=== PATIENT | female | born 1965 | race Caucasian/White ===

== ENCOUNTER 2018-08-28 10:30 | Observation (INO) | payer BC, SELFPAY ==
--- OUTSIDE RECORDS SUMMARY | 2018-08-28 10:32 | XMS REPORT | Clinical Summary ---
:1965 Author Organization [facility] Address [address] [place] [id number] Care Team Providers Name Role Phone Daniel Marion MD Primary Care Provider Allergies Active Allergy Reactions Severity Noted Date Comments Meperidine Swelling High 05/18/2016 Penicillins Swelling High 05/18/2016 Current Medications Prescription Sig. Disp. Refills Start Date End Date Status warfarin (COUMADIN) 7.5 Take 1 tablet 30 tablet 0 05/19/2016 Active MG tablet (7.5 mg total) by mouth daily. Active Problems Problem Noted Date Chest pain 05/19/2016 PAF (paroxysmal atrial fibrillation) (HCC) 05/19/2016 HTN (hypertension) 05/19/2016 GERD (gastroesophageal reflux disease) 05/19/2016 Social History Tobacco Use Types Packs/Day Years Used Date Never Assessed Sex Assigned at Date Recorded Not on file Last Filed Vital Signs Not on file Plan of Treatment Health Maintenance Due Date Last Done Comments CERVICAL CANCER SCREENING 1987 BREAST CANCER SCREENING 02/19/2016 COLON CANCER SCREENING 02/19/2016 SHINGRIX VACCINE (#1) 02/19/2016 INFLUENZA VACCINE 06/05/2018 Results Not on fileafter 08/27/2017 Insurance Payer Benefit Plan / Group Subscriber ID Type Phone Address CIGNA CIGNA INDEMNITY xxxxxxxxxxx Indemnity C[employer] C[employer]NA CONNECT xxxxxxxxxxx HMO Home: Jennifer KALLIE TONG [phone] [place], [place] [id number]
[2018-08-28 11:09] LABS: Absolute Lymphocytes (CBC) 1.1 K/uL (0.7-4.9); Absolute Monocytes 0.5 K/uL (0.1-1.3); Absolute Neutrophil 5.7 K/uL (1.8-8.0); Basophils % 0.6 % (0-1.3); Eosinophils % 1.4 % (0-4.4); Hematocrit 44.5 % (36.0-45.0); Lymphocytes % 14.8 % (15.3-44.8); MCH 31.9 pg (27.0-35.0); MCV 91.5 fL (80-100); MPV 9.5 fL (7.6-11.3); Monocytes % 7.2 % (3.3-12.3); Protime INR 2.83; RBC Red Blood Cell Count 4.87 M/uL (3.86-4.86)
[2018-08-28 11:22] LABS: ALT/SGPT 31 U/L (12-78); AST/SGOT 26 U/L (15-37); Albumin 4.4 g/dL (3.4-5.0); Alkaline Phosphatase 81 U/L (45-117); BUN Blood Urea Nitrogen 17 mg/dL (7-18); Bicarbonate 29 mmol/L (21-32); Bilirubin Direct 0.1 mg/dL (0-0.2); Bilirubin Total 0.6 mg/dL (0.2-1.0); Glucose Level 87 mg/dL (74-106); Magnesium 2.2 mg/dL (1.8-2.4); NT PRO-BNP 47 pg/mL (<125); Potassium 3.7 mmol/L (3.5-5.1); Sodium Level 142 mmol/L (136-145); Troponin (Emerg Dept Use Only) < 0.02 ng/mL (0.0-0.045)
--- NOTE | 2018-08-28 11:39 | RAD REPORT ---
EXAM DESCRIPTION: RAD - Chest Single View - 08/28/2018 11:18 am CLINICAL HISTORY: CHEST PAIN Chest pain. COMPARISON: Chest Single View dated 09/25/2017; Chest Pa And Lat (2 Views) dated 03/22/2016; CHEST SI NGLE VIEW dated 12/24/2014; CHEST SINGLE VIEW dated 12/24/2014; Chest For Pe Angio dated 09/25/2017 FINDINGS: Portable technique limits examination quality. Chronically elevated right hemidiaphragm is noted. The lungs are grossly clear. The heart is normal i n size. No displaced fractures.Sternotomy wires present. IMPRESSION: No acute intrathoracic process suspected.
[2018-08-28] MEDS ORDERED: CIPROFLOXACIN HCL 500 MG TAB ONE (12:17)
[2018-08-28] MEDS ORDERED: metroNIDAZOLE 500 MG TABLET ONE (12:17)
[2018-08-28] MEDS ORDERED: ASPIRIN 81 MG CHEWABLE TABLET ONE (12:17)
--- NOTE | 2018-08-28 12:17 | EDPHYS ---
Physician Documentation [facility] Name: Yen Jackson Age: 53 yrs Sex: Female : 1965 Arrival Date: 08/28/2018 Time: 10:31 Bed 2 Private MD: Srikanth Madison ED Physician Kenneth Solorzano HPI: 08/28 12:13 This 53 yrs old Female presents to ER via Ambulatory with complaints of Chest jr8 Pain, Nausea and diarrhea. 12:13 Patient stated that she was in [place] last week. Started to have n/v/d. Diarrhea has jr8 been persistent since then. Now having chest pain and tightness radiating to left neck. History of mechanical heart valve and thoracic aortic aneurysm repair. Severity of symptoms: At their worst the symptoms were moderate in the emergency department the symptoms are unchanged. The patient has not experienced similar symptoms in the past. The patient has not recently seen a physician. Historical: - Allergies: 10:36 Demerol; aj1 10:36 PENICILLINS; aj1 - Home Meds: 10:54 Protonix 40 mg Oral TbEC 1 tab once daily [Active]; sotalol 80 mg Oral tab 1 tab 2 sv times per day [Active]; bupropion HCl 150 mg Oral TbER 1 tab once daily [Active]; warfarin 8-9 mg daily Oral tab [Active]; - PMHx: 10:36 Atrial Fib; Hypertension; mechanical heart valve; aj1 - PSHx: 10:36 AAA repair; aj1 - Immunization history:: Adult Immunizations up to date. - Social history:: Smoking status: Patient/guardian denies using tobacco. - Ebola Screening: : No symptoms or risks identified at this time. ROS: 12:13 Eyes: Negative for injury, pain, redness, and discharge, ENT: Negative for injury, jr8 pain, and discharge, Neck: Negative for injury, pain, and swelling, Respiratory: Negative for shortness of breath, cough, wheezing, and pleuritic chest pain, Back: Negative for injury and pain, MS/Extremity: Negative for injury and deformity, Skin: Negative for injury, rash, and discoloration, Neuro: Negative for headache, weakness, numbness, tingling, and seizure. 12:13 Cardiovascular: Positive for chest pain, Negative for edema, orthopnea, palpitations, paroxysmal nocturnal dyspnea. 12:13 Abdomen/GI: Positive for nausea, vomiting, and diarrhea, abdominal cramps, Negative for abdominal pain, abdominal distension, anorexia, dysphagia, hematemesis, black/tarry stool, rectal pain, rectal bleeding, bowel incontinence, flatulence. Exam: 12:13 Eyes: Pupils equal round and reactive to light, extra-ocular motions intact. Lids and jr8 lashes normal. Conjunctiva and sclera are non-icteric and not injected. Cornea within normal limits. Periorbital areas with no swelling, redness, or edema. ENT: Nares patent. No nasal discharge, no septal abnormalities noted. Tympanic membranes are normal and external auditory canals are clear. Oropharynx with no redness, swelling, or masses, exudates, or evidence of obstruction, uvula midline. Mucous membranes moist. Neck: Trachea midline, no thyromegaly or masses palpated, and no cervical lymphadenopathy. Supple, full range of motion without nuchal rigidity, or vertebral point tenderness. No Meningismus. Cardiovascular: Regular rate and rhythm with a normal S1 and S2. No gallops, murmurs, or rubs. Normal PMI, no JVD. No pulse deficits. Mechanical valve auscultated Respiratory: Lungs have equal breath sounds bilaterally, clear to auscultation and percussion. No rales, rhonchi or wheezes noted. No increased work of breathing, no retractions or nasal flaring. Abdomen/GI: Soft, non-tender, with normal bowel sounds. No distension or tympany. No guarding or rebound. No evidence of tenderness throughout. Back: No spinal tenderness. No costovertebral tenderness. Full range of motion. Skin: Warm, dry with normal turgor. Normal color with no rashes, no lesions, and no evidence of cellulitis. MS/ Extremity: Pulses equal, no cyanosis. Neurovascular intact. Full, normal range of motion. Neuro: Awake and alert, GCS 15, oriented to person, place, time, and situation. Cranial nerves II-XII grossly intact. Motor strength 5/5 in all extremities. Sensory grossly intact. Cerebellar exam normal. Normal gait. Vital Signs: 10:36 BP 153 / 102; Pulse 77; Resp 20; Temp 97.0; Pulse Ox 98% on R/A; Weight 83.91 kg (R); aj1 Height 5 ft. 7 in. (170.18 cm); Pain 6/10; 10:40 BP 161 / 91; Pulse 76 MON; Resp 20; Pulse Ox 97% on R/A; sv 11:30 BP 143 / 78; Pulse 69; Resp 18; Pulse Ox 96% ; sv 12:52 BP 159 / 90; Pulse 63; Resp 21; Pulse Ox 100% on R/A; sv 12:59 Pain 2/10; sv 13:27 BP 132 / 81; Pulse 65; Resp 24; Pulse Ox 98% on R/A; sv 10:36 Body Mass Index 28.97 (83.91 kg, 170.18 cm) aj1 10:40 Sinus Rhythm sv MDM: 10:43 Patient medically screened. jr8 12:13 Data reviewed: vital signs, nurses notes, lab test result(s), EKG, radiologic studies, jr8 plain films. Data interpreted: Pulse oximetry: on room air is 97 %. Interpretation: normal. Counseling: I had a detailed discussion with the patient and/or guardian regarding: the historical points, exam findings, and any diagnostic results supporting the discharge/admit diagnosis, lab results, radiology results, the need for further work-up and treatment in the hospital. Physician consultation: Marsha Vega MD was called at 12:16, was contacted at 12:16, regarding admission, to the telemetry unit. consult, patient's condition, and will see patient. 08/28 10:39 Order name: Basic Metabolic Panel; Complete Time: 11:34 sv 08/28 10:39 Order name: CBC with Diff; Complete Time: 11:17 08/28 10:39 Order name: LFT's; Complete Time: 11:34 sv 08/28 10:39 Order name: Magnesium; Complete Time: 11:34 sv 08/28 10:39 Order name: NT PRO-BNP; Complete Time: 11:34 sv 08/28 10:39 Order name: PT-INR; Complete Time: 11:17 08/28 10:39 Order name: Troponin (emerg Dept Use Only); Complete Time: 11:34 sv 08/28 10:39 Order name: XRAY Chest (1 view); Complete Time: 11:41 sv 08/28 10:39 Order name: EKG; Complete Time: 10:40 sv 08/28 10:39 Order name: Cardiac monitoring; Complete Time: 10:59 sv 08/28 10:39 Order name: EKG - Nurse/Tech; Complete Time: 10:59 sv 08/28 10:39 Order name: IV Saline Lock; Complete Time: 10:59 sv 08/28 10:39 Order name: Labs collected and sent; Complete Time: 10:59 sv 08/28 10:39 Order name: O2 Per Protocol; Complete Time: 10:59 sv 08/28 10:39 Order name: O2 Sat Monitoring; Complete Time: 10:59 sv Administered Medications: 12:18 Drug: Zofran 4 mg Route: IVP; Site: right antecubital; sv 12:59 Follow up: Response: No adverse reaction sv 12:20 Drug: fentaNYL (PF) 25 mcg Route: IVP; Site: right antecubital; sv 12:59 Follow up: Pain /10 Adult; Response: No adverse reaction; Pain is decreased sv 12:24 Drug: Aspirin Chewable Tablet 324 mg Route: PO; sv 12:59 Follow up: Response: No adverse reaction sv 12:24 Drug: Cipro 500 mg Route: PO; sv 12:59 Follow up: Response: No adverse reaction sv 12:24 Drug: Flagyl 500 mg Route: PO; sv 12:58 Follow up: Response: No adverse reaction sv Disposition: 08/28/18 12:17 Hospitalization ordered by Marsha Vega for Observation. Preliminary diagnosis are Chest pain, unspecified, Diarrhea, unspecified. - Bed requested for Telemetry/MedSurg (observation). - Status is Observation. sg - Condition is Stable. - Problem is new. - Symptoms have improved. UTI on Admission? No Signatures: Dispatcher [employer] EDRI Antoinette Mansfield RN RN aj1 Mera Barone RN RN sv Tate Connolly RN RN sg Vasu Henriquez PA PA jr8 Radha Mitchell RN RN df Corrections: (The following items were deleted from the chart) 13:22 12:17 Hospitalization Ordered by Marsha Vega MD for Observation. Preliminary df diagnosis is Chest pain, unspecified; Diarrhea, unspecified. Bed requested for Telemetry/MedSurg (observation). Status is Observation. Condition is Stable. Problem is new. Symptoms have improved. UTI on Admission? No. jr8 14:31 13:22 08/28/2018 12:17 Hospitalization Ordered by Marsha Vega MD for Observation. sg Preliminary diagnosis is Chest pain, unspecified; Diarrhea, unspecified. Bed requested for Telemetry/MedSurg (observation). Status is Observation. Condition is Stable. Problem is new. Symptoms have improved. UTI on Admission? No. df
--- NOTE | 2018-08-28 12:17 | ER ---
Nurse's Notes [facility] Name: Yen Jackson Age: 53 yrs Sex: Female : 1965 Arrival Date: 08/28/2018 Time: 10:31 Bed 2 Private MD: Srikanth Madison Diagnosis: Chest pain, unspecified;Diarrhea, unspecified Presentation: 08/28 10:33 Presenting complaint: Patient states: "I have a mechanical heart valve, I'm having aj1 chest pain that goes up into my neck. I've had diarrhea for 4 days." Reports N/V/D. Reports SOB. States "I have an aortic aneurysm repaired, but this feels like the chest pain I had with that". Transition of care: patient was not received from another setting of care. Onset of symptoms was August 28, 2018 at 05:30. Risk Assessment: Do you want to hurt yourself or someone else? Patient reports no desire to harm self or others. 10:33 Method Of Arrival: Ambulatory aj1 10:33 Acuity: MONA 2 aj1 10:40 Initial Sepsis Screen: Does the patient meet any 2 criteria? No. Patient's initial sv sepsis screen is negative. Does the patient have a suspected source of infection? No. Patient's initial sepsis screen is negative. Care prior to arrival: None. Triage Assessment: 10:36 General: Appears uncomfortable, Behavior is calm, cooperative, appropriate for age. aj1 Pain: Complains of pain in mid-sternal area Pain radiates to neck Pain currently is 7 out of 10 on a pain scale. Cardiovascular: Patient's skin is warm and dry. Respiratory: Airway is patent Respiratory effort is even, unlabored, Respiratory pattern is regular, symmetrical. Historical: - Allergies: 10:36 Demerol; aj1 10:36 PENICILLINS; aj1 - Home Meds: 10:54 Protonix 40 mg Oral TbEC 1 tab once daily [Active]; sotalol 80 mg Oral tab 1 tab 2 sv times per day [Active]; bupropion HCl 150 mg Oral TbER 1 tab once daily [Active]; warfarin 8-9 mg daily Oral tab [Active]; - PMHx: 10:36 Atrial Fib; Hypertension; mechanical heart valve; aj1 - PSHx: 10:36 AAA repair; aj1 - Immunization history:: Adult Immunizations up to date. - Social history:: Smoking status: Patient/guardian denies using tobacco. - Ebola Screening: : No symptoms or risks identified at this time. Screenin:55 Abuse screen: Denies threats or abuse. Denies injuries from another. Nutritional sv screening: No deficits noted. Tuberculosis screening: No symptoms or risk factors identified. Fall Risk None identified. Assessment: 10:40 Also complains of nausea, shortness of breath. General: Appears in no apparent sv distress. well developed, Behavior is calm, cooperative, appropriate for age. Pain: Complains of pain in left breast Pain radiates to left clavicle, anterior aspect of left shoulder and left lateral aspect of neck Pain currently is 6 out of 10 on a pain scale. Pain began this morning Is intermittent, Aggravated by deep breathing. Neuro: Level of Consciousness is awake, alert, obeys commands, Oriented to person, place, time, situation, Moves all extremities. Full function Gait is steady, Speech is normal. Cardiovascular: Heart tones S1 S2 present Patient's skin is warm and dry. Rhythm is sinus rhythm. Respiratory: Airway is patent Respiratory effort is even, unlabored, Respiratory pattern is regular, symmetrical, Breath sounds are clear bilaterally. GI: Reports diarrhea, nausea, tolerance of fluids. Derm: Skin is pink, warm \\T\\ dry. 12:40 Reassessment: Patient appears in no apparent distress at this time. Patient and/or sv family updated on plan of care and expected duration. Pain level reassessed. Patient is alert, oriented x 3, equal unlabored respirations, skin warm/dry/pink. Patient states feeling better. Patient states symptoms have improved. 12:57 Reassessment: Ok by Vasu YEBOAH for pt to take her own home medications which include sv Wellbutrin, Protonix, Sotalol, and Warfarin. 13:57 Reassessment: Patient appears in no apparent distress at this time. Patient and/or sv family updated on plan of care and expected duration. Pain level reassessed. Patient is alert, oriented x 3, equal unlabored respirations, skin warm/dry/pink. Patient states feeling better. Patient states symptoms have improved. Vital Signs: 10:36 BP 153 / 102; Pulse 77; Resp 20; Temp 97.0; Pulse Ox 98% on R/A; Weight 83.91 kg (R); aj1 Height 5 ft. 7 in. (170.18 cm); Pain 6/10; 10:40 BP 161 / 91; Pulse 76 MON; Resp 20; Pulse Ox 97% on R/A; sv 11:30 BP 143 / 78; Pulse 69; Resp 18; Pulse Ox 96% ; sv 12:52 BP 159 / 90; Pulse 63; Resp 21; Pulse Ox 100% on R/A; sv 12:59 Pain 2/10; sv 13:27 BP 132 / 81; Pulse 65; Resp 24; Pulse Ox 98% on R/A; sv 10:36 Body Mass Index 28.97 (83.91 kg, 170.18 cm) aj1 10:40 Sinus Rhythm sv ED Course: 10:31 Patient arrived in ED. as 10:31 Srikanth Madison MD is Private Physician. as 10:35 Triage completed. aj1 10:36 Arm band placed on Patient placed in an exam room. aj1 10:39 Mera Barone, YVES is Primary Nurse. sv 10:40 Patient has correct armband on for positive identification. Placed in gown. Bed in low sv position. manager monitoring on. Pulse ox on. NIBP on. Door closed. Warm blanket given. Head of bed elevated. 10:40 Initial lab(s) drawn, by me, sent to lab. Inserted saline lock: 20 gauge in right sv antecubital area, using aseptic technique. Blood collected. Flushed right antecubital with 5 ml normal saline. 10:40 Patient maintains SpO2 saturation greater than 95% on room air. sv 10:43 Vasu Henriquez PA is PHCP. jr8 10:43 Kenneth Solorzano MD is Attending Physician. jr8 10:55 Nurse Practitioner and/or Physician Steam Meter Reader to see patient. sv 11:02 EKG done, by radiologic technician. reviewed by Vasu YEBOAH. at1 11:18 X-ray completed. Portable x-ray completed in exam room. Patient tolerated procedure mh1 well. 11:19 XRAY Chest (1 view) In Process Unspecified. EDMS 12:17 Marsha Vega MD is Hospitalizing Provider. jr8 13:56 No provider procedures requiring assistance completed. sv 13:57 Patient admitted, IV remains in place. intact. sv Administered Medications: 12:18 Drug: Zofran 4 mg Route: IVP; Site: right antecubital; sv 12:59 Follow up: Response: No adverse reaction sv 12:20 Drug: fentaNYL (PF) 25 mcg Route: IVP; Site: right antecubital; sv 12:59 Follow up: Pain 2/10 Adult; Response: No adverse reaction; Pain is decreased sv 12:24 Drug: Aspirin Chewable Tablet 324 mg Route: PO; sv 12:59 Follow up: Response: No adverse reaction sv 12:24 Drug: Cipro 500 mg Route: PO; sv 12:59 Follow up: Response: No adverse reaction sv 12:24 Drug: Flagyl 500 mg Route: PO; sv 12:58 Follow up: Response: No adverse reaction sv Outcome: 12:17 Decision to Hospitalize by Provider. yunior 13:57 Admitted to Tele accompanied by tech, via wheelchair, room 410, with chart, Report sv called to Yadira MARINELLI 13:57 Condition: stable 13:57 Instructed on the need for admit. 14:31 Patient left the ED. sg Signatures: Dispatcher [employer] EDAntoinette Carballo RN RN aj1 Mera Barone RN RN sv Gay, Steven, RN RN sg Pamella Fiore1 Juana Schultz Josh, PA PA jr8 Sherrell Ferrara, heavy forging machine operator EKG Tat1 Corrections: (The following items were deleted from the chart) 10:41 10:33 Presenting complaint: Patient states: "I have a mechanical heart valve, I'm aj1 having chest pain that goes up into my neck. I've had diarrhea for 4 days." Reports N/V/D. Reports SOB. aj1
[2018-08-28] MEDS ORDERED: FENTANYL CITR 100 MCG/2 ML ONE (12:18)
[2018-08-28] MEDS ORDERED: ONDANSETRON 4 MG/2 ML VIAL ONE (12:18)
--- NOTE | 2018-08-28 13:29 | EKG ---
Test Date: 2018-08-28 Test Time: 11:01:20 Foundation Assistant: SUKHI MEASUREMENT RESULTS: Intervals: Rate: 70 WI: 142 QRSD: 84 QT: 410 QTc: 442 Steedman: P: 50 WI: 142 QRS: 30 T: 81 INTERPRETIVE STATEMENTS: Normal sinus rhythm Normal ECG Compared to ECG 09/26/2017 07:59:48 Sinus bradycardia no longer present Electronically Signed On 08-28-18 13:28:43 CDT by Theodore Scott
[2018-08-28 14:33] VITALS: BMI 28.5
[2018-08-28] MEDS ORDERED: ONDANSETRON 4 MG/2 ML VIAL IV PRN (14:36)
[2018-08-28] MEDS ORDERED: ACETAMINOPHEN 500 MG TAB PO PRN (14:36)
[2018-08-28] MEDS: NA CHLORIDE 0.9% 1,000 ML IV SCH (15:49)
[2018-08-28 15:50] LABS: Thyroid Stimulating Hormone 0.627 uIU/mL (0.360-3.740); Troponin I < 0.02 ng/mL (0.0-0.045)
--- NOTE | 2018-08-28 16:12 | P.HP ---
Certification for Inpatient Patient admitted to: Observation With expected LOS: <2 Midnights Patient will require the following post-hospital care: None Practitioner: I am a practitioner with admitting privileges, knowledge of patient current condition, hospital course, and medical plan of care. Services: Services provided to patient in accordance with Admission requirements found in Title 42 Section 412.3 of the Code of Federal Regulations Patient History Date of Service: 08/28/18 Primary Care Provider: Dr Alfredo - cardiology Reason for admission: Chest pain History of Present Illness: This is a 53 y/o female with history of his atrial fibrillation, hypertension, mitral valve replacement who presented to the ED complaining of having some chest pain. Patient stated that about a week ago she came back from [place] where she started having some nausea vomiting and diarrhea along with that and this morning around 530 started noticing that she was having some left-sided pain that was radiating to her neck. Pain was dull and sharp in nature. Patient stated that she had similar pain in the past when she had her aortic aneurysm repaired as well. Patient denied having any shortness of breath is abdominal pain or any other associated symptoms at this time. Aside from having chest pain or other complaints were offered. Diarrhea has been watery in nature. Did stop Couple a days ago however resumed this morning again. Allergies meperidine HCl [From Demerol] Allergy (Intermediate, Verified 12/23/14 04:36) UNKNOWN Penicillins Allergy (Intermediate, Verified 12/23/14 04:36) UNKNOWN Home Medications: Pantoprazole [Protonix Tab*] 40 mg PO BID #60 tab 12/24/14 Bupropion *Xl* [Wellbutrin XL] 150 mg PO DAILY 08/28/18 Sotalol HCl [Betapace] 40 mg PO DAILY 08/28/18 Warfarin Sodium [Coumadin] 8 mg PO DAILY 08/28/18 - Past Medical/Surgical History Diabetic: No -: CERVICAL CA -: AFIB -: HIGH CHOLESTEROL -: TIA x2 -: TRIPLE AAA -: FORMER SMOKER -: EARLY ONSET DEMENTIA (FAMILY QUESTIONS DIAGNOSIS) -: HYSTERECTOMY WITH REMOVAL OF APPENDIX -: Mitral valve repair -: Ascending aortic aneurysm repair - Family History Father -: Heart disease Mother -: Heart disease, Diabetes Sister -: Heart disease Brother -: Heart disease - Social History Smoking Status: Heavy Tobacco smoker (>10 cigarettes/day) Alcohol use: Yes CD- Drugs: No Caffeine use: Yes Place of Residence: Home Review of Systems 10-point ROS is otherwise unremarkable Physical Examination - Vital Signs Temperature: 97.5 F Blood Pressure: 130/71 Pulse: 63 Respirations: 16 Pulse Ox (%): 97 - Physical Exam General: Alert, In no apparent distress HEENT: Atraumatic, PERRLA, Mucous membr. moist/pink, EOMI, Sclerae nonicteric Neck: Supple, 2+ carotid pulse no bruit, No LAD, Without JVD or thyroid abnormality Respiratory: Clear to auscultation bilaterally, Normal air movement Cardiovascular: Regular rate/rhythm, Normal S1 S2 Gastrointestinal: Normal bowel sounds, No tenderness Musculoskeletal: No tenderness Integumentary: No rashes Neurological: Normal gait, Normal speech, Normal strength at 5/5 x4 extr, Normal tone, Normal affect Lymphatics: No axilla or inguinal lymphadenopathy - Studies Laboratory Data (last 24 hrs) 08/28/18 08:40: PT 33.8 H, INR 2.83 08/28/18 08:40: WBC 7.5, Hgb 15.5 H, Hct 44.5, Plt Count 248 08/28/18 08:40: Sodium 142, Potassium 3.7, BUN 17, Creatinine 1.00, Glucose 87, Magnesium 2.2, Total Bilirubin 0.6, AST 26, ALT 31, Alkaline Phosphatase 81 Assessment and Plan - Problems (Diagnosis) (1) Chest pain, rule out acute myocardial infarction Onset Date: 09/26/17 Current Visit: No Status: Acute Plan: Atypical chest pain most likely 2.2 to reflux vs N/V -cardiology consulted. 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
[2018-08-28] MEDS: PANTOPRAZOLE 40MG TABLET PO SCH (17:00)
[2018-08-28 17:27] LABS: Urine Appearance CLOUDY; Urine Bilirubin NEGATIVE (NEG); Urine Blood 2+ (NEG); Urine Color DK YELLOW; Urine Glucose NEGATIVE (NEG); Urine Protein NEGATIVE (NEG); Urine Specific Gravity 1.025 (1.005-1.030); Urine Urobilinogen 0.2 mg/dL (0.2-1.0); Urine pH 5.5 (5.0-7.0)
[2018-08-28 17:43] LABS: Urine Bacteria 20-50 /HPF (<20); Urine Culture Reflex Order REFLEXED; Urine Mucus MOD /HPF (NONE SEEN); Urine RBC 20-50 /HPF (NONE SEEN)
[2018-08-28] MEDS: TRAMADOL HCL 50 MG TAB PO PRN (20:42)
[2018-08-29] MEDS: NA CHLORIDE 0.9% 1,000 ML IV SCH ×2 (00:47→12:04)
[2018-08-29 01:58] VITALS: O2SAT 96
[2018-08-29 06:46] LABS: Absolute Lymphocytes (CBC) 1.2 K/uL (0.7-4.9); Absolute Monocytes 0.5 K/uL (0.1-1.3); Eosinophils % 2.2 % (0-4.4); Hematocrit 38.6 % (36.0-45.0); Lymphocytes % 24.4 % (15.3-44.8); MCH 30.9 pg (27.0-35.0); MCV 92.8 fL (80-100); MPV 9.8 fL (7.6-11.3); Monocytes % 10.4 % (3.3-12.3); RBC Red Blood Cell Count 4.16 M/uL (3.86-4.86)
[2018-08-29 06:58] LABS: Albumin 3.2 g/dL (3.4-5.0); Bilirubin Total 0.4 mg/dL (0.2-1.0)
[2018-08-29] MEDS: PANTOPRAZOLE 40MG TABLET PO SCH (08:18)
[2018-08-29] MEDS: TRAMADOL HCL 50 MG TAB PO PRN (08:19)
[2018-08-29] MEDS ORDERED: SOTALOL HCL 80 MG TAB PO SCH (09:00)
[2018-08-29] MEDS ORDERED: BUPROPION HCL XL 150 MG TAB PO SCH (09:00)
[2018-08-29] MEDS ORDERED: WARFARIN SODIUM 4 MG TAB PO SCH (09:00)
[2018-08-29 12:17] VITALS: BP 134/79; TEMP 98.4
--- NOTE | 2018-08-29 16:00 | P.SSS ---
Patient History Date of Service: 08/29/18 Primary Care Provider: Dr Alfredo - cardiology Reason for admission: Chest pain History of Present Illness: This is a 53 y/o female with history of his atrial fibrillation, hypertension, mitral valve replacement who presented to the ED complaining of having some chest pain. Patient stated that about a week ago she came back from [employer] where she started having some nausea vomiting and diarrhea along with that and this morning around 530 started noticing that she was having some left-sided pain that was radiating to her neck. Pain was dull and sharp in nature. Patient stated that she had similar pain in the past when she had her aortic aneurysm repaired as well. Patient denied having any shortness of breath is abdominal pain or any other associated symptoms at this time. Aside from having chest pain or other complaints were offered. Diarrhea has been watery in nature. Did stop Couple a days ago however resumed this morning again. Allergies meperidine HCl [From Demerol] Allergy (Intermediate, Verified 12/23/14 04:36) UNKNOWN Penicillins Allergy (Intermediate, Verified 12/23/14 04:36) UNKNOWN Home Medications: Pantoprazole [Protonix Tab*] 40 mg PO BID #60 tab 12/24/14 Bupropion *Xl* [Wellbutrin XL*] 150 mg PO DAILY 08/28/18 Sotalol HCl [Betapace*] 40 mg PO DAILY 08/28/18 Warfarin Sodium [Coumadin*] 8 mg PO DAILY 08/28/18 - Past Medical/Surgical History Diabetic: No -: CERVICAL CA -: AFIB -: HIGH CHOLESTEROL -: TIA x2 -: TRIPLE AAA -: FORMER SMOKER -: EARLY ONSET DEMENTIA (FAMILY QUESTIONS DIAGNOSIS) -: HYSTERECTOMY WITH REMOVAL OF APPENDIX -: Mitral valve repair -: Ascending aortic aneurysm repair - Family History Father -: Heart disease Mother -: Heart disease, Diabetes Sister -: Heart disease Brother -: Heart disease - Social History Smoking Status: Heavy Tobacco smoker (>10 cigarettes/day) Alcohol use: Yes CD- Drugs: No Caffeine use: Yes Place of Residence: Home Review of Systems 10-point ROS is otherwise unremarkable Physical Examination - Vital Signs Temperature: 98.4 F Blood Pressure: 134/79 Pulse: 58 Respirations: 20 Pulse Ox (%): 95 - Physical Exam General: Alert, In no apparent distress HEENT: Atraumatic, PERRLA, Mucous membr. moist/pink, EOMI, Sclerae nonicteric Neck: Supple, 2+ carotid pulse no bruit, No LAD, Without JVD or thyroid abnormality Respiratory: Clear to auscultation bilaterally, Normal air movement Cardiovascular: Regular rate/rhythm, Normal S1 S2 Gastrointestinal: Normal bowel sounds, No tenderness Musculoskeletal: No tenderness Integumentary: No rashes Neurological: Normal gait, Normal speech, Normal strength at 5/5 x4 extr, Normal tone, Normal affect Lymphatics: No axilla or inguinal lymphadenopathy - Diagnosis (Problem(s)) (1) Chest pain, rule out acute myocardial infarction Onset Date: 09/26/17 Status: Acute (2) Viral gastroenteritis Onset Date: 08/29/18 Status: Resolved (3) Atrial fibrillation Onset Date: 08/29/18 Status: Chronic Qualifiers: Atrial fibrillation type: chronic Qualified Code(s): I48.2 - Chronic atrial fibrillation (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 Patient was seen by cardiology who recommended the patient be discharged home as patient's chest pain was most likely secondary to viral illness. Patient had recent echocardiogram done here in the hospital which was within normal limits. Patient also had her cardiac catheterization done last year after she was found to have aortic aneurysm. Cardiac catheterization was completely negative and patient had no complications after the aortic aneurysm repair. Chest pain did resolve while here in the hospital. Patient then was discharged home under stable condition was asked to follow up with her primary care provider. Patient also was complaining of having some diarrhea and nausea and vomiting on admission which have all resolved by the time of discharge. - Disposition Disposition: ROUTINE DISCHARGE Condition: GOOD Diet: Regular Activity: Ad david
--- NOTE | 2018-08-30 08:00 | ECHO ---
HEIGHT: 5 ft 7 in WEIGHT: 182 lb 0 oz DATE OF STUDY: 08/29/[address]: Marsha Vega MD 2-DIMENSIONAL: YES M.MODE: YES DOPPLER: YES COLOR FLOW: YES TDS: NO PORTABLE: NO DEFINITY: NO BUBBLE STUDY: NO DIAGNOSIS: CHEST PAIN CARDIAC HISTORY: CATHERIZATION: YES SURGERY: YES PROSTHETIC VALVE: YES PACEMAKER: NO MEASUREMENTS (cm) DIASTOLIC (NORMALS) SYSTOLIC (NORMALS) IVSd 1.3 (0.6-1.2) LA Diam 5.3 (1.9-4.0) LVEF 64% LVIDd 3.6 (3.5-5.7) LVIDs 2.4 (2.0-3.5) %FS 34% LVPWd 1.3 (0.6-1.2) Ao Diam 3.1 (2.0-3.7) 2 DIMENSIONAL ASSESSMENT: RIGHT ATRIUM: NORMAL LEFT ATRIUM: DILATED RIGHT VENTRICLE: NORMAL LEFT VENTRICLE: NORMAL TRICUSPID VALVE: NORMAL MITRAL VALVE: NORMAL PULMONIC VALVE: NORMAL AORTIC VALVE: STATUS POST AORTIC VALVE REPLACEMENT PERICARDIAL EFFUSION: NONE AORTIC ROOT: NORMAL LEFT VENTRICULAR WALL MOTION: NORMAL DOPPLER/COLOR FLOW: TRACE AORTIC REGURGITATION. COMMENTS: TRACE AORTIC REGURGITATION. NORMAL BIOPROSTHETIC AORTIC VALVE FUNCTION. NORMAL LEFT VENTRICULAR SIZE AND FUNCTION. NO VEGETATION. NO THROMBUS. LEFT ATRIAL ENLARGEMENT. TECHNOLOGIST: Luca LOPEZ
== END 2018-08-29 14:47 | disposition home or self-care (01) ==
LOC: ER 10:30 → ERHOLD 12:36 → 4TH 13:58
PROVIDERS: ADMIT Family Medicine; ATTEND Family Medicine
DX: R07.9 Chest pain, unspecified (principal); A08.4 Viral intestinal infection, unspecified; I48.91 Unspecified atrial fibrillation; I10 Essential (primary) hypertension; Z88.0 Allergy status to penicillin; Z86.73 Personal history of transient ischemic attack (TIA), and cerebral infarction without residual deficits; Z95.2 Presence of prosthetic heart valve; Z79.01 Long term (current) use of anticoagulants
CPT/HCPCS: 36415; 71045; 80048; 80053; 80061; 80076; 81001; 83735; 83880; 84443; 84484; 85025; 85610; 87086; 87088; 93005; 93306; 96374; 96375; 99285; G0378; J2405; J3010; J7030

== ENCOUNTER 2018-10-25 18:27 | Emergency (ER) | payer BC ==
--- OUTSIDE RECORDS SUMMARY | 2018-10-25 19:07 | XMS REPORT | Clinical Summary ---
:1965 Author Organization [facility] Address [address] [place] [id number] Care Team Providers Name Role Phone Daniel Marion MD Primary Care Provider Allergies Active Allergy Reactions Severity Noted Date Comments Meperidine Swelling High 05/18/2016 Penicillins Swelling High 05/18/2016 Medications Medication Sig Dispensed Refills Start Date End Date Status warfarin (COUMADIN) Take 1 tablet (7.5 30 tablet 0 05/19/2016 Active 7.5 MG tablet mg total) by mouth daily. Active Problems Problem Noted Date Chest pain 05/19/2016 PAF (paroxysmal atrial fibrillation) 05/19/2016 HTN (hypertension) 05/19/2016 GERD (gastroesophageal reflux disease) 05/19/2016 Social History Tobacco Use Types Packs/Day Years Used Date Never Assessed Sex Assigned at Date Recorded Not on file Job Start Date Occupation Industry Not on file Not on file Not on file Travel History Travel Start Travel End No recent travel history available. Last Filed Vital Signs Not on file Plan of Treatment Health Maintenance Due Date Last Done Comments CERVICAL CANCER SCREENING 1987 BREAST CANCER SCREENING 02/19/2016 COLON CANCER SCREENING 02/19/2016 SHINGLES VACCINES (1 of 2) 02/19/2016 INFLUENZA VACCINE 06/05/2018 Results Not on fileafter 10/24/2017 Insurance Payer Benefit Plan / Group Subscriber ID Type Phone Address CIGNA CIGNA INDEMNITY xxxxxxxxxxx Indemnity CIG[employer] C[employer]NA CONNECT xxxxxxxxxxx HMO Advance Directives Patient has advance care planning documents, and code status on file. For more information, please contact:[place] [address] Code Status Date Activated Date Inactivated Comments Full Code 05/19/2016 12:26 AM 05/19/2016 11:05 PM Code Status decision reached by: Patient
[2018-10-25] MEDS ORDERED: ONDANSETRON 4 MG/2 ML VIAL ONE (20:12)
[2018-10-25] MEDS ORDERED: NA CHLORIDE 0.9% 1,000 ML ONE (20:12)
[2018-10-25] MEDS ORDERED: MORPHINE 4 MG/ML SYR ONE ×2 (20:12→22:17)
[2018-10-25 20:25] LABS: Absolute Lymphocytes (CBC) 1.1 K/uL (0.7-4.9); Absolute Monocytes 0.6 K/uL (0.1-1.3); Absolute Neutrophil 6.9 K/uL (1.8-8.0); Basophils % 0.4 % (0-1.3); Eosinophils % 0.5 % (0-4.4); Hematocrit 39.6 % (36.0-45.0); Lymphocytes % 12.6 % (15.3-44.8); MCH 31.8 pg (27.0-35.0); MCV 91.6 fL (80-100); MPV 9.2 fL (7.6-11.3); Monocytes % 7.1 % (3.3-12.3); RBC Red Blood Cell Count 4.32 M/uL (3.86-4.86)
[2018-10-25 20:26] LABS: Urine Blood 2+ (NEG); Urine Glucose NEGATIVE (NEG); Urine Protein NEGATIVE (NEG); Urine Specific Gravity 1.025 (1.005-1.030); Urine pH 5.5 (5.0-7.0)
[2018-10-25 20:39] LABS: Albumin 4.1 g/dL (3.4-5.0); Bilirubin Direct 0.3 mg/dL (0-0.2); Bilirubin Total 1.2 mg/dL (0.2-1.0); Potassium 3.8 mmol/L (3.5-5.1); Protein, Total 7.3 g/dL (6.4-8.2)
--- NOTE | 2018-10-25 20:52 | RAD REPORT ---
EXAM DESCRIPTION: CT - Stone Protocol - 10/25/2018 8:41 pm CLINICAL HISTORY: Flank pain. FLANK PAIN COMPARISON: CT ABD PELVIS W CONTRAST dated 06/03/2013; Chest For Pe Angio dated 09/25/2017 TECHNIQUE: Axial images were obtained without oral or IV contrast. Lack of contrast limits solid org an and vascular assessment. The [id number] spans the entirety of the system partially obscuring uppermost abdomen and lung bases. Coronal reformatted images were obtained and reviewed. All CT scans are performed using dose optimization technique as appropriate and may include automated exposure control or mA/KV adjustment according to patient size. FINDINGS: The right hemidiaphragm appears elevated with atelectasis in both lung bases. Imaged portions of the liver and spleen show no suspicious findings on non-contrast imaging. The panc reas and adrenal glands are normal. No pathologic lymphadenopathy in the abdomen or pelvis. 5 mm stone is present in the superior left kidney. No hydronephrosis. No bowel obstruction, free air, free fluid or abscess. The appendix is not identified as a discrete s tructure, however, no secondary findings of appendicitis are identified. Scattered colonic diverticul osis without diverticulitis. No significant bony abnormality. IMPRESSION: 5 mm nonobstructing superior left renal calculus. Diverticulosis coli without diverticulitis. Chronically elevated right hemidiaphragm.
--- NOTE | 2018-10-25 23:00 | EDPHYS ---
Physician Documentation [facility] Name: Yen Jackson Age: 53 yrs Sex: Female : 1965 Arrival Date: 10/25/2018 Time: 18:30 Bed 17 Private MD: ED Physician Johnny Santiago HPI: 10/25 22:25 This 53 yrs old Female presents to ER via Ambulatory with complaints of Back pm1 Pain, Vomiting, Headache. 22:25 The patient presents with pain that is acute, with no known mechanism of injury. The pm1 symptoms are located in the right low back, frontal headache. Onset: The symptoms/episode began/occurred last night. The pain does not radiate. Associated signs and symptoms: Pertinent positives: headache, vomiting, Chills, Pertinent negatives: abdominal pain, chest pain, dysuria, fever, numbness, tingling, weakness. The problem was sustained from unknown cause. Modifying factors: The patient symptoms are alleviated by nothing, the patient symptoms are aggravated by nothing. Severity of symptoms: in the emergency department the symptoms are unchanged. The patient has not recently seen a physician. Patient with complaints of frontal headache onset last night. Right flank pain this AM. No radiation in pain. No urinary symptoms. No fever. Reports sensation of hot flashes, uncertain if it was chills. Historical: - Allergies: 18:34 Demerol; la1 18:34 PENICILLINS; la1 - PMHx: 18:34 Atrial Fib; Hypertension; mechanical heart valve; la1 - Immunization history:: Adult Immunizations up to date. - Social history:: Smoking status: unknown. - Ebola Screening: : No symptoms or risks identified at this time. ROS: 22:25 Eyes: Negative for injury, pain, redness, and discharge. pm1 22:25 ENT: Negative for injury, pain, and discharge, Neck: Negative for injury, pain, and swelling, Cardiovascular: Negative for chest pain, palpitations, and edema, Respiratory: Negative for shortness of breath, cough, wheezing, and pleuritic chest pain. 22:25 : Negative for injury, bleeding, discharge, and swelling, MS/Extremity: Negative for injury and deformity, Skin: Negative for injury, rash, and discoloration. 22:25 Constitutional: Positive for body aches, chills, Negative for fever, poor PO intake. 22:25 Abdomen/GI: Positive for nausea and vomiting, Negative for abdominal pain, diarrhea. 22:25 Back: Positive for flank pain, on the right, Negative for decreased range of motion. 22:25 Neuro: Positive for headache, Negative for altered mental status, dizziness, numbness, tingling, weakness. Exam: 22:25 Constitutional: This is a well developed, well nourished patient who is awake, alert, pm1 and in no acute distress. Head/Face: Normocephalic, atraumatic. Eyes: Pupils equal round and reactive to light, extra-ocular motions intact. Lids and lashes normal. Conjunctiva and sclera are non-icteric and not injected. Cornea within normal limits. Periorbital areas with no swelling, redness, or edema. ENT: Nares patent. No nasal discharge, no septal abnormalities noted. Tympanic membranes are normal and external auditory canals are clear. Oropharynx with no redness, swelling, or masses, exudates, or evidence of obstruction, uvula midline. Mucous membranes moist. Neck: Trachea midline, no thyromegaly or masses palpated, and no cervical lymphadenopathy. Supple, full range of motion without nuchal rigidity, or vertebral point tenderness. No Meningismus. Chest/axilla: Normal chest wall appearance and motion. Nontender with no deformity. No lesions are appreciated. Cardiovascular: Regular rate and rhythm with a normal S1 and S2. No gallops, murmurs, or rubs. Normal PMI, no JVD. No pulse deficits. Respiratory: Lungs have equal breath sounds bilaterally, clear to auscultation and percussion. No rales, rhonchi or wheezes noted. No increased work of breathing, no retractions or nasal flaring. Abdomen/GI: Soft, non-tender, with normal bowel sounds. No distension or tympany. No guarding or rebound. No evidence of tenderness throughout. 22:25 Skin: Warm, dry with normal turgor. Normal color with no rashes, no lesions, and no evidence of cellulitis. MS/ Extremity: Pulses equal, no cyanosis. Neurovascular intact. Full, normal range of motion. 22:25 Back: pain, that is mild, of the right low back, ROM is normal, normal spinal alignment noted, vertebral tenderness, is not appreciated. 22:25 Neuro: Orientation: is normal, Cranial nerves: CN II- XII are normal as tested, Motor: moves all fours, strength is normal, strength is 5/5 in all extremities, Sensation: is normal, no obvious gross deficits. Vital Signs: 18:36 BP 144 / 77; Pulse 66; Resp 18; Temp 97.7; Pulse Ox 98% on R/A; Weight 83.91 kg; Height la1 5 ft. 7 in. (170.18 cm); 19:50 BP 142 / 50; Pulse 60; Resp 18; Pulse Ox 99% ; ea 20:15 BP 150 / 60; Pulse 62; Resp 18; Pulse Ox 99% ; ea 21:15 BP 147 / 65; Pulse 70; Resp 18; Pulse Ox 99% ; ea 23:41 BP 128 / 80; Pulse 73; Resp 18; Pulse Ox 97% on R/A; ea 10/26 00:55 BP 123 / 72; Pulse 67; Resp 18; Temp 97.8; Pulse Ox 97% on R/A; ea 01:15 BP 118 / 75; Pulse 69; Resp 18; Pulse Ox 97% on R/A; ea 02:10 BP 109 / 67; Pulse 65; Resp 18; Temp 98.7; Pulse Ox 97% on R/A; ea 10/25 18:36 Body Mass Index 28.97 (83.91 kg, 170.18 cm) la1 MDM: 10/25 19:23 Patient medically screened. сергей 20:00 Differential diagnosis: Influenza, Mellette, Gastroenteritis, Kidney stone, UTI. pm1 22:25 Data reviewed: vital signs. Data interpreted: Pulse oximetry: on room air is 99 %. pm1 Interpretation: normal. 22:30 ED course: Patient takes Coumadin for mechanical valve. checks at home. Reports 3.8 INR pm1 today. Will order CT head scan for headache. 22:50 Counseling: I had a detailed discussion with the patient and/or guardian regarding: the pm1 historical points, exam findings, and any diagnostic results supporting the discharge/admit diagnosis, lab results, radiology results, the need to transfer to another facility, for higher level of care, [facility] does not immediately have the required specialist. 23:15 Physician consultation: Neurologist [facility] regarding regarding transfer, pm1 consult, patient's condition, and will see patient Would like Cardene drip to maintain less than 160 systolic, transfuse 2 units FFP. Cancel Keppra if not given. Agrees with Vitamin K administration. 10/25 19:57 Order name: Basic Metabolic Panel; Complete Time: 21:01 pm1 10/25 19:57 Order name: CBC with Diff; Complete Time: 21:01 pm1 10/25 19:57 Order name: Creatinine for Radiology; Complete Time: 21:01 pm1 10/25 19:57 Order name: Hepatic Function; Complete Time: 21:01 pm1 10/25 19:57 Order name: Lipase; Complete Time: 21:01 pm1 10/25 19:57 Order name: Urine Microscopic Only; Complete Time: 23:08 pm1 10/25 19:58 Order name: Flu; Complete Time: 21:01 pm1 10/25 19:58 Order name: Mellette Screen Profile; Complete Time: 21:01 pm1 10/25 20:04 Order name: CT Stone Protocol; Complete Time: 21:01 pm1 10/25 20:06 Order name: Urine Dipstick--Ancillary (enter results); Complete Time: 21:01 gm 10/25 22:33 Order name: CT Head Brain wo Cont pm1 10/25 22:50 Order name: PT-INR; Complete Time: 23:36 pm1 10/25 23:15 Order name: Fresh Frozen Plasma pm1 10/25 23:16 Order name: ABO/RH typing [facility] 10/25 19:57 Order name: IV Saline Lock; Complete Time: 20:21 pm1 10/25 19:57 Order name: Labs collected and sent; Complete Time: 20:21 pm1 10/25 19:57 Order name: Urine Dipstick-Ancillary (obtain specimen); Complete Time: 20:27 pm1 10/25 23:15 Order name: Transfuse; Complete Time: 02:37 pm1 Administered Medications: Discontinued: niCARdipine (25mg/250ml) 5 mg/hr IV at calculated rate continuous; Adjust 2.5 mg/hr every 10 minutes to keep SBP between 140 mmHg and 120 mmHg. Range 0 to 15 mg/hr. Wean to minimum required dose. 20:20 Drug: NS 0.9% 1000 ml Route: IV; Rate: 1000 ml; Site: left antecubital; ea 23:37 Follow up: Response: No adverse reaction; IV Status: Completed infusion; IV Intake: ea 1000ml 20:20 Drug: morphine 4 mg Route: IVP; Site: left antecubital; ea 21:00 Follow up: Response: No adverse reaction; Pain is decreased ea 20:20 Drug: Zofran 4 mg Route: IVP; Site: left antecubital; ea 21:00 Follow up: Response: No adverse reaction; Pain is decreased ea 22:11 Drug: morphine 4 mg Route: IVP; Site: left antecubital; ea 22:40 Follow up: Response: No adverse reaction; Pain is decreased ea 23:05 Drug: Keppra 1000 mg Route: IV; Rate: calculated rate; Site: right antecubital; ea 23:25 Follow up: Response: No adverse reaction; IV Status: Completed infusion ea 23:20 Drug: Vitamin K1 10 mg Route: Sub-Q; Site: right lower abdomen; ea 10/26 00:00 Follow up: Response: No adverse reaction ea 10/25 23:26 Drug: niCARdipine (25mg/250ml) 5 mg/hr Route: IV; Rate: calculated rate; Site: right ea antecubital; 23:44 Follow up: Response: No adverse reaction; Blood pressure is lowered; verbal order to ea decrease cardene to 2.5 mg/hour 10/26 00:53 Drug: fentaNYL (PF) 25 mcg Route: IVP; Site: left antecubital; ea 01:30 Follow up: Response: No adverse reaction; Pain is decreased ea 02:35 Drug: fentaNYL (PF) 25 mcg Route: IVP; Site: right antecubital; ea 02:39 Follow up: Response: medication adminsitered upon transfer ea Disposition: 10/25/18 22:59 Transfer ordered to [facility]. Diagnosis is right intraventricular hemorrhage. - Reason for transfer: Higher level of care. - Accepting physician is [facility] Neuro ICU. - Condition is Stable. - Problem is new. - Symptoms have improved. Signatures: Dispatcher [employer] EDJohnny Zhu MD MD cha Attema, Lee, RN RN la1 Sam Hood, [employer] pm1 Missy Castro RN RN ea Corrections: (The following items were deleted from the chart) 02:44 10/25 22:59 10/25/2018 22:59 Transfer ordered to [facility]. ea Diagnosis is right intraventricular hemorrhage. Reason for transfer: Higher level of care. Accepting physician is [facility] Neuro ICU. Condition is Stable. Problem is new. Symptoms have improved. pm1
--- NOTE | 2018-10-25 23:00 | ER ---
Nurse's Notes [facility] Name: Yen Jackson Age: 53 yrs Sex: Female : 1965 Arrival Date: 10/25/2018 Time: 18:30 Bed 17 Private MD: Diagnosis: right intraventricular hemorrhage Presentation: 10/25 18:34 Presenting complaint: Patient states: I have had a really bad headache since yesterday la1 and today I have been feeling real fatigued as well as having hot flashes and now I have been having lower back pain. Transition of care: patient was not received from another setting of care. Onset of symptoms was October 25, 2018. Risk Assessment: Do you want to hurt yourself or someone else? Patient reports no desire to harm self or others. Initial Sepsis Screen: Does the patient meet any 2 criteria? No. Patient's initial sepsis screen is negative. Does the patient have a suspected source of infection? No. Patient's initial sepsis screen is negative. Care prior to arrival: None. 18:34 Method Of Arrival: Ambulatory la1 18:34 Acuity: MONA 3 la1 Triage Assessment: 18:38 Neuro: Level of Consciousness is awake, alert, obeys commands, Oriented to person, la1 place, time, situation, [employer] are equal bilaterally Moves all extremities. Full function Gait is steady, Speech is normal, Facial symmetry appears normal, Pupils are PERRLA. Historical: - Allergies: 18:34 Demerol; la1 18:34 PENICILLINS; la1 - PMHx: 18:34 Atrial Fib; Hypertension; mechanical heart valve; la1 - Immunization history:: Adult Immunizations up to date. - Social history:: Smoking status: unknown. - Ebola Screening: : No symptoms or risks identified at this time. Screenin:50 Abuse screen: Denies threats or abuse. Nutritional screening: No deficits noted. ea Tuberculosis screening: No symptoms or risk factors identified. 19:50 Fall Risk None identified. ea Assessment: 19:40 General: Appears uncomfortable, Behavior is calm, cooperative, appropriate for age. ea Pain: Complains of pain in back. Neuro: Level of Consciousness is awake, alert, obeys commands, Oriented to person, place, time, situation. Cardiovascular: Heart tones S1 S2 present Patient's skin is warm and dry. Respiratory: Airway is patent Respiratory effort is even, unlabored, Respiratory pattern is regular, symmetrical, Breath sounds are clear bilaterally. GI: Bowel sounds present X 4 quads. Abd is soft and non tender X 4 quads. Reports lower abdominal pain, upper abdominal pain. Derm: Skin is pink, warm \T\ dry. 20:15 Reassessment: Patient and/or family updated on plan of care and expected duration. Pain ea level reassessed. Patient is alert, oriented x 3, equal unlabored respirations, skin warm/dry/pink. 20:24 Reassessment: Patient and/or family updated on plan of care and expected duration. Pain ea level reassessed. Patient is alert, oriented x 3, equal unlabored respirations, skin warm/dry/pink. Pt moved to CT. 21:38 Reassessment: Patient and/or family updated on plan of care and expected duration. Pain ea level reassessed. Patient is alert, oriented x 3, equal unlabored respirations, skin warm/dry/pink. Patient states symptoms have improved. 22:12 Reassessment: Patient and/or family updated on plan of care and expected duration. Pain ea level reassessed. Patient is alert, oriented x 3, equal unlabored respirations, skin warm/dry/pink. 22:36 Reassessment: Patient and/or family updated on plan of care and expected duration. Pain ea level reassessed. Patient is alert, oriented x 3, equal unlabored respirations, skin warm/dry/pink. Pt moved to CT. 22:44 Reassessment: Patient and/or family updated on plan of care and expected duration. Pain ea level reassessed. Patient is alert, oriented x 3, equal unlabored respirations, skin warm/dry/pink. Returned from CT. 23:15 Reassessment: Patient and/or family updated on plan of care and expected duration. Pain ea level reassessed. Patient is alert, oriented x 3, equal unlabored respirations, skin warm/dry/pink. Family at bedside. 10/26 00:55 Reassessment: Patient and/or family updated on plan of care and expected duration. Pain ea level reassessed. Patient is alert, oriented x 3, equal unlabored respirations, skin warm/dry/pink. FFP's initiated, pt tolerating well. 01:50 Reassessment: Patient and/or family updated on plan of care and expected duration. Pain ea level reassessed. Patient is alert, oriented x 3, equal unlabored respirations, skin warm/dry/pink. 02:09 Reassessment: Patient and/or family updated on plan of care and expected duration. Pain ea level reassessed. Patient is alert, oriented x 3, equal unlabored respirations, skin warm/dry/pink. Second unit of FFP initiated, pt tolerating well. 02:35 Reassessment: Patient and/or family updated on plan of care and expected duration. Pain ea level reassessed. Patient is alert, oriented x 3, equal unlabored respirations, skin warm/dry/pink. [facility] at facility for transfer, FFP infusion completed, pt tolerated well. 02:44 Reassessment: Patient and/or family updated on plan of care and expected duration. Pain ea level reassessed. Patient is alert, oriented x 3, equal unlabored respirations, skin warm/dry/pink. Pt left with EMS via stretcher, accompanied by family. Pt tolerating well. Vital Signs: 10/25 18:36 BP 144 / 77; Pulse 66; Resp 18; Temp 97.7; Pulse Ox 98% on R/A; Weight 83.91 kg; Height la1 5 ft. 7 in. (170.18 cm); 19:50 BP 142 / 50; Pulse 60; Resp 18; Pulse Ox 99% ; ea 20:15 BP 150 / 60; Pulse 62; Resp 18; Pulse Ox 99% ; ea 21:15 BP 147 / 65; Pulse 70; Resp 18; Pulse Ox 99% ; ea 23:41 BP 128 / 80; Pulse 73; Resp 18; Pulse Ox 97% on R/A; ea 10/26 00:55 BP 123 / 72; Pulse 67; Resp 18; Temp 97.8; Pulse Ox 97% on R/A; ea 01:15 BP 118 / 75; Pulse 69; Resp 18; Pulse Ox 97% on R/A; ea 02:10 BP 109 / 67; Pulse 65; Resp 18; Temp 98.7; Pulse Ox 97% on R/A; ea 10/25 18:36 Body Mass Index 28.97 (83.91 kg, 170.18 cm) la1 ED Course: 10/25 18:30 Patient arrived in ED. mr 18:35 Triage completed. la1 18:35 Arm band placed on right wrist. la1 19:13 Linda Guthrie, TECHNICAL DELIVERY MANAGER is PHCP. pm1 19:24 Johnny Santiago MD is Attending Physician. pm1 19:39 Missy Castro, YVES is Primary Nurse. ea 19:40 Patient has correct armband on for positive identification. Placed in gown. Bed in low ea position. Call light in reach. Side rails up X 1. 20:10 Inserted saline lock: 22 gauge in left antecubital area, using aseptic technique. Blood ar5 collected. 20:[address] vm2 20:40 CT completed. Patient tolerated procedure well. Patient moved back from CT. vm2 20:41 CT Stone Protocol In Process Unspecified. EDMS 22:[address] vm2 22:46 CT completed. Patient tolerated procedure well. Patient moved back from CT. vm2 22:47 CT Head Brain wo Cont In Process Unspecified. EDMS 22:55 called [facility] and initiated transfer . spoke with andrea feng RN. 23:14 dr Chand and linda guthrie did doc to doc. 23:18 administrative approval was given by andrea feng RN at [id number]. 10/26 00:07 patient is going to [facility] 7 south 4 bed 6. gm 02:42 No provider procedures requiring assistance completed. Patient transferred, IV remains ea in place. Administered Medications: Discontinued: niCARdipine (25mg/250ml) 5 mg/hr IV at calculated rate continuous; Adjust 2.5 mg/hr every 10 minutes to keep SBP between 140 mmHg and 120 mmHg. Range 0 to 15 mg/hr. Wean to minimum required dose. 10/25 20:20 Drug: NS 0.9% 1000 ml Route: IV; Rate: 1000 ml; Site: left antecubital; ea 23:37 Follow up: Response: No adverse reaction; IV Status: Completed infusion; IV Intake: ea 1000ml 20:20 Drug: morphine 4 mg Route: IVP; Site: left antecubital; ea 21:00 Follow up: Response: No adverse reaction; Pain is decreased ea 20:20 Drug: Zofran 4 mg Route: IVP; Site: left antecubital; ea 21:00 Follow up: Response: No adverse reaction; Pain is decreased ea 22:11 Drug: morphine 4 mg Route: IVP; Site: left antecubital; ea 22:40 Follow up: Response: No adverse reaction; Pain is decreased ea 23:05 Drug: Keppra 1000 mg Route: IV; Rate: calculated rate; Site: right antecubital; ea 23:25 Follow up: Response: No adverse reaction; IV Status: Completed infusion ea 23:20 Drug: Vitamin K1 10 mg Route: Sub-Q; Site: right lower abdomen; ea 10/26 00:00 Follow up: Response: No adverse reaction ea 10/25 23:26 Drug: niCARdipine (25mg/250ml) 5 mg/hr Route: IV; Rate: calculated rate; Site: right ea antecubital; 23:44 Follow up: Response: No adverse reaction; Blood pressure is lowered; verbal order to ea decrease cardene to 2.5 mg/hour 10/26 00:53 Drug: fentaNYL (PF) 25 mcg Route: IVP; Site: left antecubital; ea 01:30 Follow up: Response: No adverse reaction; Pain is decreased ea 02:35 Drug: fentaNYL (PF) 25 mcg Route: IVP; Site: right antecubital; ea 02:39 Follow up: Response: medication adminsitered upon transfer ea Intake: 10/25 23:37 IV: 1000ml; Total: 1000ml. ea Outcome: 22:59 ER care complete, transfer ordered by . pm1 23:30 Transferred by ground EMS to [facility], Transfer form completed. ea 23:30 Condition: stable 23:30 Instructed on the need for transfer. 10/26 02:44 Patient left the ED. ea Signatures: Dispatcher [employer] ARMAAN Florentino Jennifer mr NealralphRoss, RN RN la1 Linda Guthrie, ABEL TECHNICAL DELIVERY MANAGER pm1 Jossy Roberts 2 Missy Castro RN RN Angelica Schwarz gm, Autumn ar5 Corrections: (The following items were deleted from the chart) 06:16 12 22:43 Reassessment: Patient and/or family updated on plan of care and expected ea duration. Pain level reassessed. Patient is alert, oriented x 3, equal unlabored respirations, skin warm/dry/pink. Patient taken to CT ea
[2018-10-25 23:03] LABS: Urine Bacteria <20 /HPF (<20); Urine Culture Reflex Order NOT NEEDED; Urine Mucus HEAVY /HPF (NONE SEEN); Urine RBC NONE SEEN /HPF (NONE SEEN)
[2018-10-25] MEDS ORDERED: NA CHLORIDE 0.9% 100 ML IV ONE (23:04)
[2018-10-25] MEDS ORDERED: VITAMIN K (ADULT) 10 MG/ML ONE (23:04)
[2018-10-25] MEDS ORDERED: LEVETIRACETAM 500 MG/5 ML VIAL IV ONE (23:04)
[2018-10-25] MEDS ORDERED: Nicardipine/NS 25 MG/250 ML KIT IV ONE (23:23)
[2018-10-25 23:30] LABS: Protime INR 3.46
[2018-10-26] MEDS ORDERED: NA CHLORIDE 0.9% 500 ML ONE (00:03)
[2018-10-26] MEDS ORDERED: ONDANSETRON 4 MG/2 ML VIAL ONE (00:51)
[2018-10-26] MEDS ORDERED: FENTANYL CITR 100 MCG/2 ML ONE (00:51)
[2018-10-26 03:25] VITALS: TEMP 97.7
[2018-10-26 03:30] VITALS: BP 128/80; O2SAT 97
--- NOTE | 2018-10-26 08:45 | RAD REPORT ---
EXAM DESCRIPTION: CT - Head Brain Wo Cont - 10/26/2018 6:53 am CLINICAL HISTORY: Headache COMPARISON: 2017 TECHNIQUE: Computed axial tomography of the head was obtained. IV contrast was not requested. A preliminary area report generated by [employer] and reviewed prior to dictation All CT scan s are performed using dose optimization technique as appropriate and may include automated exposure c ontrol or mA/KV adjustment according to patient size. FINDINGS: A large bleed is present within the right lateral ventricle involving temporal, frontal an d occipital horns. Portions of the right lateral ventricle are dilated. Trace amount of blood is seen within the third ventricle. Shift of midline structures is not noted. No extra-axial fluid collection is noted. Fluid within the sinuses/ mastoids is not seen. IMPRESSION: Large bleed within predominantly the right lateral ventricle may be secondary to a ruptu red aneurysm or coagulopathy
== END 2018-10-26 02:44 | disposition short-term general hospital (02) ==
LOC: ER 18:27
DX: I61.5 Nontraumatic intracerebral hemorrhage, intraventricular (principal); I10 Essential (primary) hypertension; Z79.01 Long term (current) use of anticoagulants; Z88.0 Allergy status to penicillin; Z88.5 Allergy status to narcotic agent; Z95.4 Presence of other heart-valve replacement
CPT/HCPCS: 36415; 70450; 74176; 76377; 80048; 80076; 81003; 81015; 83690; 85025; 85610; 86308; 86900; 86901; 87804; 96361; 96365; 96372; 96375; 99285; J1953; J2405; J3010; J3430; J7030; P9059

== ENCOUNTER 2018-11-08 08:30 | Emergency (ER) | payer BC, SELFPAY ==
--- OUTSIDE RECORDS SUMMARY | 2018-11-08 08:33 | XMS REPORT | Clinical Summary ---
:1965 Author Organization [facility] Address [address] [place] [address] Care Team Providers Name Role Phone Unavailable Primary Care Provider Unavailable Allergies Active Allergy Reactions Severity Noted Date Comments Meperidine Anxiety Low 10/26/2018 Penicillins Swelling High 10/26/2018 Medications Medication Sig Dispensed Refills Start Date End Date Status warfarin (COUMADIN) 5 Take 5 mg by 0 Active MG tabletIndications: mouth daily. 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 tablet buPROPion (WELLBUTRIN Take 150 mg by 0 Active XL) 150 MG 24 hr mouth daily. tablet sotalol 40 MG halftab Take 80 mg by 0 Active half tablet mouth daily. baclofen (LIORESAL) Take 1 tablet 30 tablet 0 11/07/2018 Active 10 MG tablet (10 mg total) 9 by mouth 3 (three) times daily as needed for up to 30 days. lidocaine (LIDODERM) Place 1 patch 30 patch 0 11/07/2018 Active 5 % patch onto the skin 9 daily for 30 days Remove & Discard patch within 12 hours or as directed by MD. warfarin (COUMADIN) 2 Take 2 mg by 0 Discontinued MG tabletIndications: mouth daily. 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 IVH (intraventricular hemorrhage) 10/26/2018 Nontraumatic subcortical hemorrhage of right cerebral hemisphere 10/26/2018 Coagulopathy 10/26/2018 Essential hypertension 10/26/2018 Acute encephalopathy 10/26/2018 H/O mechanical aortic valve replacement 10/26/2018 Encounters Date Type Specialty Care Team Description 10/28/2018 Anesthesia Event Melisa Munguia, FAWAD 10/28/2018 Surgery Virtual, Surgeon PROCEDURE DONE OUTSIDE OR 10/27/2018 Travel 10/26/2018 [facility] Chand, Nontraumatic subcortical hemorrhage of right cerebral hemisphere (HCC); - [facility] (intra[facility]ricular hemorrhage) (HCC); 11/07/2018 MD Chad H/O mechanical aortic valve replacement; Hina Ponce MD Essential hypertension; Jarrod Buchanan Coagulopathy (HCC); MD Markus Acute encephalopathy; S/P MVR (mitral valve replacement); Chronic anticoagulation; S/P AVR; Acute nonintractable headache, unspecified headache type; Subtherapeutic international normalized ratio (INR); Atrial fibrillation, unspecified type (HCC); Supratherapeutic INR; Sciatica of left side 10/26/2018 Travel after 11/07/2017 Social History Tobacco Use Types Packs/Day Years Used Date Former Smoker 1 10 Quit: 10/22/2018 Smokeless Tobacco: Never Used Alcohol Use Drinks/Week oz/Week Comments Yes Social use Sex Assigned at Date Recorded Not on file Job Start Date Occupation Industry Not on file Not on file Not on file Travel History Travel Start Travel End No recent travel history available. Last Filed Vital Signs Vital Sign Reading Time Taken Blood Pressure 135/79 11/07/2018 11:18 AM [facility] Pulse 64 11/07/2018 11:18 AM [employer] [employer] Temperature 36.7 C (98 F) 11/07/2018 11:18 AM [employer]URE TE[employer] Respiratory Rate 18 11/07/2018 11:18 AM [employer]URE TESTER Oxygen Saturation 96% 11/07/2018 11:18 AM [employer]URE TESTER Inhaled Oxygen Concentration 21% 11/04/2018 1:00 AM [employer]URE TESTER Weight 96.1 kg (211 lb 13.8 oz) 10/26/2018 6:00 AM [employer]URE TE[employer] Height 180.3 cm (5' 11") 10/26/2018 6:00 AM [employer]URE TESTER Body Mass Index 29.55 10/26/2018 6:00 AM [facility]URE TESTER Plan of Treatment Not on file Procedures Procedure Name Priority Date/Time Associated Comments Diagnosis CT BRAIN WITHOUT IV STAT 11/07/2018 10:24 Results for this CONTRAST AM [employer] TE[employer] procedure are in the results section. CBC (HEMOGRAM ONLY) Routine 11/07/2018 4:39 Results for this AM [facility] [employer] procedure are in the results section. BASIC METABOLIC PANEL Routine 11/07/2018 4:29 Results for this (7) AM [facility] [employer] procedure are in the results section. APTT Routine 11/07/2018 4:29 Results for this AM [employer] TE[employer] procedure are in the results section. PROTHROMBIN TIME/INR Routine 11/07/2018 4:29 Results for this AM [employer] TE[employer] procedure are in the results section. APTT Routine 11/06/2018 10:27 Results for this PM [employer] [employer] procedure are in the results section. MR SPINE LUMBAR WITHOUT Routine 11/06/2018 9:48 Results for this IV CONTRAST PM [employer] TE[employer] procedure are in the results section. APTT Routine 11/06/2018 1:33 Results for this PM [employer] [employer] procedure are in the results section. BASIC METABOLIC PANEL Routine 11/06/2018 4:21 Results for this (7) AM [employer] [employer] procedure are in the results section. CBC (HEMOGRAM ONLY) Routine 11/06/2018 4:21 Results for this AM [employer] [employer] procedure are in the results section. APTT Routine 11/06/2018 4:21 Results for this AM [employer] [employer] procedure are in the results section. PROTHROMBIN TIME/INR Routine 11/06/2018 4:21 Results for this AM [employer] procedure are in the results section. APTT Routine 11/05/2018 7:57 Results for this PM [employer] [employer] procedure are in the results section. APTT Routine 11/05/2018 2:49 Results for this PM [employer] [employer] procedure are in the results section. BASIC METABOLIC PANEL Routine 11/05/2018 3:52 Results for this (7) AM [facility] [employer] procedure are in the results section. CBC (HEMOGRAM ONLY) Routine 11/05/2018 3:52 Results for this AM [employer] TE[employer] procedure are in the results section. APTT Routine 11/05/2018 3:52 Results for this AM [employer] procedure are in the results section. PROTHROMBIN TIME/INR Routine 11/05/2018 3:52 Results for this AM [employer] procedure are in the results section. PT/APTT Routine 11/04/2018 5:20 Results for this PM [employer] procedure are in the results section. PT/APTT Routine 11/04/2018 11:31 Results for this AM [employer] TE[employer] procedure are in the results section. CBC (HEMOGRAM ONLY) Routine 11/04/2018 4:50 Results for this AM [employer] TE[employer] procedure are in the results section. APTT Routine 11/04/2018 4:50 Results for this AM [employer] TE[employer] procedure are in the results section. PROTHROMBIN TIME/INR Routine 11/04/2018 4:50 Results for this AM [employer] [employer] procedure are in the results section. XR LUMBAR SPINE COMP Routine 11/03/2018 3:14 Results for this WITH FLEX&EXT PM [employer] TE[employer] procedure are in the results section. CBC (HEMOGRAM ONLY) Routine 11/03/2018 3:34 Results for this AM [employer] TE[employer] procedure are in the results section. APTT Routine 11/03/2018 3:34 Results for this AM [employer] TE[employer] procedure are in the results section. PROTHROMBIN TIME/INR Routine 11/03/2018 3:34 Results for this AM [employer] [employer] procedure are in the results section. ECG 12-LEAD Routine 11/02/2018 8:38 Results for this AM [employer] procedure are in the results section. APTT Routine 11/02/2018 3:36 Results for this AM [employer] [employer] procedure are in the results section. CBC (HEMOGRAM ONLY) Routine 11/02/2018 3:36 Results for this AM [employer] [employer] procedure are in the results section. PROTHROMBIN TIME/INR Routine 11/02/2018 3:36 Results for this AM [employer] [employer] procedure are in the results section. APTT Routine 11/01/2018 9:06 Results for this PM [employer] procedure are in the results section. MAGNESIUM Routine 11/01/2018 2:18 Results for this PM [employer] [employer] procedure are in the results section. POTASSIUM Routine 11/01/2018 2:18 Results for this PM [employer] procedure are in the results section. PROTHROMBIN TIME/INR Routine 11/01/2018 2:18 Results for this PM [employer] procedure are in the results section. APTT Routine 11/01/2018 2:18 Results for this PM [employer] procedure are in the results section. APTT Routine 11/01/2018 6:08 Results for this AM [employer] TE[employer] procedure are in the results section. CBC (HEMOGRAM ONLY) Routine 11/01/2018 6:05 Results for this AM [employer] procedure are in the results section. POCT-GLUCOSE METER Routine 11/01/2018 5:41 Results for this AM [employer] procedure are in the results section. POCT-GLUCOSE METER Routine 10/31/2018 11:56 Results for this PM [employer] procedure are in the results section. APTT Routine 10/31/2018 11:01 Results for this PM [employer] procedure are in the results section. APTT Routine 10/31/2018 3:34 Results for this PM [employer] [employer] procedure are in the results section. CT BRAIN WITHOUT IV STAT 10/31/2018 1:28 Results for this CONTRAST PM [employer] procedure are in the results section. ECG 12-LEAD Routine 10/31/2018 11:03 Results for this AM [employer] procedure are in the results section. APTT Routine 10/31/2018 4:16 Results for this AM [employer] procedure are in the results section. CBC (HEMOGRAM ONLY) Routine 10/31/2018 4:16 Results for this AM [employer] procedure are in the results section. PROTHROMBIN TIME/INR Routine 10/31/2018 4:16 Results for this AM [employer] procedure are in the results section. POCT-GLUCOSE METER Routine 10/31/2018 12:14 Results for this AM [employer] procedure are in the results section. PHOSPHORUS Routine 10/30/2018 4:33 Results for this AM [employer] procedure are in the results section. MAGNESIUM Routine 10/30/2018 4:33 Results for this AM [employer] procedure are in the results section. BASIC METABOLIC PANEL Routine 10/30/2018 4:33 Results for this (7) AM [employer] [employer] procedure are in the results section. CBC (HEMOGRAM ONLY) Routine 10/30/2018 4:33 Results for this AM [employer] procedure are in the results section. PT/APTT Routine 10/30/2018 12:38 Results for this AM [employer] procedure are in the results section. PROTHROMBIN TIME/INR Routine 10/30/2018 12:38 Results for this AM [employer] procedure are in the results section. POCT-GLUCOSE METER Routine 10/29/2018 11:59 Results for this PM [employer] [employer] procedure are in the results section. CT BRAIN WITHOUT IV STAT 10/29/2018 8:07 Results for this CONTRAST PM [employer] procedure are in the results section. MAGNESIUM Routine 10/29/2018 6:28 Results for this PM [employer] procedure are in the results section. POTASSIUM Routine 10/29/2018 6:28 Results for this PM [employer] procedure are in the results section. PT/APTT Routine 10/29/2018 6:28 Results for this PM [employer] procedure are in the results section. POCT-GLUCOSE METER Routine 10/29/2018 6:09 Results for this PM [employer] procedure are in the results section. POCT-GLUCOSE METER Routine 10/29/2018 12:41 Results for this PM [employer] procedure are in the results section. PT/APTT STAT 10/29/2018 12:20 Results for this PM [employer] procedure are in the results section. CBC W/PLT COUNT & AUTO Routine 10/29/2018 6:15 Results for this DIFFERENTIAL AM [employer] procedure are in the results section. APTT Routine 10/29/2018 6:15 Results for this AM [employer] procedure are in the results section. CBC W/PLT COUNT & AUTO Routine 10/29/2018 6:15 Results for this DIFFERENTIAL AM [employer] procedure are in the results section. PHOSPHORUS Routine 10/29/2018 6:15 Results for this AM [employer] TE[employer] procedure are in the results section. MAGNESIUM Routine 10/29/2018 6:15 Results for this AM [employer] procedure are in the results section. BASIC METABOLIC PANEL Routine 10/29/2018 6:15 Results for this (7) AM [employer] procedure are in the results section. APTT Routine 10/28/2018 11:47 Results for this PM [employer] procedure are in the results section. PLATELET COUNT Routine 10/28/2018 11:47 Results for this PM [employer] procedure are in the results section. POCT-GLUCOSE METER Routine 10/28/2018 6:56 Results for this PM [employer] procedure are in the results section. TRANSFUSION SERVICE 10/28/2018 6:00 REPORT - SCAN PM AR[employer]URE TESTER NV CEREBRAL 4 VESSEL Routine 10/28/2018 6:00 Results for this ANGIOGRAM PM [employer]URE TE[employer] procedure are in the results section. ECHOCARDIOGRAM REPORT - 10/28/2018 3:20 SCAN PM [employer] TE[employer] PROCEDURE DONE OUTSIDE 10/28/2018 2:00 IVH OR PM [employer]URE TESTER (intraventricular hemorrhage) (HCC) POCT-GLUCOSE METER Routine 10/28/2018 12:27 Results for this PM [employer] TE[employer] procedure are in the results section. LIMITED 2D NICKI 10/28/2018 11:48 Results for this ECHOCARDIOGRAM AM [employer]URE TESTER procedure are in the results section. CT BRAIN WITHOUT IV STAT 10/28/2018 11:08 Results for this CONTRAST PORTABLE AM [employer] procedure are in the results section. ECG 12-LEAD Routine 10/28/2018 8:46 Results for this AM [employer] TE[employer] procedure are in the results section. CBC W/PLT COUNT & AUTO Routine 10/28/2018 5:35 Results for this DIFFERENTIAL AM [employer] procedure are in the results section. CBC W/PLT COUNT & AUTO Routine 10/28/2018 5:35 Results for this DIFFERENTIAL AM [employer] procedure are in the results section. PHOSPHORUS Routine 10/28/2018 5:35 Results for this AM [employer] TE[employer] procedure are in the results section. MAGNESIUM Routine 10/28/2018 5:35 Results for this AM [employer] TE[employer] procedure are in the results section. BASIC METABOLIC PANEL Routine 10/28/2018 5:35 Results for this (7) AM [employer] [employer] procedure are in the results section. POCT-GLUCOSE METER Routine 10/28/2018 12:33 Results for this AM [employer] TE[employer] procedure are in the results section. PREPARE PLASMA STAT 10/27/2018 11:54 Results for this PM [employer] procedure are in the results section. PREPARE PLASMA Routine 10/27/2018 11:54 Results for this PM [employer] procedure are in the results section. CT BRAIN WITHOUT IV STAT 10/27/2018 6:25 Results for this CONTRAST PM [employer] TE[employer] procedure are in the results section. TRANSFUSION SERVICE 10/27/2018 6:01 REPORT - SCAN PM [employer] POCT-GLUCOSE METER Routine 10/27/2018 6:00 Results for this PM [employer] procedure are in the results section. XR CHEST 1 VIEW Routine 10/27/2018 3:16 Results for this PORTABLE/BEDSIDE PM [employer] procedure are in the results section. POCT-GLUCOSE METER Routine 10/27/2018 12:27 Results for this PM [employer] procedure are in the results section. PROTHROMBIN TIME/INR Routine 10/27/2018 8:33 Results for this AM [employer] TE[employer] procedure are in the results section. POCT-GLUCOSE METER Routine 10/27/2018 6:24 Results for this AM [employer] TE[employer] procedure are in the results section. CBC W/PLT COUNT & AUTO Routine 10/27/2018 3:54 Results for this DIFFERENTIAL AM [employer] TE[employer] procedure are in the results section. PROTHROMBIN TIME/INR Routine 10/27/2018 3:54 Results for this AM [employer] procedure are in the results section. PT/APTT Routine 10/27/2018 3:54 Results for this AM [employer] procedure are in the results section. CBC W/PLT COUNT & AUTO Routine 10/27/2018 3:54 Results for this DIFFERENTIAL AM [employer] TE[employer] procedure are in the results section. PHOSPHORUS Routine 10/27/2018 3:54 Results for this AM [employer] TE[employer] procedure are in the results section. MAGNESIUM Routine 10/27/2018 3:54 Results for this AM [employer] TE[employer] procedure are in the results section. BASIC METABOLIC PANEL Routine 10/27/2018 3:54 Results for this (7) AM [employer] TE[employer] procedure are in the results section. POCT-GLUCOSE METER Routine 10/27/2018 12:06 Results for this AM [employer] TE[employer] procedure are in the results section. TRANSFUSE PLASMA Routine 10/27/2018 12:03 AM AR[employer]URE TESTER PROTHROMBIN TIME/INR Routine 10/26/2018 7:09 Results for this PM [employer] TE[employer] procedure are in the results section. POCT-GLUCOSE METER Routine 10/26/2018 6:52 Results for this PM [employer] [employer] procedure are in the results section. TRANSFUSE PLASMA Routine 10/26/2018 4:28 PM ARMATURE TESTER MR BRAIN WITHOUT & WITH NICKI 10/26/2018 4:14 Results for this IV CONTRAST PM [employer] TE[employer] procedure are in the results section. POCT-GLUCOSE METER Routine 10/26/2018 12:03 Results for this PM [employer] [employer] procedure are in the results section. TYPE AND SCREEN, Routine 10/26/2018 11:00 Results for this AUTOMATED AM [employer] TE[employer] procedure are in the results section. ECG 12-LEAD Routine 10/26/2018 8:15 Results for this AM [employer] TE[employer] procedure are in the results section. POCT-GLUCOSE METER Routine 10/26/2018 7:14 Results for this AM [employer] TE[employer] procedure are in the results section. CT/CTA CAROTID Routine 10/26/2018 6:22 Results for this AM [employer] TE[employer] procedure are in the results section. CT/CTA BRAIN STAT 10/26/2018 6:22 Results for this AM [employer] procedure are in the results section. LIPID PANEL Routine 10/26/2018 4:39 Results for this AM [employer] procedure are in the results section. HEMOGLOBIN A1C Routine 10/26/2018 4:39 Results for this AM [employer] procedure are in the results section. COMPREHENSIVE METABOLIC Routine 10/26/2018 4:39 Results for this PANEL AM [employer] TE[employer] procedure are in the results section. APTT Routine 10/26/2018 4:39 Results for this AM [employer] procedure are in the results section. PROTHROMBIN TIME/INR Routine 10/26/2018 4:39 Results for this AM [employer] procedure are in the results section. HEPATIC FUNCTION PANEL Routine 10/26/2018 4:39 Results for this AM [employer] TE[employer] procedure are in the results section. PHOSPHORUS Routine 10/26/2018 4:39 Results for this AM [employer] TE[employer] procedure are in the results section. MAGNESIUM Routine 10/26/2018 4:39 Results for this AM [employer] TE[employer] procedure are in the results section. after 11/07/[address] brain without IV contrast (11/07/2018 10:24 AM ARMATURE TESTER)Only the most recent of4 resultswithin the time period is included. Narrative Performed At FINAL REPORT [facility] CT Head without contrast CLINICAL HISTORY: Cerebral hemorrhage, anticoagulated TECHNIQUE: Contiguous axial images through the head without contrast. This exam was performed according to the departmental dose optimization program which includes automated exposure control, adjustment of the mA and/or kV according to the patient size, and/or use of an iterative reconstruction technique. COMPARISON: 10/31/2018 FINDINGS: The deep right posterior cerebral hemorrhage has decreased in size measuring up to 1.9 cm, previously 3.3 cm. There is no CT evidence for acute infarct or additional acute hemorrhage. Generalized sulcal prominence is again seen without hydrocephalus or midline shift. Low lying cerebellar tonsils are unchanged. The skull remains intact. IMPRESSION: Since 10/31/2018, the right-sided cerebral hemorrhage has decreased in size. Signed: Nadeem Linda MD Report Verified Date/Time:11/07/2018 10:28:21 Reading Location: [address] Neuro Reading Room Procedure Note Interface, External Ris In - 11/07/2018 10:30 AM AR[facility]URE TESTER FINAL REPORT CT Head without contrast CLINICAL HISTORY: Cerebral hemorrhage, anticoagulated TECHNIQUE: Contiguous axial images through the head without contrast. This exam was performed according to the departmental dose optimization program which includes automated exposure control, adjustment of the mA and/or kV according to the patient size, and/or use of an iterative reconstruction technique. COMPARISON: 10/31/2018 FINDINGS: The deep right posterior cerebral hemorrhage has decreased in size measuring up to 1.9 cm, previously 3.3 cm. There is no CT evidence for acute infarct or additional acute hemorrhage. Generalized sulcal prominence is again seen without hydrocephalus or midline shift. Low lying cerebellar tonsils are unchanged. The skull remains intact. IMPRESSION: Since 10/31/2018, the right-sided cerebral hemorrhage has decreased in size. Signed: Nadeem Linda MD Report Verified Date/Time: 11/07/2018 10:28:21 Reading Location: [address] Neuro Reading Room Performing Organization Address City/[facility] Phone Number GE RIS CBC (hemogram only) (11/07/2018 4:39 AM ARMATURE TESTER)Only the most recent of9 resultswithin the time period is included. WBC 5.9 3.5 - 10.5 K/L [facility] RBC 4.26 3.93 - 5.22 M/L [facility] Hemoglobin 13.2 11.2 - 15.7 GM/DL [facility] Hematocrit 40.1 34.1 - 44.9 % [facility] MCV 94.1 79.4 - 94.8 fL [facility] MCH 31.0 25.6 - 32.2 pg [facility] MCHC 32.9 32.2 - 35.5 GM/DL [facility] RDW 13.2 11.7 - 14.4 % [facility] Platelets 277 150 - 450 K/CU MM [facility] MPV 11.2 9.4 - 12.3 fL [facility] nRBC 0 0 - 0 /100 WBC [facility] Specimen Blood Performing Organization Address [facility] Hospitalcome Phone Number [address] [address] [phone] CENTER aPTT (11/07/2018 4:29 AM ARMATURE TESTER)Only the most recent of19 resultswithin the time period is included. PTT 79.7 (H) 22.5 - 36.0 seconds [facility] Specimen Blood Narrative Performed At While on warfarin. [facility] Performing Organization Address City/[facility] Hospitalcode Phone Number [address] [address] [place] Daily Prothrombin time/INR while on warfarin (11/07/2018 4:29 AM AR[facility]URE TESTER)Only the most recent of13 resultswithin the time period is included. Protime 22.5 (H) 11.7 - 14.7 seconds [facility] INR 2.0 <=5.9 [facility] Specimen Blood Narrative Performed At RECOMMENDED COUMADIN/WARFARIN INR THERAPY [facility] RANGES STANDARD DOSE: 2.0 - 3.0 Includes: PROPHYLAXIS for venous thrombosis, systemic embolization; TREATMENT for venous thrombosis and/or pulmonary embolus. HIGH RISK: Target INR is 2.5-3.5 for patients with mechanical heart valves. While on warfarin. Performing Organization Address City/[facility]code Phone Number [address] [address] [place] Basic Metabolic Panel (11/07/2018 4:29 AM AR[employer]URE TESTER)Only the most recent of7 resultswithin the time period is included. Sodium 141 136 - 145 meq/L [facility] Potassium 4.3 3.5 - 5.1 meq/L [facility] Chloride 108 (H) 98 - 107 meq/L [facility] CO2 25 22 - 29 meq/L [facility] BUN 25 (H) 7 - 21 mg/dL [facility] Creatinine 0.81 0.57 - 1.25 mg/dL [facility] Glucose 96 70 - 105 mg/dL [facility] Calcium 10.2 8.4 - 10.2 mg/dL [facility] EGFR 74Comment: ESTIMATED GFR IS mL/min/1.73 sq m [facility] NOT ACCURATE CREATININE [facility] CLEARANCE IN PREDICTING GLOMERULAR FILTRATION RATE. ESTIMATED GFR IS NOT APPLICABLE FOR DIALYSIS PATIENTS. Specimen Blood Performing Organization Address [facility]/Zipcode Phone Number [address] [address] [phone] [place] MR spine lumbar without IV contrast (11/06/2018 9:48 PM ARMATURE TESTER) Narrative Performed At FINAL REPORT [facility] MR Lumbar spine without contrast CLINICAL HISTORY: Lumbar radiculopathy, <6wks, no red flags, no prior management TECHNIQUE: MRI of the lumbar spine utilizing sagittal T1, T2, STIR, axial T1 and T2-weighted sequences. COMPARISON: None FINDINGS: Last well-formed disc is desiccated is L5-S1 for the purposes of this report. There is maintenance of the lumbar curvature and alignment. The vertebral body heights are maintained. The lumbar marrow signal is preserved. The conus medullaris terminates at L2 without abnormal signal. Multilevel degenerative changes with facet hypertrophy particularly in the lower lumbar spine. Disc desiccation at L5-S1 annular fissure posteriorly. Cystic structure in the bilateral L2-3 neural foramen, right greater than left measuring up to 4 mm on the right and 1 mm on the left likely represents a synovial cyst. No significant spinal canal or neural foraminal stenosis. The visualized paraspinal and retroperitoneal soft tissues are grossly unremarkable. Cholelithiasis. IMPRESSION: Mild multilevel degenerative changes as described above with no significant spinal canal or neural foraminal stenosis. Annular fissure at L5-S1. Signed: Mary Noel MD Report Verified Date/Time:11/07/2018 03:52:32 Reading Location: [address] Transitional Reading Room Procedure Note Interface, External Ris In - 11/07/2018 3:54 AM ARMATURE TESTER FINAL REPORT MR Lumbar spine without contrast CLINICAL HISTORY: Lumbar radiculopathy, <6wks, no red flags, no prior management TECHNIQUE: MRI of the lumbar spine utilizing sagittal T1, T2, STIR, axial T1 and T2-weighted sequences. COMPARISON: None FINDINGS: Last well-formed disc is desiccated is L5-S1 for the purposes of this report. There is maintenance of the lumbar curvature and alignment. The vertebral body heights are maintained. The lumbar marrow signal is preserved. The conus medullaris terminates at L2 without abnormal signal. Multilevel degenerative changes with facet hypertrophy particularly in the lower lumbar spine. Disc desiccation at L5-S1 annular fissure posteriorly. Cystic structure in the bilateral L2-3 neural foramen, right greater than left measuring up to 4 mm on the right and 1 mm on the left likely represents a synovial cyst. No significant spinal canal or neural foraminal stenosis. The visualized paraspinal and retroperitoneal soft tissues are grossly unremarkable. Cholelithiasis. IMPRESSION: Mild multilevel degenerative changes as described above with no significant spinal canal or neural foraminal stenosis. Annular fissure at L5-S1. Signed: Mary Noel MD Report Verified Date/Time: 11/07/2018 03:52:32 Reading Location: [facility] C013T Transitional Reading Room Performing Organization Address City/[facility] Phone Number RIS PT/aPTT (11/04/2018 5:20 PM ARMATURE TESTER)Only the most recent of6 resultswithin the time period is included. Protime 16.9 (H) 11.7 - 14.7 seconds [facility] INR 1.3 <=5.9 [facility] PTT 66.7 (H) 22.5 - 36.0 seconds [facility] Specimen Blood Narrative Performed At RECOMMENDED COUMADIN/WARFARIN INR THERAPY [facility] RANGES STANDARD DOSE: 2.0 - 3.0 Includes: PROPHYLAXIS for venous thrombosis, systemic embolization; TREATMENT for venous thrombosis and/or pulmonary embolus. HIGH RISK: Target INR is 2.5-3.5 for patients with mechanical heart valves. Performing Organization Address City/[facility] [place] [address] CENTER XR lumbar spine comp with flex & ext (11/03/2018 3:14 PM ARMATURE TESTER) Narrative Performed At FINAL REPORT GE RIS Lumbar spine, seven images HISTORY: Radiculopathy COMPARISON: None IMPRESSION: Five lumbar type vertebral bodies. No fracture. No subluxation. No change in alignment on flexion or extension. Soft tissues unremarkable. Minimal degenerative facet changes. Signed: Kenny Centeno MD Report Verified Date/Time:11/03/2018 15:41:39 Reading Location: [facility] C013T Transitional Reading Room Procedure Note Interface, External Ris In - 11/03/2018 3:43 PM ARMATURE TESTER FINAL REPORT Lumbar spine, seven images HISTORY: Radiculopathy COMPARISON: None IMPRESSION: Five lumbar type vertebral bodies. No fracture. No subluxation. No change in alignment on flexion or extension. Soft tissues unremarkable. Minimal degenerative facet changes. Signed: Kenny Centeno MD Report Verified Date/Time: 11/03/2018 15:41:39 Reading Location: [facility] C013 Transitional Reading Room Performing Organization Address [employer] Phone Number GE RIS ECG 12 lead (11/02/2018 8:38 AM ARMATURE TESTER)Only the most recent of4 resultswithin the time period is included. Narrative Performed At Ventricular Rate 80 BPM GE MUSE Atrial Rate 80 BPM P-R Interval 164 ms QRS Duration 92 ms Q-T Interval 398 ms QTC Calculation(Bazett) 459 ms P [place] 59 degrees R [place] 29 degrees T [place] 104 degrees Normal sinus rhythm T wave abnormality, consider lateral ischemia Abnormal ECG When compared with ECG of 31-OCT-2018 11:03, No significant change was found Confirmed by MD SHARMA JOSEPH P ([id number]) on 11/03/2018 7:59:06 AM Procedure Note Interface, External Ris In - 11/03/2018 7:59 AM ARMATURE TESTER Ventricular Rate 80 BPM Atrial Rate 80 BPM P-R Interval 164 ms QRS Duration 92 ms Q-T Interval 398 ms QTC Calculation(Bazett) 459 ms P [place] 59 degrees R [place] 29 degrees T [place] 104 degrees Normal sinus rhythm T wave abnormality, consider lateral ischemia Abnormal ECG When compared with ECG of 31-OCT-2018 11:03, No significant change was found Confirmed by MD SHARMA JOSEPH P ([id number]) on 11/03/2018 7:59:06 AM Performing Organization Address [employer] Phone Number GE MUSE Potassium (11/01/2018 2:18 PM ARMATURE TESTER)Only the most recent of2 resultswithin the time period is included. Potassium 4.2 3.5 - 5.1 meq/L [facility] Specimen Blood Performing Organization Address City/[facility] Phone Number [address] [address] [place] Magnesium (11/01/2018 2:18 PM ARMATURE TESTER)Only the most recent of7 resultswithin the time period is included. Magnesium 2.3 1.6 - 2.6 mg/dL [facility] Specimen Blood Performing Organization Address City/[facility] Phone Number [address] [address] [phone] [facility] POC-Glucose meter (11/01/2018 5:41 AM ARMATURE TESTER)Only the most recent of16 resultswithin the time period is included. POC-Glucose Meter 119 (H)Comment: TESTED AT 70 - 110 mg/dL [place] [id number] Specimen Blood Performing Organization Address [facility] Phone Number [address] [address] [place] Phosphorus (10/30/2018 4:33 AM ARMATURE TESTER)Only the most recent of5 resultswithin the time period is included. Phosphorus 3.6Comment: Specimen slightly 2.3 - 4.7 mg/dL [facility] hemolyzed [facility] Specimen Blood Performing Organization Address [facility] Phone Number [address] [address] [phone] [facility] CBC with platelet count + automated diff (10/29/2018 6:15 AM ARMATURE TESTER)Only the most recent of3 resultswithin the time period is included. WBC 8.0 3.5 - 10.5 K/L [facility] RBC 3.64 (L) 3.93 - 5.22 M/L [facility] Hemoglobin 11.3 11.2 - 15.7 GM/DL [facility] Hematocrit 33.9 (L) 34.1 - 44.9 % [facility] MCV 93.1 79.4 - 94.8 fL [facility] MCH 31.0 25.6 - 32.2 pg [facility] MCHC 33.3 32.2 - 35.5 GM/DL [facility] RDW 12.6 11.7 - 14.4 % [facility] Platelets 192 150 - 450 K/CU MM [facility] MPV 11.2 9.4 - 12.3 fL [facility] nRBC 0 0 - 0 /100 WBC [facility] % Neutros 76 % [facility] % Lymphs 12 % [facility] % Monos 9 % [facility] % Eos 1 % [facility] % Baso 0 % [facility] # Neutros 6.13 1.56 - 6.13 K/L [facility] # Lymphs 1.00 (L) 1.18 - 3.74 K/L [facility] # Monos 0.74 (H) 0.24 - 0.36 K/L [facility] # Eos 0.10 0.04 - 0.36 K/L [facility] # Baso 0.03 0.01 - 0.08 K/L [facility] Immature Granulocytes-Relative 1 0 - 1 % [facility] Specimen Blood Performing Organization Address City/State/Zipcode Phone Number [facility] [address] [place] [address] CENTER Platelet count (10/28/2018 11:47 PM ARMATURE TESTER) Platelets 200 150 - 450 K/CU MM [facility] Specimen Blood Performing Organization Address City/State/Zipcode Phone Number [facility] [address] [place] [address] CENTER TRANSFUSION SERVICE REPORT - SCAN (10/28/2018 6:00 PM ARMATURE TESTER)Only the most recent of2 resultswithin the time period is included. Narrative Performed At [place] cerebral 4 vessel angiogram (10/28/2018 6:00 PM ARMATURE TESTER) Narrative Performed At FINAL REPORT [employer] DATE: 10/28/2018 NAME: Ruiz Yen ATTENDING: Juanpablo Mansfield MD SURVEILLANCE INVESTIGATOR: Beth Hawkins PREOPERATIVE DIAGNOSIS: Intracerebral Hemorrhage and Intraventricular Hemorrhage POSTOPERATIVE DIAGNOSIS: Intracerebral Hemorrhage and Intraventricular Hemorrhage PROCEDURE PERFORMED: Diagnostic Cerebral and Cervical Angiogram ANESTHESIOLOGIST: Guillermina Gomez ANESTHESIA: MAC COMPLICATIONS: None ESTIMATED BLOOD LOSS: Less than 15ml ARTERIAL VESSELS STUDIED: *Right common carotid artery x 1 *Right internal carotid artery x 3 *Left vertebral artery x 2 *Right external carotid artery x 1 *Right common femoral artery x1 MATERIALS EMPLOYED: 1. 5 Samoan short sheath 2. 4 Samoan Berenstein catheter 3. Bentson guidewire 4. Terumo 0.035 LT glidewire 5. 5 Samoan Mynx device INDICATIONS: The patient is a 53 year old female with mechanical heart valve on Coumadin who began having headaches that were progressive over the course of the day on 10/25/2018. The patient was evaluated and found to have a right 3 cm rynyzc-faivxly-ahgfcprkb ICH near the atrium lateral ventricle with extension into the ventricle with intraventricular hemorrhage. There was concern for underlying vascular malformation; therefore, neuro endovascular was consultation for a cerebral angiogram to rule out vascular malformation prior to restarting anticoagulation for her mechanical valve as recommended by cardiology. The indications for the procedure as well as the risks, benefits and alternatives to the procedure were discussed with the patient and the family. The risks discussed included but were not limited to stroke, intracranial hemorrhage, injury to the cervical femoral or aortic vessels, contrast reaction, kidney to toxicity, groin hematoma, weakness paralysis and even . They demonstrated understanding of the risk benefit profile and agreed to proceed. PROCEDURE: After appropriate consent was obtained, the patient was brought to the angiographic suite and cardiopulmonary monitoring was placed. The anesthesia team performed light sedation. A timeout was performed. Both groins were prepped and draped in the usual sterile fashion. After administration of 10 mL of 2% lidocaine, a micropuncture needle was used to perform a single wall puncture of the right common femoral artery, a micropuncture sheath was inserted, and an angled DSA angiogram was performed through the sheath. Once good location of the puncture site was confirmed, a 5 Samoan short sheath was inserted over a Bentson wire and was maintained on heparinized saline flush throughout the remainder of the procedure. Using coaxial technique, a preflushed 5 Samoan Terumo glide catheter on constant heparinized saline flush was advanced over the Glidewire into the descending aorta, the Glidewire was removed, the catheter back bled, flushed in usual fashion and the catheter was maintained on heparinized flushed throughout duration of the case. Using coaxial technique, the catheter was advanced into the aortic arch and with the aid of roadmapping, digital fluoroscopy, and careful guidewire manipulation, the right common carotid, right internal carotid, right external carotid, left subclavian, left vertebral arteries were selectively catheterized. Upon each successive catheterization, digital subtraction angiography using the appropriate rate and volume of contrast in multiple projections was performed. The origin of the left CCA was bovine and not easily accessed. Given the right sided bleed, we did not change to a Malin shape catheter to access the left CCA. The catheter was retracted into the aorta and the images reviewed at the outside workstation for quality and content. The femoral sheath was removed and hemostasis achieved with a 5 Samoan Mynx device and manual compression. The patient tolerated the procedure well and was present transported from the images read in unchanged neurological status without groin hematoma and with good distal lower extremity pulses. The patient was transferred to the recovery area (neurological intensive care unit) to be monitored as per protocol. FINDINGS: RIGHT COMMON FEMORAL ARTERY (DSA, PA, X 1) Normal location of the puncture site above the bifurcation and below markers of the inguinal ligament. RIGHT COMMON CAROTID ARTERY (DSA, PA, LATERAL, CERVICAL) The distal cervical common carotid as well as the origins of the right internal and external carotid arteries are widely patent without evidence of ulceration or stenosis. RIGHT INTERNAL CAROTID ARTERY (DSA, PA, LATERAL, MAGNIFIED OBLIQUE x2) Normal distal cervical, petrous, cavernous and supraclinoid internal carotid artery with physiological filling of the MCA and JOVANA branches. Capillary phase and venous phase are unremarkable. No evidence of AVM, aneurysms or other vascular lesions are seen. -like right P-comm. There is no significant atherosclerosis or stenosis. The venous phase demonstrates patent transverse and sigmoid sinuses. RIGHT EXTERNAL CAROTID ARTERY (DSA, PA, LATERAL CRANIAL X1) There is a normal course and caliber of the external carotid artery and its branches. There is a well visualized superficial temporal artery, middle meningeal artery, internal maxillary artery, occipital artery and their branches. There is no evidence of AV fistula, aneurysm or vascular malformations. LEFT VERTEBRAL ARTERY (DSA, PA, LATERAL, MAGNIFIED OBLIQUE X 1) Unremarkable distal cervical and intracranial vertebral artery with physiological filling of the basilar artery and its distal branches. There is normal filling of the ipsilateral PICA, AICAs, SACs and left lineworker. No significant right NAPPER GRINDER is seen indicating right Pcom. No aneurysms or other vascular lesions are seen. The capillary phase and venous phase are unremarkable. IMPRESSION 1. Normal visualized cerebral and cervical vasculature. FACULTY ATTESTATION: I, Juanpablo Mansfield M.D., was present for the entirety of the procedure. I performed or directly supervised all aspects of the procedure. I performed all critical aspects of the case. I interpreted the images and reported the results. Signed: Juanpablo Mansfield MD Report Verified Date/Time:10/30/2018 14:52:59 Reading Location: [facility] Procedure Note Interface, External Ris In - 10/30/2018 2:55 PM ARMATURE TESTER FINAL REPORT DATE: 10/28/2018 NAME: Yen Ruiz ATTENDING: Juanpablo Mansfield MD SURVEILLANCE INVESTIGATOR: Beth Hawkins PREOPERATIVE DIAGNOSIS: Intracerebral Hemorrhage and Intraventricular Hemorrhage POSTOPERATIVE DIAGNOSIS: Intracerebral Hemorrhage and Intraventricular Hemorrhage PROCEDURE PERFORMED: Diagnostic Cerebral and Cervical Angiogram ANESTHESIOLOGIST: Guillermina Gomez ANESTHESIA: MAC COMPLICATIONS: None ESTIMATED BLOOD LOSS: Less than 15ml ARTERIAL VESSELS STUDIED: *Right common carotid artery x 1 *Right internal carotid artery x 3 *Left vertebral artery x 2 *Right external carotid artery x 1 *Right common femoral artery x1 MATERIALS EMPLOYED: 1. 5 Samoan short sheath 2. 4 Samoan Berenstein catheter 3. Bentson guidewire 4. Terumo 0.035 LT glidewire 5. 5 Samoan Mynx device INDICATIONS: The patient is a 53 year old female with mechanical heart valve on Coumadin who began having headaches that were progressive over the course of the day on 10/25/2018. The patient was evaluated and found to have a right 3 cm fckujo-wdnqfgj-luwrtlqyt ICH near the atrium lateral ventricle with extension into the ventricle with intraventricular hemorrhage. There was concern for underlying vascular malformation; therefore, neuro endovascular was consultation for a cerebral angiogram to rule out vascular malformation prior to restarting anticoagulation for her mechanical valve as recommended by cardiology. The indications for the procedure as well as the risks, benefits and alternatives to the procedure were discussed with the patient and the family. The risks discussed included but were not limited to stroke, intracranial hemorrhage, injury to the cervical femoral or aortic vessels, contrast reaction, kidney to toxicity, groin hematoma, weakness paralysis and even . They demonstrated understanding of the risk benefit profile and agreed to proceed. PROCEDURE: After appropriate consent was obtained, the patient was brought to the angiographic suite and cardiopulmonary monitoring was placed. The anesthesia team performed light sedation. A timeout was performed. Both groins were prepped and draped in the usual sterile fashion. After administration of 10 mL of 2% lidocaine, a micropuncture needle was used to perform a single wall puncture of the right common femoral artery, a micropuncture sheath was inserted, and an angled DSA angiogram was performed through the sheath. Once good location of the puncture site was confirmed, a 5 Samoan short sheath was inserted over a Bentson wire and was maintained on heparinized saline flush throughout the remainder of the procedure. Using coaxial technique, a preflushed 5 Samoan Terumo glide catheter on constant heparinized saline flush was advanced over the Glidewire into the descending aorta, the Glidewire was removed, the catheter back bled, flushed in usual fashion and the catheter was maintained on heparinized flushed throughout duration of the case. Using coaxial technique, the catheter was advanced into the aortic arch and with the aid of roadmapping, digital fluoroscopy, and careful guidewire manipulation, the right common carotid, right internal carotid, right external carotid, left subclavian, left vertebral arteries were selectively catheterized. Upon each successive catheterization, digital subtraction angiography using the appropriate rate and volume of contrast in multiple projections was performed. The origin of the left CCA was bovine and not easily accessed. Given the right sided bleed, we did not change to a Malin shape catheter to access the left CCA. The catheter was retracted into the aorta and the images reviewed at the outside workstation for quality and content. The femoral sheath was removed and hemostasis achieved with a 5 Samoan Mynx device and manual compression. The patient tolerated the procedure well and was present transported from the images read in unchanged neurological status without groin hematoma and with good distal lower extremity pulses. The patient was transferred to the recovery area (neurological intensive care unit) to be monitored as per protocol. FINDINGS: RIGHT COMMON FEMORAL ARTERY (DSA, PA, X 1) Normal location of the puncture site above the bifurcation and below markers of the inguinal ligament. RIGHT COMMON CAROTID ARTERY (DSA, PA, LATERAL, CERVICAL) The distal cervical common carotid as well as the origins of the right internal and external carotid arteries are widely patent without evidence of ulceration or stenosis. RIGHT INTERNAL CAROTID ARTERY (DSA, PA, LATERAL, MAGNIFIED OBLIQUE x2) Normal distal cervical, petrous, cavernous and supraclinoid internal carotid artery with physiological filling of the MCA and JOVANA branches. Capillary phase and venous phase are unremarkable. No evidence of AVM, aneurysms or other vascular lesions are seen. -like right P-comm. There is no significant atherosclerosis or stenosis. The venous phase demonstrates patent transverse and sigmoid sinuses. RIGHT EXTERNAL CAROTID ARTERY (DSA, PA, LATERAL CRANIAL X1) There is a normal course and caliber of the external carotid artery and its branches. There is a well visualized superficial temporal artery, middle meningeal artery, internal maxillary artery, occipital artery and their branches. There is no evidence of AV fistula, aneurysm or vascular malformations. LEFT VERTEBRAL ARTERY (DSA, PA, LATERAL, MAGNIFIED OBLIQUE X 1) Unremarkable distal cervical and intracranial vertebral artery with physiological filling of the basilar artery and its distal branches. There is normal filling of the ipsilateral PICA, AICAs, SACs and left lineworker. No significant right NAPPER GRINDER is seen indicating right Pcom. No aneurysms or other vascular lesions are seen. The capillary phase and venous phase are unremarkable. IMPRESSION 1. Normal visualized cerebral and cervical vasculature. FACULTY ATTESTATION: I, Juanpablo Mansfield M.D., was present for the entirety of the procedure. I performed or directly supervised all aspects of the procedure. I performed all critical aspects of the case. I interpreted the images and reported the results. Signed: Juanpablo Mansfield MD Report Verified Date/Time: 10/30/2018 14:52:59 Reading Location: [facility] Y018 Neuro Angio Reading Room Performing Organization Address City/State/Zipcode Phone Number [employer] RIS ECHOCARDIOGRAM REPORT - SCAN (10/28/2018 3:20 PM ARMATURE TESTER) Narrative Performed At Limited 2D Echocardiogram (10/28/2018 11:48 AM ARMATURE TESTER) Ejection Fraction [facility] MKCKESSON CPA Narrative Performed At Transthoracic Echocardiography Report (TTE) [facility]ON [facility] Demographics Patient Name YEN RUIZ Date of Study10/28/2018 ASHLEY [id number] Gender Female Visit Number [id number] Unknown [id number] Room [id number] Number Date of Birth1965Referring Claudy Loco Physician Age53 year(s)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 Clinical History Anticoagulated on Coumadin Arrhythmias/Palpitations Hypertension S/P AVR + AATA Repair HGB 12.2 HCT 37.3 % Contrast Medium: Definity. Amount - 2 ml Height: 71 inches Weight: 95.71 kg (211 lbs) BSA: 2.16 m^2 BMI: 29.43 kg/m^2 HR: 73 bpm BP: 124/81 mmHg Summary The left ventricle is chamber size (by PSLAX dimension) is normal (female - LVIDd 3.8-5.2cm) . All of the LV segments contract normally . LVEF by Rivera's method of disk assessment is normal (55-60%) . Degree of diastolic dysfunction (LAP assessment) is indeterminate . The prosthetic AoV appears well-seated with normal function by Doppler. AoV dimensionless obstructive index (DOI)) is 0.75 . Prosthetic AoV systolic gradients are normal . Prosthetic AoV regurgitaton is not demonstrated . Unable to estimate peak systolic PA pressure; inadequate TR velocity signal. The estimated RA pressure by IVC dynamics 11-15mmHg . No significant pericardial effusion is visualized. Previous Study No prior studies available for comparison. Signature Findings Left Ventricle Limited 2D exam and Doppler exam to address study in dication. Th e left ventricle is chamber size (by PSLAX di mension) is normal (female - LVIDd 3.8-5.2cm) . LV septal thickness is borderline increased. LV po sterior wall thickness is normal (0.6-1.1cm) . Al l of the LV segments contract normally . LV EF by Rivera's method of disk assessment is no rmal (55-60%) . De gree of diastolic dysfunction (LAP assessment) is in determinate . Left AtriumLA size is normal (16-34 ml/m2) . Right VentricleThe right ventricular chamber size and systolic fu nction are within normal limits. Right Atrium RA size is probably normal based on available vi ews. Aortic Valve A mechanical AoV prosthesis is visualized . Th e prosthetic AoV appears well-seated with normal fu nction by Doppler. Ao V dimensionless obstructive index (DOI)) is 0.75 . Pr osthetic AoV systolic gradients are normal . Pr osthetic AoV regurgitaton is not demonstrated . Mitral Valve Mild MV leaflet thickening. Mi ld mitral regurgitation. Mi ld mitral regurgitation. Tricuspid ValveTV is partially visualized. Un able to estimate peak systolic PA pressure; in adequate TR velocity signal. Pulmonic Valve PV is not visualized. AortaAortic root size (SInus of Valsalva diameter) is no rmal . PericardiumNo significant pericardial effusion is visualized. IVC/SVC/PA/PV/PleuralThe estimated RA pressure by IVC dynamics 11-15mmHg . Chambers/Structures Left Atrium LA Volume: 52.76 ml LA Area: 19.67 cm^2 LA Vol. Index: 24 ml/m^2 Left Ventricle LVIDd: 4.65 cm LV Septum Diastolic: 1.1 cm LV PW Diastolic: 0.99 cm LVEDV Rivera's:108.36 ml LVESV Rivera's:49.87 ml LVEF Rivera's: 54 % LVEDVI: 50 ml/m^2 LVESVI: 23 ml/m^2 Doppler/Quantitative Measurements Aortic Valve Peak Velocity: 2.82 m/s Mean Velocity: 1.76 m/s Peak Gradient: 31.8 mmHgMean Gradient: 15.05 mmHg AV VTI: 51.04 cm AV DVI: 0.75 LVOT Peak Velocity: 1.76 m/sPeak Gradient: 12.42 mmHg Mean Velocity: 1.19 m/sMean Gradient: 6.54 mmHg LVOT VTI: 38.29 cm Procedure Note Interface, External Ris In - 10/28/2018 2:59 PM ARMATURE TESTER Transthoracic Echocardiography Report (TTE) Demographics Patient Name YEN RUIZ Date of Study 10/28/2018 ASHLEY Gender Female Visit Number [id number] Race Unknown Room Number 7406 Number Date of 1965 Referring Claudy Loco Physician Age 53 year(s) 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 Clinical History Anticoagulated on Coumadin Arrhythmias/Palpitations Hypertension S/P AVR + AATA Repair HGB 12.2 HCT 37.3 % Contrast Medium: Definity. Amount - 2 ml Height: 71 inches Weight: 95.71 kg (211 lbs) BSA: 2.16 m^2 BMI: 29.43 kg/m^2 HR: 73 bpm BP: 124/81 mmHg Summary The left ventricle is chamber size (by PSLAX dimension) is normal (female - LVIDd 3.8-5.2cm) . All of the LV segments contract normally . LVEF by Rivera's method of disk assessment is normal (55-60%) . Degree of diastolic dysfunction (LAP assessment) is indeterminate . The prosthetic AoV appears well-seated with normal function by Doppler. AoV dimensionless obstructive index (DOI)) is 0.75 . Prosthetic AoV systolic gradients are normal . Prosthetic AoV regurgitaton is not demonstrated . Unable to estimate peak systolic PA pressure; inadequate TR velocity signal. The estimated RA pressure by IVC dynamics 11-15mmHg . No significant pericardial effusion is visualized. Previous Study No prior studies available for comparison. Signature Findings Left Ventricle Limited 2D exam and Doppler exam to address study indication. The left ventricle is chamber size (by PSLAX dimension) is normal (female - LVIDd 3.8-5.2cm) . LV septal thickness is borderline increased. LV posterior wall thickness is normal (0.6-1.1cm) . All of the LV segments contract normally . LVEF by Rivera's method of disk assessment is normal (55-60%) . Degree of diastolic dysfunction (LAP assessment) is indeterminate . Left Atrium LA size is normal (16-34 ml/m2) . Right Ventricle The right ventricular chamber size and systolic function are within normal limits. Right Atrium RA size is probably normal based on available views. Aortic Valve A mechanical AoV prosthesis is visualized . The prosthetic AoV appears well-seated with normal function by Doppler. AoV dimensionless obstructive index (DOI)) is 0.75 . Prosthetic AoV systolic gradients are normal . Prosthetic AoV regurgitaton is not demonstrated . Mitral Valve Mild MV leaflet thickening. Mild mitral regurgitation. Mild mitral regurgitation. Tricuspid Valve TV is partially visualized. Unable to estimate peak systolic PA pressure; inadequate TR velocity signal. Pulmonic Valve PV is not visualized. Aorta Aortic root size (SInus of Valsalva diameter) is normal . Pericardium No significant pericardial effusion is visualized. IVC/SVC/PA/PV/Pleural The estimated RA pressure by IVC dynamics 11-15mmHg . Chambers/Structures Left Atrium LA Volume: 52.76 ml LA Area: 19.67 cm^2 LA Vol. Index: 24 ml/m^2 Left Ventricle LVIDd: 4.65 cm LV Septum Diastolic: 1.1 cm LV PW Diastolic: 0.99 cm LVEDV Rivera's:108.36 ml LVESV Rivera's:49.87 ml LVEF Rivera's: 54 % LVEDVI: 50 ml/m^2 LVESVI: 23 ml/m^2 Doppler/Quantitative Measurements Aortic Valve Peak Velocity: 2.82 m/s Mean Velocity: 1.76 m/s Peak Gradient: 31.8 mmHg Mean Gradient: 15.05 mmHg AV VTI: 51.04 cm AV DVI: 0.75 LVOT Peak Velocity: 1.76 m/s Peak Gradient: 12.42 mmHg Mean Velocity: 1.19 m/s Mean Gradient: 6.54 mmHg LVOT VTI: 38.29 cm Performing Organization Address City/State/[facility] Hospital[facility] Phone Number [facility] without IV contrast portable (10/28/2018 11:08 AM ARMATURE TESTER) Narrative Performed At FINAL REPORT [employer] CT BRAIN WITHOUT IV CONTRAST - PORTABLE CLINICAL INDICATION:nausea intracranial bleed and left s-ded weakness new COMPARISON: October 27, 2018 TECHNIQUE:Noncontrast axial CT imaging of the brain and skull. DOSE REDUCTION: Dose modulation, iterative reconstruction, and/or weight-based adjustment of the mA/kV was utilized to reduce the radiation dose to as low as reasonably achievable. FINDINGS: The prior examination, there is been no significant interval change in the size or mass effect. Previously noted temporal and occipital hemorrhage with intraventricular extension. No new ischemic injury is identified. The degree of midline shift at the level of the foramen of Monro is stable. Osseous structures are unchanged. IMPRESSION: Stable intracranial appearance when compared to approximately 16 hours prior. Signed: JR Jonn, Whitney DAVIS Report Verified Date/Time:10/28/2018 11:11:15 Reading Location: [facility] Radiology Reading Room Procedure Note Interface, External Ris In - 10/28/2018 11:13 AM ARMATURE TESTER FINAL REPORT CT BRAIN WITHOUT IV CONTRAST - PORTABLE CLINICAL INDICATION: nausea intracranial bleed and left s-ded weakness new COMPARISON: October 27, 2018 TECHNIQUE: Noncontrast axial CT imaging of the brain and skull. DOSE REDUCTION: Dose modulation, iterative reconstruction, and/or weight-based adjustment of the mA/kV was utilized to reduce the radiation dose to as low as reasonably achievable. FINDINGS: The prior examination, there is been no significant interval change in the size or mass effect. Previously noted temporal and occipital hemorrhage with intraventricular extension. No new ischemic injury is identified. The degree of midline shift at the level of the foramen of Monro is stable. Osseous structures are unchanged. IMPRESSION: Stable intracranial appearance when compared to approximately 16 hours prior. Signed: JR Lunsford Robert MD Report Verified Date/Time: 10/28/2018 11:11:15 Reading Location: [facility] Radiology Reading Room Performing Organization Address City/[facility] Hospitalcode Phone Number [employer] Prepare plasma (10/27/2018 11:54 PM ARMATURE TESTER)Only the most recent of2 resultswithin the time period is included. Unit ABO AB Pos SAFETRACE TX UNIT NUMBER [id number] SAFETRACE TX Status TRANSFUSED SAFETRACE TX Blood Bank Product FFP SAFETRACE TX PRODUCT CODE [id number] SAFETRACE TX Specimen Blood Performing Organization Address [facility] Phone Number SAFETRACE TX XR chest 1 view portable / bedside (10/27/2018 3:16 PM ARMATURE TESTER) Narrative Performed At FINAL REPORT [employer] HISTORY : ok. Comparison: None Comment: Single portable view of the chest was obtained. The cardiac silhouette size is enlarged. There are findings of pulmonary venous congestion. Interstitial prominence may represent interstitial edema. No pneumothorax or pleural effusion is seen. There is elevation of the right hemidiaphragm. There is a nonspecific right peritracheal density identified measuring up to 4.9 x 2.4 cm. The findings should be further assessed with a chest CT. There is some nonspecific right basilar airspace disease/consolidation. Signed: Abdulaziz Mccauley MD Report Verified Date/Time:10/27/2018 15:28:09 Reading Location: [facility] [id number] Transitional Reading Room Procedure Note Interface, External Ris In - 10/27/2018 3:30 PM ARMATURE TESTER FINAL REPORT HISTORY : ok. Comparison: None Comment: Single portable view of the chest was obtained. The cardiac silhouette size is enlarged. There are findings of pulmonary venous congestion. Interstitial prominence may represent interstitial edema. No pneumothorax or pleural effusion is seen. There is elevation of the right hemidiaphragm. There is a nonspecific right peritracheal density identified measuring up to 4.9 x 2.4 cm. The findings should be further assessed with a chest CT. There is some nonspecific right basilar airspace disease/consolidation. Signed: Abdulaziz Mccauley MD Report Verified Date/Time: 10/27/2018 15:28:09 Reading Location: [address] Transitional Reading Room Performing Organization Address City/State/Zipcode Phone Number [employer] Transfuse plasma (10/27/2018 12:03 AM ARMATURE TESTER)Only the most recent of4 resultswithin the time period is included.MR brain without & with IV contrast (10/26/2018 4:14 PM ARMATURE TESTER) Narrative Performed At FINAL REPORT [employer] MRI Brain with and without contrast 10/26/2018 4:07 PM CLINICAL HISTORY: ICH TECHNIQUE: Multiplanar, multisequence MR imaging of the brain was performed, utilizing the following imaging sequences: Axial T1, T2, FLAIR, GRE, DWI/ADC; sagittal T1; postcontrast axial, sagittal, and coronal T1. COMPARISON: CT brain 10/26/2018. FINDINGS: Patient motion limits this examination. Pathology may be obscured. With this limitation in mind, there is no intraparenchymal hematoma adjacent posteromesial right temporal and anteroinferior occipital lobes measuring 3.1 cm AP by 3.3 cm transverse by 3.5 cm craniocaudal there is associated small volume intraventricular hemorrhage and trace subarachnoid hemorrhage, with asymmetric mild dilation of the right lateral ventricle. Midline shift measures 4 mm at the septum pellucidum. There is a stellate focus of pathologic enhancement within the hematoma or, the appearance of which suggests an underlying vascular malformation. Tumoral enhancement is an alternative consideration. There is mild chronic microvascular ischemia in the supratentorial white matter. 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 There is generalized parenchymal volume loss. Normal appearing flow-voids are present in the major intracranial vascular structures. The sellar and pineal regions are unremarkable. Craniocervical alignment is normal. The cerebellar tonsils lie at or just below the level of the foramen magnum but maintain a rounded appearance. The orbits, face, and skull base are without worrisome finding. IMPRESSION: 1. Moderate volume right temporooccipital intraparenchymal hematoma with associated small volume intraventricular and trace subarachnoid hemorrhage. 2. Resultant mild dilation of the right lateral ventricle. 3. Pathologic enhancement within the hematoma core suggesting underlying vascular malformation versus tumor. Advise further evaluation with catheter directed angiography. Signed: Noe Marin MD Report Verified Date/Time:10/26/2018 16:15:27 Reading Location: [facility] [id number] Neuro Reading Room Procedure Note Interface, External Ris In - 10/26/2018 4:17 PM ARMATURE TESTER FINAL REPORT MRI Brain with and without contrast 10/26/2018 4:07 PM CLINICAL HISTORY: ICH TECHNIQUE: Multiplanar, multisequence MR imaging of the brain was performed, utilizing the following imaging sequences: Axial T1, T2, FLAIR, GRE, DWI/ADC; sagittal T1; postcontrast axial, sagittal, and coronal T1. COMPARISON: CT brain 10/26/2018. FINDINGS: Patient motion limits this examination. Pathology may be obscured. With this limitation in mind, there is no intraparenchymal hematoma adjacent posteromesial right temporal and anteroinferior occipital lobes measuring 3.1 cm AP by 3.3 cm transverse by 3.5 cm craniocaudal there is associated small volume intraventricular hemorrhage and trace subarachnoid hemorrhage, with asymmetric mild dilation of the right lateral ventricle. Midline shift measures 4 mm at the septum pellucidum. There is a stellate focus of pathologic enhancement within the hematoma or, the appearance of which suggests an underlying vascular malformation. Tumoral enhancement is an alternative consideration. There is mild chronic microvascular ischemia in the supratentorial white matter. 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 There is generalized parenchymal volume loss. Normal appearing flow-voids are present in the major intracranial vascular structures. The sellar and pineal regions are unremarkable. Craniocervical alignment is normal. The cerebellar tonsils lie at or just below the level of the foramen magnum but maintain a rounded appearance. The orbits, face, and skull base are without worrisome finding. IMPRESSION: 1. Moderate volume right temporooccipital intraparenchymal hematoma with associated small volume intraventricular and trace subarachnoid hemorrhage. 2. Resultant mild dilation of the right lateral ventricle. 3. Pathologic enhancement within the hematoma core suggesting underlying vascular malformation versus tumor. Advise further evaluation with catheter directed angiography. Signed: Noe Marin MD Report Verified Date/Time: 10/26/2018 16:15:27 Reading Location: [address] Neuro Reading Room Performing Organization Address City/[facility]/[employer] Phone Number [employer] RIS Type and screen, automated (10/26/2018 11:00 AM ARMATURE TESTER) ABO/RH AUTOMATED (BEAKER) O POSITIVE [facility] Ab Scrn NEGATIVE [facility] Specimen Blood Performing Organization Address [facility] Hospitalcode Phone Number [facility] [address] [place] [phone] CTA carotid (10/26/2018 6:22 AM ARMATURE TESTER) Narrative Performed At FINAL REPORT [employer] CTA carotids and brain 10/26/2018 8:23 AM CLINICAL INDICATION: Interventricular hemorrhage COMPARISON: None available TECHNIQUE: Noncontrast axial CT images of the head were obtained. Subsequently, axial CT angiographic images of the upper chest, neck, and head were obtained, from which three-dimensional reconstructed images were created. Additional imaging series were created on an independent workstation using maximum intensity projection and volume rendered technique. This examination was performed according to our departmental dose optimization program, which includes automated exposure control, adjustment of the mA and/or kV according to patient size, and/or use of iterated reconstruction technique. FINDINGS: There is no intraparenchymal hemorrhage in the adjacent posterior mesial right temporal and anteroinferior right occipital lobes, which measures 3.2 cm AP by 3.2 cm transverse by 3.5 cm craniocaudal. There is associated small volume intraventricular hemorrhage in the right lateral ventricle. There is mild entrapment of the right temporal horn. There is no parenchymal herniation. There is no vessel occlusion in the intracranial or extracranial arterial vasculature. There is no NASCET quantifiable cervical internal carotid artery stenosis. There is no remarkable stenosis elsewhere in the intracranial or extracranial arterial vasculature. No intracranial aneurysm or arteriovenous malformation is evident. The dural venous sinuses, major cortical draining veins, and deep venous drainage pathways are patent. There is mild thyromegaly, without dominant mass. The visualized skeleton is without worrisome finding. IMPRESSION: 1. Moderate volume right temporal occipital intraparenchymal hematoma with associated small volume intraventricular hemorrhage. 2. Resultant mild entrapment of the temporal horn of the right lateral ventricle. 3. Unremarkable intracranial and extracranial CTAs. 4. Advise further evaluation with pre and postcontrast MRI following hematoma resorption to evaluate for potentially obscured underlying tumor and/or arteriovenous malformation. Signed: Noe Marin MD Report Verified Date/Time:10/26/2018 08:29:52 Reading Location: [address] Neuro Reading Room Procedure Note Interface, External Ris In - 10/26/2018 8:32 AM ARMATURE TESTER FINAL REPORT CTA carotids and brain 10/26/2018 8:23 AM CLINICAL INDICATION: Interventricular hemorrhage COMPARISON: None available TECHNIQUE: Noncontrast axial CT images of the head were obtained. Subsequently, axial CT angiographic images of the upper chest, neck, and head were obtained, from which three-dimensional reconstructed images were created. Additional imaging series were created on an independent workstation using maximum intensity projection and volume rendered technique. This examination was performed according to our departmental dose optimization program, which includes automated exposure control, adjustment of the mA and/or kV according to patient size, and/or use of iterated reconstruction technique. FINDINGS: There is no intraparenchymal hemorrhage in the adjacent posterior mesial right temporal and anteroinferior right occipital lobes, which measures 3.2 cm AP by 3.2 cm transverse by 3.5 cm craniocaudal. There is associated small volume intraventricular hemorrhage in the right lateral ventricle. There is mild entrapment of the right temporal horn. There is no parenchymal herniation. There is no vessel occlusion in the intracranial or extracranial arterial vasculature. There is no NASCET quantifiable cervical internal carotid artery stenosis. There is no remarkable stenosis elsewhere in the intracranial or extracranial arterial vasculature. No intracranial aneurysm or arteriovenous malformation is evident. The dural venous sinuses, major cortical draining veins, and deep venous drainage pathways are patent. There is mild thyromegaly, without dominant mass. The visualized skeleton is without worrisome finding. IMPRESSION: 1. Moderate volume right temporal occipital intraparenchymal hematoma with associated small volume intraventricular hemorrhage. 2. Resultant mild entrapment of the temporal horn of the right lateral ventricle. 3. Unremarkable intracranial and extracranial CTAs. 4. Advise further evaluation with pre and postcontrast MRI following hematoma resorption to evaluate for potentially obscured underlying tumor and/or arteriovenous malformation. Signed: Noe Marin MD Report Verified Date/Time: 10/26/2018 08:29:52 Reading Location: [address] Neuro Reading Room Performing Organization Address City/State/Zipcode Phone Number [employer] CTA brain (10/26/2018 6:22 AM ARMATURE TESTER) Narrative Performed At FINAL REPORT [employer] CTA carotids and brain 10/26/2018 8:23 AM CLINICAL INDICATION: Interventricular hemorrhage COMPARISON: None available TECHNIQUE: Noncontrast axial CT images of the head were obtained. Subsequently, axial CT angiographic images of the upper chest, neck, and head were obtained, from which three-dimensional reconstructed images were created. Additional imaging series were created on an independent workstation using maximum intensity projection and volume rendered technique. This examination was performed according to our departmental dose optimization program, which includes automated exposure control, adjustment of the mA and/or kV according to patient size, and/or use of iterated reconstruction technique. FINDINGS: There is no intraparenchymal hemorrhage in the adjacent posterior mesial right temporal and anteroinferior right occipital lobes, which measures 3.2 cm AP by 3.2 cm transverse by 3.5 cm craniocaudal. There is associated small volume intraventricular hemorrhage in the right lateral ventricle. There is mild entrapment of the right temporal horn. There is no parenchymal herniation. There is no vessel occlusion in the intracranial or extracranial arterial vasculature. There is no NASCET quantifiable cervical internal carotid artery stenosis. There is no remarkable stenosis elsewhere in the intracranial or extracranial arterial vasculature. No intracranial aneurysm or arteriovenous malformation is evident. The dural venous sinuses, major cortical draining veins, and deep venous drainage pathways are patent. There is mild thyromegaly, without dominant mass. The visualized skeleton is without worrisome finding. IMPRESSION: 1. Moderate volume right temporal occipital intraparenchymal hematoma with associated small volume intraventricular hemorrhage. 2. Resultant mild entrapment of the temporal horn of the right lateral ventricle. 3. Unremarkable intracranial and extracranial CTAs. 4. Advise further evaluation with pre and postcontrast MRI following hematoma resorption to evaluate for potentially obscured underlying tumor and/or arteriovenous malformation. Signed: Noe Marin MD Report Verified Date/Time:10/26/2018 08:29:52 Reading Location: [address] Neuro Reading Room Procedure Note Interface, External Ris In - 10/26/2018 8:32 AM ARMATURE TESTER FINAL REPORT CTA carotids and brain 10/26/2018 8:23 AM CLINICAL INDICATION: Interventricular hemorrhage COMPARISON: None available TECHNIQUE: Noncontrast axial CT images of the head were obtained. Subsequently, axial CT angiographic images of the upper chest, neck, and head were obtained, from which three-dimensional reconstructed images were created. Additional imaging series were created on an independent workstation using maximum intensity projection and volume rendered technique. This examination was performed according to our departmental dose optimization program, which includes automated exposure control, adjustment of the mA and/or kV according to patient size, and/or use of iterated reconstruction technique. FINDINGS: There is no intraparenchymal hemorrhage in the adjacent posterior mesial right temporal and anteroinferior right occipital lobes, which measures 3.2 cm AP by 3.2 cm transverse by 3.5 cm craniocaudal. There is associated small volume intraventricular hemorrhage in the right lateral ventricle. There is mild entrapment of the right temporal horn. There is no parenchymal herniation. There is no vessel occlusion in the intracranial or extracranial arterial vasculature. There is no NASCET quantifiable cervical internal carotid artery stenosis. There is no remarkable stenosis elsewhere in the intracranial or extracranial arterial vasculature. No intracranial aneurysm or arteriovenous malformation is evident. The dural venous sinuses, major cortical draining veins, and deep venous drainage pathways are patent. There is mild thyromegaly, without dominant mass. The visualized skeleton is without worrisome finding. IMPRESSION: 1. Moderate volume right temporal occipital intraparenchymal hematoma with associated small volume intraventricular hemorrhage. 2. Resultant mild entrapment of the temporal horn of the right lateral ventricle. 3. Unremarkable intracranial and extracranial CTAs. 4. Advise further evaluation with pre and postcontrast MRI following hematoma resorption to evaluate for potentially obscured underlying tumor and/or arteriovenous malformation. Signed: Noe Marin MD Report Verified Date/Time: 10/26/2018 08:29:52 Reading Location: [address] Neuro Reading Room Performing Organization Address City/State/Zipcode Phone Number [facility] Hemoglobin A1c (10/26/2018 4:39 AM ARMATURE TESTER) Hemoglobin A1C 5.2 4.3 - 6.1 % [facility] Specimen Blood Performing Organization Address City/State/Zipcode Phone Number [address] [address] CENTER Hepatic function panel (10/26/2018 4:39 AM ARMATURE TESTER) Protein, Total 6.8 6.0 - 8.3 gm/dL [facility] Albumin 4.2 3.5 - 5.0 g/dL [facility] Total Bilirubin 1.3 (H) 0.2 - 1.2 mg/dL [facility] Bilirubin, Direct 0.4 0.1 - 0.5 mg/dL [facility] Alkaline Phosphatase 57 40 - 150 U/L [facility] AST 16 5 - 34 U/L [facility] ALT 17 6 - 55 U/L [facility] Specimen Blood Narrative Performed At Once on admission and Daily AM afterwards [facility] Once on admission and Daily AM afterwards Performing Organization Address City/State/Zipcode Phone Number [facility] [address] [place] [address] [place] Lipid panel (10/26/2018 4:39 AM ARMATURE TESTER) Triglycerides 210 mg/dL [facility] Cholesterol 191 mg/dL [facility] HDL 38 mg/dL [facility] LDL Calculated 111 mg/dL [facility] Specimen Blood Narrative Performed At Triglyceride Reference Range: [facility] Low Risk <150 [id number] High Risk 200-499 Very High Risk>=500 Cholesterol Reference Range: Low Risk <200 [id number] High Risk>240 HDL Cholesterol Reference Range: Low Risk >=60 High Risk <40 LDL Cholesterol Reference Range: Optimal<100 Near [id number] Very High >=190 Once on admission and Daily AM afterwards Once on admission and Daily AM afterwards Once on admission and Daily AM afterwards Once on admission and Daily AM afterwards Performing Organization Address City/State/Zipcode Phone Number [facility] [address] [place] [phone] [place] Comprehensive metabolic panel (10/26/2018 4:39 AM ARMATURE TESTER) Protein, Total 6.8 6.0 - 8.3 gm/dL [facility] Albumin 4.2 3.5 - 5.0 g/dL [facility] Alkaline Phosphatase 57 40 - 150 U/L [facility] Total Bilirubin 1.3 (H) 0.2 - 1.2 mg/dL [facility] Sodium 139 136 - 145 meq/L [facility] Potassium 3.5 3.5 - 5.1 meq/L [facility] Chloride 105 98 - 107 meq/L [facility] CO2 27 22 - 29 meq/L [facility] BUN 16 7 - 21 mg/dL [facility] Creatinine 0.80 0.57 - 1.25 mg/dL [facility] Glucose 93 70 - 105 mg/dL [facility] Calcium 9.5 8.4 - 10.2 mg/dL [facility] AST 16 5 - 34 U/L [facility] ALT 17 6 - 55 U/L [facility] EGFR 75Comment: ESTIMATED GFR mL/min/1.73 sq m [facility] IS NOT ACCURATE [facility] CREATININE CLEARANCE IN PREDICTING GLOMERULAR FILTRATION RATE. ESTIMATED GFR IS NOT APPLICABLE FOR DIALYSIS PATIENTS. Specimen Blood Narrative Performed At Once on admission and Daily AM afterwards [facility] Once on admission and Daily AM afterwards Performing Organization Address City/State/Zipcode Phone Number [facility] [address] [place] [id number] [facility] after 11/07/2017 Insurance Payer Benefit Plan / Subscriber ID Type Phone Address Group BLUE CROSS/BLUE [employer]BS PPO POS EPO xxxxxxxxxxxx PPO [phone] [address] [place] [address] Advance Directives For more information, please contact:[address] [phone] Code Status Date Activated Date Inactivated Comments Full Code 10/28/2018 4:02 PM This code status was determined by: Patient
--- OUTSIDE RECORDS SUMMARY | 2018-11-08 08:33 | XMS REPORT | Clinical Summary ---
:1965 Author Organization [facility] Address [address] [place] [id number] Care Team Providers Name Role Phone Daniel [...] INFLUENZA VACCINE 06/05/2018 Results Not on fileafter 11/07/2017 Insurance Payer Benefit Plan / Group Subscriber ID Type Phone Address [employer] C[employer] INDEMNITY xxxxxxxxxxx Indemnity [employer] CONNECT xxxxxxxxxxx HMO Advance Directives Patient has advance care planning documents, and code status on file. For more information, please contact:[place] [address] Code Status Date Activated Date Inactivated Comments Full Code 05/19/2016 12:26 AM 05/19/2016 11:05 PM Code Status decision reached by: Patient
--- OUTSIDE RECORDS SUMMARY | 2018-11-08 08:34 | XMS REPORT ---
:1965 Author Organization [facility] Address [address] [place] [address] [address] [place] [address] Care Team Providers Name Role Phone SALUDGABRIELALAMAR AYONILANAISABELL DYER Unavailable Unavailable Problems This patient has no known problems. Allergies, Adverse Reactions, Alerts This patient has no known allergies or adverse reactions. Medications This patient has no known medications. Results Test Description Test Time Test Comments Text Results Atomic Results Result Comments CT, BRAIN, 2018-11-07 10:28:00 Reason for exam:->IVH now FINAL REPORT PATIENT WITHOUT CONTRAST therapeutic INR, needs ID: [id number] CT Head repeatWhat is the without contrast patient's sedation CLINICAL HISTORY: requirement?->No Cerebral hemorrhage, SedationIs the patient anticoagulated ?->No TECHNIQUE: Contiguous axial images through the head [...] has decreased in size. Signed: Nadeem Linda MDReport Verified Date/Time: 11/07/2018 10:28:21 Reading Location: [facility] C013V Neuro Reading Room C METABOLIC PANEL 2018-11-07 06:29:00 Test Item Value Reference Range Comments SODIUM (BEAKER) (test 141 meq/L 136-145 tnfm=303) POTASSIUM (BEAKER) (test 4.3 meq/L 3.5-5.1 uivk=334) CHLORIDE (BEAKER) (test 108 meq/L 98-107 ukwk=299) CO2 (BEAKER) (test luuu=951) 25 meq/L 22-29 BLOOD UREA NITROGEN (BEAKER) 25 mg/dL 7-21 (test cowc=242) CREATININE (BEAKER) (test 0.81 mg/dL 0.57-1.25 qmab=630) GLUCOSE RANDOM (BEAKER) 96 mg/dL 70-105 (test jfgj=567) CALCIUM (BEAKER) (test 10.2 mg/dL 8.4-10.2 dztc=102) EGFR (BEAKER) (test 74 mL/min/1.73 sq m ESTIMATED GFR IS NOT cgdk=2441) ACCURATE CREATININE CLEARANCE IN PREDICTING GLOMERULAR FILTRATION RATE. ESTIMATED GFR IS NOT APPLICABLE FOR DIALYSIS PATIENTS. [id number] 06:17:00 Test Item Value Reference Range Comments PARTIAL THROMBOPLASTIN TIME (BEAKER) (test 79.7 seconds 22.5-36.0 qcey=485) While on warfarin.PROTHROMBIN [id number] 06:15:00 Test Item Value Reference Range Comments PROTIME (BEAKER) (test heti=073) 22.5 seconds 11.7-14.7 INR (BEAKER) (test zsir=150) 2.0 <=5.9 RECOMMENDED COUMADIN/WARFARIN INR THERAPY RANGESSTANDARD DOSE: 2.0 - 3.0 Includes: PROPHYLAXIS forvenous thrombosis, systemic embolization; TREATMENT for venous thrombosis and/or pulmonary embolus.HIGH RISK: Target INR is 2.5-3.5 for patients with mechanical heart valves.While on warfarin.CBC (HEMOGRAM ONLY) 2018-11-07 05:53:00 Test Item Value Reference Range Comments WHITE BLOOD CELL COUNT (BEAKER) (test lkkn=677) 5.9 K/ L 3.5-10.5 RED BLOOD CELL COUNT (BEAKER) (test zndh=697) 4.26 M/ L 3.93-5.22 HEMOGLOBIN (BEAKER) (test kzkw=777) 13.2 GM/DL 11.2-15.7 HEMATOCRIT (BEAKER) (test sdtf=927) 40.1 % 34.1-44.9 MEAN CORPUSCULAR VOLUME (BEAKER) (test enca=309) 94.1 fL 79.4-94.8 MEAN CORPUSCULAR HEMOGLOBIN (BEAKER) (test 31.0 pg 25.6-32.2 wgns=588) MEAN CORPUSCULAR HEMOGLOBIN CONC (BEAKER) (test 32.9 GM/DL 32.2-35.5 fxhw=009) RED CELL DISTRIBUTION WIDTH (BEAKER) (test 13.2 % 11.7-14.4 xcsc=018) PLATELET COUNT (BEAKER) (test ldvj=480) 277 K/CU MM 150-450 MEAN PLATELET VOLUME (BEAKER) (test gpct=103) 11.2 fL 9.4-12.3 NUCLEATED RED BLOOD CELLS (BEAKER) (test 0 /100 WBC 0-0 wjab=493) MR, SPINE, LUMBAR, WITHOUT [id number] 03:52:00FINAL REPORT MR Lumbar spine without contrast CLINICAL HISTORY: Lumbar radiculopathy, <6wks, no red flags, no prior management TECHNIQUE: MRI of the lumbar spine utilizing sagittal T1, T2, STIR, axial T1 and T2-weighted sequences. COMPARISON: None FINDINGS:Last well-formed disc is desiccated is L5- S1 for the purposes of this report.There is maintenance of the lumbar curvature and [...] retroperitoneal soft tissues are grossly unremarkable. Cholelithiasis. IMPRESSION:Mild multilevel degenerative changes as described abovewith no significant spinal canal or neural foraminal stenosis. Annular fissure at L5-S1. Signed: Mary Noelort Verified Date/Time: 11/07/2018 03:52:32 Reading Location: [address] Reading Room [id number] 23:05:00 Test Item Value Reference Range Comments PARTIAL THROMBOPLASTIN TIME (BEAKER) (test 61.1 seconds 22.5-36.0 aiqw=642) [id number] 14:01:00 Test Item Value Reference Range Comments PARTIAL THROMBOPLASTIN TIME (BEAKER) (test 65.3 seconds 22.5-36.0 whur=385) BASIC METABOLIC [id number] 05:40:00 Test Item Value Reference Range Comments SODIUM (BEAKER) (test 138 meq/L 136-145 hsab=006) POTASSIUM (BEAKER) (test 4.2 meq/L 3.5-5.1 rrxr=599) CHLORIDE (BEAKER) (test 106 meq/L 98-107 wyec=789) CO2 (BEAKER) (test 23 meq/L 22-29 iwqj=220) BLOOD UREA NITROGEN 26 mg/dL 7-21 (BEAKER) (test toej=611) CREATININE (BEAKER) (test 0.83 mg/dL 0.57-1.25 csfm=099) GLUCOSE RANDOM (BEAKER) 94 mg/dL 70-105 (test fnri=662) CALCIUM (BEAKER) (test 10.0 mg/dL 8.4-10.2 rtpu=211) EGFR (BEAKER) (test 72 mL/min/1.73 sq m ESTIMATED GFR IS NOT gsrq=4165) ACCURATE CREATININE CLEARANCE IN PREDICTING GLOMERULAR FILTRATION RATE. ESTIMATED GFR IS NOT APPLICABLE FOR DIALYSIS PATIENTS. [id number] 05:20:00 Test Item Value Reference Range Comments PARTIAL THROMBOPLASTIN TIME (BEAKER) (test 71.9 seconds 22.5-36.0 ylcb=716) While on warfarin.PROTHROMBIN TIME/[id number] 05:18:00 Test Item Value Reference Range Comments PROTIME (BEAKER) (test rcra=868) 19.4 seconds 11.7-14.7 INR (BEAKER) (test qqhz=902) 1.6 <=5.9 RECOMMENDED COUMADIN/WARFARIN INR THERAPY RANGESSTANDARD DOSE: 2.0 - 3.0 Includes: PROPHYLAXIS forvenous thrombosis, systemic embolization; TREATMENT for venous thrombosis and/or pulmonary embolus.HIGH RISK: Target INR is 2.5-3.5 for patients with mechanical heart valves.While on warfarin.CBC (HEMOGRAM ONLY) 2018-11-06 05:11:00 Test Item Value Reference Range Comments WHITE BLOOD CELL COUNT (BEAKER) (test flto=805) 6.0 K/ L 3.5-10.5 RED BLOOD CELL COUNT (BEAKER) (test ionl=413) 4.22 M/ L 3.93-5.22 HEMOGLOBIN (BEAKER) (test xacf=724) 12.9 GM/DL 11.2-15.7 HEMATOCRIT (BEAKER) (test xhuv=283) 39.6 % 34.1-44.9 MEAN CORPUSCULAR VOLUME (BEAKER) (test pqnm=243) 93.8 fL 79.4-94.8 MEAN CORPUSCULAR HEMOGLOBIN (BEAKER) (test 30.6 pg 25.6-32.2 rkye=082) MEAN CORPUSCULAR HEMOGLOBIN CONC (BEAKER) (test 32.6 GM/DL 32.2-35.5 drnp=886) RED CELL DISTRIBUTION WIDTH (BEAKER) (test 13.0 % 11.7-14.4 udxk=746) PLATELET COUNT (BEAKER) (test xrlx=133) 280 K/CU MM 150-450 MEAN PLATELET VOLUME (BEAKER) (test thap=600) 10.9 fL 9.4-12.3 NUCLEATED RED BLOOD CELLS (BEAKER) (test 0 /100 WBC 0-0 rhmv=190) [id number] 21:15:00 Test Item Value Reference Range Comments PARTIAL THROMBOPLASTIN TIME (BEAKER) (test 64.4 seconds 22.5-36.0 oczk=108) [id number] 15:09:00 Test Item Value Reference Range Comments PARTIAL THROMBOPLASTIN TIME (BEAKER) (test 70.8 seconds 22.5-36.0 zemc=311) BASIC METABOLIC [id number] 04:25:00 Test Item Value Reference Range Comments SODIUM (BEAKER) (test 139 meq/L 136-145 cfcf=440) POTASSIUM (BEAKER) (test 4.4 meq/L 3.5-5.1 bicc=716) CHLORIDE (BEAKER) (test 107 meq/L 98-107 attg=623) CO2 (BEAKER) (test 22 meq/L 22-29 eviz=745) BLOOD UREA NITROGEN 25 mg/dL 7-21 (BEAKER) (test itmm=530) CREATININE (BEAKER) (test 0.82 mg/dL 0.57-1.25 dddc=596) GLUCOSE RANDOM (BEAKER) 102 mg/dL 70-105 (test exkb=276) CALCIUM (BEAKER) (test 10.1 mg/dL 8.4-10.2 sbzt=458) EGFR (BEAKER) (test 73 mL/min/1.73 sq m ESTIMATED GFR IS NOT ibwa=3569) ACCURATE CREATININE CLEARANCE IN PREDICTING GLOMERULAR FILTRATION RATE. ESTIMATED GFR IS NOT APPLICABLE FOR DIALYSIS PATIENTS. [id number] 04:15:00 Test Item Value Reference Range Comments PARTIAL THROMBOPLASTIN TIME (BEAKER) (test 82.7 seconds 22.5-36.0 mfwj=597) While on warfarin.PROTHROMBIN TIME/[id number] 04:14:00 Test Item Value Reference Range Comments PROTIME (BEAKER) (test rtkm=340) 17.3 seconds 11.7-14.7 INR (BEAKER) (test qjem=928) 1.4 <=5.9 RECOMMENDED COUMADIN/WARFARIN INR THERAPY RANGESSTANDARD DOSE: 2.0 - 3.0 Includes: PROPHYLAXIS forvenous thrombosis, systemic embolization; TREATMENT for venous thrombosis and/or pulmonary embolus.HIGH RISK: Target INR is 2.5-3.5 for patients with mechanical heart valves.While on warfarin.CBC (HEMOGRAM ONLY) 2018-11-05 04:04:00 Test Item Value Reference Range Comments WHITE BLOOD CELL COUNT (BEAKER) (test otvh=323) 7.9 K/ L 3.5-10.5 RED BLOOD CELL COUNT (BEAKER) (test xktr=549) 4.38 M/ L 3.93-5.22 HEMOGLOBIN (BEAKER) (test kwbp=151) 13.5 GM/DL 11.2-15.7 HEMATOCRIT (BEAKER) (test aqcy=672) 41.4 % 34.1-44.9 MEAN CORPUSCULAR VOLUME (BEAKER) (test yryu=416) 94.5 fL 79.4-94.8 MEAN CORPUSCULAR HEMOGLOBIN (BEAKER) (test 30.8 pg 25.6-32.2 gygq=163) MEAN CORPUSCULAR HEMOGLOBIN CONC (BEAKER) (test 32.6 GM/DL 32.2-35.5 khxf=397) RED CELL DISTRIBUTION WIDTH (BEAKER) (test 13.0 % 11.7-14.4 xujl=665) PLATELET COUNT (BEAKER) (test qxzk=632) 292 K/CU MM 150-450 MEAN PLATELET VOLUME (BEAKER) (test wtxf=175) 10.5 fL 9.4-12.3 NUCLEATED RED BLOOD CELLS (BEAKER) (test 0 /100 WBC 0-0 ttni=249) PT/[id number] 17:42:00 Test Item Value Reference Range Comments PROTIME (BEAKER) (test jtpr=184) 16.9 seconds 11.7-14.7 INR (BEAKER) (test uhtw=000) 1.3 <=5.9 PARTIAL THROMBOPLASTIN TIME (BEAKER) (test 66.7 seconds 22.5-36.0 hdol=617) RECOMMENDED COUMADIN/WARFARIN INR THERAPY RANGESSTANDARD DOSE: 2.0 - 3.0 Includes: PROPHYLAXIS forvenous thrombosis, systemic embolization; TREATMENT for venous thrombosis and/or pulmonary embolus.HIGH RISK: Target INR is 2.5-3.5 for patients with mechanical heart valves.PT/[id number] 11:53:00 Test Item Value Reference Range Comments PROTIME (BEAKER) (test ajhk=048) 15.7 seconds 11.7-14.7 INR (BEAKER) (test pzir=572) 1.2 <=5.9 PARTIAL THROMBOPLASTIN TIME (BEAKER) (test 68.0 seconds 22.5-36.0 vyul=572) RECOMMENDED COUMADIN/WARFARIN INR THERAPY RANGESSTANDARD DOSE: 2.0 - 3.0 Includes: PROPHYLAXIS forvenous thrombosis, systemic embolization; TREATMENT for venous thrombosis and/or pulmonary embolus.HIGH RISK: Target INR is 2.5-3.5 for patients with mechanical heart valves.CBC (HEMOGRAM ONLY)2018-11-04 06:30:00 Test Item Value Reference Range Comments WHITE BLOOD CELL COUNT (BEAKER) (test ihhw=598) 6.9 K/ L 3.5-10.5 RED BLOOD CELL COUNT (BEAKER) (test gqsk=522) 4.23 M/ L 3.93-5.22 HEMOGLOBIN (BEAKER) (test vzuo=108) 12.9 GM/DL 11.2-15.7 HEMATOCRIT (BEAKER) (test cqmn=674) 40.0 % 34.1-44.9 MEAN CORPUSCULAR VOLUME (BEAKER) (test vpcm=779) 94.6 fL 79.4-94.8 MEAN CORPUSCULAR HEMOGLOBIN (BEAKER) (test 30.5 pg 25.6-32.2 gkbv=712) MEAN CORPUSCULAR HEMOGLOBIN CONC (BEAKER) (test 32.3 GM/DL 32.2-35.5 vdqy=962) RED CELL DISTRIBUTION WIDTH (BEAKER) (test 13.2 % 11.7-14.4 zxnk=208) PLATELET COUNT (BEAKER) (test sjvn=680) 281 K/CU MM 150-450 MEAN PLATELET VOLUME (BEAKER) (test syla=287) 11.1 fL 9.4-12.3 NUCLEATED RED BLOOD CELLS (BEAKER) (test 0 /100 WBC 0-0 tsdk=731) [id number] 06:20:00 Test Item Value Reference Range Comments PARTIAL THROMBOPLASTIN TIME (BEAKER) (test 67.1 seconds 22.5-36.0 btoo=363) While on warfarin.PROTHROMBIN TIME/[id number] 06:18:00 Test Item Value Reference Range Comments PROTIME (BEAKER) (test bwrs=490) 15.7 seconds 11.7-14.7 INR (BEAKER) (test evgt=734) 1.2 <=5.9 RECOMMENDED COUMADIN/WARFARIN INR THERAPY RANGESSTANDARD DOSE: 2.0 - 3.0 Includes: PROPHYLAXIS forvenous thrombosis, systemic embolization; TREATMENT for venous thrombosis and/or pulmonary embolus.HIGH RISK: Target INR is 2.5-3.5 for patients with mechanical heart valves.While on warfarin.RAD, SPINE, LUMBAR, COMPLETE, W/ [id number] 15:41:00Reason for exam:->radiculopathyFINAL REPORT Lumbar spine, seven images HISTORY: Radiculopathy COMPARISON: None IMPRESSION:Five lumbar type vertebral bodies. No fracture. No subluxation. No change in alignment on flexion or extension. Soft tissues unremarkable. Minimal degenerative facet changes. Signed: Kenny Centeno MDReport Verified Date/Time: 11/03/2018 15:41:39 Reading Location: [address] Transitional Reading Room [id number] 06:09:00 Test Item Value Reference Range Comments PARTIAL THROMBOPLASTIN TIME (BEAKER) (test 52.4 seconds 22.5-36.0 crzj=250) While on warfarin.PROTHROMBIN TIME/[id number] 06:08:00 Test Item Value Reference Range Comments PROTIME (BEAKER) (test fyav=489) 15.3 seconds 11.7-14.7 INR (BEAKER) (test tzdu=123) 1.2 <=5.9 RECOMMENDED COUMADIN/WARFARIN INR THERAPY RANGESSTANDARD DOSE: 2.0 - 3.0 Includes: PROPHYLAXIS forvenous thrombosis, systemic embolization; TREATMENT for venous thrombosis and/or pulmonary embolus.HIGH RISK: Target INR is 2.5-3.5 for patients with mechanical heart valves.While on warfarin.CBC (HEMOGRAM ONLY) 2018-11-03 06:04:00 Test Item Value Reference Range Comments WHITE BLOOD CELL COUNT (BEAKER) (test xczm=210) 6.9 K/ L 3.5-10.5 RED BLOOD CELL COUNT (BEAKER) (test ucof=991) 4.02 M/ L 3.93-5.22 HEMOGLOBIN (BEAKER) (test gvdv=903) 12.4 GM/DL 11.2-15.7 HEMATOCRIT (BEAKER) (test pqol=456) 38.4 % 34.1-44.9 MEAN CORPUSCULAR VOLUME (BEAKER) (test jeph=506) 95.5 fL 79.4-94.8 MEAN CORPUSCULAR HEMOGLOBIN (BEAKER) (test 30.8 pg 25.6-32.2 fpmt=440) MEAN CORPUSCULAR HEMOGLOBIN CONC (BEAKER) (test 32.3 GM/DL 32.2-35.5 uzqi=504) RED CELL DISTRIBUTION WIDTH (BEAKER) (test 13.2 % 11.7-14.4 ldyt=243) PLATELET COUNT (BEAKER) (test btef=215) 262 K/CU MM 150-450 MEAN PLATELET VOLUME (BEAKER) (test hwzz=688) 11.4 fL 9.4-12.3 NUCLEATED RED BLOOD CELLS (BEAKER) (test 0 /100 WBC 0-0 ujcc=560) [id number] 07:45:00 Test Item Value Reference Range Comments PARTIAL THROMBOPLASTIN TIME (BEAKER) (test 59.0 seconds 22.5-36.0 huxp=168) PROTHROMBIN TIME/[id number] 05:05:00 Test Item Value Reference Range Comments PROTIME (BEAKER) (test ancr=666) 14.1 seconds 11.7-14.7 INR (BEAKER) (test cmht=183) 1.1 <=5.9 RECOMMENDED COUMADIN/WARFARIN INR THERAPY RANGESSTANDARD DOSE: 2.0 - 3.0 Includes: PROPHYLAXIS forvenous thrombosis, systemic embolization; TREATMENT for venous thrombosis and/or pulmonary embolus.HIGH RISK: Target INR is 2.5-3.5 for patients with mechanical heart valves.While on warfarin.CBC (HEMOGRAM ONLY) 2018-11-02 04:57:00 Test Item Value Reference Range Comments WHITE BLOOD CELL COUNT (BEAKER) (test kjeq=468) 7.5 K/ L 3.5-10.5 RED BLOOD CELL COUNT (BEAKER) (test tdol=232) 4.10 M/ L 3.93-5.22 HEMOGLOBIN (BEAKER) (test ngbi=053) 12.7 GM/DL 11.2-15.7 HEMATOCRIT (BEAKER) (test oohr=612) 38.3 % 34.1-44.9 MEAN CORPUSCULAR VOLUME (BEAKER) (test mpyr=100) 93.4 fL 79.4-94.8 MEAN CORPUSCULAR HEMOGLOBIN (BEAKER) (test 31.0 pg 25.6-32.2 ipme=104) MEAN CORPUSCULAR HEMOGLOBIN CONC (BEAKER) (test 33.2 GM/DL 32.2-35.5 tywv=553) RED CELL DISTRIBUTION WIDTH (BEAKER) (test 13.0 % 11.7-14.4 tuiw=584) PLATELET COUNT (BEAKER) (test uhds=198) 236 K/CU MM 150-450 MEAN PLATELET VOLUME (BEAKER) (test sumd=922) 11.3 fL 9.4-12.3 NUCLEATED RED BLOOD CELLS (BEAKER) (test 0 /100 WBC 0-0 nhkm=886) [id number] 21:44:00 Test Item Value Reference Range Comments PARTIAL THROMBOPLASTIN TIME (BEAKER) (test 64.3 seconds 22.5-36.0 wqan=218) [id number] 14:47:00 Test Item Value Reference Range Comments POTASSIUM (BEAKER) (test bzhg=334) 4.2 meq/L 3.5-5.1 [id number] 14:47:00 Test Item Value Reference Range Comments MAGNESIUM (BEAKER) (test mhje=545) 2.3 mg/dL 1.6-2.6 [id number] 14:38:00 Test Item Value Reference Range Comments PARTIAL THROMBOPLASTIN TIME (BEAKER) (test 60.7 seconds 22.5-36.0 lqwj=704) PROTHROMBIN [id number] 14:37:00 Test Item Value Reference Range Comments PROTIME (BEAKER) (test hrnn=860) 14.2 seconds 11.7-14.7 INR (BEAKER) (test mvfc=186) 1.1 <=5.9 RECOMMENDED COUMADIN/WARFARIN INR THERAPY RANGESSTANDARD DOSE: 2.0 - 3.0 Includes: PROPHYLAXIS forvenous thrombosis, systemic embolization; TREATMENT for venous thrombosis and/or pulmonary embolus.HIGH RISK: Target INR is 2.5-3.5 for patients with mechanical heart valves.[id number] 06:33:00 Test Item Value Reference Range Comments PARTIAL THROMBOPLASTIN TIME (BEAKER) (test 76.5 seconds 22.5-36.0 acme=701) CBC (HEMOGRAM ONLY)2018-11-01 06:28:00 Test Item Value Reference Range Comments WHITE BLOOD CELL COUNT (BEAKER) (test zrqt=482) 6.9 K/ L 3.5-10.5 RED BLOOD CELL COUNT (BEAKER) (test ddtv=524) 4.01 M/ L 3.93-5.22 HEMOGLOBIN (BEAKER) (test jeqj=890) 12.4 GM/DL 11.2-15.7 HEMATOCRIT (BEAKER) (test ljdz=874) 37.7 % 34.1-44.9 MEAN CORPUSCULAR VOLUME (BEAKER) (test rppr=383) 94.0 fL 79.4-94.8 MEAN CORPUSCULAR HEMOGLOBIN (BEAKER) (test 30.9 pg 25.6-32.2 wbzj=609) MEAN CORPUSCULAR HEMOGLOBIN CONC (BEAKER) (test 32.9 GM/DL 32.2-35.5 mdof=491) RED CELL DISTRIBUTION WIDTH (BEAKER) (test 12.7 % 11.7-14.4 fgkq=822) PLATELET COUNT (BEAKER) (test myne=633) 220 K/CU MM 150-450 MEAN PLATELET VOLUME (BEAKER) (test pzyb=209) 10.9 fL 9.4-12.3 NUCLEATED RED BLOOD CELLS (BEAKER) (test 0 /100 WBC 0-0 dkfg=159) POCT-GLUCOSE [id number] 05:45:00 Test Item Value Reference Range Comments POC-GLUCOSE METER (BEAKER) 119 mg/dL 70-110 TESTED AT [address] (test xsyn=7284) [place] [id number] POCT-GLUCOSE [id number] 23:59:00 Test Item Value Reference Range Comments POC-GLUCOSE METER (BEAKER) 119 mg/dL 70-110 TESTED AT [address] (test monv=2912) [facility] [address] [id number] 23:27:00 Test Item Value Reference Range Comments PARTIAL THROMBOPLASTIN TIME (BEAKER) (test 70.3 seconds 22.5-36.0 fzmn=118) [id number] 15:59:00 Test Item Value Reference Range Comments PARTIAL THROMBOPLASTIN TIME (BEAKER) (test 43.5 seconds 22.5-36.0 rqay=782) CT, BRAIN, WITHOUT [id number] 13:33:00FINAL REPORT CT head without contrast 10/31/2018 1:31 PM CLINICAL HISTORY: Cerebral hemorrhage suspected TECHNIQUE: Axial noncontrast CT images through the head were obtained. This examination was performed according to our departmental dose optimization program, which includes automated exposure control, adjustment of the mA and/or kV according to patient size, and/or use of iterated reconstruction technique. COMPARISON: 10/29/2018 FINDINGS: There is stable intraparenchymal hemorrhage in the adjacent posterior mesial right temporal and anteroinferior right occipital lobes, which measures approximately 3.2 cm AP by 3.2 cm transverse by 3.5 cm craniocaudal. There is associated small volume intraventricular hemorrhage in the right lateral ventricle. There is mild entrapment of the right temporal horn. The cerebellar tonsils remain at or just below the level of the foramen magnum but maintain a rounded appearance. No new intracranial abnormality is evident. Mild microvascular ischemia and generalized parenchymal volume loss remain evident. The visualized paranasal sinuses and tympanomastoid cavities are well-aerated, save for a retention cyst in the right maxillary sinus. The skull is intact. IMPRESSION: Stable intracranial appearance. Signed: Noe Marin MDReport Verified Date/ Time: 10/31/2018 13:33:29 Reading Location: [facility] Radiology Reading Room [id number] 04:47:00 Test Item Value Reference Range Comments PARTIAL THROMBOPLASTIN TIME (BEAKER) (test 60.3 seconds 22.5-36.0 kvxt=827) PROTHROMBIN [id number] 04:45:00 Test Item Value Reference Range Comments PROTIME (BEAKER) (test cnee=239) 14.5 seconds 11.7-14.7 INR (BEAKER) (test wcau=595) 1.1 <=5.9 RECOMMENDED COUMADIN/WARFARIN INR THERAPY RANGESSTANDARD DOSE: 2.0 - 3.0 Includes: PROPHYLAXIS forvenous thrombosis, systemic embolization; TREATMENT for venous thrombosis and/or pulmonary embolus.HIGH RISK: Target INR is 2.5-3.5 for patients with mechanical heart valves.CBC (HEMOGRAM ONLY)2018-10-31 04:30:00 Test Item Value Reference Range Comments WHITE BLOOD CELL COUNT (BEAKER) (test cexj=354) 6.7 K/ L 3.5-10.5 RED BLOOD CELL COUNT (BEAKER) (test ytki=355) 3.74 M/ L 3.93-5.22 HEMOGLOBIN (BEAKER) (test ducb=918) 11.7 GM/DL 11.2-15.7 HEMATOCRIT (BEAKER) (test vxyf=570) 35.0 % 34.1-44.9 MEAN CORPUSCULAR VOLUME (BEAKER) (test tpwl=118) 93.6 fL 79.4-94.8 MEAN CORPUSCULAR HEMOGLOBIN (BEAKER) (test 31.3 pg 25.6-32.2 iiqh=878) MEAN CORPUSCULAR HEMOGLOBIN CONC (BEAKER) (test 33.4 GM/DL 32.2-35.5 jpzn=450) RED CELL DISTRIBUTION WIDTH (BEAKER) (test 12.9 % 11.7-14.4 kpda=119) PLATELET COUNT (BEAKER) (test aqkn=537) 214 K/CU MM 150-450 MEAN PLATELET VOLUME (BEAKER) (test rkyr=337) 11.3 fL 9.4-12.3 NUCLEATED RED BLOOD CELLS (BEAKER) (test 0 /100 WBC 0-0 fdei=380) POCT-GLUCOSE [id number] 00:15:00 Test Item Value Reference Range Comments POC-GLUCOSE METER (BEAKER) 125 mg/dL 70-110 TESTED AT [facility] [address] [place] [address] (test sutv=5430) [facility] [address] [place], ANGIOGRAM, [id number] 14:52:00Reason for exam:->IVH, evaluation for cavernomaFINAL REPORT DATE: 10/28/2018 NAME: Yen Ruiz ATTENDING: [facility] ADMISSIONS OFFICER: Beth Hawkins PREOPERATIVE DIAGNOSIS: Intracerebral Hemorrhage andIntraventricular Hemorrhage POSTOPERATIVE DIAGNOSIS: Intracerebral Hemorrhage and Intraventricular Hemorrhage PROCEDURE PERFORMED: Diagnostic Cerebral and Cervical Angiogram ANESTHESIOLOGIST: Guillermina Gomez ANESTHESIA: MAC COMPLICATIONS: None ESTIMATED BLOOD LOSS: Less than 15ml ARTERIAL VESSELS STUDIED:*Right common carotid artery x 1*Right internal carotid artery x 3*Left vertebral artery x 2*Right external carotid artery x 1*Right common femoral artery x1 MATERIALS EMPLOYED:1. 5 Turkish shortsheath 2. 4 Turkish Berenstein catheter3. Bentson guidewire4. Terumo 0.035 LT glidewire5. 5 Turkish Mynx device INDICATIONS:The patient is a 53 year old female with mechanical heart valve on Coumadin whobegan having headaches that were progressive over the course of the day on 10/25/2018. The patient was evaluated and found to have a right 3 cm rifvxi-[id number]-owtalcttt ICH near the atrium lateral ventricle with [...] risk benefit profile and agreed to proceed. PROCEDURE:After appropriate consent was obtained, the patient was brought to the angiographic suite and cardiopulmonary monitoring was placed. The anesthesia team performed light sedation. A timeout was performed. Both groins were prepped and draped in the usual sterile fashion. After administration of 10 mL of 2% lidocaine, a micropuncture needle was used to perform a single wall puncture of the right common femoral artery,a micropuncture sheath was inserted, and an angled DSA angiogram was performed through the sheath. Once good location of the puncture site was confirmed, a 5 Turkish short sheath was inserted over a Bentson wire and was maintained on heparinized saline flush throughout the remainder of the procedure. Using coaxial technique, a preflushed 5 Turkish Terumo glide catheter on constant heparinized saline [...] manipulation, the right common carotid, right internal carotid , right external carotid, left subclavian, left vertebral arteries were selectively catheterized. Upon each successive catheterization, digital subtraction angiography using the appropriate rate and volume of contrast in multiple projections was performed. The origin ofthe left CCA was bovine and not easily accessed. Given the right sided bleed, we did not change to aSimmons shape catheter to access the left CCA. The catheter was retracted into the aorta and the images reviewed at the outside workstation for quality and content. The femoral sheath was removed and hemostasis achieved with a 5 Turkish Mynx device and manual compression. The patient tolerated the procedure well and was present transported from the images read in unchanged neurological status without groin hematoma and with good distal lower extremity pulses. The patient was transferred to the recovery area (neurological intensive care unit) to be monitored as per protocol. FINDINGS:RIGHT COMMON FEMORAL ARTERY (DSA, PA, X 1)Normal location of the puncture site above the bifurcation and below markers of the inguinal ligament. RIGHT COMMON CAROTID ARTERY (DSA, PA, LATERAL , CERVICAL)The distal cervical common carotid as well as the origins of the right internal and external carotid arteries are widely patent without evidence of ulceration or stenosis. RIGHT INTERNAL CAROTID ARTERY (DSA, PA, LATERAL, MAGNIFIED OBLIQUE x2)Normal distal cervical, petrous, cavernous and supraclinoid internal carotid artery with physiological filling of the MCA and JOVANA branches. Capillary phase and venous phase are unremarkable. No evidence of AVM, aneurysms or other vascular lesions are seen. -like right P-comm. There is no significant atherosclerosis or stenosis. The venous phase demonstrates patent transverse and sigmoid sinuses. RIGHT EXTERNAL CAROTID ARTERY (DSA, PA, LATERAL CRANIAL X1)There is a normal course and caliber of the external carotid artery and its branches. There is a well visualized superficial temporal artery, middle meningeal artery, internal maxillary artery , occipital artery and their branches. There is no evidence of AV fistula, aneurysm or vascular malformations. LEFT VERTEBRAL ARTERY (DSA, PA, LATERAL, MAGNIFIED OBLIQUE X 1)Unremarkable distal cervical and intracranial vertebral artery with physiological filling of the basilar artery and its distal branches. There is normal filling of the ipsilateral PICA, AICAs, SACs and left primary care nurse. No significant right SMALL [employer]ATE [employer]ER is seen indicating right Pcom. No aneurysms or other vascular lesions are seen. The capillary phase and venous phaseare unremarkable. IMPRESSION1. Normal visualized cerebral and cervical vasculature. FACULTY ATTESTATION: I, Juanpablo Mansfield M.D., was present for the entirety of the procedure. I performed or directly supervised all aspects of the procedure. I performed all critical aspects of the case. I interpreted the images and reported the results. Signed: Juanpablo Mansfield MDReport Verified Date/Time: 10/30/2018 14:52:59 Reading Location: [facility] Y018 Neuro Angio Reading Room Electronically signed by: JUANPABLO MANSFIELD on 02:52 [id number] 05:08:00 Test Item Value Reference Range Comments MAGNESIUM (BEAKER) (test 2.4 mg/dL 1.6-2.6 Specimen slightly hemolyzed dyyt=966) [id number] 05:08:00 Test Item Value Reference Range Comments PHOSPHORUS (BEAKER) (test 3.6 mg/dL 2.3-4.7 Specimen slightly hemolyzed mjpk=176) BASIC METABOLIC [id number] 05:08:00 Test Item Value Reference Range Comments SODIUM (BEAKER) (test 140 meq/L 136-145 kbms=810) POTASSIUM (BEAKER) (test 4.2 meq/L 3.5-5.1 Specimen slightly pwcu=155) hemolyzed CHLORIDE (BEAKER) (test 106 meq/L 98-107 mbqq=468) CO2 (BEAKER) (test 26 meq/L 22-29 qrql=303) BLOOD UREA NITROGEN 14 mg/dL 7-21 (BEAKER) (test impt=755) CREATININE (BEAKER) (test 0.81 mg/dL 0.57-1.25 Specimen slightly mttm=290) hemolyzed GLUCOSE RANDOM (BEAKER) 157 mg/dL 70-105 (test ahii=574) CALCIUM (BEAKER) (test 9.2 mg/dL 8.4-10.2 bzgb=980) EGFR (BEAKER) (test 74 mL/min/1.73 sq m ESTIMATED GFR IS NOT zhyv=3665) ACCURATE CREATININE CLEARANCE IN PREDICTING GLOMERULAR FILTRATION RATE. ESTIMATED GFR IS NOT APPLICABLE FOR DIALYSIS PATIENTS. CBC (HEMOGRAM ONLY)2018-10-30 04:59:00 Test Item Value Reference Range Comments WHITE BLOOD CELL COUNT (BEAKER) (test poyb=102) 7.3 K/ L 3.5-10.5 RED BLOOD CELL COUNT (BEAKER) (test ufqk=200) 3.69 M/ L 3.93-5.22 HEMOGLOBIN (BEAKER) (test pbft=529) 11.6 GM/DL 11.2-15.7 HEMATOCRIT (BEAKER) (test azzu=832) 34.8 % 34.1-44.9 MEAN CORPUSCULAR VOLUME (BEAKER) (test eilv=465) 94.3 fL 79.4-94.8 MEAN CORPUSCULAR HEMOGLOBIN (BEAKER) (test 31.4 pg 25.6-32.2 uxxr=934) MEAN CORPUSCULAR HEMOGLOBIN CONC (BEAKER) (test 33.3 GM/DL 32.2-35.5 izbp=689) RED CELL DISTRIBUTION WIDTH (BEAKER) (test 12.8 % 11.7-14.4 glmf=470) PLATELET COUNT (BEAKER) (test yagm=645) 188 K/CU MM 150-450 MEAN PLATELET VOLUME (BEAKER) (test jegt=315) 11.3 fL 9.4-12.3 NUCLEATED RED BLOOD CELLS (BEAKER) (test 0 /100 WBC 0-0 tbzj=798) [id number] 00:59:00 Test Item Value Reference Range Comments PROTIME (BEAKER) (test tctn=158) 15.0 seconds 11.7-14.7 INR (BEAKER) (test xjvk=775) 1.2 <=5.9 PARTIAL THROMBOPLASTIN TIME (BEAKER) (test 58.3 seconds 22.5-36.0 xuly=397) RECOMMENDED COUMADIN/WARFARIN INR THERAPY RANGESSTANDARD DOSE: 2.0 - 3.0 Includes: PROPHYLAXIS forvenous thrombosis, systemic embolization; TREATMENT for venous thrombosis and/or pulmonary embolus.HIGH RISK: Target INR is 2.5-3.5 for patients with mechanical heart valves.PROTHROMBIN [id number] 00:57: 00 Test Item Value Reference Range Comments PROTIME (BEAKER) (test btyp=186) 15.0 seconds 11.7-14.7 INR (BEAKER) (test wvme=982) 1.2 <=5.9 RECOMMENDED COUMADIN/WARFARIN INR THERAPY RANGESSTANDARD DOSE: 2.0 - 3.0 Includes: PROPHYLAXIS forvenous thrombosis, systemic embolization; TREATMENT for venous thrombosis and/or pulmonary embolus.HIGH RISK: Target INR is 2.5-3.5 for patients with mechanical heart valves.POCT-GLUCOSE [id number] 00:08:00 Test Item Value Reference Range Comments POC-GLUCOSE METER (BEAKER) 110 mg/dL 70-110 TESTED AT [facility] [address] [place] [address] (test khlv=7169) [facility] [address] CT, BRAIN, WITHOUT [id number] 20:14:00FINAL REPORT CT, BRAIN, WITHOUT CONTRAST CLINICAL INDICATION: Cerebral hemorrhage suspected COMPARISON: One day prior TECHNIQUE: Noncontrast axial CT imaging of the brain and skull. DOSE REDUCTION: Dose modulation, iterative reconstruction , and/or weight-based adjustment of the mA/kV was utilized to reduce the radiation dose to as low as reasonably achievable. FINDINGS:Expected interval evolution of intraparenchymal hematoma within the mesial right temporal lobe and anterior inferior right occipital lobe with intraventricular extent. No new intracranial hemorrhage. Ventricles system remains mildly prominent with persistent mild entrapment of the right temporal horn, however, is not enlarged in the interim compared to prior exam October 28, 2018. Remainder the brain is normal in morphology. Unchanged background of mild chronic microvascular ischemic changes within the periventricular and subcortical white matter.Mild chronic microvascular ischemic changes of the periventricular and subcortical white matter present. Orbits are within normal limits. No obstructive paranasal sinus disease. Persistent mucosal thickening of the right maxillary sinus. IMPRESSION: 1. Expected interval occlusion of right temporal and occipital) coronal hematoma with intraventricular extent.2. No new intracranial hemorrhage3. No significant interval change in size of the ventricular system Signed: Ayden Johnson MDReport Verified Date/Time: 10/29/2018 20:14:11 Reading Location: [address] Neuro Reading Room [id number] 18:47:00 Test Item Value Reference Range Comments POTASSIUM (BEAKER) (test qmdw=875) 4.2 meq/L 3.5-5.1 [id number] 18:47:00 Test Item Value Reference Range Comments MAGNESIUM (BEAKER) (test lbfj=956) 2.5 mg/dL 1.6-2.6 [id number] 18:46:00 Test Item Value Reference Range Comments PROTIME (BEAKER) (test jfuv=643) 14.7 seconds 11.7-14.7 INR (BEAKER) (test gmla=873) 1.2 <=5.9 PARTIAL THROMBOPLASTIN TIME (BEAKER) (test 51.7 seconds 22.5-36.0 asdl=435) RECOMMENDED COUMADIN/WARFARIN INR THERAPY RANGESSTANDARD DOSE: 2.0 - 3.0 Includes: PROPHYLAXIS forvenous thrombosis, systemic embolization; TREATMENT for venous thrombosis and/or pulmonary embolus.HIGH RISK: Target INR is 2.5-3.5 for patients with mechanical heart valves.POCT-GLUCOSE [id number] 18:27:00 Test Item Value Reference Range Comments POC-GLUCOSE METER (BEAKER) 96 mg/dL 70-110 TESTED AT [address] (test qggm=9274) [facility] [address] PT/[id number] 13:05:00 Test Item Value Reference Range Comments PROTIME (BEAKER) (test zwbh=990) 14.6 seconds 11.7-14.7 INR (BEAKER) (test hbkl=637) 1.1 <=5.9 PARTIAL THROMBOPLASTIN TIME (BEAKER) (test 37.4 seconds 22.5-36.0 ojlh=238) RECOMMENDED COUMADIN/WARFARIN INR THERAPY RANGESSTANDARD DOSE: 2.0 - 3.0 Includes: PROPHYLAXIS forvenous thrombosis, systemic embolization; TREATMENT for venous thrombosis and/or pulmonary embolus.HIGH RISK: Target INR is 2.5-3.5 for patients with mechanical heart valves.POCT-GLUCOSE [id number] 13:02:00 Test Item Value Reference Range Comments POC-GLUCOSE METER (BEAKER) 113 mg/dL 70-110 TESTED AT [address] (test jcvl=0493) [place] [address] [id number] 07:05:00 Test Item Value Reference Range Comments PHOSPHORUS (BEAKER) (test ibpr=583) 3.0 mg/dL 2.3-4.7 [id number] 07:05:00 Test Item Value Reference Range Comments MAGNESIUM (BEAKER) (test xejl=471) 1.9 mg/dL 1.6-2.6 BASIC METABOLIC [id number] 07:05:00 Test Item Value Reference Range Comments SODIUM (BEAKER) (test 139 meq/L 136-145 flvh=772) POTASSIUM (BEAKER) (test 3.7 meq/L 3.5-5.1 tukj=870) CHLORIDE (BEAKER) (test 107 meq/L 98-107 bicw=059) CO2 (BEAKER) (test 24 meq/L 22-29 fxuu=195) BLOOD UREA NITROGEN 15 mg/dL 7-21 (BEAKER) (test trsd=739) CREATININE (BEAKER) (test 0.77 mg/dL 0.57-1.25 khbq=506) GLUCOSE RANDOM (BEAKER) 93 mg/dL 70-105 (test huto=773) CALCIUM (BEAKER) (test 8.8 mg/dL 8.4-10.2 dqll=026) EGFR (BEAKER) (test 79 mL/min/1.73 sq m ESTIMATED GFR IS NOT oyts=2376) ACCURATE CREATININE CLEARANCE IN PREDICTING GLOMERULAR FILTRATION RATE. ESTIMATED GFR IS NOT APPLICABLE FOR DIALYSIS PATIENTS. [id number] 06:57:00 Test Item Value Reference Range Comments PARTIAL THROMBOPLASTIN TIME (BEAKER) (test 41.4 seconds 22.5-36.0 wjao=223) CBC W/PLT COUNT & AUTO [id number] 06:37:00 Test Item Value Reference Range Comments WHITE BLOOD CELL COUNT (BEAKER) (test zjkl=268) 8.0 K/ L 3.5-10.5 RED BLOOD CELL COUNT (BEAKER) (test tkud=918) 3.64 M/ L 3.93-5.22 HEMOGLOBIN (BEAKER) (test bieh=468) 11.3 GM/DL 11.2-15.7 HEMATOCRIT (BEAKER) (test uhgw=756) 33.9 % 34.1-44.9 MEAN CORPUSCULAR VOLUME (BEAKER) (test ssrg=025) 93.1 fL 79.4-94.8 MEAN CORPUSCULAR HEMOGLOBIN (BEAKER) (test 31.0 pg 25.6-32.2 jtpt=726) MEAN CORPUSCULAR HEMOGLOBIN CONC (BEAKER) (test 33.3 GM/DL 32.2-35.5 tdcf=412) RED CELL DISTRIBUTION WIDTH (BEAKER) (test 12.6 % 11.7-14.4 ltrn=768) PLATELET COUNT (BEAKER) (test tvlv=128) 192 K/CU MM 150-450 MEAN PLATELET VOLUME (BEAKER) (test qdfs=068) 11.2 fL 9.4-12.3 NUCLEATED RED BLOOD CELLS (BEAKER) (test 0 /100 WBC 0-0 xucw=960) NEUTROPHILS RELATIVE PERCENT (BEAKER) (test 76 % rwll=171) LYMPHOCYTES RELATIVE PERCENT (BEAKER) (test 12 % fsdq=900) MONOCYTES RELATIVE PERCENT (BEAKER) (test 9 % thch=730) EOSINOPHILS RELATIVE PERCENT (BEAKER) (test 1 % ddiu=618) BASOPHILS RELATIVE PERCENT (BEAKER) (test 0 % jbxm=473) NEUTROPHILS ABSOLUTE COUNT (BEAKER) (test 6.13 K/ L 1.56-6.13 cmfc=875) LYMPHOCYTES ABSOLUTE COUNT (BEAKER) (test 1.00 K/ L 1.18-3.74 bkvm=702) MONOCYTES ABSOLUTE COUNT (BEAKER) (test 0.74 K/ L 0.24-0.36 rkvu=564) EOSINOPHILS ABSOLUTE COUNT (BEAKER) (test 0.10 K/ L 0.04-0.36 jsfb=471) BASOPHILS ABSOLUTE COUNT (BEAKER) (test 0.03 K/ L 0.01-0.08 qxlt=418) IMMATURE GRANULOCYTES-RELATIVE PERCENT (BEAKER) 1 % 0-1 (test wrhy=7430) [id number] 00:10:00 Test Item Value Reference Range Comments PARTIAL THROMBOPLASTIN TIME (BEAKER) (test 26.9 seconds 22.5-36.0 azaq=576) Prior to initiating heparinPLATELET [id number] 23:58:00 Test Item Value Reference Range Comments PLATELET COUNT (BEAKER) (test ocjv=420) 200 K/CU MM 150-450 POCT-GLUCOSE [id number] 18:57:00 Test Item Value Reference Range Comments POC-GLUCOSE METER (BEAKER) 109 mg/dL 70-110 TESTED AT [address] (test jydq=5386) [place] [address] POCT-GLUCOSE [id number] 12:37:00 Test Item Value Reference Range Comments POC-GLUCOSE METER (BEAKER) 104 mg/dL 70-110 TESTED AT [address] (test larq=6196) [place] [address] CT BRAIN WITHOUT IV CONTRAST - [id number] 11:11:00Reason for exam:-> nausea intracranial bleed and left s-ded weakness newFINAL REPORT CT BRAIN WITHOUT IV CONTRAST - PORTABLE CLINICAL INDICATION: nausea intracranial bleed and left s-ded weakness new COMPARISON: October 27, 2018 TECHNIQUE: Noncontrast axial CT imaging of the brain and skull. DOSE REDUCTION : Dose modulation, iterative reconstruction, and/or weight-based adjustment of the mA/kV was utilized to reduce the radiation dose to as low as reasonably achievable. FINDINGS:The prior examination, there is been no significant [...] 16 hours prior. Signed: JR Lunsford Robert MDReport Verified Date/Time: 10/28/2018 11:11:15 Reading Location: [facility] Radiology Reading Room [id number] 06:37:00 Test Item Value Reference Range Comments PHOSPHORUS (BEAKER) (test jxlg=190) 3.6 mg/dL 2.3-4.7 [id number] 06:37:00 Test Item Value Reference Range Comments MAGNESIUM (BEAKER) (test gixh=781) 2.2 mg/dL 1.6-2.6 BASIC METABOLIC [id number] 06:37:00 Test Item Value Reference Range Comments SODIUM (BEAKER) (test 141 meq/L 136-145 jawk=044) POTASSIUM (BEAKER) (test 4.3 meq/L 3.5-5.1 zyri=118) CHLORIDE (BEAKER) (test 106 meq/L 98-107 hbko=555) CO2 (BEAKER) (test 29 meq/L 22-29 cqdk=185) BLOOD UREA NITROGEN 17 mg/dL 7-21 (BEAKER) (test tspk=073) CREATININE (BEAKER) (test 0.76 mg/dL 0.57-1.25 bztn=530) GLUCOSE RANDOM (BEAKER) 105 mg/dL 70-105 (test dahk=647) CALCIUM (BEAKER) (test 9.6 mg/dL 8.4-10.2 ylqb=698) EGFR (BEAKER) (test 80 mL/min/1.73 sq m ESTIMATED GFR IS NOT voem=1870) ACCURATE CREATININE CLEARANCE IN PREDICTING GLOMERULAR FILTRATION RATE. ESTIMATED GFR IS NOT APPLICABLE FOR DIALYSIS PATIENTS. CBC W/PLT COUNT & AUTO [id number] 05:56:00 Test Item Value Reference Range Comments WHITE BLOOD CELL COUNT (BEAKER) (test pgow=058) 6.2 K/ L 3.5-10.5 RED BLOOD CELL COUNT (BEAKER) (test wpmt=459) 3.98 M/ L 3.93-5.22 HEMOGLOBIN (BEAKER) (test nvrq=945) 12.2 GM/DL 11.2-15.7 HEMATOCRIT (BEAKER) (test yiue=599) 37.3 % 34.1-44.9 MEAN CORPUSCULAR VOLUME (BEAKER) (test xnit=296) 93.7 fL 79.4-94.8 MEAN CORPUSCULAR HEMOGLOBIN (BEAKER) (test 30.7 pg 25.6-32.2 gtrx=011) MEAN CORPUSCULAR HEMOGLOBIN CONC (BEAKER) (test 32.7 GM/DL 32.2-35.5 wocu=563) RED CELL DISTRIBUTION WIDTH (BEAKER) (test 12.6 % 11.7-14.4 hcdc=882) PLATELET COUNT (BEAKER) (test iksu=110) 212 K/CU MM 150-450 MEAN PLATELET VOLUME (BEAKER) (test dfxh=872) 10.9 fL 9.4-12.3 NUCLEATED RED BLOOD CELLS (BEAKER) (test 0 /100 WBC 0-0 ivpp=118) NEUTROPHILS RELATIVE PERCENT (BEAKER) (test 75 % fyuw=101) LYMPHOCYTES RELATIVE PERCENT (BEAKER) (test 14 % caeu=985) MONOCYTES RELATIVE PERCENT (BEAKER) (test 10 % xtgt=003) EOSINOPHILS RELATIVE PERCENT (BEAKER) (test 1 % ftdl=640) BASOPHILS RELATIVE PERCENT (BEAKER) (test 1 % oiwy=265) NEUTROPHILS ABSOLUTE COUNT (BEAKER) (test 4.66 K/ L 1.56-6.13 lwtu=932) LYMPHOCYTES ABSOLUTE COUNT (BEAKER) (test 0.84 K/ L 1.18-3.74 etfy=738) MONOCYTES ABSOLUTE COUNT (BEAKER) (test 0.63 K/ L 0.24-0.36 zbfc=597) EOSINOPHILS ABSOLUTE COUNT (BEAKER) (test 0.04 K/ L 0.04-0.36 zebx=364) BASOPHILS ABSOLUTE COUNT (BEAKER) (test 0.04 K/ L 0.01-0.08 dfkz=860) IMMATURE GRANULOCYTES-RELATIVE PERCENT (BEAKER) 0 % 0-1 (test cnxz=0095) POCT-GLUCOSE [id number] 00:42:00 Test Item Value Reference Range Comments POC-GLUCOSE METER (BEAKER) 112 mg/dL 70-110 TESTED AT [address] (test yhvu=5928) [place] [id number] CT, BRAIN, WITHOUT [id number] 00:31:00FINAL REPORT CT, BRAIN, WITHOUT CONTRAST CLINICAL INDICATION: Cerebral hemorrhage suspected COMPARISON: October 26, 2018 TECHNIQUE: Noncontrast axial CT imaging of the brain and skull. DOSE REDUCTION: Dose modulation, iterative reconstruction, and/or weight-based adjustment of the mA/kV was utilized to reduce the radiation dose to as low as reasonably achievable. FINDINGS:No significant interval change in intraparenchymal hematoma within the mesial right temporal lobe and anterior inferior right occipital lobe with intraventricular extent. No new intracranial hemorrhage. Ventricles system remains prominent with persistent mild entrapment of the right temporal horn. Ventricular size is incrementally increased compared to prior exam October 26, 2018. No significant midline shift or herniation. Remainder the brain is normal in morphology. Unchanged background of mild chronic microvascular ischemic changes within the periventricular and subcortical white matter. Orbits are within normal limits. No obstructive paranasal sinus disease. Persistent mucosal thickening of theright maxillary sinus IMPRESSION: 1. Slight incremental increased size of the ventricular system without romulo hydrocephalus. Persistent entrapment of the right temporal horn2. No new intracranial hemorrhage.3. Unchanged appearance of right mesial temporal and occipital intraparenchymal hematoma with intraventricular extent Signed: Ayden Johnson Verified Date/Time: 10/28/2018 00:31:49 Reading Location: [address] Neuro Reading Room POCT-GLUCOSE [id number] 18:01: 00 Test Item Value Reference Range Comments POC-GLUCOSE METER (BEAKER) 104 mg/dL 70-110 TESTED AT [address] (test hnik=9579) [place] [id number] RAD, CHEST, 1 VIEW, NON [id number] 15:28:00Reason for exam:->okShould this be performed at the bedside?->YesFINAL REPORT HISTORY : ok. Comparison: None Comment: [...] The findings should be further assessed with achest CT. There is some nonspecific right basilar airspace disease/consolidation. Signed: Abdulaziz Mccauley Verified Date/Time: 2017 15:28:09 Reading Location: [facility] C013T Transitional Reading Room POCT-GLUCOSE [id number] 12:39:00 Test Item Value Reference Range Comments POC-GLUCOSE METER (BEAKER) 172 mg/dL 70-110 TESTED AT [facility] [address] [facility] (test hueo=4835) [facility] [address] PROTHROMBIN [id number] 09:03:00 Test Item Value Reference Range Comments PROTIME (BEAKER) (test tnht=602) 16.7 seconds 11.7-14.7 INR (BEAKER) (test rrol=480) 1.4 <=5.9 RECOMMENDED COUMADIN/WARFARIN INR THERAPY RANGESSTANDARD DOSE: 2.0 - 3.0 Includes: PROPHYLAXIS forvenous thrombosis, systemic embolization; TREATMENT for venous thrombosis and/or pulmonary embolus.HIGH RISK: Target INR is 2.5-3.5 for patients with mechanical heart valves.CBC W/PLT COUNT & AUTO [id number] 07:28:00 Test Item Value Reference Range Comments WHITE BLOOD CELL COUNT (BEAKER) (test ivuu=854) 4.6 K/ L 3.5-10.5 RED BLOOD CELL COUNT (BEAKER) (test nopw=035) 3.53 M/ L 3.93-5.22 HEMOGLOBIN (BEAKER) (test nhwi=091) 11.1 GM/DL 11.2-15.7 HEMATOCRIT (BEAKER) (test jcfm=612) 33.2 % 34.1-44.9 MEAN CORPUSCULAR VOLUME (BEAKER) (test ntdf=579) 94.1 fL 79.4-94.8 MEAN CORPUSCULAR HEMOGLOBIN (BEAKER) (test 31.4 pg 25.6-32.2 vfeu=587) MEAN CORPUSCULAR HEMOGLOBIN CONC (BEAKER) (test 33.4 GM/DL 32.2-35.5 vmej=922) RED CELL DISTRIBUTION WIDTH (BEAKER) (test 12.9 % 11.7-14.4 fvtn=026) PLATELET COUNT (BEAKER) (test rrjc=520) 168 K/CU MM 150-450 MEAN PLATELET VOLUME (BEAKER) (test lwpy=772) 11.7 fL 9.4-12.3 NUCLEATED RED BLOOD CELLS (BEAKER) (test 0 /100 WBC 0-0 bqjh=617) NEUTROPHILS RELATIVE PERCENT (BEAKER) (test 72 % daes=230) LYMPHOCYTES RELATIVE PERCENT (BEAKER) (test 17 % awfe=192) MONOCYTES RELATIVE PERCENT (BEAKER) (test 8 % anoe=828) EOSINOPHILS RELATIVE PERCENT (BEAKER) (test 2 % yqva=374) BASOPHILS RELATIVE PERCENT (BEAKER) (test 0 % jnue=549) NEUTROPHILS ABSOLUTE COUNT (BEAKER) (test 3.32 K/ L 1.56-6.13 lugv=709) LYMPHOCYTES ABSOLUTE COUNT (BEAKER) (test 0.80 K/ L 1.18-3.74 trmf=840) MONOCYTES ABSOLUTE COUNT (BEAKER) (test 0.37 K/ L 0.24-0.36 glwu=647) EOSINOPHILS ABSOLUTE COUNT (BEAKER) (test 0.10 K/ L 0.04-0.36 hmin=241) BASOPHILS ABSOLUTE COUNT (BEAKER) (test 0.02 K/ L 0.01-0.08 nhtz=196) IMMATURE GRANULOCYTES-RELATIVE PERCENT (BEAKER) 1 % 0-1 (test ubix=1337) POCT-GLUCOSE [id number] 07:13:00 Test Item Value Reference Range Comments POC-GLUCOSE METER (BEAKER) 111 mg/dL 70-110 TESTED AT [facility] [address] [facility] (test oret=4896) [facility] [address] [id number] 04:33:00 Test Item Value Reference Range Comments MAGNESIUM (BEAKER) (test 2.0 mg/dL 1.6-2.6 Specimen slightly hemolyzed mqyn=175) [id number] 04:33:00 Test Item Value Reference Range Comments PHOSPHORUS (BEAKER) (test 3.7 mg/dL 2.3-4.7 Specimen slightly hemolyzed wdml=025) BASIC METABOLIC [id number] 04:33:00 Test Item Value Reference Range Comments SODIUM (BEAKER) (test 140 meq/L 136-145 dhpe=591) POTASSIUM (BEAKER) (test 4.1 meq/L 3.5-5.1 Specimen slightly qizo=981) hemolyzed CHLORIDE (BEAKER) (test 106 meq/L 98-107 xgys=057) CO2 (BEAKER) (test 27 meq/L 22-29 ayzl=435) BLOOD UREA NITROGEN 20 mg/dL 7-21 (BEAKER) (test vhps=314) CREATININE (BEAKER) (test 0.86 mg/dL 0.57-1.25 Specimen slightly lmhs=270) hemolyzed GLUCOSE RANDOM (BEAKER) 95 mg/dL 70-105 (test iqec=437) CALCIUM (BEAKER) (test 9.1 mg/dL 8.4-10.2 nmna=009) EGFR (BEAKER) (test 69 mL/min/1.73 sq m ESTIMATED GFR IS NOT xphr=6494) ACCURATE CREATININE CLEARANCE IN PREDICTING GLOMERULAR FILTRATION RATE. ESTIMATED GFR IS NOT APPLICABLE FOR DIALYSIS PATIENTS. [id number] 04:14:00 Test Item Value Reference Range Comments PROTIME (BEAKER) (test cpjv=738) 18.2 seconds 11.7-14.7 INR (BEAKER) (test zssd=569) 1.5 <=5.9 PARTIAL THROMBOPLASTIN TIME (BEAKER) (test 32.9 seconds 22.5-36.0 wmkv=333) RECOMMENDED COUMADIN/WARFARIN INR THERAPY RANGESSTANDARD DOSE: 2.0 - 3.0 Includes: PROPHYLAXIS forvenous thrombosis, systemic embolization; TREATMENT for venous thrombosis and/or pulmonary embolus.HIGH RISK: Target INR is 2.5-3.5 for patients with mechanical heart valves.PROTHROMBIN [id number] 04:13: 00 Test Item Value Reference Range Comments PROTIME (BEAKER) (test utni=448) 18.2 seconds 11.7-14.7 INR (BEAKER) (test otsw=944) 1.5 <=5.9 RECOMMENDED COUMADIN/WARFARIN INR THERAPY RANGESSTANDARD DOSE: 2.0 - 3.0 Includes: PROPHYLAXIS forvenous thrombosis, systemic embolization; TREATMENT for venous thrombosis and/or pulmonary embolus.HIGH RISK: Target INR is 2.5-3.5 for patients with mechanical heart valves.POCT-GLUCOSE [id number] 00:17:00 Test Item Value Reference Range Comments POC-GLUCOSE METER (BEAKER) 126 mg/dL 70-110 TESTED AT [facility] [address] [facility] (test whrk=3202) [facility] [id number] PROTHROMBIN [id number] 19:44:00 Test Item Value Reference Range Comments PROTIME (BEAKER) (test fitg=913) 19.9 seconds 11.7-14.7 INR (BEAKER) (test docn=508) 1.7 <=5.9 RECOMMENDED COUMADIN/WARFARIN INR THERAPY RANGESSTANDARD DOSE: 2.0 - 3.0 Includes: PROPHYLAXIS forvenous thrombosis, systemic embolization; TREATMENT for venous thrombosis and/or pulmonary embolus.HIGH RISK: Target INR is 2.5-3.5 for patients with mechanical heart valves.POCT-GLUCOSE [id number] 18:58:00 Test Item Value Reference Range Comments POC-GLUCOSE METER (BEAKER) 123 mg/dL 70-110 TESTED AT [place] [id number] [facility] (test cgsr=3563) [place] [id number] MR, BRAIN, [id number] 16:15:00FINAL REPORT MRI Brain with and without contrast [...] limitation in mind, there is no intraparenchymal hematomaadjacent posteromesial right temporal and anteroinferior occipital lobes measuring 3.1 cm AP by 3.3 cm transverse by 3.5 cm craniocaudal there is associated small volume intraventricular hemorrhage andtrace subarachnoid hemorrhage, with asymmetric mild dilation of the right lateral ventricle. Midlineshift measures 4 mm at the septum pellucidum. There is a stellate focus of pathologic enhancement within the hematoma or, the appearance of which suggests an underlying vascular malformation. Tumoral enhancement is an alternative consideration. There is mild chronic microvascular ischemia in the supratentorial white matter. 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 There is generalized parenchymal volume loss. Normal appearing flow- voids are present in the major intracranial vascular structures. The sellar and pineal regions are unremarkable. Craniocervical alignment is normal. The cerebellar tonsils lie at or just below the level of the foramen magnum but maintain a rounded appearance. The orbits, face, and skull base are without worrisome finding. IMPRESSION: 1. Moderate volume right temporooccipital intraparenchymal hematoma with associated small volume intraventricular and tracesubarachnoid hemorrhage. 2. Resultant mild dilation of the right lateral ventricle. 3. Pathologic enhancement within the hematoma core suggesting underlying vascular malformation versus tumor. Advise further evaluation with catheter directed angiography. Signed: Noe Marin Verified Date/ Time: 10/26/2018 16:15:27 Reading Location: [address] Neuro Reading Room POCT- GLUCOSE [id number] 12:05:00 Test Item Value Reference Range Comments POC-GLUCOSE METER ([facility]) 118 mg/dL 70-110 TESTED AT [address] (test ihau=6504) [facility] [address] HEMOGLOBIN [id number] 10:34:00 Test Item Value Reference Range Comments HEMOGLOBIN A1C (BEAKER) (test hjvg=059) 5.2 % 4.3-6.1 CT, CTANGIO [id number] 08:29:00FINAL REPORT CTA carotids and brain 10/26/2018 8:23 AM CLINICAL INDICATION: Interventricular hemorrhage COMPARISON: None available TECHNIQUE: Noncontrast axial CT images of the head were obtained. Subsequently, axial CT angiographic images of the upper chest, neck, and head wereobtained, from which three-dimensional reconstructed images were created. Additional imaging series were created on an independent workstation using maximum intensity projection and volume rendered technique. This examination was performed according to our departmental dose optimization program, whichincludes automated exposure control, adjustment of the mA and/or kV according to patient size, and/or use of iterated reconstruction technique. FINDINGS: There is no intraparenchymal hemorrhage in the adjacent posterior mesial right temporal and anteroinferior right occipital lobes, which measures 3.2cm AP by 3.2 cm transverse by 3.5 cm craniocaudal. There is associated small volume intraventricularhemorrhage in the right lateral ventricle. There is mild entrapment of the right temporal horn. There is no parenchymal herniation. There is no vessel occlusion in the intracranial or extracranial arterial vasculature. There is no NASCET quantifiable cervical internal carotid artery stenosis. There isno remarkable stenosis elsewhere in the intracranial or extracranial arterial vasculature. No intracranial aneurysm or arteriovenous malformation is evident. The dural venous sinuses, major cortical draining veins , and deep venous drainage pathways are patent. [...] potentially obscured underlying tumor and/or arteriovenous malformation. Signed : Noe Marin Verified Date/Time: 10/26/2018 08:29:52 Reading Location: [address] Neuro Reading Room 08:29 [facility], CAROTID, [id number] 08:29:00FINAL REPORT CTA carotids and brain 10/26/2018 8:23 AM CLINICAL INDICATION: Interventricular hemorrhage COMPARISON: None available TECHNIQUE: Noncontrast axial CT images of the head were obtained. Subsequently, axial CT angiographic images of the upper chest, neck, and head wereobtained, from which three-dimensional reconstructed images were created. Additional imaging series were created on an independent workstation using maximum intensity projection and volume rendered technique. This examination was performed according to our departmental dose optimization program, whichincludes automated exposure control, adjustment of the mA and/or kV according to patient size, and/or use of iterated reconstruction technique. FINDINGS: There is no intraparenchymal hemorrhage in the adjacent posterior mesial right temporal and anteroinferior right occipital lobes, which measures 3.2cm AP by 3.2 cm transverse by 3.5 cm craniocaudal. There is associated small volume intraventricularhemorrhage in the right lateral ventricle. There is mild entrapment of the right temporal horn. There is no parenchymal herniation. There is no vessel occlusion in the intracranial or extracranial arterial vasculature. There is no NASCET quantifiable cervical internal carotid artery stenosis. There isno remarkable stenosis elsewhere in the intracranial or extracranial arterial vasculature. No intracranial aneurysm or arteriovenous malformation is evident. The dural venous sinuses, major cortical draining veins , and deep venous drainage pathways are patent. [...] potentially obscured underlying tumor and/or arteriovenous malformation. Signed : Noe Marinort Verified Date/Time: 10/26/2018 08:29:52 Reading Location: [address] Neuro Reading Room 08:29 AMPOCT-GLUCOSE [id number] 07:22:00 Test Item Value Reference Range Comments POC-GLUCOSE METER ([facility]) 114 mg/dL 70-110 TESTED AT [facility] [address] [place] [address] (test jzxt=9070) [facility] [address] LIPID [id number] 06:10:00 Test Item Value Reference Range Comments TRIGLYCERIDES (BEAKER) (test diqs=433) 210 mg/dL CHOLESTEROL (BEAKER) (test rqxt=844) 191 mg/dL HDL CHOLESTEROL (BEAKER) (test bzyc=108) 38 mg/dL LDL CHOLESTEROL CALCULATED (BEAKER) (test 111 mg/dL rjse=488) Triglyceride Reference Range: Low Risk <150 Borderline 150- 199 High Risk 200-499 Very High Risk >=500Cholesterol Reference Range: Low Risk <200 Borderline 200-239 High Risk > 240HDL Cholesterol Reference Range: Low Risk >=60 High Risk <40LDL Cholesterol Reference Range: Optimal <100 Near Optimal 100-129 Borderline 130-159 High 160-189 Very High >=190 Once on admission and Daily AM afterwardsOnce on admission and Daily AM afterwardsOnce on admission and Daily AM afterwardsOnce on admission and Daily AM afterwardsHEPATIC FUNCTION [id number] 06:10:00 Test Item Value Reference Range Comments TOTAL PROTEIN (BEAKER) (test epfy=662) 6.8 gm/dL 6.0-8.3 ALBUMIN (BEAKER) (test dbqm=8814) 4.2 g/dL 3.5-5.0 BILIRUBIN TOTAL (BEAKER) (test dide=735) 1.3 mg/dL 0.2-1.2 BILIRUBIN DIRECT (BEAKER) (test fpcj=768) 0.4 mg/dL 0.1-0.5 ALKALINE PHOSPHATASE (BEAKER) (test fjvv=655) 57 U/L 40-150 AST (SGOT) (BEAKER) (test uhnl=717) 16 U/L 5-34 ALT (SGPT) (BEAKER) (test ayct=210) 17 U/L 6-55 Once on admission and Daily AM afterwardsOnce on admission and Daily AM afterwardsCOMPREHENSIVE METABOLIC [id number] 06:10:00 Test Item Value Reference Range Comments TOTAL PROTEIN (BEAKER) 6.8 gm/dL 6.0-8.3 (test blxh=148) ALBUMIN (BEAKER) (test 4.2 g/dL 3.5-5.0 rykt=4798) ALKALINE PHOSPHATASE 57 U/L 40-150 (BEAKER) (test xhnl=968) BILIRUBIN TOTAL (BEAKER) 1.3 mg/dL 0.2-1.2 (test uqob=123) SODIUM (BEAKER) (test 139 meq/L 136-145 tmga=821) POTASSIUM (BEAKER) (test 3.5 meq/L 3.5-5.1 zscj=339) CHLORIDE (BEAKER) (test 105 meq/L 98-107 fkrz=334) CO2 (BEAKER) (test 27 meq/L 22-29 iptj=942) BLOOD UREA NITROGEN 16 mg/dL 7-21 (BEAKER) (test bjfe=392) CREATININE (BEAKER) (test 0.80 mg/dL 0.57-1.25 pdfo=334) GLUCOSE RANDOM (BEAKER) 93 mg/dL 70-105 (test ugcb=569) CALCIUM (BEAKER) (test 9.5 mg/dL 8.4-10.2 mlwb=832) AST (SGOT) (BEAKER) (test 16 U/L 5-34 tega=391) ALT (SGPT) (BEAKER) (test 17 U/L 6-55 aktk=971) EGFR (BEAKER) (test 75 mL/min/1.73 sq m ESTIMATED GFR IS NOT vebe=0456) ACCURATE CREATININE CLEARANCE IN PREDICTING GLOMERULAR FILTRATION RATE. ESTIMATED GFR IS NOT APPLICABLE FOR DIALYSIS PATIENTS. Once on admission and Daily AM afterwardsOnce on admission and Daily AM [id number] 05:35:00 Test Item Value Reference Range Comments PHOSPHORUS (BEAKER) (test mpof=398) 3.0 mg/dL 2.3-4.7 Once on admission and Daily AM afterwardsOnce on admission and Daily AM [id number] 05:35:00 Test Item Value Reference Range Comments MAGNESIUM (BEAKER) (test ebhd=098) 2.1 mg/dL 1.6-2.6 Once on admission and Daily AM afterwardsOnce on admission and Daily AM [id number] 05:14:00 Test Item Value Reference Range Comments PARTIAL THROMBOPLASTIN TIME (BEAKER) (test 33.6 seconds 22.5-36.0 hcvs=774) PROTHROMBIN TIME/[id number] 05:13:00 Test Item Value Reference Range Comments PROTIME (BEAKER) (test nbrf=914) 21.7 seconds 11.7-14.7 INR (BEAKER) (test dzru=759) 1.9 <=5.9 RECOMMENDED COUMADIN/WARFARIN INR THERAPY RANGESSTANDARD DOSE: 2.0 - 3.0 Includes: PROPHYLAXIS forvenous thrombosis, systemic embolization; TREATMENT for venous thrombosis and/or pulmonary embolus.HIGH RISK: Target INR is 2.5-3.5 for patients with mechanical heart valves.
[2018-11-08 08:54] LABS: Absolute Lymphocytes (CBC) 1.2 K/uL (0.7-4.9); Absolute Monocytes 0.5 K/uL (0.1-1.3); Absolute Neutrophil 3.9 K/uL (1.8-8.0); Basophils % 1.1 % (0-1.3); Eosinophils % 1.4 % (0-4.4); Hematocrit 42.4 % (36.0-45.0); Lymphocytes % 21.5 % (15.3-44.8); MPV 9.3 fL (7.6-11.3); Monocytes % 8.5 % (3.3-12.3); RBC Red Blood Cell Count 4.61 M/uL (3.86-4.86)
--- NOTE | 2018-11-08 08:57 | RAD REPORT ---
EXAM DESCRIPTION: CT - Head Brain Wo Cont - 11/08/2018 8:44 am CLINICAL HISTORY: Headache COMPARISON: October 25, 2018 TECHNIQUE: Computed axial tomography of the head was obtained. IV contrast was not requested. All CT scans are performed using dose optimization technique as appropriate and may include automated exposure control or mA/KV adjustment according to patient size. FINDINGS: The right temporal/ right lateral ventricle bleed has decreased in size currently measuri ng 19 millimeters Hydrocephalus has not developed. Shift of midline structures is not noted. No extra-axial fluid collection is noted. Fluid within the sinuses/ mastoids is not seen. IMPRESSION: Decrease in the right cerebral bleed since prior exam.
[2018-11-08 08:58] LABS: Protime INR 2.44
[2018-11-08] MEDS ORDERED: ONDANSETRON 4 MG/2 ML VIAL ONE (08:59)
[2018-11-08 09:07] LABS: Potassium 3.9 mmol/L (3.5-5.1)
[2018-11-08] MEDS ORDERED: DIPHENHYDRAMINE 50 MG/ML VIAL ONE (10:14)
[2018-11-08] MEDS ORDERED: NA CHLORIDE 0.9% 100 ML IV ONE (10:14)
[2018-11-08] MEDS ORDERED: METOCLOPRAMIDE 10 MG/2mL INJ ONE (10:14)
[2018-11-08] MEDS ORDERED: DEXAMETHASONE 10 MG/ML VIAL ONE (10:14)
[2018-11-08] MEDS ORDERED: GABAPENTIN 300 MG CAP ONE (10:40)
--- NOTE | 2018-11-08 11:05 | EDPHYS ---
Physician Documentation [facility] Name: Yen Jackson Age: 53 yrs Sex: Female : 1965 Arrival Date: 11/08/2018 Time: 08:34 Bed 2 Private MD: ED Physician Kenneth Solorzano HPI: 11/08 10:03 This 53 yrs old Female presents to ER via EMS with complaints of Headache. jr8 10:03 The patient complains of pain to the forehead. The patient describes the headache as jr8 constant, throbbing. Onset: The symptoms/episode began/occurred acutely, today. Associated signs and symptoms: Pertinent positives: nausea, vomiting. Severity of symptoms: At its worst the pain was moderate. Headache History: Denies prior headaches. The symptoms are alleviated by nothing. the symptoms are aggravated by nothing. The patient has experienced a previous episode. The patient has been recently seen by a physician:. Patient had ICH on the 25 of October. Was sent to [facility] and was discharged yesterday. Started to have headache and n/v which were the symptoms she had when it originally started. Came to ED at that time via EMS . 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 - Hysterectomy ch Historical: - Allergies: 08:38 PENICILLINS; iw 08:47 Demerol; - Home Meds: 08:38 pantoprazole 40 mg oral TbEC 1 tab once daily [Active]; baclofen 10 mg Oral tab 3 times iw per day [Active]; buspirone 10 mg Oral tab 1 tab 2 times per day [Active]; cyclobenzaprine 10 mg Oral tab 1 tab 3 times per day [Active]; clonazepam 0.25 mg Oral TbDL daily [Active]; fluoxetine 10 mg Oral cap nightly [Active]; bupropion HCl 150 mg Oral TbER 1 tab once daily [Active]; warfarin 8-9 mg daily Oral tab [Active]; - PMHx: 08:38 Atrial Fib; Hypertension; mechanical heart valve; iw 08:47 TIA; hemmoragic stroke; 10/25/2018; hemangioma; cervial cancer; Back pain; ch - PSHx: 08:47 Hysterectomy; mechanical heart valve replacement; aortic anurism repair; - Immunization history:: Adult Immunizations up to date. - Social history:: Smoking status: Patient/guardian denies using tobacco. - Ebola Screening: : Patient negative for fever greater than or equal to 101.5 degrees Fahrenheit, and additional compatible Ebola Virus Disease symptoms Patient denies exposure to infectious person Patient denies travel to an Ebola-affected area in the 21 days before illness onset No symptoms or risks identified at this time. ROS: 10:13 Eyes: Negative for injury, pain, redness, and discharge, ENT: Negative for injury, jr8 pain, and discharge, Neck: Negative for injury, pain, and swelling, Cardiovascular: Negative for chest pain, palpitations, and edema, Respiratory: Negative for shortness of breath, cough, wheezing, and pleuritic chest pain, Back: Negative for injury and pain, MS/Extremity: Negative for injury and deformity, Skin: Negative for injury, rash, and discoloration. 10:13 Abdomen/GI: Positive for nausea and vomiting, Negative for abdominal pain, diarrhea, abdominal distension, hematemesis, black/tarry stool, rectal bleeding, bowel incontinence, flatulence. 10:13 Neuro: Positive for headache, Negative for altered mental status, dizziness, gait disturbance, hearing loss, loss of consciousness, numbness, seizure activity, speech changes, syncope, near syncope, tingling, tinnitus, tremor, visual changes, weakness. Exam: 10:13 Eyes: Pupils equal round and reactive to light, extra-ocular motions intact. Lids and jr8 lashes normal. Conjunctiva and sclera are non-icteric and not injected. Cornea within normal limits. Periorbital areas with no swelling, redness, or edema. ENT: Nares patent. No nasal discharge, no septal abnormalities noted. Tympanic membranes are normal and external auditory canals are clear. Oropharynx with no redness, swelling, or masses, exudates, or evidence of obstruction, uvula midline. Mucous membranes moist. Neck: Trachea midline, no thyromegaly or masses palpated, and no cervical lymphadenopathy. Supple, full range of motion without nuchal rigidity, or vertebral point tenderness. No Meningismus. Cardiovascular: Regular rate and rhythm with a normal S1 and S2. No gallops, murmurs, or rubs. Normal PMI, no JVD. No pulse deficits. Respiratory: Lungs have equal breath sounds bilaterally, clear to auscultation and percussion. No rales, rhonchi or wheezes noted. No increased work of breathing, no retractions or nasal flaring. Abdomen/GI: Soft, non-tender, with normal bowel sounds. No distension or tympany. No guarding or rebound. No evidence of tenderness throughout. Back: No spinal tenderness. No costovertebral tenderness. Full range of motion. Skin: Warm, dry with normal turgor. Normal color with no rashes, no lesions, and no evidence of cellulitis. MS/ Extremity: Pulses equal, no cyanosis. Neurovascular intact. Full, normal range of motion. Neuro: Awake and alert, GCS 15, oriented to person, place, time, and situation. Cranial nerves II-XII grossly intact. Motor strength 5/5 in all extremities. Sensory grossly intact. Cerebellar exam normal. Normal gait. Vital Signs: 08:35 BP 137 / 95; Pulse 77; Resp 15; Temp 98.5; Pulse Ox 99% on R/A; Weight 81.65 kg; Height ch 5 ft. 7 in. (170.18 cm); Pain 5/10; 08:59 BP 119 / 84; Pulse 77; Resp 16; Pulse Ox 97% on R/A; Pain 5/10; ch 10:00 BP 122 / 82; Pulse 77; Resp 14; Temp 98.5; Pulse Ox 99% on R/A; Pain 5/10; ch 08:35 Body Mass Index 28.19 (81.65 kg, 170.18 cm) ch MDM: 08:34 Patient medically screened. jr8 10:13 Data reviewed: vital signs, nurses notes, lab test result(s), radiologic studies, CT jr8 scan. Data interpreted: Pulse oximetry: on room air is 97 %. Interpretation: normal. Counseling: I had a detailed discussion with the patient and/or guardian regarding: the historical points, exam findings, and any diagnostic results supporting the discharge/admit diagnosis, lab results, radiology results, the need for outpatient follow up, a neurologist, to return to the emergency department if symptoms worsen or persist or if there are any questions or concerns that arise at home. Response to treatment: the patient's symptoms have markedly improved after treatment. ED course: Discussed case with Dr. Gamez at [facility] as she originally was seen there and discharged for ICH. No difference in CT scans from yesterday to today. Nothing emergent needs to be done at this point other then pain and nausea control. I agree with this decision as well. This was relayed to patient who is good with this plan . 11/08 08:35 Order name: CBC with Diff; Complete Time: 11/08 08:35 Order name: Basic Metabolic Panel; Complete Time: :11/08 08:35 Order name: CT Head Brain wo Cont; Complete Time: 11/08 08:35 Order name: Protime (+inr); Complete Time: 11/08 08:35 Order name: Ptt, Activated; Complete Time: 11/08 08:35 Order name: IV; Complete Time: Administered Medications: 08:55 Drug: Zofran 4 mg Route: IVP; Site: left hand; ch 10:12 Follow up: Response: No adverse reaction; Marked relief of symptoms ch 10:11 Drug: Reglan 10 mg Route: IVP; Infused Over: 5 mins; Site: left hand; ch 10:38 Follow up: Response: No adverse reaction; Marked relief of symptoms ch 10:11 Drug: Benadryl 12.5 mg Route: IVP; Infused Over: 5 mins; Site: left hand; ch 10:38 Follow up: Response: No adverse reaction; Marked relief of symptoms ch 10:11 Drug: Decadron - Dexamethasone 10 mg Route: IVP; Site: left hand; ch 10:37 Follow up: Response: No adverse reaction ch 10:37 Drug: Gabapentin 300 mg Route: PO; Disposition: 11/08/18 11:04 Discharged to Home. Impression: Headache. - Condition is Stable. - Discharge Instructions: Intracerebral Hemorrhage. - Prescriptions for Zofran 4 mg Oral Tablet - take 1 tablet by ORAL route every 12 hours As needed; 20 tablet. - SBAR form, Medication Reconciliation Form, Thank You Letter, Antibiotic Education, Prescription Opioid Use form. - Follow up: Private Physician; When: 5 - 6 days; Reason: Recheck today's complaints, Continuance of care, Re-evaluation by your physician. - Problem is new. - Symptoms have improved. Addendum: 11/21/2018 07:26 Co-signature as Attending Physician, Kenneth Solorzano MD I agree with the assessment and k dr plan of care. Signatures: Dispatcher [employer] Beronica Martinez, RN RN Kenneth Solorzano MD MD [facility] Radha Lozada RN RN Vasu Henriquez PA PA jr8 Corrections: (The following items were deleted from the chart) 11/08 08:47 08:38 Allergies: Demerol; [facility] 11:30 11:04 11/08/2018 11:04 Discharged to Home. Impression: Headache. Condition is Stable. Forms are SBAR form, Medication Reconciliation Form, Thank You Letter, Antibiotic Education, Prescription Opioid Use. Follow up: Private Physician; When: 5 - 6 days; Reason: Recheck today's complaints, Continuance of care, Re-evaluation by your physician. Problem is new. Symptoms have improved. jr8
--- NOTE | 2018-11-08 11:05 | ER ---
Nurse's Notes [facility] Name: Yen Jackson Age: 53 yrs Sex: Female : 1965 Arrival Date: 11/08/2018 Time: 08:34 Bed 2 Private MD: Diagnosis: Headache Presentation: 11/08 08:41 Presenting complaint: Patient states: Last seen normal at 2100 last night, woke up at midnight and had a headache, then this morning woke up with a headache 9 out of 10, and multiple rounds of vomiting. was discharged from [facility] with a brain bleed yesterday. Transition of care: patient was not received from another setting of care. Onset of symptoms was November 07, 2018 at 21:00. Risk Assessment: Do you want to hurt yourself or someone else? Patient reports no desire to harm self or others. Initial Sepsis Screen: Does the patient meet any 2 criteria? No. Patient's initial sepsis screen is negative. Does the patient have a suspected source of infection? No. Patient's initial sepsis screen is negative. Care prior to arrival: None. 08:41 Method Of Arrival: EMS: [facility] 08:41 Acuity: MONA 2 ch Triage Assessment: 08:47 General: Appears in no apparent distress. comfortable, Behavior is calm, cooperative, ch appropriate for age. Pain: Complains of pain in forehead Pain currently is 5 out of 10 on a pain scale. 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 N/A - Hysterectomy Historical: - Allergies: 08:38 PENICILLINS; iw 08:47 Demerol; - Home Meds: 08:38 pantoprazole 40 mg oral TbEC 1 tab once daily [Active]; baclofen 10 mg Oral tab 3 times iw per day [Active]; buspirone 10 mg Oral tab 1 tab 2 times per day [Active]; cyclobenzaprine 10 mg Oral tab 1 tab 3 times per day [Active]; clonazepam 0.25 mg Oral TbDL daily [Active]; fluoxetine 10 mg Oral cap nightly [Active]; bupropion HCl 150 mg Oral TbER 1 tab once daily [Active]; warfarin 8-9 mg daily Oral tab [Active]; - PMHx: 08:38 Atrial Fib; Hypertension; mechanical heart valve; iw 08:47 TIA; hemmoragic stroke; 10/25/2018; hemangioma; cervial cancer; Back pain; ch - PSHx: 08:47 Hysterectomy; mechanical heart valve replacement; aortic anurism repair; - Immunization history:: Adult Immunizations up to date. - Social history:: Smoking status: Patient/guardian denies using tobacco. - Ebola Screening: : Patient negative for fever greater than or equal to 101.5 degrees Fahrenheit, and additional compatible Ebola Virus Disease symptoms Patient denies exposure to infectious person Patient denies travel to an Ebola-affected area in the 21 days before illness onset No symptoms or risks identified at this time. Screenin:59 Abuse screen: Denies threats or abuse. Denies injuries from another. Nutritional ch screening: No deficits noted. Tuberculosis screening: No symptoms or risk factors identified. Fall Risk None identified. Assessment: 08:59 General: Appears in no apparent distress. uncomfortable, Behavior is calm, cooperative, ch appropriate for age. Pain: Denies pain. 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 Full function Speech is normal, Facial symmetry appears normal, Facial symmetry: tongue is midline, Pupils are PERRLA, Reports dizziness, headache. Cardiovascular: Heart tones S1 S2 pt has mechanical heart valve. Respiratory: Airway is patent Respiratory effort is even, unlabored, Breath sounds are clear bilaterally. GI: No signs and/or symptoms were reported involving the gastrointestinal system. Abdomen is round non-distended, Bowel sounds present X 4 quads. Reports nausea, vomiting, states all the symptoms are better now. : No signs and/or symptoms were reported regarding the genitourinary system. Derm: Skin is pink, warm \T\ dry. 09:08 Reassessment: Patient appears in no apparent distress at this time. Patient and/or family updated on plan of care and expected duration. Pain level reassessed. Patient is alert, oriented x 3, equal unlabored respirations, skin warm/dry/pink. pt states her pain is a 3 and her nausea is gone. Patient states feeling better. Patient states symptoms have improved. 10:00 Reassessment: Patient appears in no apparent distress at this time. No changes from previously documented assessment. Patient and/or family updated on plan of care and expected duration. Pain level reassessed. Patient is alert, oriented x 3, equal unlabored respirations, skin warm/dry/pink. Patient states feeling better. Patient states symptoms have improved. 10:38 Reassessment: Patient appears in no apparent distress at this time. Patient and/or family updated on plan of care and expected duration. Pain level reassessed. Patient is alert, oriented x 3, equal unlabored respirations, skin warm/dry/pink. Vital Signs: 08:35 BP 137 / 95; Pulse 77; Resp 15; Temp 98.5; Pulse Ox 99% on R/A; Weight 81.65 kg; Height ch 5 ft. 7 in. (170.18 cm); Pain 5/10; 08:59 BP 119 / 84; Pulse 77; Resp 16; Pulse Ox 97% on R/A; Pain 5/10; ch 10:00 BP 122 / 82; Pulse 77; Resp 14; Temp 98.5; Pulse Ox 99% on R/A; Pain 5/10; ch 08:35 Body Mass Index 28.19 (81.65 kg, 170.18 cm) ED Course: 08:34 Patient arrived in ED. iw 08:34 Vasu Henriquez PA is PHCP. jr8 08:34 Kenneth Solorzano MD is Attending Physician. jr8 08:35 Arm band placed on left wrist. 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 08:40 Beronica Quiles, YVES is Primary Nurse. ch 08:40 No provider procedures requiring assistance completed. Inserted saline lock: 22 gauge in left hand, using aseptic technique. Blood collected. 08:41 CT completed. Patient tolerated procedure well. Patient moved to CT via stretcher. sj Patient moved back from CT. 08:43 Triage completed. ch 08:45 CT Head Brain wo Cont In Process Unspecified. EDMS 08:50 IV discontinued, intact, bleeding controlled, No redness/swelling at site. Pressure dressing applied. 08:59 Patient has correct armband on for positive identification. Placed in gown. Bed in low ch position. Call light in reach. Side rails up X 1. Adult w/ patient. bike technician on. Pulse ox on. NIBP on. Warm blanket given. Administered Medications: 08:55 Drug: Zofran 4 mg Route: IVP; Site: left hand; ch 10:12 Follow up: Response: No adverse reaction; Marked relief of symptoms ch 10:11 Drug: Reglan 10 mg Route: IVP; Infused Over: 5 mins; Site: left hand; ch 10:38 Follow up: Response: No adverse reaction; Marked relief of symptoms ch 10:11 Drug: Benadryl 12.5 mg Route: IVP; Infused Over: 5 mins; Site: left hand; ch 10:38 Follow up: Response: No adverse reaction; Marked relief of symptoms ch 10:11 Drug: Decadron - Dexamethasone 10 mg Route: IVP; Site: left hand; ch 10:37 Follow up: Response: No adverse reaction ch 10:37 Drug: Gabapentin 300 mg Route: PO; Outcome: 11:04 Discharge ordered by MD. mojica 11:25 Discharged to home via wheelchair, with family. ch 11:25 Condition: stable 11:25 Discharge instructions given to patient, family, Instructed on discharge instructions, follow up and referral plans. medication usage, Demonstrated understanding of instructions, follow-up care, medications, Prescriptions given X 1. 11:30 Patient left the ED. ch Signatures: Dispatcher [employer] EDBeronica Winston RN RN ch Jones, Susan sj Williams, Irene, RN RN iw Roszak, Josh, PA PA jr8 Corrections: (The following items were deleted from the chart) 08:47 08:38 Allergies: Demerol; [facility]
[2018-11-08 11:49] VITALS: TEMP 98.5
[2018-11-08 11:52] VITALS: BP 122/82; O2SAT 99
== END 2018-11-08 11:30 | disposition home or self-care (01) ==
LOC: ER 08:30
DX: R51 Headache (principal); I10 Essential (primary) hypertension; I48.91 Unspecified atrial fibrillation; Z79.01 Long term (current) use of anticoagulants; Z88.0 Allergy status to penicillin; Z88.5 Allergy status to narcotic agent; Z86.73 Personal history of transient ischemic attack (TIA), and cerebral infarction without residual deficits; Z95.2 Presence of prosthetic heart valve
CPT/HCPCS: 36415; 70450; 80048; 85025; 85610; 85730; 96374; 96375; 99285; J1100; J2405; J2765

== ENCOUNTER 2019-04-28 08:57 | Emergency (ER) | payer BC ==
--- OUTSIDE RECORDS SUMMARY | 2019-04-28 09:00 | XMS REPORT | Clinical Summary ---
:1965 Author Organization [facility] Address [address] [place] [address] Care Team Providers Name Role Phone Daniel Marion MD Primary Care Provider Allergies Active Allergy Reactions Severity Noted Date Comments Meperidine Swelling High 05/18/2016 Penicillins Swelling High 05/18/2016 Medications Medication Sig Dispensed Refills Start Date End Date Status warfarin (COUMADIN) Take 1 tablet 30 tablet 0 05/19/2016 Active 7.5 MG tablet (7.5 mg total) by mouth daily. pantoprazole TK 1 T PO QD. 0 09/30/2018 Active (PROTONIX) 40 MG EC tablet sotalol (BETAPACE) Take 80 mg by 0 Active 80 MG tablet mouth daily. escitalopram TAKE 1 30 tablet 0 01/28/2019 Active (LEXAPRO) 20 MG TABLET(20 MG) tablet BY MOUTH DAILY buPROPion XL Take 150 mg by 0 Discontinued (WELLBUTRIN XL) 150 mouth daily. 9 MG 24 hr tablet clonAZEPAM DISSOLVE 1 T 0 10/31/2018 Discontinued (KlonoPIN) 0.25 MG PO QD PRN. 9 disintegrating tablet escitalopram Take 1 tablet 30 tablet 2 12/04/2018 Discontinued (LEXAPRO) 20 MG (20 mg total) 9 tablet by mouth daily for 90 days. clonAZEPAM Take 1 tablet 90 tablet 0 12/04/2018 (KlonoPIN) 0.25 MG (0.25 mg 9 disintegrating total) by tablet mouth nightly as needed for seizures for up to 90 days. Active Problems Problem Noted Date Cerebral hemorrhage(nontraumatic) 12/04/2018 Chest pain 05/19/2016 PAF (paroxysmal atrial fibrillation) 05/19/2016 GERD (gastroesophageal reflux disease) 05/19/2016 Resolved Problems Problem Noted Date Resolved Date HTN (hypertension) 05/19/2016 11/21/2018 Encounters Date Type Specialty Care Team Description 01/28/2019 Refill Neurology Baudilio Sánchez MD 01/13/2019 Office Visit Neurosurgery [facility] Right-sided nontraumahilary Nolen MD intraventricular intracerebral hemorrhage (HCC) (Primary Dx) 01/13/2019 Hospital Encounter Radiology [facility] Intraventricular MD Callum hemorrhage (HCC) 01/13/2019 Hospital Encounter Radiology [facility] MD hemorrhage (HCC) 12/16/2018 Office Visit Neurosurgery [facility] MD hemorrhage (HCC) (Primary Dx) 12/11/2018 Hospital Encounter Baudilio Mcbride PAF (paroxysmal atrial fibrillation) (HCC); MD Saulo Cerebral hemorrhage(nontraumatic) (HCC) 12/04/2018 Office Visit Baudilio Mcbride PAF (paroxysmal atrial fibrillation) (HCC) (Primary Dx); MD Saulo Cerebral hemorrhage(nontraumatic) (HCC) 11/29/2018 Hospital Encounter Radiology Baudilio Sánchez Cerebral MD Saulo hemorrhage(nontraumatic) (HCC) 11/21/2018 Office Visit Neurology Baudilio Sánchez MD hemorrhage(nontraumatic) (HCC) (Primary Dx) 11/18/2018 Office Visit Cardiovascular Brice Bruno MD intracerebral hemorrhage, unspecified cerebral location, unspecified laterality (HCC) (Primary Dx) after 04/27/2018 Family History Medical History Relation Name Comments No Known Problems Father No Known Problems Mother Relation Name Status Comments Father Mother Social History Tobacco Use Types Packs/Day Years Used Date Former Smoker Smokeless Tobacco: Never Used Alcohol Use Drinks/Week oz/Week Comments Yes Sex Assigned at Date Recorded Not on file Job Start Date Occupation Industry Not on file Not on file Not on file Travel History Travel Start Travel End No recent travel history available. Last Filed Vital Signs Vital Sign Reading Time Taken Blood Pressure 133/89 12/04/2018 2:16 PM BASIC ACOUSTIC ANALYST Pulse 68 12/04/2018 2:16 PM BASIC ACOUSTIC ANALYST Temperature - - Respiratory Rate - - Oxygen Saturation 97% 11/18/2018 4:37 PM BASIC ACOUSTIC ANALYST Inhaled Oxygen Concentration - - Weight 81.6 kg (180 lb) 12/04/2018 2:16 PM BASIC ACOUSTIC ANALYST Height 170.2 cm (5' 7") 12/04/2018 2:16 PM BASIC ACOUSTIC ANALYST Body Mass Index 28.19 12/04/2018 2:16 PM BASIC ACOUSTIC ANALYST Plan of Treatment Health Maintenance Due Date Last Done Comments BREAST CANCER SCREENING 02/19/2016 COLONOSCOPY SCREENING 02/19/2016 SHINGLES VACCINES (#1) 02/19/2016 INFLUENZA VACCINE 06/05/2019 Procedures Procedure Name Priority Date/Time Associated Diagnosis Comments CT HEAD WO Routine 01/13/2019 11:12 Intraventricular Results for this CONTRAST AM CDT hemorrhage (HCC) procedure are in the results section. MRI BRAIN W WO Routine 01/13/2019 10:29 Intraventricular Results for this CONTRAST AM CDT hemorrhage (HCC) procedure are in the results section. EEG AWAKE/ASLEEP Routine 12/11/2018 1:42 PAF (paroxysmal atrial Results for this LESS THAN 41 MIN PM BASIC ACOUSTIC ANALYST fibrillation) (HCC) procedure are in Cerebral the results hemorrhage(nontraumatic) section. (HCC) MRI BRAIN W WO Routine 11/29/2018 10:07 Cerebral Results for this CONTRAST AM BASIC ACOUSTIC ANALYST hemorrhage(nontraumatic) procedure are in (HCC) the results section. after 04/27/[address] Head Wo Contrast (01/13/2019 11:12 AM CDT) Specimen Narrative Performed At EXAMINATION: CT HEAD WO CONTRAST HM [facility] CLINICAL HISTORY: I61.5 Nontraumatic intracerebral hemorrhageintraventricular, Intraventricular hemorrhage COMPARISON:MRI brain from earlier today. TECHNIQUE: Noncontrast enhanced images of the brain were obtained from the skull base to the vertex. Both soft tissue and bone reconstruction algorithms were performed.CT scans are performed using radiation dose reduction techniques. Technical factors are evaluated and adjusted to ensure appropriate moderation of exposure. Automated dose management technology is applied to adjust radiation exposure while achieving a diagnostic quality image. FINDINGS: Artifacts obscure details. There is no evidence of acute intracranial hemorrhage or mass, hydrocephalus or midline shift, stroke or thrombus in the vessels. There is nonspecific enlargement of the ventricles and extra axial space greater in the anterior region. There are mild white matter changes seen better on the MRI exam. Seen better on the MRI exam is old hemorrhagic products in the right temporal region. The sella is partially empty. There is minimal calcification of salcdio of some of the arteries. There is a polyp or retention cyst in the right maxillary sinus. There is nonspecific increased bone density with skull thickening. IMPRESSION: No acute intracranial abnormality identified. [facility]-[id number] Procedure Note Interface, Radiology Results Incoming - 01/13/2019 11:18 AM CDT EXAMINATION: CT HEAD WO CONTRAST CLINICAL HISTORY: I61.5 Nontraumatic intracerebral hemorrhage intraventricular , Intraventricular hemorrhage COMPARISON: MRI brain from earlier today. TECHNIQUE: Noncontrast enhanced images of the brain were obtained from the skull base to the vertex. Both soft tissue and bone reconstruction algorithms were performed. CT scans are performed using radiation dose reduction techniques. Technical factors are evaluated and adjusted to ensure appropriate moderation of exposure. Automated dose management technology is applied to adjust radiation exposure while achieving a diagnostic quality image. FINDINGS: Artifacts obscure details. There is no evidence of acute intracranial hemorrhage or mass, hydrocephalus or midline shift, stroke or thrombus in the vessels. There is nonspecific enlargement of the ventricles and extra axial space greater in the anterior region. There are mild white matter changes seen better on the MRI exam. Seen better on the MRI exam is old hemorrhagic products in the right temporal region. The sella is partially empty. There is minimal calcification of salcido of some of the arteries. There is a polyp or retention cyst in the right maxillary sinus. There is nonspecific increased bone density with skull thickening. IMPRESSION: No acute intracranial abnormality identified. [facility]-[id number] Performing Organization Address City/State/Zipcode Phone Number [facility] [address] [place] [address] MRI Brain W Wo Contrast (01/13/2019 10:29 AM CDT)Only the most recent of2 resultswithin the time period is included. Specimen Narrative Performed At EXAMINATION: MRI BRAIN W WO CONTRAST [facility] CLINICAL HISTORY: I61.5 Nontraumatic intracerebral hemorrhage intraventricular, Choroid plexus lesion COMPARISON:MRI brain 11/29/2018 TECHNIQUE: Multiplanar and multisequence MRI imaging of the brain was obtained with and without contrast. FINDINGS: Interval resolution of the T1 and T2 hyperintense rounded hemorrhage noted within the atrium of the right lateral ventricle compared with 11/29/2018 with residual hemosiderin deposition extending to invo lve the adjacent posterior medial right temporal lobe. No abnormal enhancement or mass. No evidence restricted diffusion to suggest recent ischemia. Scattered subcortical and periventricular white matter T2 FLAIR hyperintensities likely reflecting mild chronic microvascular ischemic change s. Major intracranial vascular flow-voids appear grossly preserved. Orbits are normal in appearance. Prominent mucous retention cyst in the right maxillary sinus. Mastoid air cells are clear. IMPRESSION: Interval resolution of the rounded late subacute hemorrhage within the atrium of the right lateral ventricle noted on 11/29/2018 with residual hemosiderin deposition extending to involve the adjacent temporal lobe. [id number] Procedure Note Hm Interface, Radiology Results Incoming - 01/13/2019 10:54 AM CDT EXAMINATION: MRI BRAIN W WO CONTRAST CLINICAL HISTORY: I61.5 Nontraumatic intracerebral hemorrhage intraventricular , Choroid plexus lesion COMPARISON: MRI brain 11/29/2018 TECHNIQUE: Multiplanar and multisequence MRI imaging of the brain was obtained with and without contrast. FINDINGS: Interval resolution of the T1 and T2 hyperintense rounded hemorrhage noted within the atrium of the right lateral ventricle compared with 11/29/2018 with residual hemosiderin deposition extending to involve the adjacent posterior medial right temporal lobe. No abnormal enhancement or mass. No evidence restricted diffusion to suggest recent ischemia. Scattered subcortical and periventricular white matter T2 FLAIR hyperintensities likely reflecting mild chronic microvascular ischemic changes. Major intracranial vascular flow-voids appear grossly preserved. Orbits are normal in appearance. Prominent mucous retention cyst in the right maxillary sinus. Mastoid air cells are clear. IMPRESSION: Interval resolution of the rounded late subacute hemorrhage within the atrium of the right lateral ventricle noted on 11/29/2018 with residual hemosiderin deposition extending to involve the adjacent temporal lobe. [id number] Performing Organization Address City/State/Zipcode Phone Number [facility] [address] [place] [address] Outpatient EEG (12/11/2018 1:42 PM BASIC ACOUSTIC ANALYST) Narrative Performed At EEG AWAKE AND ASLEEP Date of Service: 12/11/18 Awake Recording: The occipital dominant rhythm is 11 Hz. 18-22 Hz activity is present in all regions. Sleep Recording:No epileptiform activity was recorded. Hyperventilation: Not performed. Photic Stimulation: No abnormality elicited. Impression The background activity is within the range of normal variation. No lateralized or epileptiform activity was recorded. ICD-10 Code: R569 after 04/27/2018 Advance Directives Patient has advance care planning documents, and code status on file. For more information, please contact:Олег Lucas[address] [place] [id number] Code Status Date Activated Date Inactivated Comments Full Code 05/19/2016 12:26 AM 05/19/2016 11:05 PM Code Status decision reached by: Patient
--- OUTSIDE RECORDS SUMMARY | 2019-04-28 09:02 | XMS REPORT | Clinical Summary ---
:1965 Author Organization [facility] Address [address] [place] [address] Care Team Providers Name Role Phone Unavailable [...] by 0 Active half tablet mouth daily. warfarin (COUMADIN) 2 Take 2 mg by 0 Discontinued MG tabletIndications: mouth daily. 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 8 baclofen (LIORESAL) Take 1 tablet 30 tablet 0 11/07/2018 10 MG tablet (10 mg total) 9 by mouth 3 (three) times daily as needed for up to 30 days. lidocaine (LIDODERM) Place 1 patch 30 patch 0 11/07/2018 5 % patch onto the skin 9 daily for 30 days Remove & Discard patch within 12 hours or as directed by MD. 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); - Encounter Medicine Darryl IVH (intraventricular hemorrhage) (HCC); 11/07/2018 MD Chad H/O mechanical aortic valve replacement; Hina Ponce MD Essential hypertension; Jarrod Buchanan Coagulopathy (HCC); Markus ZEPEDA MD Acute encephalopathy; S/P MVR (mitral valve replacement); Chronic anticoagulation; S/P AVR; Acute nonintractable headache, unspecified headache type; Subtherapeutic international normalized ratio (INR); Atrial fibrillation, unspecified type (HCC); Supratherapeutic INR; Sciatica of left side 10/26/2018 Travel after 04/27/2018 Social History Tobacco Use Types Packs/Day Years [...] Taken Blood Pressure 135/79 11/07/2018 11:18 AM ADDICTION SPECIALIST Pulse 64 11/07/2018 11:18 AM ADDICTION SPECIALIST Temperature 36.7 C (98 F) 11/07/2018 11:18 AM ADDICTION SPECIALIST Respiratory Rate 18 11/07/2018 11:18 AM ADDICTION SPECIALIST Oxygen Saturation 96% 11/07/2018 11:18 AM ADDICTION SPECIALIST Inhaled Oxygen Concentration 21% 11/04/2018 1:00 AM ADDICTION SPECIALIST Weight 96.1 kg (211 lb 13.8 oz) 10/26/2018 6:00 AM ADDICTION SPECIALIST Height 180.3 cm (5' 11") 10/26/2018 6:00 AM ADDICTION SPECIALIST Body Mass Index 29.55 10/26/2018 6:00 AM ADDICTION SPECIALIST Plan of Treatment Not on file Procedures Procedure Name Priority Date/Time Associated Comments Diagnosis RHYTHM STRIP - SCAN 11/27/2018 11:[address] BRAIN WITHOUT IV STAT 11/07/2018 10:24 Results for this CONTRAST AM ADDICTION SPECIALIST procedure are in the results section. CBC (HEMOGRAM ONLY) Routine 11/07/2018 4:39 Results for this AM ADDICTION SPECIALIST procedure are in the results section. BASIC METABOLIC PANEL Routine 11/07/2018 4:29 Results for this (7) AM ADDICTION SPECIALIST procedure are in the results section. APTT Routine 11/07/2018 4:29 Results for this AM ADDICTION SPECIALIST procedure are in the results section. PROTHROMBIN TIME/INR Routine 11/07/2018 4:29 Results for this AM ADDICTION SPECIALIST procedure are in the results section. APTT Routine 11/06/2018 10:27 Results for this PM ADDICTION SPECIALIST procedure are in the results section. MR SPINE LUMBAR WITHOUT Routine 11/06/2018 9:48 Results for this IV CONTRAST PM ADDICTION SPECIALIST procedure are in the results section. APTT Routine 11/06/2018 1:33 Results for this PM ADDICTION SPECIALIST procedure are in the results section. BASIC METABOLIC PANEL Routine 11/06/2018 4:21 Results for this (7) AM ADDICTION SPECIALIST procedure are in the results section. CBC (HEMOGRAM ONLY) Routine 11/06/2018 4:21 Results for this AM ADDICTION SPECIALIST procedure are in the results section. APTT Routine 11/06/2018 4:21 Results for this AM ADDICTION SPECIALIST procedure are in the results section. PROTHROMBIN TIME/INR Routine 11/06/2018 4:21 Results for this AM ADDICTION SPECIALIST procedure are in the results section. APTT Routine 11/05/2018 7:57 Results for this PM ADDICTION SPECIALIST procedure are in the results section. APTT Routine 11/05/2018 2:49 Results for this PM ADDICTION SPECIALIST procedure are in the results section. BASIC METABOLIC PANEL Routine 11/05/2018 3:52 Results for this (7) AM ADDICTION SPECIALIST procedure are in the results section. CBC (HEMOGRAM ONLY) Routine 11/05/2018 3:52 Results for this AM ADDICTION SPECIALIST procedure are in the results section. APTT Routine 11/05/2018 3:52 Results for this AM ADDICTION SPECIALIST procedure are in the results section. PROTHROMBIN TIME/INR Routine 11/05/2018 3:52 Results for this AM ADDICTION SPECIALIST procedure are in the results section. PT/APTT Routine 11/04/2018 5:20 Results for this PM ADDICTION SPECIALIST procedure are in the results section. PT/APTT Routine 11/04/2018 11:31 Results for this AM ADDICTION SPECIALIST procedure are in the results section. CBC (HEMOGRAM ONLY) Routine 11/04/2018 4:50 Results for this AM ADDICTION SPECIALIST procedure are in the results section. APTT Routine 11/04/2018 4:50 Results for this AM ADDICTION SPECIALIST procedure are in the results section. PROTHROMBIN TIME/INR Routine 11/04/2018 4:50 Results for this AM ADDICTION SPECIALIST procedure are in the results section. XR LUMBAR SPINE COMP Routine 11/03/2018 3:14 Results for this WITH FLEX&EXT PM ADDICTION SPECIALIST procedure are in the results section. CBC (HEMOGRAM ONLY) Routine 11/03/2018 3:34 Results for this AM ADDICTION SPECIALIST procedure are in the results section. APTT Routine 11/03/2018 3:34 Results for this AM ADDICTION SPECIALIST procedure are in the results section. PROTHROMBIN TIME/INR Routine 11/03/2018 3:34 Results for this AM ADDICTION SPECIALIST procedure are in the results section. ECG 12-LEAD Routine 11/02/2018 8:38 Results for this AM ADDICTION SPECIALIST procedure are in the results section. APTT Routine 11/02/2018 3:36 Results for this AM ADDICTION SPECIALIST procedure are in the results section. CBC (HEMOGRAM ONLY) Routine 11/02/2018 3:36 Results for this AM ADDICTION SPECIALIST procedure are in the results section. PROTHROMBIN TIME/INR Routine 11/02/2018 3:36 Results for this AM ADDICTION SPECIALIST procedure are in the results section. APTT Routine 11/01/2018 9:06 Results for this PM ADDICTION SPECIALIST procedure are in the results section. MAGNESIUM Routine 11/01/2018 2:18 Results for this PM ADDICTION SPECIALIST procedure are in the results section. POTASSIUM Routine 11/01/2018 2:18 Results for this PM ADDICTION SPECIALIST procedure are in the results section. PROTHROMBIN TIME/INR Routine 11/01/2018 2:18 Results for this PM ADDICTION SPECIALIST procedure are in the results section. APTT Routine 11/01/2018 2:18 Results for this PM ADDICTION SPECIALIST procedure are in the results section. APTT Routine 11/01/2018 6:08 Results for this AM ADDICTION SPECIALIST procedure are in the results section. CBC (HEMOGRAM ONLY) Routine 11/01/2018 6:05 Results for this AM ADDICTION SPECIALIST procedure are in the results section. POCT-GLUCOSE METER Routine 11/01/2018 5:41 Results for this AM ADDICTION SPECIALIST procedure are in the results section. POCT-GLUCOSE METER Routine 10/31/2018 11:56 Results for this PM ADDICTION SPECIALIST procedure are in the results section. APTT Routine 10/31/2018 11:01 Results for this PM ADDICTION SPECIALIST procedure are in the results section. APTT Routine 10/31/2018 3:34 Results for this PM ADDICTION SPECIALIST procedure are in the results section. CT BRAIN WITHOUT IV STAT 10/31/2018 1:28 Results for this CONTRAST PM ADDICTION SPECIALIST procedure are in the results section. ECG 12-LEAD Routine 10/31/2018 11:03 Results for this AM ADDICTION SPECIALIST procedure are in the results section. APTT Routine 10/31/2018 4:16 Results for this AM ADDICTION SPECIALIST procedure are in the results section. CBC (HEMOGRAM ONLY) Routine 10/31/2018 4:16 Results for this AM ADDICTION SPECIALIST procedure are in the results section. PROTHROMBIN TIME/INR Routine 10/31/2018 4:16 Results for this AM ADDICTION SPECIALIST procedure are in the results section. POCT-GLUCOSE METER Routine 10/31/2018 12:14 Results for this AM ADDICTION SPECIALIST procedure are in the results section. PHOSPHORUS Routine 10/30/2018 4:33 Results for this AM ADDICTION SPECIALIST procedure are in the results section. MAGNESIUM Routine 10/30/2018 4:33 Results for this AM ADDICTION SPECIALIST procedure are in the results section. BASIC METABOLIC PANEL Routine 10/30/2018 4:33 Results for this (7) AM ADDICTION SPECIALIST procedure are in the results section. CBC (HEMOGRAM ONLY) Routine 10/30/2018 4:33 Results for this AM ADDICTION SPECIALIST procedure are in the results section. PT/APTT Routine 10/30/2018 12:38 Results for this AM ADDICTION SPECIALIST procedure are in the results section. PROTHROMBIN TIME/INR Routine 10/30/2018 12:38 Results for this AM ADDICTION SPECIALIST procedure are in the results section. POCT-GLUCOSE METER Routine 10/29/2018 11:59 Results for this PM ADDICTION SPECIALIST procedure are in the results section. CT BRAIN WITHOUT IV STAT 10/29/2018 8:07 Results for this CONTRAST PM ADDICTION SPECIALIST procedure are in the results section. MAGNESIUM Routine 10/29/2018 6:28 Results for this PM ADDICTION SPECIALIST procedure are in the results section. POTASSIUM Routine 10/29/2018 6:28 Results for this PM ADDICTION SPECIALIST procedure are in the results section. PT/APTT Routine 10/29/2018 6:28 Results for this PM ADDICTION SPECIALIST procedure are in the results section. POCT-GLUCOSE METER Routine 10/29/2018 6:09 Results for this PM ADDICTION SPECIALIST procedure are in the results section. POCT-GLUCOSE METER Routine 10/29/2018 12:41 Results for this PM ADDICTION SPECIALIST procedure are in the results section. PT/APTT STAT 10/29/2018 12:20 Results for this PM ADDICTION SPECIALIST procedure are in the results section. CBC W/PLT COUNT & AUTO Routine 10/29/2018 6:15 Results for this DIFFERENTIAL AM ADDICTION SPECIALIST procedure are in the results section. APTT Routine 10/29/2018 6:15 Results for this AM ADDICTION SPECIALIST procedure are in the results section. CBC W/PLT COUNT & AUTO Routine 10/29/2018 6:15 Results for this DIFFERENTIAL AM ADDICTION SPECIALIST procedure are in the results section. PHOSPHORUS Routine 10/29/2018 6:15 Results for this AM ADDICTION SPECIALIST procedure are in the results section. MAGNESIUM Routine 10/29/2018 6:15 Results for this AM ADDICTION SPECIALIST procedure are in the results section. BASIC METABOLIC PANEL Routine 10/29/2018 6:15 Results for this (7) AM ADDICTION SPECIALIST procedure are in the results section. APTT Routine 10/28/2018 11:47 Results for this PM ADDICTION SPECIALIST procedure are in the results section. PLATELET COUNT Routine 10/28/2018 11:47 Results for this PM ADDICTION SPECIALIST procedure are in the results section. POCT-GLUCOSE METER Routine 10/28/2018 6:56 Results for this PM ADDICTION SPECIALIST procedure are in the results section. TRANSFUSION SERVICE 10/28/2018 6:00 REPORT - SCAN PM ADDICTION SPECIALIST NV CEREBRAL 4 VESSEL Routine 10/28/2018 6:00 Results for this ANGIOGRAM PM ADDICTION SPECIALIST procedure are in the results section. ECHOCARDIOGRAM REPORT - 10/28/2018 3:20 SCAN PM ADDICTION SPECIALIST PROCEDURE DONE OUTSIDE 10/28/2018 2:00 IVH OR PM ADDICTION SPECIALIST (intraventricular hemorrhage) (HCC) POCT-GLUCOSE METER Routine 10/28/2018 12:27 Results for this PM ADDICTION SPECIALIST procedure are in the results section. LIMITED 2D NICKI 10/28/2018 11:48 Results for this ECHOCARDIOGRAM AM ADDICTION SPECIALIST procedure are in the results section. CT BRAIN WITHOUT IV STAT 10/28/2018 11:08 Results for this CONTRAST PORTABLE AM ADDICTION SPECIALIST procedure are in the results section. ECG 12-LEAD Routine 10/28/2018 8:46 Results for this AM ADDICTION SPECIALIST procedure are in the results section. CBC W/PLT COUNT & AUTO Routine 10/28/2018 5:35 Results for this DIFFERENTIAL AM ADDICTION SPECIALIST procedure are in the results section. CBC W/PLT COUNT & AUTO Routine 10/28/2018 5:35 Results for this DIFFERENTIAL AM ADDICTION SPECIALIST procedure are in the results section. PHOSPHORUS Routine 10/28/2018 5:35 Results for this AM ADDICTION SPECIALIST procedure are in the results section. MAGNESIUM Routine 10/28/2018 5:35 Results for this AM ADDICTION SPECIALIST procedure are in the results section. BASIC METABOLIC PANEL Routine 10/28/2018 5:35 Results for this (7) AM ADDICTION SPECIALIST procedure are in the results section. POCT-GLUCOSE METER Routine 10/28/2018 12:33 Results for this AM ADDICTION SPECIALIST procedure are in the results section. PREPARE PLASMA STAT 10/27/2018 11:54 Results for this PM ADDICTION SPECIALIST procedure are in the results section. PREPARE PLASMA Routine 10/27/2018 11:54 Results for this PM ADDICTION SPECIALIST procedure are in the results section. CT BRAIN WITHOUT IV STAT 10/27/2018 6:25 Results for this CONTRAST PM ADDICTION SPECIALIST procedure are in the results section. TRANSFUSION SERVICE 10/27/2018 6:01 REPORT - SCAN PM ADDICTION SPECIALIST POCT-GLUCOSE METER Routine 10/27/2018 6:00 Results for this PM ADDICTION SPECIALIST procedure are in the results section. XR CHEST 1 VIEW Routine 10/27/2018 3:16 Results for this PORTABLE/BEDSIDE PM ADDICTION SPECIALIST procedure are in the results section. POCT-GLUCOSE METER Routine 10/27/2018 12:27 Results for this PM ADDICTION SPECIALIST procedure are in the results section. PROTHROMBIN TIME/INR Routine 10/27/2018 8:33 Results for this AM ADDICTION SPECIALIST procedure are in the results section. POCT-GLUCOSE METER Routine 10/27/2018 6:24 Results for this AM ADDICTION SPECIALIST procedure are in the results section. CBC W/PLT COUNT & AUTO Routine 10/27/2018 3:54 Results for this DIFFERENTIAL AM ADDICTION SPECIALIST procedure are in the results section. PROTHROMBIN TIME/INR Routine 10/27/2018 3:54 Results for this AM ADDICTION SPECIALIST procedure are in the results section. PT/APTT Routine 10/27/2018 3:54 Results for this AM ADDICTION SPECIALIST procedure are in the results section. CBC W/PLT COUNT & AUTO Routine 10/27/2018 3:54 Results for this DIFFERENTIAL AM ADDICTION SPECIALIST procedure are in the results section. PHOSPHORUS Routine 10/27/2018 3:54 Results for this AM ADDICTION SPECIALIST procedure are in the results section. MAGNESIUM Routine 10/27/2018 3:54 Results for this AM ADDICTION SPECIALIST procedure are in the results section. BASIC METABOLIC PANEL Routine 10/27/2018 3:54 Results for this (7) AM ADDICTION SPECIALIST procedure are in the results section. POCT-GLUCOSE METER Routine 10/27/2018 12:06 Results for this AM ADDICTION SPECIALIST procedure are in the results section. TRANSFUSE PLASMA Routine 10/27/2018 12:03 AM ADDICTION SPECIALIST PROTHROMBIN TIME/INR Routine 10/26/2018 7:09 Results for this PM ADDICTION SPECIALIST procedure are in the results section. POCT-GLUCOSE METER Routine 10/26/2018 6:52 Results for this PM ADDICTION SPECIALIST procedure are in the results section. TRANSFUSE PLASMA Routine 10/26/2018 4:28 PM ADDICTION SPECIALIST MR BRAIN WITHOUT & WITH NICKI 10/26/2018 4:14 Results for this IV CONTRAST PM ADDICTION SPECIALIST procedure are in the results section. POCT-GLUCOSE METER Routine 10/26/2018 12:03 Results for this PM ADDICTION SPECIALIST procedure are in the results section. TYPE AND SCREEN, Routine 10/26/2018 11:00 Results for this AUTOMATED AM ADDICTION SPECIALIST procedure are in the results section. ECG 12-LEAD Routine 10/26/2018 8:15 Results for this AM ADDICTION SPECIALIST procedure are in the results section. POCT-GLUCOSE METER Routine 10/26/2018 7:14 Results for this AM ADDICTION SPECIALIST procedure are in the results section. CT/CTA CAROTID Routine 10/26/2018 6:22 Results for this AM ADDICTION SPECIALIST procedure are in the results section. CT/CTA BRAIN STAT 10/26/2018 6:22 Results for this AM ADDICTION SPECIALIST procedure are in the results section. LIPID PANEL Routine 10/26/2018 4:39 Results for this AM ADDICTION SPECIALIST procedure are in the results section. HEMOGLOBIN A1C Routine 10/26/2018 4:39 Results for this AM ADDICTION SPECIALIST procedure are in the results section. COMPREHENSIVE METABOLIC Routine 10/26/2018 4:39 Results for this PANEL AM ADDICTION SPECIALIST procedure are in the results section. APTT Routine 10/26/2018 4:39 Results for this AM ADDICTION SPECIALIST procedure are in the results section. PROTHROMBIN TIME/INR Routine 10/26/2018 4:39 Results for this AM ADDICTION SPECIALIST procedure are in the results section. HEPATIC FUNCTION PANEL Routine 10/26/2018 4:39 Results for this AM ADDICTION SPECIALIST procedure are in the results section. PHOSPHORUS Routine 10/26/2018 4:39 Results for this AM ADDICTION SPECIALIST procedure are in the results section. MAGNESIUM Routine 10/26/2018 4:39 Results for this AM ADDICTION SPECIALIST procedure are in the results section. after 04/27/2018 Results RHYTHM STRIP - SCAN (11/27/2018 11:21 AM ADDICTION SPECIALIST) Narrative Performed At CT brain without IV contrast (11/07/2018 10:24 AM ADDICTION SPECIALIST)Only the most recent of4 resultswithin the time period is included. Specimen Narrative Performed At FINAL REPORT [facility] CT Head without contrast CLINICAL HISTORY: Cerebral [...] MD Report Verified Date/Time:11/07/2018 10:28:21 Reading Location: [address] Neuro Reading Room Procedure Note Interface, External Ris In - 11/07/2018 10:30 AM ADDICTION SPECIALIST FINAL REPORT CT Head without contrast CLINICAL [...] Report Verified Date/Time: 11/07/2018 10:28:21 Reading Location: [facility] [id number] Neuro Reading Room Performing Organization Address City/[facility]/Zipcode Phone Number GE RIS CBC (hemogram only) (11/07/2018 4:39 AM ADDICTION SPECIALIST)Only the most recent of9 resultswithin the time period is included. WBC 5.9 3.5 - 10.5 K/L [facility] RBC 4.26 3.93 - 5.22 M/L [facility] Hemoglobin 13.2 11.2 - 15.7 GM/DL [facility] Hematocrit 40.1 34.1 - 44.9 % [facility] MCV 94.1 79.4 - 94.8 fL [facility] MCH 31.0 25.6 - 32.2 pg [facility] MCHC 32.9 32.2 - 35.5 GM/DL [facility] RDW 13.2 11.7 - 14.4 % [facility] Platelets 277 150 - 450 K/CU MM [facility] MPV 11.2 9.4 - 12.3 fL [facility] nRBC 0 0 - 0 /100 WBC [facility] Specimen Blood Performing Organization Address City/[facility]/Zipcode Phone Number [facility] [address] [place] [address] [phone] CENTER aPTT (11/07/2018 4:29 AM ADDICTION SPECIALIST)Only the most recent of19 resultswithin the time period is included. PTT 79.7 (H) 22.5 - 36.0 seconds [facility] Specimen Blood Narrative Performed At While on warfarin. [facility] Performing Organization Address City/[facility] [place] Phone Number [facility] [address], [place] [phone] [place] Daily Prothrombin time/INR while on warfarin (11/07/2018 4:29 AM ADDICTION SPECIALIST)Only the most recent of13 resultswithin the time period is included. Protime 22.5 (H) 11.7 - 14.7 seconds [facility] INR 2.0 <=5.9 [facility] Specimen Blood Narrative Performed At RECOMMENDED COUMADIN/WARFARIN INR THERAPY [facility] RANGES STANDARD DOSE: 2.0 - 3.0 Includes: PROPHYLAXIS for venous thrombosis, systemic embolization; TREATMENT for venous thrombosis and/or pulmonary embolus. HIGH RISK: Target INR is 2.5-3.5 for patients with mechanical heart valves. While on warfarin. Performing Organization Address [facility] Phone Number [facility] [address] [place] [address] [place] Basic Metabolic Panel (11/07/2018 4:29 AM ADDICTION SPECIALIST)Only the most recent of7 resultswithin the time period is included. Sodium 141 136 - 145 meq/L [facility] Potassium 4.3 3.5 - 5.1 meq/L [facility] Chloride 108 (H) 98 - 107 meq/L [facility] CO2 25 22 - 29 meq/L [facility] BUN 25 (H) 7 - 21 mg/dL [facility] Creatinine 0.81 0.57 - 1.25 mg/dL [facility] Glucose 96 70 - 105 mg/dL [facility] Calcium 10.2 8.4 - 10.2 mg/dL [facility] EGFR 74Comment: ESTIMATED GFR IS mL/min/1.[address] [facility] NOT ACCURATE [facility] CLEARANCE IN PREDICTING GLOMERULAR FILTRATION RATE. ESTIMATED GFR IS NOT APPLICABLE FOR DIALYSIS PATIENTS. Specimen Blood Performing Organization Address City/State/Zipcode Phone Number [facility] [address] [place] [address] CENTER MR spine lumbar without IV contrast (11/06/2018 9:48 PM ADDICTION SPECIALIST) Specimen Narrative Performed At FINAL REPORT [facility] MR Lumbar spine without contrast CLINICAL HISTORY: [...] foraminal stenosis. Annular fissure at L5-S1. Signed: Mayr Noel MD Report Verified Date/Time:11/07/2018 03:52:32 Reading Location: [address] Transitional Reading Room Procedure Note Interface, External Ris In - 11/07/2018 3:54 AM ADDICTION SPECIALIST FINAL REPORT MR Lumbar spine without contrast [...] Report Verified Date/Time: 11/07/2018 03:52:32 Reading Location: [facility] [id number] Transitional Reading Room Performing Organization Address City/State/Zipcode Phone Number [employer] PT/aPTT (11/04/2018 5:20 PM ADDICTION SPECIALIST)Only the most recent of6 resultswithin the time period is included. Protime 16.9 (H) 11.7 - 14.7 seconds [facility] INR 1.3 <=5.9 [facility] PTT 66.7 (H) 22.5 - 36.0 seconds [facility] Specimen Blood Narrative Performed At RECOMMENDED COUMADIN/WARFARIN INR THERAPY [facility] RANGES STANDARD DOSE: 2.0 - 3.0 Includes: PROPHYLAXIS for venous thrombosis, systemic embolization; TREATMENT for venous thrombosis and/or pulmonary embolus. HIGH RISK: Target INR is 2.5-3.5 for patients with mechanical heart valves. Performing Organization Address City/State/Zipcode Phone Number [facility] [address] [place] [address] [phone] CENTER XR lumbar spine comp with flex & ext (11/03/2018 3:14 PM ADDICTION SPECIALIST) Specimen Narrative Performed At FINAL REPORT GE [employer] Lumbar spine, seven images HISTORY: Radiculopathy COMPARISON: None IMPRESSION: Five lumbar type vertebral bodies. No fracture. No subluxation. No change in alignment on flexion or extension. Soft tissues unremarkable. Minimal degenerative facet changes. Signed: Kenny Centeno MD Report Verified Date/Time:11/03/2018 15:41:39 Reading Location: [address] Transitional Reading Room Procedure Note Interface, External Ris In - 11/03/2018 3:43 PM ADDICTION SPECIALIST FINAL REPORT Lumbar spine, seven images HISTORY: Radiculopathy COMPARISON: None IMPRESSION: Five lumbar type vertebral bodies. No fracture. No subluxation. No change in alignment on flexion or extension. Soft tissues unremarkable. Minimal degenerative facet changes. Signed: Kenny Centeno MD Report Verified Date/Time: 11/03/2018 15:41:39 Reading Location: [address] Transitional Reading Room Performing Organization Address City/[facility] Phone Number GE RIS ECG 12 lead (11/02/2018 8:38 AM ADDICTION SPECIALIST)Only the most recent of4 resultswithin the time period is included. Specimen Narrative Performed At Ventricular Rate 80 BPM GE MUSE Atrial Rate 80 BPM P-R Interval 164 ms QRS Duration 92 ms Q-T Interval 398 ms QTC Calculation(Bazett) 459 ms P [place] 59 degrees R [place] 29 degrees T [place] 104 degrees Normal sinus rhythm T wave abnormality, consider lateral ischemia Abnormal ECG When compared with ECG of 31-OCT-2018 11:03, No significant change was found Confirmed by MD SHARMA JOSEPH P ([id number]) on 11/03/2018 7:59:06 AM Procedure Note Interface, External Ris In - 11/03/2018 7:59 AM ADDICTION SPECIALIST Ventricular Rate 80 BPM Atrial Rate 80 BPM P-R Interval 164 ms QRS Duration 92 ms Q-T Interval 398 ms QTC Calculation(Bazett) 459 ms P [place] 59 degrees R [place] 29 degrees T [place] 104 degrees Normal sinus rhythm T wave abnormality, consider lateral ischemia Abnormal ECG When compared with ECG of 31-OCT-2018 11:03, No significant change was found Confirmed by MD SHARMA JOSEPH P ([id number]) on 11/03/2018 7:59:06 AM Performing Organization Address City/[facility]/Zipcode Phone Number MUSE Potassium (11/01/2018 2:18 PM ADDICTION SPECIALIST)Only the most recent of2 resultswithin the time period is included. Potassium 4.2 3.5 - 5.1 meq/L [facility] Specimen Blood Performing Organization Address [facility] [place] [address] CENTER Magnesium (11/01/2018 2:18 PM ADDICTION SPECIALIST)Only the most recent of7 resultswithin the time period is included. Magnesium 2.3 1.6 - 2.6 mg/dL [facility] Specimen Blood Performing Organization Address [facility] Phone Number [address] [address] [place] POC-Glucose meter (11/01/2018 5:41 AM ADDICTION SPECIALIST)Only the most recent of16 resultswithin the time period is included. POC-Glucose Meter 119 (H)Comment: TESTED AT 70 - 110 mg/dL [place] [id number] Specimen Blood Performing Organization Address [facility] Phone Number [address] [address] [phone] CENTER Phosphorus (10/30/2018 4:33 AM ADDICTION SPECIALIST)Only the most recent of5 resultswithin the time period is included. Phosphorus 3.6Comment: Specimen slightly 2.3 - 4.7 mg/dL [facility] hemolyzed [facility] Specimen Blood Performing Organization Address [facility] [place] [address] [place] CBC with platelet count + automated diff (10/29/2018 6:15 AM ADDICTION SPECIALIST)Only the most recent of3 resultswithin the time period is included. WBC 8.0 3.5 - 10.5 K/L [facility] RBC 3.64 (L) 3.93 - 5.22 M/L [facility] Hemoglobin 11.3 11.2 - 15.7 GM/DL [facility] Hematocrit 33.9 (L) 34.1 - 44.9 % [facility] MCV 93.1 79.4 - 94.8 fL [facility] MCH 31.0 25.6 - 32.2 pg [facility] MCHC 33.3 32.2 - 35.5 GM/DL [facility] RDW 12.6 11.7 - 14.4 % [facility] Platelets 192 150 - 450 K/CU MM [facility] MPV 11.2 9.4 - 12.3 fL [facility] nRBC 0 0 - 0 /100 WBC [facility] % Neutros 76 % [facility] % Lymphs 12 % [facility] % Monos 9 % [facility] % Eos 1 % [facility] % Baso 0 % [facility] # Neutros 6.13 1.56 - 6.13 K/L [facility] # Lymphs 1.00 (L) 1.18 - 3.74 K/L [facility] # Monos 0.74 (H) 0.24 - 0.36 K/L [facility] # Eos 0.10 0.04 - 0.36 K/L [facility] # Baso 0.03 0.01 - 0.08 K/L [facility] Immature Granulocytes-Relative 1 0 - 1 % [facility] Specimen Blood Performing Organization Address City/State/Zipcode Phone Number [facility] [phone] [place] [address] CENTER Platelet count (10/28/2018 11:47 PM ADDICTION SPECIALIST) Platelets 200 150 - 450 K/CU MM [facility] Specimen Blood Performing Organization Address City/State/Zipcode Phone Number [place] [phone] [place] [address] [phone] CENTER TRANSFUSION SERVICE REPORT - SCAN (10/28/2018 6:00 PM ADDICTION SPECIALIST)Only the most recent of2 resultswithin the time period is included. Narrative Performed At [place] cerebral 4 vessel angiogram (10/28/2018 6:00 PM ADDICTION SPECIALIST) Specimen Narrative Performed At FINAL REPORT [facility] DATE: 10/28/2018 NAME: Yen Ruiz ATTENDING: Juanpablo Mansfield MD LIME SLUDGE MIXER: Beth Hawkins PREOPERATIVE DIAGNOSIS: Intracerebral Hemorrhage and [...] femoral artery x1 MATERIALS EMPLOYED: 1. 5 Angolan short sheath 2. 4 Angolan Berenstein catheter 3. Bentson guidewire 4. Terumo 0.035 LT glidewire 5. 5 Angolan Mynx device INDICATIONS: The patient is a 53 year old female with mechanical heart valve on Coumadin who began having headaches that were progressive over the course of the day on 10/25/2018. The patient was evaluated and found to have a right 3 cm jadsgq-gmzkjgx-khbncpjfu ICH near the atrium lateral ventricle with [...] the puncture site was confirmed, a 5 Angolan short sheath was inserted over a [employer]son wire and was maintained on heparinized saline flush throughout the remainder of the procedure. Using coaxial technique, a preflushed 5 Angolan Terumo glide catheter on constant heparinized saline [...] removed and hemostasis achieved with a 5 Angolan Mynx device and manual compression. The patient [...] the ipsilateral PICA, AICAs, SACs and left tier and detonator. No significant right TRUCK BENCH MECHANIC is seen indicating right Pcom. No aneurysms [...] MD Report Verified Date/Time:10/30/2018 14:52:59 Reading Location: [facility] Y018 Neuro Angio Reading Room Procedure Note Interface, External Ris In - 10/30/2018 2:55 PM ADDICTION SPECIALIST FINAL REPORT DATE: 10/28/2018 NAME: Yen Ruiz ATTENDING: Juanpablo Mansfield MD LIME SLUDGE MIXER: Beth Hawkins PREOPERATIVE DIAGNOSIS: Intracerebral Hemorrhage and [...] femoral artery x1 MATERIALS EMPLOYED: 1. 5 Angolan short sheath 2. 4 Angolan Berenstein catheter 3. Bentson guidewire 4. Terumo 0.035 LT glidewire 5. 5 Angolan Mynx device INDICATIONS: The patient is a 53 year old female with mechanical heart valve on Coumadin who began having headaches that were progressive over the course of the day on 10/25/2018. The patient was evaluated and found to have a right 3 cm qdpike-qasgkno-axjjrblcy ICH near the atrium lateral ventricle with [...] the puncture site was confirmed, a 5 Angolan short sheath was inserted over a Bentson wire and was maintained on heparinized saline flush throughout the remainder of the procedure. Using coaxial technique, a preflushed 5 Angolan Terumo glide catheter on constant heparinized saline [...] removed and hemostasis achieved with a 5 Angolan Mynx device and manual compression. The patient [...] the ipsilateral PICA, AICAs, SACs and left tier and detonator. No significant right TRUCK BENCH MECHANIC is seen indicating right Pcom. No aneurysms [...] Report Verified Date/Time: 10/30/2018 14:52:59 Reading Location: [facility] Y8 Neuro Angio Reading Room Performing Organization Address City/State/Zipcode Phone Number [facility] ECHOCARDIOGRAM REPORT - SCAN (10/28/2018 3:20 PM ADDICTION SPECIALIST) Narrative Performed At Limited 2D Echocardiogram (10/28/2018 11:48 AM ADDICTION SPECIALIST) Ejection Fraction [facility] Specimen Narrative Performed At Transthoracic Echocardiography Report (TTE) [facility] Demographics Patient Name YEN RUIZ Date of Study10/28/2018 ASHLEY [id number] Gender Female Visit Number [id number] Unknown [id number] Room [id number] Number Date of Birth1965Referring Claudy Loco Physician 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 Young [facility] AnalystMailallison Ascencio Interpreting Physician SUSAN Urbano Procedure [...] External Ris In - 10/28/2018 2:59 PM ADDICTION SPECIALIST Transthoracic Echocardiography Report (TTE) Demographics Patient Name YEN RUIZ Date of Study 10/28/2018 ASHLEY Gender Female Visit Number [id number] Race Unknown Room Number 7406 Number Date of 1965 Referring Claudy Loco Physician 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 Stephanie Ascencio Interpreting Markus Sharma Physician Procedure [...] LVOT VTI: 38.29 cm Performing Organization Address City/State/Zipcode Phone Number [facility] CT brain without IV contrast portable (10/28/2018 11:08 AM ADDICTION SPECIALIST) Specimen Narrative Performed At FINAL REPORT [place] [facility] CT BRAIN WITHOUT IV CONTRAST - PORTABLE [...] Signed: JR Lunsford Robert MD Report Verified Date/Time:10/28/2018 11:11:15 Reading Location: [facility] Radiology Reading Room Procedure Note Interface, External Ris In - 10/28/2018 11:13 AM ADDICTION SPECIALIST FINAL REPORT CT BRAIN WITHOUT IV CONTRAST [...] Report Verified Date/Time: 10/28/2018 11:11:15 Reading Location: [facility] Radiology Reading Room Performing Organization Address [facility] Phone Number [employer] Prepare plasma (10/27/2018 11:54 PM ADDICTION SPECIALIST)Only the most recent of2 resultswithin the time period is included. Unit ABO AB Pos SAFETRACE TX UNIT NUMBER [id number] SAFETRACE TX Status TRANSFUSED SAFETRACE TX Blood Bank Product FFP SAFETRACE TX PRODUCT CODE [id number] SAFETRACE TX Specimen Blood Performing Organization Address [facility] Phone Number SAFETRACE TX XR chest 1 view portable / bedside (10/27/2018 3:16 PM ADDICTION SPECIALIST) Specimen Narrative Performed At FINAL REPORT [employer] HISTORY : ok. Comparison: None Comment: Single [...] MD Report Verified Date/Time:10/27/2018 15:28:09 Reading Location: [address] Transitional Reading Room Procedure Note Interface, External Ris In - 10/27/2018 3:30 PM ADDICTION SPECIALIST FINAL REPORT HISTORY : ok. Comparison: None [...] Report Verified Date/Time: 10/27/2018 15:28:09 Reading Location: [address] Transitional Reading Room Performing Organization Address City/State/Zipcode Phone Number [employer] Transfuse plasma (10/27/2018 12:03 AM ADDICTION SPECIALIST)Only the most recent of4 resultswithin the time period is included.MR brain without & with IV contrast (10/26/2018 4:14 PM ADDICTION SPECIALIST) Specimen Narrative Performed At FINAL REPORT [facility] MRI Brain with and without contrast 10/26/2018 [...] MD Report Verified Date/Time:10/26/2018 16:15:27 Reading Location: [address] Neuro Reading Room Procedure Note Interface, External Ris In - 10/26/2018 4:17 PM ADDICTION SPECIALIST FINAL REPORT MRI Brain with and without [...] Report Verified Date/Time: 10/26/2018 16:15:27 Reading Location: [address] Neuro Reading Room Performing Organization Address City/[facility] Phone Number [facility] Type and screen, automated (10/26/2018 11:00 AM ADDICTION SPECIALIST) ABO/RH AUTOMATED (BEAKER) O POSITIVE [facility] Ab Scrn NEGATIVE [facility] Specimen Blood Performing Organization Address City/[facility]/Zipcode Phone Number [facility] [address] [place] [address] [phone] CTA carotid (10/26/2018 6:22 AM ADDICTION SPECIALIST) Specimen Narrative Performed At FINAL REPORT [facility] CTA carotids and brain 10/26/2018 8:23 AM [...] MD Report Verified Date/Time:10/26/2018 08:29:52 Reading Location: [address] Neuro Reading Room Procedure Note Interface, External Ris In - 10/26/2018 8:32 AM ADDICTION SPECIALIST FINAL REPORT CTA carotids and brain 10/26/2018 [...] Report Verified Date/Time: 10/26/2018 08:29:52 Reading Location: [address] Neuro Reading Room Performing Organization Address City/State/Zipcode Phone Number [employer] CTA brain (10/26/2018 6:22 AM ADDICTION SPECIALIST) Specimen Narrative Performed At FINAL REPORT [facility] CTA carotids and brain 10/26/2018 8:23 AM [...] MD Report Verified Date/Time:10/26/2018 08:29:52 Reading Location: [address] Neuro Reading Room Procedure Note Interface, External Ris In - 10/26/2018 8:32 AM ADDICTION SPECIALIST FINAL REPORT CTA carotids and brain 10/26/2018 [...] Report Verified Date/Time: 10/26/2018 08:29:52 Reading Location: [address] Neuro Reading Room Performing Organization Address City/State/Zipcode Phone Number GE RIS Hemoglobin A1c (10/26/2018 4:39 AM ADDICTION SPECIALIST) Hemoglobin A1C 5.2 4.3 - 6.1 % [facility] Specimen Blood Performing Organization Address City/State/Zipcode Phone Number [address] [address] [phone] CENTER Hepatic function panel (10/26/2018 4:39 AM ADDICTION SPECIALIST) Protein, Total 6.8 6.0 - 8.3 gm/dL [facility] Albumin 4.2 3.5 - 5.0 g/dL [facility] Total Bilirubin 1.3 (H) 0.2 - 1.2 mg/dL [facility] Bilirubin, Direct 0.4 0.1 - 0.5 mg/dL [facility] Alkaline Phosphatase 57 40 - 150 U/L [facility] AST 16 5 - 34 U/L [facility] ALT 17 6 - 55 U/L [facility] Specimen Blood Narrative Performed At Once on admission and Daily AM afterwards [facility] Once on admission and Daily AM afterwards Performing Organization Address City/[facility]/Zipcode Phone Number [facility] [address] [place] [address] [phone] [place] Lipid panel (10/26/2018 4:39 AM ADDICTION SPECIALIST) Triglycerides 210 mg/dL [facility] Cholesterol 191 mg/dL [facility] HDL 38 mg/dL [facility] LDL Calculated 111 mg/dL [facility] Specimen Blood Narrative Performed At Triglyceride Reference Range: [facility] Low Risk <150 [id number] High Risk 200-499 Very High Risk>=500 Cholesterol Reference Range: Low Risk <200 [id number] High Risk>240 HDL Cholesterol Reference Range: Low Risk >=60 High Risk <40 LDL Cholesterol Reference Range: Optimal<100 Near [id number] [id number] [id number] Very High >=190 Once on admission and Daily AM afterwards Once on admission and Daily AM afterwards Once on admission and Daily AM afterwards Once on admission and Daily AM afterwards Performing Organization Address City/State/Zipcode Phone Number [facility] [address] [place] [address] [place] Comprehensive metabolic panel (10/26/2018 4:39 AM ADDICTION SPECIALIST) Protein, Total 6.8 6.0 - 8.3 gm/dL [facility] Albumin 4.2 3.5 - 5.0 g/dL [facility] Alkaline Phosphatase 57 40 - 150 U/L [facility] Total Bilirubin 1.3 (H) 0.2 - 1.2 mg/dL [facility] Sodium 139 136 - 145 meq/L [facility] Potassium 3.5 3.5 - 5.1 meq/L [facility] Chloride 105 98 - 107 meq/L [facility] CO2 27 22 - 29 meq/L [facility] BUN 16 7 - 21 mg/dL [facility] Creatinine 0.80 0.57 - 1.25 mg/dL [facility] Glucose 93 70 - 105 mg/dL [facility] Calcium 9.5 8.4 - 10.2 mg/dL [facility] AST 16 5 - 34 U/L [facility] ALT 17 6 - 55 U/L [facility] EGFR 75Comment: ESTIMATED GFR mL/min/1.73 sq m [facility] IS NOT ACCURATE THE [facility] CREATININE CLEARANCE IN PREDICTING GLOMERULAR FILTRATION RATE. ESTIMATED GFR IS NOT APPLICABLE FOR DIALYSIS PATIENTS. Specimen Blood Narrative Performed At Once on admission and Daily AM afterwards [facility] Once on admission and Daily AM afterwards Performing Organization Address City/State/Zipcode Phone Number [facility] [address] [place] [phone] CENTER after 04/27/2018 Insurance Payer Benefit Plan / Subscriber ID Type Phone Address Group BLUE CROSS/BLUE BCBS PPO POS EPO xxxxxxxxxxxx PPO [phone] [address] [place] [address] Advance Directives For more information, please contact:[address] [phone] Code Status Date Activated Date Inactivated Comments Full Code 10/28/2018 4:02 PM This code status was determined by: Patient
--- OUTSIDE RECORDS SUMMARY | 2019-04-28 09:04 | XMS REPORT ---
:1965 [facility] Address [address] [place] [address] [address] [place] [address] Care Team Providers Name Role Phone SALUDGABRIELALAMAR [...] PATIENT WITHOUT CONTRAST therapeutic INR, needs ID: [id number] CT Head repeatWhat is the without contrast [...] MDReport Verified Date/Time: 11/07/2018 10:28:21 Reading Location: [facility] C013V Neuro Reading Room C METABOLIC PANEL 2018-11-07 06:29:00 Test Item Value Reference Range Comments SODIUM (BEAKER) (test 141 meq/L 136-145 sreg=708) POTASSIUM (BEAKER) (test 4.3 meq/L 3.5-5.1 emid=790) CHLORIDE (BEAKER) (test 108 meq/L 98-107 oxnk=932) CO2 (BEAKER) (test yofl=312) 25 meq/L 22-29 BLOOD UREA NITROGEN (BEAKER) 25 mg/dL 7-21 (test bniu=241) CREATININE (BEAKER) (test 0.81 mg/dL 0.57-1.25 hnaa=626) GLUCOSE RANDOM (BEAKER) 96 mg/dL 70-105 (test usvc=106) CALCIUM (BEAKER) (test 10.2 mg/dL 8.4-10.2 vfju=725) EGFR (BEAKER) (test 74 mL/min/1.73 sq m ESTIMATED GFR IS NOT viar=7832) ACCURATE CREATININE CLEARANCE IN PREDICTING GLOMERULAR FILTRATION RATE. ESTIMATED GFR IS NOT APPLICABLE FOR DIALYSIS PATIENTS. [id number] 06:17:00 Test Item Value Reference Range Comments PARTIAL THROMBOPLASTIN TIME (BEAKER) (test 79.7 seconds 22.5-36.0 pxpz=293) While on warfarin.PROTHROMBIN TIME/[id number] 06:15:00 Test Item Value Reference Range Comments PROTIME (BEAKER) (test qupz=574) 22.5 seconds 11.7-14.7 INR (BEAKER) (test ldpn=951) 2.0 <=5.9 RECOMMENDED COUMADIN/WARFARIN INR THERAPY RANGESSTANDARD DOSE: 2.0 - 3.0 Includes: PROPHYLAXIS forvenous thrombosis, systemic embolization; TREATMENT for venous thrombosis and/or pulmonary embolus.HIGH RISK: Target INR is 2.5-3.5 for patients with mechanical heart valves.While on warfarin.CBC (HEMOGRAM ONLY) 2018-11-07 05:53:00 Test Item Value Reference Range Comments WHITE BLOOD CELL COUNT (BEAKER) (test zcut=979) 5.9 K/ L 3.5-10.5 RED BLOOD CELL COUNT (BEAKER) (test qcoa=036) 4.26 M/ L 3.93-5.22 HEMOGLOBIN (BEAKER) (test qbdt=145) 13.2 GM/DL 11.2-15.7 HEMATOCRIT (BEAKER) (test tygg=369) 40.1 % 34.1-44.9 MEAN CORPUSCULAR VOLUME (BEAKER) (test yqnj=974) 94.1 fL 79.4-94.8 MEAN CORPUSCULAR HEMOGLOBIN (BEAKER) (test 31.0 pg 25.6-32.2 qaco=052) MEAN CORPUSCULAR HEMOGLOBIN CONC (BEAKER) (test 32.9 GM/DL 32.2-35.5 txbe=661) RED CELL DISTRIBUTION WIDTH (BEAKER) (test 13.2 % 11.7-14.4 wiks=410) PLATELET COUNT (BEAKER) (test lsjy=586) 277 K/CU MM 150-450 MEAN PLATELET VOLUME (BEAKER) (test xrmz=190) 11.2 fL 9.4-12.3 NUCLEATED RED BLOOD CELLS (BEAKER) (test 0 /100 WBC 0-0 yyoh=926) MR, SPINE, LUMBAR, WITHOUT [id number] 03:52:00FINAL REPORT MR Lumbar spine without contrast [...] Noelort Verified Date/Time: 11/07/2018 03:52:32 Reading Location: [address] Reading Room [id number] 23:05:00 Test Item Value Reference Range Comments PARTIAL THROMBOPLASTIN TIME (BEAKER) (test 61.1 seconds 22.5-36.0 wyjy=007) [id number] 14:01:00 Test Item Value Reference Range Comments PARTIAL THROMBOPLASTIN TIME (BEAKER) (test 65.3 seconds 22.5-36.0 xoqt=703) BASIC METABOLIC [id number] 05:40:00 Test Item Value Reference Range Comments SODIUM (BEAKER) (test 138 meq/L 136-145 kryd=989) POTASSIUM (BEAKER) (test 4.2 meq/L 3.5-5.1 kypc=943) CHLORIDE (BEAKER) (test 106 meq/L 98-107 ivxv=827) CO2 (BEAKER) (test 23 meq/L 22-29 zisn=748) BLOOD UREA NITROGEN 26 mg/dL 7-21 (BEAKER) (test vppe=468) CREATININE (BEAKER) (test 0.83 mg/dL 0.57-1.25 jtke=346) GLUCOSE RANDOM (BEAKER) 94 mg/dL 70-105 (test qsva=755) CALCIUM (BEAKER) (test 10.0 mg/dL 8.4-10.2 gjtb=590) EGFR (BEAKER) (test 72 mL/min/1.73 sq m ESTIMATED GFR IS NOT smbc=1145) ACCURATE CREATININE CLEARANCE IN PREDICTING GLOMERULAR FILTRATION RATE. ESTIMATED GFR IS NOT APPLICABLE FOR DIALYSIS PATIENTS. [id number] 05:20:00 Test Item Value Reference Range Comments PARTIAL THROMBOPLASTIN TIME (BEAKER) (test 71.9 seconds 22.5-36.0 dgzg=268) While on warfarin.PROTHROMBIN TIME/[id number] 05:18:00 Test Item Value Reference Range Comments PROTIME (BEAKER) (test cwag=848) 19.4 seconds 11.7-14.7 INR (BEAKER) (test yroa=243) 1.6 <=5.9 RECOMMENDED COUMADIN/WARFARIN INR THERAPY RANGESSTANDARD DOSE: 2.0 - 3.0 Includes: PROPHYLAXIS forvenous thrombosis, systemic embolization; TREATMENT for venous thrombosis and/or pulmonary embolus.HIGH RISK: Target INR is 2.5-3.5 for patients with mechanical heart valves.While on warfarin.CBC (HEMOGRAM ONLY) 2018-11-06 05:11:00 Test Item Value Reference Range Comments WHITE BLOOD CELL COUNT (BEAKER) (test beea=953) 6.0 K/ L 3.5-10.5 RED BLOOD CELL COUNT (BEAKER) (test igyc=592) 4.22 M/ L 3.93-5.22 HEMOGLOBIN (BEAKER) (test buyu=452) 12.9 GM/DL 11.2-15.7 HEMATOCRIT (BEAKER) (test eifs=392) 39.6 % 34.1-44.9 MEAN CORPUSCULAR VOLUME (BEAKER) (test sehc=007) 93.8 fL 79.4-94.8 MEAN CORPUSCULAR HEMOGLOBIN (BEAKER) (test 30.6 pg 25.6-32.2 oylo=522) MEAN CORPUSCULAR HEMOGLOBIN CONC (BEAKER) (test 32.6 GM/DL 32.2-35.5 rngs=561) RED CELL DISTRIBUTION WIDTH (BEAKER) (test 13.0 % 11.7-14.4 udjw=458) PLATELET COUNT (BEAKER) (test mthp=472) 280 K/CU MM 150-450 MEAN PLATELET VOLUME (BEAKER) (test aqbj=721) 10.9 fL 9.4-12.3 NUCLEATED RED BLOOD CELLS (BEAKER) (test 0 /100 WBC 0-0 cwgv=194) [id number] 21:15:00 Test Item Value Reference Range Comments PARTIAL THROMBOPLASTIN TIME (BEAKER) (test 64.4 seconds 22.5-36.0 vtyl=027) [id number] 15:09:00 Test Item Value Reference Range Comments PARTIAL THROMBOPLASTIN TIME (BEAKER) (test 70.8 seconds 22.5-36.0 ufjm=303) BASIC METABOLIC [id number] 04:25:00 Test Item Value Reference Range Comments SODIUM (BEAKER) (test 139 meq/L 136-145 olrx=099) POTASSIUM (BEAKER) (test 4.4 meq/L 3.5-5.1 bnet=191) CHLORIDE (BEAKER) (test 107 meq/L 98-107 rpjh=646) CO2 (BEAKER) (test 22 meq/L 22-29 nhsf=640) BLOOD UREA NITROGEN 25 mg/dL 7-21 (BEAKER) (test uscy=953) CREATININE (BEAKER) (test 0.82 mg/dL 0.57-1.25 klxr=237) GLUCOSE RANDOM (BEAKER) 102 mg/dL 70-105 (test vpif=683) CALCIUM (BEAKER) (test 10.1 mg/dL 8.4-10.2 ogau=818) EGFR (BEAKER) (test 73 mL/min/1.73 sq m ESTIMATED GFR IS NOT ylpj=5930) ACCURATE CREATININE CLEARANCE IN PREDICTING GLOMERULAR FILTRATION RATE. ESTIMATED GFR IS NOT APPLICABLE FOR DIALYSIS PATIENTS. [id number] 04:15:00 Test Item Value Reference Range Comments PARTIAL THROMBOPLASTIN TIME (BEAKER) (test 82.7 seconds 22.5-36.0 oybw=541) While on warfarin.PROTHROMBIN TIME/[id number] 04:14:00 Test Item Value Reference Range Comments PROTIME (BEAKER) (test volk=687) 17.3 seconds 11.7-14.7 INR (BEAKER) (test pdaq=908) 1.4 <=5.9 RECOMMENDED COUMADIN/WARFARIN INR THERAPY RANGESSTANDARD DOSE: 2.0 - 3.0 Includes: PROPHYLAXIS forvenous thrombosis, systemic embolization; TREATMENT for venous thrombosis and/or pulmonary embolus.HIGH RISK: Target INR is 2.5-3.5 for patients with mechanical heart valves.While on warfarin.CBC (HEMOGRAM ONLY) 2018-11-05 04:04:00 Test Item Value Reference Range Comments WHITE BLOOD CELL COUNT (BEAKER) (test ywzv=748) 7.9 K/ L 3.5-10.5 RED BLOOD CELL COUNT (BEAKER) (test grse=317) 4.38 M/ L 3.93-5.22 HEMOGLOBIN (BEAKER) (test dshf=588) 13.5 GM/DL 11.2-15.7 HEMATOCRIT (BEAKER) (test zsji=787) 41.4 % 34.1-44.9 MEAN CORPUSCULAR VOLUME (BEAKER) (test vvir=821) 94.5 fL 79.4-94.8 MEAN CORPUSCULAR HEMOGLOBIN (BEAKER) (test 30.8 pg 25.6-32.2 ccbw=593) MEAN CORPUSCULAR HEMOGLOBIN CONC (BEAKER) (test 32.6 GM/DL 32.2-35.5 jukh=741) RED CELL DISTRIBUTION WIDTH (BEAKER) (test 13.0 % 11.7-14.4 cdtx=367) PLATELET COUNT (BEAKER) (test lnir=462) 292 K/CU MM 150-450 MEAN PLATELET VOLUME (BEAKER) (test zcwq=833) 10.5 fL 9.4-12.3 NUCLEATED RED BLOOD CELLS (BEAKER) (test 0 /100 WBC 0-0 ggzu=984) [id number] 17:42:00 Test Item Value Reference Range Comments PROTIME (BEAKER) (test pmdv=388) 16.9 seconds 11.7-14.7 INR (BEAKER) (test pjgr=677) 1.3 <=5.9 PARTIAL THROMBOPLASTIN TIME (BEAKER) (test 66.7 seconds 22.5-36.0 hdpe=543) RECOMMENDED COUMADIN/WARFARIN INR THERAPY RANGESSTANDARD DOSE: 2.0 - 3.0 Includes: PROPHYLAXIS forvenous thrombosis, systemic embolization; TREATMENT for venous thrombosis and/or pulmonary embolus.HIGH RISK: Target INR is 2.5-3.5 for patients with mechanical heart valves.PT/[id number] 11:53:00 Test Item Value Reference Range Comments PROTIME (BEAKER) (test snwc=941) 15.7 seconds 11.7-14.7 INR (BEAKER) (test yfjn=705) 1.2 <=5.9 PARTIAL THROMBOPLASTIN TIME (BEAKER) (test 68.0 seconds 22.5-36.0 uivo=792) RECOMMENDED COUMADIN/WARFARIN INR THERAPY RANGESSTANDARD DOSE: 2.0 - 3.0 Includes: PROPHYLAXIS forvenous thrombosis, systemic embolization; TREATMENT for venous thrombosis and/or pulmonary embolus.HIGH RISK: Target INR is 2.5-3.5 for patients with mechanical heart valves.CBC (HEMOGRAM ONLY)2018-11-04 06:30:00 Test Item Value Reference Range Comments WHITE BLOOD CELL COUNT (BEAKER) (test mjun=007) 6.9 K/ L 3.5-10.5 RED BLOOD CELL COUNT (BEAKER) (test ltil=923) 4.23 M/ L 3.93-5.22 HEMOGLOBIN (BEAKER) (test vwbo=150) 12.9 GM/DL 11.2-15.7 HEMATOCRIT (BEAKER) (test upjk=272) 40.0 % 34.1-44.9 MEAN CORPUSCULAR VOLUME (BEAKER) (test quui=950) 94.6 fL 79.4-94.8 MEAN CORPUSCULAR HEMOGLOBIN (BEAKER) (test 30.5 pg 25.6-32.2 kapk=223) MEAN CORPUSCULAR HEMOGLOBIN CONC (BEAKER) (test 32.3 GM/DL 32.2-35.5 cfvd=157) RED CELL DISTRIBUTION WIDTH (BEAKER) (test 13.2 % 11.7-14.4 mzdt=111) PLATELET COUNT (BEAKER) (test lzms=774) 281 K/CU MM 150-450 MEAN PLATELET VOLUME (BEAKER) (test jfcd=946) 11.1 fL 9.4-12.3 NUCLEATED RED BLOOD CELLS (BEAKER) (test 0 /100 WBC 0-0 byti=865) [id number] 06:20:00 Test Item Value Reference Range Comments PARTIAL THROMBOPLASTIN TIME (BEAKER) (test 67.1 seconds 22.5-36.0 wyom=464) While on warfarin.PROTHROMBIN TIME/[id number] 06:18:00 Test Item Value Reference Range Comments PROTIME (BEAKER) (test sufy=568) 15.7 seconds 11.7-14.7 INR (BEAKER) (test bayo=495) 1.2 <=5.9 RECOMMENDED COUMADIN/WARFARIN INR THERAPY RANGESSTANDARD DOSE: 2.0 - 3.0 Includes: PROPHYLAXIS forvenous thrombosis, systemic embolization; TREATMENT for venous thrombosis and/or pulmonary embolus.HIGH RISK: Target INR is 2.5-3.5 for patients with mechanical heart valves.While on warfarin.RAD, SPINE, LUMBAR, COMPLETE, W/ [id number] 15:41:00Reason for exam:->radiculopathyFINAL REPORT Lumbar spine, seven images HISTORY: Radiculopathy COMPARISON: None IMPRESSION:Five lumbar type vertebral bodies. No fracture. No subluxation. No change in alignment on flexion or extension. Soft tissues unremarkable. Minimal degenerative facet changes. Signed: Kenny Centeno MDReport Verified Date/Time: 11/03/2018 15:41:39 Reading Location: [address] Transitional Reading Room [id number] 06:09:00 Test Item Value Reference Range Comments PARTIAL THROMBOPLASTIN TIME (BEAKER) (test 52.4 seconds 22.5-36.0 wlzf=495) While on warfarin.PROTHROMBIN TIME/[id number] 06:08:00 Test Item Value Reference Range Comments PROTIME (BEAKER) (test rdld=656) 15.3 seconds 11.7-14.7 INR (BEAKER) (test aqej=897) 1.2 <=5.9 RECOMMENDED COUMADIN/WARFARIN INR THERAPY RANGESSTANDARD DOSE: 2.0 - 3.0 Includes: PROPHYLAXIS forvenous thrombosis, systemic embolization; TREATMENT for venous thrombosis and/or pulmonary embolus.HIGH RISK: Target INR is 2.5-3.5 for patients with mechanical heart valves.While on warfarin.CBC (HEMOGRAM ONLY) 2018-11-03 06:04:00 Test Item Value Reference Range Comments WHITE BLOOD CELL COUNT (BEAKER) (test wlqu=915) 6.9 K/ L 3.5-10.5 RED BLOOD CELL COUNT (BEAKER) (test qlfd=675) 4.02 M/ L 3.93-5.22 HEMOGLOBIN (BEAKER) (test wlxt=288) 12.4 GM/DL 11.2-15.7 HEMATOCRIT (BEAKER) (test fqoc=007) 38.4 % 34.1-44.9 MEAN CORPUSCULAR VOLUME (BEAKER) (test obkc=475) 95.5 fL 79.4-94.8 MEAN CORPUSCULAR HEMOGLOBIN (BEAKER) (test 30.8 pg 25.6-32.2 ucze=047) MEAN CORPUSCULAR HEMOGLOBIN CONC (BEAKER) (test 32.3 GM/DL 32.2-35.5 msks=284) RED CELL DISTRIBUTION WIDTH (BEAKER) (test 13.2 % 11.7-14.4 ldef=974) PLATELET COUNT (BEAKER) (test mvit=834) 262 K/CU MM 150-450 MEAN PLATELET VOLUME (BEAKER) (test dbjx=934) 11.4 fL 9.4-12.3 NUCLEATED RED BLOOD CELLS (BEAKER) (test 0 /100 WBC 0-0 ftlp=331) [id number] 07:45:00 Test Item Value Reference Range Comments PARTIAL THROMBOPLASTIN TIME (BEAKER) (test 59.0 seconds 22.5-36.0 bfwl=344) PROTHROMBIN TIME/[id number] 05:05:00 Test Item Value Reference Range Comments PROTIME (BEAKER) (test dhki=573) 14.1 seconds 11.7-14.7 INR (BEAKER) (test pbjl=215) 1.1 <=5.9 RECOMMENDED COUMADIN/WARFARIN INR THERAPY RANGESSTANDARD DOSE: 2.0 - 3.0 Includes: PROPHYLAXIS forvenous thrombosis, systemic embolization; TREATMENT for venous thrombosis and/or pulmonary embolus.HIGH RISK: Target INR is 2.5-3.5 for patients with mechanical heart valves.While on warfarin.CBC (HEMOGRAM ONLY) 2018-11-02 04:57:00 Test Item Value Reference Range Comments WHITE BLOOD CELL COUNT (BEAKER) (test ubld=678) 7.5 K/ L 3.5-10.5 RED BLOOD CELL COUNT (BEAKER) (test mofl=813) 4.10 M/ L 3.93-5.22 HEMOGLOBIN (BEAKER) (test euks=578) 12.7 GM/DL 11.2-15.7 HEMATOCRIT (BEAKER) (test ahwv=092) 38.3 % 34.1-44.9 MEAN CORPUSCULAR VOLUME (BEAKER) (test dpbt=614) 93.4 fL 79.4-94.8 MEAN CORPUSCULAR HEMOGLOBIN (BEAKER) (test 31.0 pg 25.6-32.2 gpwk=901) MEAN CORPUSCULAR HEMOGLOBIN CONC (BEAKER) (test 33.2 GM/DL 32.2-35.5 pnoa=804) RED CELL DISTRIBUTION WIDTH (BEAKER) (test 13.0 % 11.7-14.4 hytt=326) PLATELET COUNT (BEAKER) (test uaay=511) 236 K/CU MM 150-450 MEAN PLATELET VOLUME (BEAKER) (test wvgr=424) 11.3 fL 9.4-12.3 NUCLEATED RED BLOOD CELLS (BEAKER) (test 0 /100 WBC 0-0 ljld=344) [id number] 21:44:00 Test Item Value Reference Range Comments PARTIAL THROMBOPLASTIN TIME (BEAKER) (test 64.3 seconds 22.5-36.0 udhk=915) [id number] 14:47:00 Test Item Value Reference Range Comments POTASSIUM (BEAKER) (test kwup=337) 4.2 meq/L 3.5-5.1 [id number] 14:47:00 Test Item Value Reference Range Comments MAGNESIUM (BEAKER) (test jhpa=281) 2.3 mg/dL 1.6-2.6 [id number] 14:38:00 Test Item Value Reference Range Comments PARTIAL THROMBOPLASTIN TIME (BEAKER) (test 60.7 seconds 22.5-36.0 ichd=003) PROTHROMBIN [id number] 14:37:00 Test Item Value Reference Range Comments PROTIME (BEAKER) (test iteb=783) 14.2 seconds 11.7-14.7 INR (BEAKER) (test rqca=419) 1.1 <=5.9 RECOMMENDED COUMADIN/WARFARIN INR THERAPY RANGESSTANDARD DOSE: 2.0 - 3.0 Includes: PROPHYLAXIS forvenous thrombosis, systemic embolization; TREATMENT for venous thrombosis and/or pulmonary embolus.HIGH RISK: Target INR is 2.5-3.5 for patients with mechanical heart valves.[id number] 06:33:00 Test Item Value Reference Range Comments PARTIAL THROMBOPLASTIN TIME (BEAKER) (test 76.5 seconds 22.5-36.0 tzvr=987) CBC (HEMOGRAM ONLY)2018-11-01 06:28:00 Test Item Value Reference Range Comments WHITE BLOOD CELL COUNT (BEAKER) (test qart=914) 6.9 K/ L 3.5-10.5 RED BLOOD CELL COUNT (BEAKER) (test yzbq=393) 4.01 M/ L 3.93-5.22 HEMOGLOBIN (BEAKER) (test jzut=752) 12.4 GM/DL 11.2-15.7 HEMATOCRIT (BEAKER) (test ntru=447) 37.7 % 34.1-44.9 MEAN CORPUSCULAR VOLUME (BEAKER) (test rxpk=291) 94.0 fL 79.4-94.8 MEAN CORPUSCULAR HEMOGLOBIN (BEAKER) (test 30.9 pg 25.6-32.2 rwju=526) MEAN CORPUSCULAR HEMOGLOBIN CONC (BEAKER) (test 32.9 GM/DL 32.2-35.5 zxzy=660) RED CELL DISTRIBUTION WIDTH (BEAKER) (test 12.7 % 11.7-14.4 mchf=046) PLATELET COUNT (BEAKER) (test mdgk=656) 220 K/CU MM 150-450 MEAN PLATELET VOLUME (BEAKER) (test wkdo=265) 10.9 fL 9.4-12.3 NUCLEATED RED BLOOD CELLS (BEAKER) (test 0 /100 WBC 0-0 ulwk=350) POCT-GLUCOSE [id number] 05:45:00 Test Item Value Reference Range Comments POC-GLUCOSE METER (BEAKER) 119 mg/dL 70-110 TESTED AT [address] (test cidi=4840) [place] [id number] POCT-GLUCOSE [id number] 23:59:00 Test Item Value Reference Range Comments POC-GLUCOSE METER (BEAKER) 119 mg/dL 70-110 TESTED AT [address] (test eaae=6355) [facility] [address] [id number] 23:27:00 Test Item Value Reference Range Comments PARTIAL THROMBOPLASTIN TIME (BEAKER) (test 70.3 seconds 22.5-36.0 psnp=019) [id number] 15:59:00 Test Item Value Reference Range Comments PARTIAL THROMBOPLASTIN TIME (BEAKER) (test 43.5 seconds 22.5-36.0 vxpo=865) CT, BRAIN, WITHOUT [id number] 13:33:00FINAL REPORT CT head without contrast 10/31/2018 [...] Verified Date/ Time: 10/31/2018 13:33:29 Reading Location: [facility] Radiology Reading Room [id number] 04:47:00 Test Item Value Reference Range Comments PARTIAL THROMBOPLASTIN TIME (BEAKER) (test 60.3 seconds 22.5-36.0 hdtb=358) PROTHROMBIN [id number] 04:45:00 Test Item Value Reference Range Comments PROTIME (BEAKER) (test kdfz=261) 14.5 seconds 11.7-14.7 INR (BEAKER) (test wpsz=881) 1.1 <=5.9 RECOMMENDED COUMADIN/WARFARIN INR THERAPY RANGESSTANDARD DOSE: 2.0 - 3.0 Includes: PROPHYLAXIS forvenous thrombosis, systemic embolization; TREATMENT for venous thrombosis and/or pulmonary embolus.HIGH RISK: Target INR is 2.5-3.5 for patients with mechanical heart valves.CBC (HEMOGRAM ONLY)2018-10-31 04:30:00 Test Item Value Reference Range Comments WHITE BLOOD CELL COUNT (BEAKER) (test fdce=633) 6.7 K/ L 3.5-10.5 RED BLOOD CELL COUNT (BEAKER) (test tdic=294) 3.74 M/ L 3.93-5.22 HEMOGLOBIN (BEAKER) (test gdig=999) 11.7 GM/DL 11.2-15.7 HEMATOCRIT (BEAKER) (test aath=165) 35.0 % 34.1-44.9 MEAN CORPUSCULAR VOLUME (BEAKER) (test eyuv=020) 93.6 fL 79.4-94.8 MEAN CORPUSCULAR HEMOGLOBIN (BEAKER) (test 31.3 pg 25.6-32.2 pmiv=368) MEAN CORPUSCULAR HEMOGLOBIN CONC (BEAKER) (test 33.4 GM/DL 32.2-35.5 ymox=821) RED CELL DISTRIBUTION WIDTH (BEAKER) (test 12.9 % 11.7-14.4 zqac=073) PLATELET COUNT (BEAKER) (test uler=550) 214 K/CU MM 150-450 MEAN PLATELET VOLUME (BEAKER) (test kokz=551) 11.3 fL 9.4-12.3 NUCLEATED RED BLOOD CELLS (BEAKER) (test 0 /100 WBC 0-0 ykxs=474) POCT-GLUCOSE [id number] 00:15:00 Test Item Value Reference Range Comments POC-GLUCOSE METER (BEAKER) 125 mg/dL 70-110 TESTED AT [facility] [address] [place] [address] (test inaw=1293) [facility] [address] [place], ANGIOGRAM, [id number] 14:52:00Reason for exam:->IVH, evaluation for cavernomaFINAL REPORT DATE: 10/28/2018 NAME: Yen Ruiz ATTENDING: Juanpablo Restrepo POCKETED SPRING MACHINE OPERATOR: Beth Hawkins PREOPERATIVE DIAGNOSIS: Intracerebral Hemorrhage andIntraventricular [...] common femoral artery x1 MATERIALS EMPLOYED:1. 5 [place] shortsheath 2. 4 [place] Berenstein catheter3. Bentson guidewire4. Terumo 0.035 LT glidewire5. 5 [place] Mynx device INDICATIONS:The patient is a 53 year old female with mechanical heart valve on Coumadin whobegan having headaches that were progressive over the course of the day on 10/25/2018. The patient was evaluated and found to have a right 3 cm qbvrha-xfnrbmf-uteinllbz ICH near the atrium lateral ventricle with [...] the puncture site was confirmed, a 5 [place] short sheath was inserted over a Bentson wire and was maintained on heparinized saline flush throughout the remainder of the procedure. Using coaxial technique, a preflushed 5 [place] Terumo glide catheter on constant heparinized saline [...] removed and hemostasis achieved with a 5 [place] Mynx device and manual compression. The patient [...] the ipsilateral PICA, AICAs, SACs and left home management supervisor. No significant right CIVIL RIGHTS ATTORNEY is seen indicating right Pcom. No aneurysms [...] MDReport Verified Date/Time: 10/30/2018 14:52:59 Reading Location: [facility] Y018 Neuro Angio Reading Room Electronically signed by: JUANPABLO MANSFIELD on 02:52 [id number] 05:08:00 Test Item Value Reference Range Comments MAGNESIUM (BEAKER) (test 2.4 mg/dL 1.6-2.6 Specimen slightly hemolyzed arnr=571) [id number] 05:08:00 Test Item Value Reference Range Comments PHOSPHORUS (BEAKER) (test 3.6 mg/dL 2.3-4.7 Specimen slightly hemolyzed leon=945) BASIC METABOLIC [id number] 05:08:00 Test Item Value Reference Range Comments SODIUM (BEAKER) (test 140 meq/L 136-145 usxa=368) POTASSIUM (BEAKER) (test 4.2 meq/L 3.5-5.1 Specimen slightly nkpm=540) hemolyzed CHLORIDE (BEAKER) (test 106 meq/L 98-107 ygkr=177) CO2 (BEAKER) (test 26 meq/L 22-29 kcck=816) BLOOD UREA NITROGEN 14 mg/dL 7-21 (BEAKER) (test nuev=592) CREATININE (BEAKER) (test 0.81 mg/dL 0.57-1.25 Specimen slightly dloe=998) hemolyzed GLUCOSE RANDOM (BEAKER) 157 mg/dL 70-105 (test zucv=977) CALCIUM (BEAKER) (test 9.2 mg/dL 8.4-10.2 utbx=605) EGFR (BEAKER) (test 74 mL/min/1.73 sq m ESTIMATED GFR IS NOT lolk=5980) ACCURATE CREATININE CLEARANCE IN PREDICTING GLOMERULAR FILTRATION RATE. ESTIMATED GFR IS NOT APPLICABLE FOR DIALYSIS PATIENTS. CBC (HEMOGRAM ONLY)2018-10-30 04:59:00 Test Item Value Reference Range Comments WHITE BLOOD CELL COUNT (BEAKER) (test falm=162) 7.3 K/ L 3.5-10.5 RED BLOOD CELL COUNT (BEAKER) (test cjtf=598) 3.69 M/ L 3.93-5.22 HEMOGLOBIN (BEAKER) (test eqbp=823) 11.6 GM/DL 11.2-15.7 HEMATOCRIT (BEAKER) (test wcfj=160) 34.8 % 34.1-44.9 MEAN CORPUSCULAR VOLUME (BEAKER) (test urpx=691) 94.3 fL 79.4-94.8 MEAN CORPUSCULAR HEMOGLOBIN (BEAKER) (test 31.4 pg 25.6-32.2 yuyg=913) MEAN CORPUSCULAR HEMOGLOBIN CONC (BEAKER) (test 33.3 GM/DL 32.2-35.5 cqxk=834) RED CELL DISTRIBUTION WIDTH (BEAKER) (test 12.8 % 11.7-14.4 igll=551) PLATELET COUNT (BEAKER) (test noqw=021) 188 K/CU MM 150-450 MEAN PLATELET VOLUME (BEAKER) (test hgxb=354) 11.3 fL 9.4-12.3 NUCLEATED RED BLOOD CELLS (BEAKER) (test 0 /100 WBC 0-0 wibd=362) [id number] 00:59:00 Test Item Value Reference Range Comments PROTIME (BEAKER) (test zrzb=516) 15.0 seconds 11.7-14.7 INR (BEAKER) (test slmr=697) 1.2 <=5.9 PARTIAL THROMBOPLASTIN TIME (BEAKER) (test 58.3 seconds 22.5-36.0 hmoi=297) RECOMMENDED COUMADIN/WARFARIN INR THERAPY RANGESSTANDARD DOSE: 2.0 - 3.0 Includes: PROPHYLAXIS forvenous thrombosis, systemic embolization; TREATMENT for venous thrombosis and/or pulmonary embolus.HIGH RISK: Target INR is 2.5-3.5 for patients with mechanical heart valves.PROTHROMBIN [id number] 00:57: 00 Test Item Value Reference Range Comments PROTIME (BEAKER) (test maaf=899) 15.0 seconds 11.7-14.7 INR (BEAKER) (test pmoz=872) 1.2 <=5.9 RECOMMENDED COUMADIN/WARFARIN INR THERAPY RANGESSTANDARD DOSE: 2.0 - 3.0 Includes: PROPHYLAXIS forvenous thrombosis, systemic embolization; TREATMENT for venous thrombosis and/or pulmonary embolus.HIGH RISK: Target INR is 2.5-3.5 for patients with mechanical heart valves.POCT-GLUCOSE [id number] 00:08:00 Test Item Value Reference Range Comments POC-GLUCOSE METER (BEAKER) 110 mg/dL 70-110 TESTED AT [facility] [address] [place] [address] (test swng=3516) [facility] [address] [address], BRAIN, WITHOUT [id number] 20:14:00FINAL REPORT CT, BRAIN, WITHOUT CONTRAST CLINICAL [...] MDReport Verified Date/Time: 10/29/2018 20:14:11 Reading Location: [address] Neuro Reading Room [id number] 18:47:00 Test Item Value Reference Range Comments POTASSIUM (BEAKER) (test defd=179) 4.2 meq/L 3.5-5.1 [id number] 18:47:00 Test Item Value Reference Range Comments MAGNESIUM (BEAKER) (test pbsr=188) 2.5 mg/dL 1.6-2.6 [id number] 18:46:00 Test Item Value Reference Range Comments PROTIME (BEAKER) (test rtsg=951) 14.7 seconds 11.7-14.7 INR (BEAKER) (test nouw=319) 1.2 <=5.9 PARTIAL THROMBOPLASTIN TIME (BEAKER) (test 51.7 seconds 22.5-36.0 fwft=881) RECOMMENDED COUMADIN/WARFARIN INR THERAPY RANGESSTANDARD DOSE: 2.0 - 3.0 Includes: PROPHYLAXIS forvenous thrombosis, systemic embolization; TREATMENT for venous thrombosis and/or pulmonary embolus.HIGH RISK: Target INR is 2.5-3.5 for patients with mechanical heart valves.POCT-GLUCOSE [id number] 18:27:00 Test Item Value Reference Range Comments POC-GLUCOSE METER (BEAKER) 96 mg/dL 70-110 TESTED AT [address] (test bkqb=3969) [facility] [address] [id number] 13:05:00 Test Item Value Reference Range Comments PROTIME (BEAKER) (test ckms=075) 14.6 seconds 11.7-14.7 INR (BEAKER) (test ukgj=689) 1.1 <=5.9 PARTIAL THROMBOPLASTIN TIME (BEAKER) (test 37.4 seconds 22.5-36.0 cpfa=602) RECOMMENDED COUMADIN/WARFARIN INR THERAPY RANGESSTANDARD DOSE: 2.0 - 3.0 Includes: PROPHYLAXIS forvenous thrombosis, systemic embolization; TREATMENT for venous thrombosis and/or pulmonary embolus.HIGH RISK: Target INR is 2.5-3.5 for patients with mechanical heart valves.POCT-GLUCOSE [id number] 13:02:00 Test Item Value Reference Range Comments POC-GLUCOSE METER (BEAKER) 113 mg/dL 70-110 TESTED AT [address] (test ztzc=4247) [place] [address] [id number] 07:05:00 Test Item Value Reference Range Comments PHOSPHORUS (BEAKER) (test muqu=934) 3.0 mg/dL 2.3-4.7 [id number] 07:05:00 Test Item Value Reference Range Comments MAGNESIUM (BEAKER) (test snkc=391) 1.9 mg/dL 1.6-2.6 BASIC METABOLIC [id number] 07:05:00 Test Item Value Reference Range Comments SODIUM (BEAKER) (test 139 meq/L 136-145 kcyh=352) POTASSIUM (BEAKER) (test 3.7 meq/L 3.5-5.1 sbza=211) CHLORIDE (BEAKER) (test 107 meq/L 98-107 skxr=934) CO2 (BEAKER) (test 24 meq/L 22-29 taow=089) BLOOD UREA NITROGEN 15 mg/dL 7-21 (BEAKER) (test dutu=721) CREATININE (BEAKER) (test 0.77 mg/dL 0.57-1.25 dycz=245) GLUCOSE RANDOM (BEAKER) 93 mg/dL 70-105 (test fdlx=121) CALCIUM (BEAKER) (test 8.8 mg/dL 8.4-10.2 uvgg=975) EGFR (BEAKER) (test 79 mL/min/1.73 sq m ESTIMATED GFR IS NOT nins=0009) ACCURATE CREATININE CLEARANCE IN PREDICTING GLOMERULAR FILTRATION RATE. ESTIMATED GFR IS NOT APPLICABLE FOR DIALYSIS PATIENTS. [id number] 06:57:00 Test Item Value Reference Range Comments PARTIAL THROMBOPLASTIN TIME (BEAKER) (test 41.4 seconds 22.5-36.0 dopc=029) CBC W/PLT COUNT & AUTO [id number] 06:37:00 Test Item Value Reference Range Comments WHITE BLOOD CELL COUNT (BEAKER) (test jcgk=091) 8.0 K/ L 3.5-10.5 RED BLOOD CELL COUNT (BEAKER) (test codm=566) 3.64 M/ L 3.93-5.22 HEMOGLOBIN (BEAKER) (test lvok=967) 11.3 GM/DL 11.2-15.7 HEMATOCRIT (BEAKER) (test usdy=250) 33.9 % 34.1-44.9 MEAN CORPUSCULAR VOLUME (BEAKER) (test njbz=595) 93.1 fL 79.4-94.8 MEAN CORPUSCULAR HEMOGLOBIN (BEAKER) (test 31.0 pg 25.6-32.2 pamq=274) MEAN CORPUSCULAR HEMOGLOBIN CONC (BEAKER) (test 33.3 GM/DL 32.2-35.5 bvnl=532) RED CELL DISTRIBUTION WIDTH (BEAKER) (test 12.6 % 11.7-14.4 vjnh=613) PLATELET COUNT (BEAKER) (test zidy=628) 192 K/CU MM 150-450 MEAN PLATELET VOLUME (BEAKER) (test odol=590) 11.2 fL 9.4-12.3 NUCLEATED RED BLOOD CELLS (BEAKER) (test 0 /100 WBC 0-0 auvw=488) NEUTROPHILS RELATIVE PERCENT (BEAKER) (test 76 % jlek=373) LYMPHOCYTES RELATIVE PERCENT (BEAKER) (test 12 % gcgj=160) MONOCYTES RELATIVE PERCENT (BEAKER) (test 9 % spwx=578) EOSINOPHILS RELATIVE PERCENT (BEAKER) (test 1 % dwhg=209) BASOPHILS RELATIVE PERCENT (BEAKER) (test 0 % nkjd=958) NEUTROPHILS ABSOLUTE COUNT (BEAKER) (test 6.13 K/ L 1.56-6.13 czsj=104) LYMPHOCYTES ABSOLUTE COUNT (BEAKER) (test 1.00 K/ L 1.18-3.74 bmkm=639) MONOCYTES ABSOLUTE COUNT (BEAKER) (test 0.74 K/ L 0.24-0.36 kzzl=260) EOSINOPHILS ABSOLUTE COUNT (BEAKER) (test 0.10 K/ L 0.04-0.36 pyrt=936) BASOPHILS ABSOLUTE COUNT (BEAKER) (test 0.03 K/ L 0.01-0.08 fgfd=514) IMMATURE GRANULOCYTES-RELATIVE PERCENT (BEAKER) 1 % 0-1 (test oiow=7590) [id number] 00:10:00 Test Item Value Reference Range Comments PARTIAL THROMBOPLASTIN TIME (BEAKER) (test 26.9 seconds 22.5-36.0 dqtu=533) Prior to initiating heparinPLATELET [id number] 23:58:00 Test Item Value Reference Range Comments PLATELET COUNT (BEAKER) (test cucs=650) 200 K/CU MM 150-450 POCT-GLUCOSE [id number] 18:57:00 Test Item Value Reference Range Comments POC-GLUCOSE METER (BEAKER) 109 mg/dL 70-110 TESTED AT [address] (test jydz=0481) [place] [address] POCT-GLUCOSE [id number] 12:37:00 Test Item Value Reference Range Comments POC-GLUCOSE METER (BEAKER) 104 mg/dL 70-110 TESTED AT [address] (test gtgw=0975) [place] [address] CT BRAIN WITHOUT IV CONTRAST - [id number] 11:11:00Reason for exam:-> nausea intracranial bleed and [...] MDReport Verified Date/Time: 10/28/2018 11:11:15 Reading Location: [facility] Radiology Reading Room [id number] 06:37:00 Test Item Value Reference Range Comments PHOSPHORUS (BEAKER) (test jovh=802) 3.6 mg/dL 2.3-4.7 [id number] 06:37:00 Test Item Value Reference Range Comments MAGNESIUM (BEAKER) (test aqir=083) 2.2 mg/dL 1.6-2.6 BASIC METABOLIC [id number] 06:37:00 Test Item Value Reference Range Comments SODIUM (BEAKER) (test 141 meq/L 136-145 kjca=030) POTASSIUM (BEAKER) (test 4.3 meq/L 3.5-5.1 uqbk=260) CHLORIDE (BEAKER) (test 106 meq/L 98-107 jdbh=823) CO2 (BEAKER) (test 29 meq/L 22-29 gkgp=460) BLOOD UREA NITROGEN 17 mg/dL 7-21 (BEAKER) (test nnqg=016) CREATININE (BEAKER) (test 0.76 mg/dL 0.57-1.25 mpmz=904) GLUCOSE RANDOM (BEAKER) 105 mg/dL 70-105 (test yzrq=888) CALCIUM (BEAKER) (test 9.6 mg/dL 8.4-10.2 kdlr=200) EGFR (BEAKER) (test 80 mL/min/1.73 sq m ESTIMATED GFR IS NOT lsvo=9946) ACCURATE CREATININE CLEARANCE IN PREDICTING GLOMERULAR FILTRATION RATE. ESTIMATED GFR IS NOT APPLICABLE FOR DIALYSIS PATIENTS. CBC W/PLT COUNT & AUTO [id number] 05:56:00 Test Item Value Reference Range Comments WHITE BLOOD CELL COUNT (BEAKER) (test ttsw=974) 6.2 K/ L 3.5-10.5 RED BLOOD CELL COUNT (BEAKER) (test oulc=119) 3.98 M/ L 3.93-5.22 HEMOGLOBIN (BEAKER) (test kvcv=643) 12.2 GM/DL 11.2-15.7 HEMATOCRIT (BEAKER) (test bnbz=599) 37.3 % 34.1-44.9 MEAN CORPUSCULAR VOLUME (BEAKER) (test elut=959) 93.7 fL 79.4-94.8 MEAN CORPUSCULAR HEMOGLOBIN (BEAKER) (test 30.7 pg 25.6-32.2 hbqu=042) MEAN CORPUSCULAR HEMOGLOBIN CONC (BEAKER) (test 32.7 GM/DL 32.2-35.5 rngp=196) RED CELL DISTRIBUTION WIDTH (BEAKER) (test 12.6 % 11.7-14.4 dyeg=402) PLATELET COUNT (BEAKER) (test lqub=820) 212 K/CU MM 150-450 MEAN PLATELET VOLUME (BEAKER) (test uvjx=447) 10.9 fL 9.4-12.3 NUCLEATED RED BLOOD CELLS (BEAKER) (test 0 /100 WBC 0-0 nngd=591) NEUTROPHILS RELATIVE PERCENT (BEAKER) (test 75 % omsj=076) LYMPHOCYTES RELATIVE PERCENT (BEAKER) (test 14 % lvsu=034) MONOCYTES RELATIVE PERCENT (BEAKER) (test 10 % xgwx=624) EOSINOPHILS RELATIVE PERCENT (BEAKER) (test 1 % ulzb=731) BASOPHILS RELATIVE PERCENT (BEAKER) (test 1 % shzv=642) NEUTROPHILS ABSOLUTE COUNT (BEAKER) (test 4.66 K/ L 1.56-6.13 ccur=149) LYMPHOCYTES ABSOLUTE COUNT (BEAKER) (test 0.84 K/ L 1.18-3.74 zbzy=304) MONOCYTES ABSOLUTE COUNT (BEAKER) (test 0.63 K/ L 0.24-0.36 wopl=102) EOSINOPHILS ABSOLUTE COUNT (BEAKER) (test 0.04 K/ L 0.04-0.36 webp=402) BASOPHILS ABSOLUTE COUNT (BEAKER) (test 0.04 K/ L 0.01-0.08 ouwn=258) IMMATURE GRANULOCYTES-RELATIVE PERCENT (BEAKER) 0 % 0-1 (test dcwa=8930) POCT-GLUCOSE [id number] 00:42:00 Test Item Value Reference Range Comments POC-GLUCOSE METER (BEAKER) 112 mg/dL 70-110 TESTED AT [address] (test xmzx=4191) [place] [id number] [place], BRAIN, WITHOUT [id number] 00:31:00FINAL REPORT CT, BRAIN, WITHOUT CONTRAST CLINICAL [...] Johnson Verified Date/Time: 10/28/2018 00:31:49 Reading Location: [address] Neuro Reading Room POCT-GLUCOSE [id number] 18:01: 00 Test Item Value Reference Range Comments POC-GLUCOSE METER (BEAKER) 104 mg/dL 70-110 TESTED AT [address] (test wppa=4268) [place] [id number] RAD, CHEST, 1 VIEW, NON [id number] 15:28:00Reason for exam:->okShould this be performed at [...] Mccauley Verified Date/Time: 2017 15:28:09 Reading Location: [facility] C013T Transitional Reading Room POCT-GLUCOSE [id number] 12:39:00 Test Item Value Reference Range Comments POC-GLUCOSE METER (BEAKER) 172 mg/dL 70-110 TESTED AT [facility] [address] (test naxq=1133) [facility] [address] PROTHROMBIN [id number] 09:03:00 Test Item Value Reference Range Comments PROTIME (BEAKER) (test zevt=684) 16.7 seconds 11.7-14.7 INR (BEAKER) (test dkna=063) 1.4 <=5.9 RECOMMENDED COUMADIN/WARFARIN INR THERAPY RANGESSTANDARD DOSE: 2.0 - 3.0 Includes: PROPHYLAXIS forvenous thrombosis, systemic embolization; TREATMENT for venous thrombosis and/or pulmonary embolus.HIGH RISK: Target INR is 2.5-3.5 for patients with mechanical heart valves.CBC W/PLT COUNT & AUTO [id number] 07:28:00 Test Item Value Reference Range Comments WHITE BLOOD CELL COUNT (BEAKER) (test jnpz=227) 4.6 K/ L 3.5-10.5 RED BLOOD CELL COUNT (BEAKER) (test rhlv=290) 3.53 M/ L 3.93-5.22 HEMOGLOBIN (BEAKER) (test vomg=712) 11.1 GM/DL 11.2-15.7 HEMATOCRIT (BEAKER) (test blql=116) 33.2 % 34.1-44.9 MEAN CORPUSCULAR VOLUME (BEAKER) (test mbqq=436) 94.1 fL 79.4-94.8 MEAN CORPUSCULAR HEMOGLOBIN (BEAKER) (test 31.4 pg 25.6-32.2 irwt=857) MEAN CORPUSCULAR HEMOGLOBIN CONC (BEAKER) (test 33.4 GM/DL 32.2-35.5 fzzt=026) RED CELL DISTRIBUTION WIDTH (BEAKER) (test 12.9 % 11.7-14.4 ssjx=003) PLATELET COUNT (BEAKER) (test esfb=430) 168 K/CU MM 150-450 MEAN PLATELET VOLUME (BEAKER) (test iorq=404) 11.7 fL 9.4-12.3 NUCLEATED RED BLOOD CELLS (BEAKER) (test 0 /100 WBC 0-0 wfjn=077) NEUTROPHILS RELATIVE PERCENT (BEAKER) (test 72 % sajj=363) LYMPHOCYTES RELATIVE PERCENT (BEAKER) (test 17 % wxxm=981) MONOCYTES RELATIVE PERCENT (BEAKER) (test 8 % bfad=939) EOSINOPHILS RELATIVE PERCENT (BEAKER) (test 2 % tihp=256) BASOPHILS RELATIVE PERCENT (BEAKER) (test 0 % blqo=318) NEUTROPHILS ABSOLUTE COUNT (BEAKER) (test 3.32 K/ L 1.56-6.13 dlgw=266) LYMPHOCYTES ABSOLUTE COUNT (BEAKER) (test 0.80 K/ L 1.18-3.74 svtg=562) MONOCYTES ABSOLUTE COUNT (BEAKER) (test 0.37 K/ L 0.24-0.36 rngg=634) EOSINOPHILS ABSOLUTE COUNT (BEAKER) (test 0.10 K/ L 0.04-0.36 liiv=625) BASOPHILS ABSOLUTE COUNT (BEAKER) (test 0.02 K/ L 0.01-0.08 qjlo=856) IMMATURE GRANULOCYTES-RELATIVE PERCENT (BEAKER) 1 % 0-1 (test fugq=7255) POCT-GLUCOSE [id number] 07:13:00 Test Item Value Reference Range Comments POC-GLUCOSE METER (BEAKER) 111 mg/dL 70-110 TESTED AT [facility] [address] (test ywra=9082) [facility] [address] [id number] 04:33:00 Test Item Value Reference Range Comments MAGNESIUM (BEAKER) (test 2.0 mg/dL 1.6-2.6 Specimen slightly hemolyzed ikji=147) [id number] 04:33:00 Test Item Value Reference Range Comments PHOSPHORUS (BEAKER) (test 3.7 mg/dL 2.3-4.7 Specimen slightly hemolyzed tqef=790) BASIC METABOLIC [id number] 04:33:00 Test Item Value Reference Range Comments SODIUM (BEAKER) (test 140 meq/L 136-145 hrmd=724) POTASSIUM (BEAKER) (test 4.1 meq/L 3.5-5.1 Specimen slightly znog=069) hemolyzed CHLORIDE (BEAKER) (test 106 meq/L 98-107 acqv=448) CO2 (BEAKER) (test 27 meq/L 22-29 drtx=695) BLOOD UREA NITROGEN 20 mg/dL 7-21 (BEAKER) (test oivu=770) CREATININE (BEAKER) (test 0.86 mg/dL 0.57-1.25 Specimen slightly zddz=731) hemolyzed GLUCOSE RANDOM (BEAKER) 95 mg/dL 70-105 (test zrrv=002) CALCIUM (BEAKER) (test 9.1 mg/dL 8.4-10.2 gdkp=364) EGFR (BEAKER) (test 69 mL/min/1.73 sq m ESTIMATED GFR IS NOT jjnb=7172) ACCURATE CREATININE CLEARANCE IN PREDICTING GLOMERULAR FILTRATION RATE. ESTIMATED GFR IS NOT APPLICABLE FOR DIALYSIS PATIENTS. [id number] 04:14:00 Test Item Value Reference Range Comments PROTIME (BEAKER) (test hnht=177) 18.2 seconds 11.7-14.7 INR (BEAKER) (test mole=622) 1.5 <=5.9 PARTIAL THROMBOPLASTIN TIME (BEAKER) (test 32.9 seconds 22.5-36.0 xgzy=936) RECOMMENDED COUMADIN/WARFARIN INR THERAPY RANGESSTANDARD DOSE: 2.0 - 3.0 Includes: PROPHYLAXIS forvenous thrombosis, systemic embolization; TREATMENT for venous thrombosis and/or pulmonary embolus.HIGH RISK: Target INR is 2.5-3.5 for patients with mechanical heart valves.PROTHROMBIN [id number] 04:13: 00 Test Item Value Reference Range Comments PROTIME (BEAKER) (test pvtg=496) 18.2 seconds 11.7-14.7 INR (BEAKER) (test wavv=483) 1.5 <=5.9 RECOMMENDED COUMADIN/WARFARIN INR THERAPY RANGESSTANDARD DOSE: 2.0 - 3.0 Includes: PROPHYLAXIS forvenous thrombosis, systemic embolization; TREATMENT for venous thrombosis and/or pulmonary embolus.HIGH RISK: Target INR is 2.5-3.5 for patients with mechanical heart valves.POCT-GLUCOSE [id number] 00:17:00 Test Item Value Reference Range Comments POC-GLUCOSE METER (BEAKER) 126 mg/dL 70-110 TESTED AT [facility] [address] (test muty=0275) [facility] [address] PROTHROMBIN [id number] 19:44:00 Test Item Value Reference Range Comments PROTIME (BEAKER) (test uoqu=538) 19.9 seconds 11.7-14.7 INR (BEAKER) (test frbq=370) 1.7 <=5.9 RECOMMENDED COUMADIN/WARFARIN INR THERAPY RANGESSTANDARD DOSE: 2.0 - 3.0 Includes: PROPHYLAXIS forvenous thrombosis, systemic embolization; TREATMENT for venous thrombosis and/or pulmonary embolus.HIGH RISK: Target INR is 2.5-3.5 for patients with mechanical heart valves.POCT-GLUCOSE [id number] 18:58:00 Test Item Value Reference Range Comments POC-GLUCOSE METER (BEAKER) 123 mg/dL 70-110 TESTED AT [place] [id number] (test obtd=4910) [place] [id number] MR, BRAIN, [id number] 16:15:00FINAL REPORT MRI Brain with and without [...] Verified Date/ Time: 10/26/2018 16:15:27 Reading Location: [address] Neuro Reading Room POCT- GLUCOSE [id number] 12:05:00 Test Item Value Reference Range Comments POC-GLUCOSE METER ([employer]) 118 mg/dL 70-110 TESTED AT [address] (test cwtj=8488) [facility] [address] HEMOGLOBIN [id number] 10:34:00 Test Item Value Reference Range Comments HEMOGLOBIN A1C (BEAKER) (test tojw=707) 5.2 % 4.3-6.1 CT, CTANGIO [id number] 08:29:00FINAL REPORT CTA carotids and brain 10/26/2018 [...] Marin Verified Date/Time: 10/26/2018 08:29:52 Reading Location: [address] Neuro Reading Room 08:29 [facility], CAROTID, [id number] 08:29:00FINAL REPORT CTA carotids and brain 10/26/2018 [...] Marinort Verified Date/Time: 10/26/2018 08:29:52 Reading Location: [address] Neuro Reading Room 08:29 AMPOCT-GLUCOSE [id number] 07:22:00 Test Item Value Reference Range Comments POC-GLUCOSE METER ([employer]) 114 mg/dL 70-110 TESTED AT [facility] [address] [place] [address] (test nisk=9131) [facility] [address] LIPID [id number] 06:10:00 Test Item Value Reference Range Comments TRIGLYCERIDES (BEAKER) (test sgce=831) 210 mg/dL CHOLESTEROL (BEAKER) (test lnen=712) 191 mg/dL HDL CHOLESTEROL (BEAKER) (test gihy=508) 38 mg/dL LDL CHOLESTEROL CALCULATED (BEAKER) (test 111 mg/dL jpyl=994) Triglyceride Reference Range: Low Risk <150 Borderline [...] on admission and Daily AM afterwardsHEPATIC FUNCTION [id number] 06:10:00 Test Item Value Reference Range Comments TOTAL PROTEIN (BEAKER) (test sada=849) 6.8 gm/dL 6.0-8.3 ALBUMIN (BEAKER) (test ofaj=8375) 4.2 g/dL 3.5-5.0 BILIRUBIN TOTAL (BEAKER) (test lysg=406) 1.3 mg/dL 0.2-1.2 BILIRUBIN DIRECT (BEAKER) (test adjg=479) 0.4 mg/dL 0.1-0.5 ALKALINE PHOSPHATASE (BEAKER) (test ovnw=684) 57 U/L 40-150 AST (SGOT) (BEAKER) (test kzrn=616) 16 U/L 5-34 ALT (SGPT) (BEAKER) (test xjur=432) 17 U/L 6-55 Once on admission and Daily AM afterwardsOnce on admission and Daily AM afterwardsCOMPREHENSIVE METABOLIC [id number] 06:10:00 Test Item Value Reference Range Comments TOTAL PROTEIN (BEAKER) 6.8 gm/dL 6.0-8.3 (test emww=526) ALBUMIN (BEAKER) (test 4.2 g/dL 3.5-5.0 aafj=6157) ALKALINE PHOSPHATASE 57 U/L 40-150 (BEAKER) (test wkwk=715) BILIRUBIN TOTAL (BEAKER) 1.3 mg/dL 0.2-1.2 (test dusf=785) SODIUM (BEAKER) (test 139 meq/L 136-145 vblu=651) POTASSIUM (BEAKER) (test 3.5 meq/L 3.5-5.1 trvh=987) CHLORIDE (BEAKER) (test 105 meq/L 98-107 jqyi=397) CO2 (BEAKER) (test 27 meq/L 22-29 hksi=870) BLOOD UREA NITROGEN 16 mg/dL 7-21 (BEAKER) (test lzpb=023) CREATININE (BEAKER) (test 0.80 mg/dL 0.57-1.25 xakr=389) GLUCOSE RANDOM (BEAKER) 93 mg/dL 70-105 (test ksjc=201) CALCIUM (BEAKER) (test 9.5 mg/dL 8.4-10.2 lnrb=578) AST (SGOT) (BEAKER) (test 16 U/L 5-34 idqf=746) ALT (SGPT) (BEAKER) (test 17 U/L 6-55 dmme=149) EGFR (BEAKER) (test 75 mL/min/1.73 sq m ESTIMATED GFR IS NOT fcxu=9523) ACCURATE CREATININE CLEARANCE IN PREDICTING GLOMERULAR FILTRATION RATE. ESTIMATED GFR IS NOT APPLICABLE FOR DIALYSIS PATIENTS. Once on admission and Daily AM afterwardsOnce on admission and Daily AM [id number] 05:35:00 Test Item Value Reference Range Comments PHOSPHORUS (BEAKER) (test cple=106) 3.0 mg/dL 2.3-4.7 Once on admission and Daily AM afterwardsOnce on admission and Daily AM [id number] 05:35:00 Test Item Value Reference Range Comments MAGNESIUM (BEAKER) (test purt=335) 2.1 mg/dL 1.6-2.6 Once on admission and Daily AM afterwardsOnce on admission and Daily AM [id number] 05:14:00 Test Item Value Reference Range Comments PARTIAL THROMBOPLASTIN TIME (BEAKER) (test 33.6 seconds 22.5-36.0 mgfu=058) PROTHROMBIN [id number] 05:13:00 Test Item Value Reference Range Comments PROTIME (BEAKER) (test fxem=710) 21.7 seconds 11.7-14.7 INR (BEAKER) (test epog=038) 1.9 <=5.9 RECOMMENDED COUMADIN/WARFARIN INR THERAPY RANGESSTANDARD DOSE: 2.0 - 3.0 Includes: PROPHYLAXIS forvenous thrombosis, systemic embolization; TREATMENT for venous thrombosis and/or pulmonary embolus.HIGH RISK: Target INR is 2.5-3.5 for patients with mechanical heart valves.
[2019-04-28] MEDS ORDERED: NA CHLORIDE 0.9% 1,000 ML ONE (09:45)
[2019-04-28] MEDS ORDERED: ONDANSETRON 4 MG/2 ML VIAL ONE (09:45)
[2019-04-28 10:01] LABS: Absolute Lymphocytes (CBC) 1.2 K/uL (0.7-4.9); Basophils % 0.8 % (0-1.3); Eosinophils % 2.2 % (0-4.4); Hematocrit 40.8 % (36.0-45.0); Lymphocytes % 23.3 % (15.3-44.8); MPV 9.7 fL (7.6-11.3); Monocytes % 9.3 % (3.3-12.3)
[2019-04-28 10:04] LABS: Protime INR 2.18
[2019-04-28 10:12] LABS: Bilirubin Direct 0.1 mg/dL (0-0.2); Bilirubin Total 0.6 mg/dL (0.2-1.0); Potassium 4.1 mmol/L (3.5-5.1); Protein, Total 7.4 g/dL (6.4-8.2)
--- NOTE | 2019-04-28 10:59 | RAD REPORT ---
EXAM DESCRIPTION: CT - Abdomen Pelvis W Contrast - 04/28/2019 10:43 am CLINICAL HISTORY: Left lower quadrant pain, bloody stool COMPARISON: May 2013 TECHNIQUE: Biphasic, helical CT imaging of the abdomen and pelvis was performed following 100 ml non -ionic IV contrast. Oral contrast was given. All CT scans are performed using dose optimization technique as appropriate and may include automated exposure control or mA/KV adjustment according to patient size. FINDINGS: Atelectasis is present abutting an elevated right hemidiaphragm. No pericardial thickening or effusion. No suspicious liver lesion identified. The pronounced fatty infiltration pattern seen on the prior ex amination has improved. A few small areas of diminished attenuation in the parenchyma are likely area s of remnant fatty infiltration. Small cyst in the caudate lobe has not changed. Spleen and pancreas show no suspicious findings. Punctate gallstones are present. No active gallbladd er disease identified. No biliary tree dilatation. Symmetric renal function is seen with no hydronephrosis or suspicious renal mass. No pyelonephritis o r acute parenchymal process. Nonobstructing 5 mm calcification seen in the mid left kidney. No urinar y bladder abnormality seen. Uterus is absent. Ovaries are absent or atrophic. No adnexal mass. No adr enal abnormalities. No gastric dilatation or gastric wall thickening. No small bowel abnormality. Mild to moderate stool volume seen throughout the colon. There is mild to moderate sigmoid diverticulosis but no diverticuli tis. No acute GI process seen to explain hematochezia. No free air, free fluid or inflammatory stranding. No hernia, mass or bulky lymphadenopathy. No suspicious bony findings. IMPRESSION: Sigmoid diverticulosis without diverticulitis. No acute GI process seen. No abnormality to explain left lower quadrant pain and hematochezia. Mild fatty infiltration of the liver improved since prior imaging. A few remnant areas of more prono unced fatty infiltration are present. No worrisome liver process suspected. Nonobstructing calculus in the left kidney.
--- NOTE | 2019-04-28 11:02 | RAD REPORT ---
EXAM DESCRIPTION: CT - Head Brain Wo Cont - 04/28/2019 10:50 am CLINICAL HISTORY: Headache, nausea, dizziness, stroke-like symptoms COMPARISON: CT head November 2018 TECHNIQUE: Axial 5 mm thick images of the head were obtained without IV contrast. All CT scans are performed using dose optimization technique as appropriate and may include automated exposure control or mA/KV adjustment according to patient size. FINDINGS: No intracranial hemorrhage, mass, edema or shift of mid-line structures. No acute infarcti on changes seen. The intraparenchymal hematoma changes from November have resolved with no measurable encephalomalacia. Ventricles are normal. Mastoid air cells and visualized portions of the paranasal sinuses are clear. No acute bony findings. IMPRESSION: Negative non-contrast CT head examination for acute finding.
--- NOTE | 2019-04-28 11:18 | ER ---
Nurse's Notes [facility] Name: Yen Jackson Age: 54 yrs Sex: Female : 1965 Arrival Date: 04/28/2019 Time: 09:00 Bed 6 Private MD: Srikanth Madison Diagnosis: Dizziness and giddiness;Hematochezia Presentation: 04/28 09:10 Presenting complaint: Patient states: today in noticed blood on my stool, like a tarry hj and some fresh blood, i take blood thinners coz i have a stroke last Oct 2018; reports abd pain and N/V; reports dizziness and feels like the room is spinning;. Transition of care: patient was not received from another setting of care. Onset of symptoms was April 28, 2019. Risk Assessment: Do you want to hurt yourself or someone else? Patient reports no desire to harm self or others. Initial Sepsis Screen: Does the patient meet any 2 criteria? No. Patient's initial sepsis screen is negative. Does the patient have a suspected source of infection? No. Patient's initial sepsis screen is negative. Care prior to arrival: None. 09:10 Method Of Arrival: Ambulatory 09:10 Acuity: MONA 3 hj Historical: - Allergies: 09:14 Demerol; hj 09:14 PENICILLINS; hj - Home Meds: 09:14 sotalol 80 mg Oral tab 1 tab 2 times per day [Active]; warfarin 8-9 mg daily Oral tab hj [Active]; pantoprazole 40 mg Oral TbEC 1 tab once daily [Active]; Wellbutrin 100 mg Oral tab 1 tab daily [Active]; gabapentin 100 mg oral cap 1 caps twice a day [Active]; - PMHx: 09:14 Atrial Fib; Back pain; cervial cancer; hemangioma; hemmoragic stroke; 10/25/2018; hj Hypertension; mechanical heart valve; TIA; - PSHx: 09:14 Hysterectomy; mechanical heart valve replacement; aortic anurism repair; hj - Immunization history:: Adult Immunizations up to date. - Social history:: Smoking status: Patient/guardian denies using tobacco. - Family history:: not pertinent. - Ebola Screening: : Patient negative for fever greater than or equal to 101.5 degrees Fahrenheit, and additional compatible Ebola Virus Disease symptoms Patient denies exposure to infectious person Patient denies travel to an Ebola-affected area in the 21 days before illness onset No symptoms or risks identified at this time. - Hospitalizations: : No recent hospitalization is reported. Screenin:30 Abuse screen: Denies threats or abuse. Denies injuries from another. Nutritional sg screening: No deficits noted. Tuberculosis screening: No symptoms or risk factors identified. Never had TB. Fall Risk None identified. Assessment: 09:30 General: Appears in no apparent distress. uncomfortable, well groomed, well developed, sg well nourished, Behavior is calm, cooperative, appropriate for age. Neuro: Level of Consciousness is awake, alert, obeys commands, Oriented to person, place, time, situation, Telephone Answerer are equal bilaterally Speech is normal. Cardiovascular: Heart tones S1 S2 present Capillary refill is brisk in bilateral fingers Patient's skin is warm and dry. Chest pain is denied. Respiratory: Airway is patent Respiratory effort is even, unlabored, Respiratory pattern is regular, symmetrical. GI: Abdomen is round non-distended, Reports nausea. GI: Reports bloody stool, and dark tarry stool. : No signs and/or symptoms were reported regarding the genitourinary system. EENT: No signs and/or symptoms were reported regarding the EENT system. Derm: Skin is intact, is healthy with good turgor, Skin is dry, Skin is pale, Skin temperature is warm. Musculoskeletal: No signs and/or symptoms reported regarding the musculoskeletal system. 11:21 Reassessment: Patient appears in no apparent distress at this time. Patient and/or sg family updated on plan of care and expected duration. Pain level reassessed. Patient is alert, oriented x 3, equal unlabored respirations, skin warm/dry/pink. Patient states feeling better. Vital Signs: 09:14 Weight 90.72 kg; Height 5 ft. 7 in. (170.18 cm); Pain 4/10; hj 09:18 BP 144 / 94; Pulse 92; Resp 20; Temp 98.6(TE); Pulse Ox 96% on R/A; em1 10:32 BP 121 / 70; Pulse 71; Resp 18; Pulse Ox 94% on R/A; em1 11:04 BP 105 / 52; Pulse 64; Resp 17; Pulse Ox 99% on R/A; sg 09:14 Body Mass Index 31.32 (90.72 kg, 170.18 cm) ED Course: 09:00 Patient arrived in ED. ss 09:00 Srikanth Madison MD is Private Physician. ss 09:09 Malcom Jenkins MD is Attending Physician. rn 09:11 Triage completed. hj 09:14 Arm band placed on left wrist. hj 09:30 Patient has correct armband on for positive identification. Bed in low position. Call sg light in reach. Side rails up X2. Pulse ox on. NIBP on. Warm blanket given. Head of bed elevated. 09:35 Initial lab(s) drawn, by me, sent to lab. T\T\S collected, blood band applied to patient. em1 09:35 Inserted saline lock: 20 gauge in right wrist, using aseptic technique. Blood collected.em1 09:42 Tate Connolly, RN is Primary Nurse. sg 10:15 EKG done, by blood bank technologist. dt2 10:[address] via wheelchair. sg 10:44 CT Head Brain wo Cont In Process Unspecified. EDMS 10:44 CT Abd/Pelvis - IV Contrast Only In Process Unspecified. EDMS 11:40 No provider procedures requiring assistance completed. IV discontinued, intact, sg bleeding controlled, No redness/swelling at site. Pressure dressing applied. Administered Medications: 09:40 Drug: Zofran 4 mg Route: IVP; Site: right hand; sg 09:43 Drug: NS 0.9% 1000 ml Route: IV; Rate: 1000 ml; Site: right hand; sg Outcome: 11:18 Discharge ordered by MD. rn 11:40 Discharged to home ambulatory, with family. sg 11:40 Condition: good 11:40 Discharge instructions given to patient, Instructed on discharge instructions, follow up and referral plans. safety practices, Demonstrated understanding of instructions, follow-up care. 11:41 Patient left the ED. hb Signatures: Dispatcher [employer] EDMS Tate Connolly, YVES MARINELLI Malcom Jenkins MD MD rn Martinez, Eric em1 Sasha Sung RN RN Vijay Davis RN RN hj Baxter, Heather, RN RN Shannan Cain dt2
--- NOTE | 2019-04-28 11:19 | EDPHYS ---
Physician Documentation [facility] Name: Yen Jackson Age: 54 yrs Sex: Female : 1965 Arrival Date: 04/28/2019 Time: 09:00 Bed 6 Private MD: Srikanth Madison ED Physician Malcom Jenkins HPI: 04/28 09:25 This 54 yrs old Female presents to ER via Ambulatory with complaints of rn Bloody Stools, Dizziness, Nausea. 09:25 The patient presents with dizziness, lightheadedness. Onset: The symptoms/episode rn began/occurred this morning. Context: occurred at home, occurred while the patient was standing. Modifying factors: The symptoms are alleviated by nothing, the symptoms are aggravated by standing up, changing position. Associated signs and symptoms: Pertinent positives: abdominal pain, nausea, Pertinent negatives: chest pain, confusion, diaphoresis, head injury, syncope. Severity of symptoms: At their worst the symptoms were moderate in the emergency department the symptoms are unchanged. The patient has not experienced similar symptoms in the past. The patient has not recently seen a physician. Reports woke up this morning and noticed bloody stools, mixture of red and dark, assoc with lightheadedness/dizziness when standing or changing position, + nausea. Reports neurologist just increased coumadin last week, but INR last night was 2.0. + mild LLQ abd pain. No focal neurological problems, no weakness/paresthesias. . Historical: - Allergies: 09:14 Demerol; 09:14 PENICILLINS; hj - Home Meds: 09:14 sotalol 80 mg Oral tab 1 tab 2 times per day [Active]; warfarin 8-9 mg daily Oral tab [Active]; pantoprazole 40 mg Oral TbEC 1 tab once daily [Active]; Wellbutrin 100 mg Oral tab 1 tab daily [Active]; gabapentin 100 mg oral cap 1 caps twice a day [Active]; - PMHx: 09:14 Atrial Fib; Back pain; cervial cancer; hemangioma; hemmoragic stroke; 10/25/2018; Hypertension; mechanical heart valve; TIA; - PSHx: 09:14 Hysterectomy; mechanical heart valve replacement; aortic anurism repair; - Immunization history:: Adult Immunizations up to date. - Social history:: Smoking status: Patient/guardian denies using tobacco. - Family history:: not pertinent. - Ebola Screening: : Patient negative for fever greater than or equal to 101.5 degrees Fahrenheit, and additional compatible Ebola Virus Disease symptoms Patient denies exposure to infectious person Patient denies travel to an Ebola-affected area in the 21 days before illness onset No symptoms or risks identified at this time. - Hospitalizations: : No recent hospitalization is reported. ROS: 09:25 Constitutional: Negative for fever, chills, and weight loss, Eyes: Negative for injury, rn pain, redness, and discharge, Neck: Negative for injury, pain, and swelling, Cardiovascular: Negative for chest pain, palpitations, and edema, Respiratory: Negative for shortness of breath, cough, wheezing, and pleuritic chest pain, Abdomen/GI: Negative for vomiting, diarrhea, and constipation, Back: Negative for injury and pain, : Negative for injury, bleeding, discharge, and swelling, MS/Extremity: Negative for injury and deformity, Skin: Negative for injury, rash, and discoloration, Neuro: Negative for headache, weakness, numbness, tingling, and seizure. Exam: 09:25 Constitutional: This is a well developed, well nourished patient who is awake, alert, rn appears anxious Head/Face: Normocephalic, atraumatic. Eyes: Pupils equal round and reactive to light, extra-ocular motions intact. Lids and lashes normal. Conjunctiva and sclera are non-icteric and not injected. Cornea within normal limits. Periorbital areas with no swelling, redness, or edema. ENT: MMM Cardiovascular: Regular rate and rhythm, + click, no murmur Respiratory: Mild tachypnea, no wheezing, speaking full sentences Abdomen/GI: soft, + mild LLQ tenderness, no rebound, no masses Skin: Warm, dry MS/ Extremity: Pulses equal, no cyanosis. Neurovascular intact. Full, normal range of motion. Equal circumference. Neuro: Awake and alert, GCS 15, oriented to person, place, time, and situation. Cranial nerves II-XII grossly intact. Motor strength 5/5 in all extremities. Sensory grossly intact. Cerebellar exam normal. Vital Signs: 09:14 Weight 90.72 kg; Height 5 ft. 7 in. (170.18 cm); Pain 4/10; hj 09:18 BP 144 / 94; Pulse 92; Resp 20; Temp 98.6(TE); Pulse Ox 96% on R/A; em1 10:32 BP 121 / 70; Pulse 71; Resp 18; Pulse Ox 94% on R/A; em1 11:04 BP 105 / 52; Pulse 64; Resp 17; Pulse Ox 99% on R/A; sg 09:14 Body Mass Index 31.32 (90.72 kg, 170.18 cm) hj MDM: 09:09 Patient medically screened. rn 11:15 Differential diagnosis: CVA, generalized weakness, GI bleed, hypovolemia, idiopathic rn dizziness, TIA, vertigo. Data reviewed: vital signs, nurses notes, lab test result(s), EKG, radiologic studies, CT scan, and as a result, I will discharge patient. Counseling: I had a detailed discussion with the patient and/or guardian regarding: the historical points, exam findings, and any diagnostic results supporting the discharge/admit diagnosis, lab results, radiology results, the need for outpatient follow up, to return to the emergency department if symptoms worsen or persist or if there are any questions or concerns that arise at home. Response to treatment: the patient's symptoms have mildly improved after treatment, and as a result, I will discharge patient. Special discussion: I discussed with the patient/guardian in detail that at this point there is no indication for admission to the hospital. It is understood, however, that if the symptoms persist or worsen the patient needs to return immediately for re-evaluation. ED course: SPoke with patient, has negative CT head and no acute findings on CT abdomen, + diverticulosis without diverticulitis on CT, with coumadin may explain bleeding. NOrmal h/h, no further episodes of bleeding here, gave patient option of trial at home with discussion with her neurologist regarding blood thinners, vs hospitalization and GI consult, patient chooses to go home, feels better, return precautions given and understood.. 04/28 09:25 Order name: Basic Metabolic Panel rn 04/28 09:25 Order name: CBC with Diff; Complete Time: 10:15 rn 04/28 09:25 Order name: Hepatic Function; Complete Time: 10:15 rn 04/28 09:25 Order name: Lipase; Complete Time: 10:15 rn 04/28 09:25 Order name: Type And Screen; Complete Time: 10:57 rn 04/28 09:25 Order name: PT-INR; Complete Time: 10:15 rn 04/28 09:25 Order name: IV Saline Lock; Complete Time: 09:42 rn 04/28 09:25 Order name: Labs collected and sent; Complete Time: 09:42 rn 04/28 09:25 Order name: CT Head Brain wo Cont; Complete Time: 11:04 rn 04/28 09:25 Order name: CT Abd/Pelvis - IV Contrast Only; Complete Time: 11:04 rn 04/28 09:25 Order name: EKG; Complete Time: 09:28 rn 04/28 09:27 Order name: Basic Metabolic Panel; Complete Time: 10:15 EDMS 04/28 09:25 Order name: EKG - Nurse/Tech; Complete Time: 10:15 rn Administered Medications: 09:40 Drug: Zofran 4 mg Route: IVP; Site: right hand; 09:43 Drug: NS 0.9% 1000 ml Route: IV; Rate: 1000 ml; Site: right hand; Disposition: 04/28/19 11:18 Discharged to Home. Impression: Dizziness and giddiness, Hematochezia. - Condition is Stable. - Discharge Instructions: Diverticulosis, Dizziness, Gastrointestinal Bleeding. - Work release form, Family Work Release, Medication Reconciliation Form, Thank You Letter, Antibiotic Education, Prescription Opioid Use form. - Follow up: Private Physician; When: As needed; Reason: Recheck today's complaints, Re-evaluation by your physician. - Problem is new. - Symptoms have improved. Signatures: Dispatcher [employer] EDTate Delaney RN RN Malcom Jenkins MD MD rn Joaquin, Henry, RN RN Jeri Fregoso RN RN hb Corrections: (The following items were deleted from the chart) 11:41 11:18 04/28/2019 11:18 Discharged to Home. Impression: Dizziness and giddiness; hb Hematochezia. Condition is Stable. Forms are Medication Reconciliation Form, Thank You Letter, Antibiotic Education, Prescription Opioid Use. Follow up: Private Physician; When: As needed; Reason: Recheck today's complaints, Re-evaluation by your physician. Problem is new. Symptoms have improved. rn
[2019-04-28 13:07] VITALS: TEMP 98.6
[2019-04-28 13:10] VITALS: BP 105/52; O2SAT 99
--- NOTE | 2019-04-29 14:52 | EKG ---
Test Date: 2019-04-28 Test Time: 09:58:30 Felt Cutter: JOSEPH MEASUREMENT RESULTS: Intervals: Rate: 53 VA: 178 QRSD: 92 QT: 492 QTc: 461 Tilden: P: 61 VA: 178 QRS: 51 T: 80 INTERPRETIVE STATEMENTS: Sinus bradycardia Nonspecific T wave abnormality Prolonged QT Abnormal ECG Compared to ECG 08/28/2018 11:01:20 T-wave abnormality now present Prolonged QT interval now present Sinus rhythm no longer present Electronically Signed On 04-29-19 14:47:47 CDT by Georgi Alfredo
== END 2019-04-28 11:41 | disposition home or self-care (01) ==
LOC: ER 08:57
DX: K92.1 Melena (principal); I10 Essential (primary) hypertension; I48.91 Unspecified atrial fibrillation; Z79.01 Long term (current) use of anticoagulants; Z88.0 Allergy status to penicillin; Z88.5 Allergy status to narcotic agent; Z95.4 Presence of other heart-valve replacement; Z85.41 Personal history of malignant neoplasm of cervix uteri
CPT/HCPCS: 36415; 70450; 74177; 80048; 80076; 83690; 85025; 85610; 86850; 86900; 86901; 93005; 96374; 99284; J2405; J7030; Q9967

== ENCOUNTER 2020-09-09 13:12 | Inpatient (IN) | payer BC ==
--- OUTSIDE RECORDS SUMMARY | 2020-09-09 13:16 | XMS REPORT | Clinical Summary ---
:1965 Author Organization [facility] Address [address] [place] [address] Care Team Providers Name Role Phone Unavailable Primary Care Provider Unavailable Allergies Active Allergy Reactions Severity Noted Date Comments Meperidine Anxiety Low 10/26/2018 Penicillins Swelling High 10/26/2018 Medications Medication Sig Dispensed Refills Start Date End Date Status warfarin (COUMADIN) 5 MG Take 5 mg by 0 Active tabletIndications: mouth daily. 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 buPROPion (WELLBUTRIN XL) Take 150 mg by 0 Active 150 MG 24 hr tablet mouth daily. sotalol 40 MG halftab Take 80 mg by 0 Active half tablet mouth daily. Active Problems Problem Noted Date Sciatica of left side 11/05/2018 Atrial fibrillation 11/04/2018 Supratherapeutic INR 11/04/2018 TIA (transient ischemic attack) 10/28/2018 Overview: 2015 Hemangioma 10/28/2018 IVH (intraventricular hemorrhage) 10/26/2018 Nontraumatic subcortical hemorrhage of right cerebral hemisphere 10/26/2018 Coagulopathy 10/26/2018 Essential hypertension 10/26/2018 Acute encephalopathy 10/26/2018 H/O mechanical aortic valve replacement 10/26/2018 Social History Tobacco Use Types Packs/Day Years Used Date Former Smoker 1 10 Quit: 10/22/20 18 Smokeless Tobacco: Never Used Alcohol Use Drinks/Week oz/Week Comments Yes Social use Sex Assigned at Date Recorded Not on file Last Filed Vital Signs Not on file Plan of Treatment Health Maintenance Due Date Last Done Comments BREAST CANCER SCREENING 1965 COLON CANCER SCREENING COLONOSCOPY 1965 CERVICAL CANCER SCREENING PAP ONLY (Age 0[birth year]18/1986 22-65) INFLUENZA VACCINE (#1) 2020 LIPID PANEL 10/26/2021 10/26/2018, 05/19/2016 Results Not on fileafter 09/09/2019 Insurance Payer Benefit Plan / Subscriber ID Effective Dates Phone Addre ss Type Group BLUE BCBS PPO POS [id number] 2017-Presen [phone] [id number] PPO CROSS/BLUE EPO CHOICE t 2 [facility] [id number] Advance Directives For more information, please contact: [phone] Code Status Date Activated Date Inactivated Comments Full Code 10/28/2018 4:02 PM This code status was determined by: Patient
--- OUTSIDE RECORDS SUMMARY | 2020-09-09 13:16 | XMS REPORT | Clinical Summary ---
:1965 Author Organization [facility] Address [address] [place] [address] Care Team Providers Name Role Phone Antwan Marion MD Primary Care Provider Allergies Active Allergy Reactions Severity Noted Date Comments Meperidine Swelling High 05/18/2016 Penicillins Swelling High 05/18/2016 Medications Medication Sig Dispensed Refills Start Date End Date Status warfarin (COUMADIN) Take 1 tablet (7.5 30 tablet 0 05/19/2016 Active 7.5 MG tablet mg total) by mouth daily. Additional Information Patient taking differently: 5 mg oral daily at 1700, Reported on 11/21/2018 pantoprazole TK 1 T PO QD. 0 09/30/2018 Ac tive (PROTONIX) 40 MG EC tablet sotalol (BETAPACE) 80 Take 80 mg by 0 Active MG tablet mouth daily. escitalopram TAKE 1 30 tablet 0 01/28/2019 Active (LEXAPRO) 20 MG TABLET(20 MG) tablet BY MOUTH DAILY clonAZEPAM (KlonoPIN) DISSOLVE 1 90 tablet 1 02/24/2020 Active 0.25 MG TABLET BY MOUTH 021 disintegrating tablet EVERY NIGHT AT BEDTIME NEEDED FOR SEIZURES clonAZEPAM (KlonoPIN) DISSOLVE ONE 90 tablet 1 07/02/2019 04/0 /2 Discontinued 0.25 MG TABLET BY MOUTH 020 disintegrating tablet EVERY NIGHT AT BEDTIME NEEDED FOR SEIZURES clonAZEPAM (KlonoPIN) DISSOLVE 1 90 tablet 1 02/09/2020 Discontinued 0.25 MG TABLET BY MOUTH 020 (Reo rder) disintegrating tablet EVERY NIGHT AT BEDTIME NEEDED FOR SEIZURES Active Problems Problem Noted Date Cerebral hemorrhage(nontraumatic) 12/04/2018 Chest pain 05/19/2016 PAF (paroxysmal atrial fibrillation) 05/19/2016 GERD (gastroesophageal reflux disease) 05/19/2016 Encounters Date Type Specialty Care Team Description 02/24/2020 Refill Neurology Rocio Barros MA 02/08/2020 Refill Neurology Baudilio Sánchez MD after 09/09/2019 Surgical History Surgery Date Site/Laterality Comments CARDIAC VALVE REPLACEMENT ARTERIAL ANEURYSM REPAIR Medical History Medical History Date Comments Hypertension Stroke (HCC) Atrial fibrillation (HCC) Ascending aortic aneurysm (HCC) Aortic stenosis Family History Medical History Relation Name Comments [...] CANCER SCREENING 1987 BREAST CANCER SCREENING 02/19/2016 COLONOSCOPY SCREENING 02/19/2016 SHINGLES VACCINES (#1) 02/19/2016 INFLUENZA VACCINE 06/05/2020 Results Not on fileafter 09/09/2019 Advance Directives For more information, please contact: [phone] Type Date Recorded 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
--- OUTSIDE RECORDS SUMMARY | 2020-09-09 13:18 | XMS REPORT | Continuity of Care Document ---
:[address] [facility] Address [address] [place] [address] [place] [address] Phone Care Team Providers Name Role Phone [facility] Emergency Provider Allergies, Adverse Reactions, Alerts No allergy information available. Medications No medication information available. Problems No problem information available. Procedures Procedure Date Performed Status XR Foot Lt 3 View STANDARD June 25, 2020 active XR Toe(s) Lt Min 2 View June 25, 2020 active Relevant Diagnostic Tests and/or Laboratory Data No known relevant diagnostic tests and/or laboratory data. Health Concerns No known health concerns documented Encounters Encounter Location(s) Arrival/Admit Date Discharge/Depart Date Provider(s) Departed [facility] June 25, 2020 June 25, 2020 [facility] 11:30am 12:29pm [facility] Assessments No Assessments Information Available Functional Status No Functional Status information available Goals No Goals Information Available Immunizations No Immunization Information Available Mental Status No Mental Status Information Available Medical Equipment No Medical Equipment Information available Insurance Providers Payer Policy Id Coverage Id Subscriber's Subscriber Id Effective E xpiration Name Date Date [place] [id number] TOPHER RUIZ [id number] 2019 Social History Assigned Sex Female Vital Signs No vital signs result information available.
--- OUTSIDE RECORDS SUMMARY | 2020-09-09 13:18 | XMS REPORT | Continuity of Care Document ---
:1965 Author Organization [facility] t Address [address] [place] [address] Care Team Providers Name Role Phone Antwan Marion MD Primary Care Physician Papo GARZA Attending Clinician Unavailable Saulo Sánchez MD Attending Clinician GOMEZ GUERRERO Attending Clinician Unavail able GOMEZ GEURRERO Admitting Clinician Unavail able Payers Payer Name Policy Type Policy Effective Date Expiration Date [facility] Number BCBSBCBS CHOICE [id number] 2017 [place] PPO/FEDERAL 00:00:00 [employer] EMPL [id number] 2017-Presen tPPO Problems Condition Condition Condition Status Onset Resolution Last Treating Co mments Source Name Details Category Date Date Treatment Clinician Date Cerebral Cerebral Disease Active [place] hemorrhage hemorrhage 12-04 [facility] (nontrauma (nontrauma 00:00: st tic) tic) 00 Sciatica Sciatica [facility] Center Atrial Atrial Disease Active 2017-[address] [facility] [address] fibrillati fibrillati - Rowena kes - on on 00:00: Medical 00 Center Suprathera Suprathera Disease Active 2017-[address] peutic INR peutic INR 2- Rowena kes - 00:00: Medical 00 Center TIA TIA Disease Active 2017-11 Overview: [facility] (transient (transient 12-29 Rowena kes - ischemic ischemic 00:00: Medica l attack) attack) 00 Center Hemangioma Hemangioma Disease Active 2017-[address] [facility] - 00:[facility]: Medical 00 [place] IVH IVH Disease Active 2017-[address] [facility] (intravent (intravent 12-27 Rowena kes - ricular ricular 00:00: Medical hemorrhage hemorrhage 00 Ce nter ) ) Nontraumat Nontraumat Disease Active 2017-[address] ic ic 12-27 [facility] - subcortica subcortica 00:00: Me dical l l 00 Center hemorrhage hemorrhage of right of right cerebral cerebral hemisphere hemisphere Coagulopat Coagulopat Disease Active 2017-[address] hy hy 12-27 [facility] - 00:00: Medical 00 [place] Essential Essential Disease Active 2017-[address] hypertensi hypertensi 12-27 Rowena kes - on on 00:00: Medical 00 [place] Acute Acute Disease Active 2017-[address] encephalop encephalop 12-27 Rowena kes - athy athy 00:00: Medical 00 [place] H/O H/O Disease Active 2017-[address] mechanical mechanical 12-27 Rowena kes - aortic aortic 00:00: Medical valve valve 00 Center replacemen replacemen t t Chest pain Chest pain Disease Active [place] 7-15 [facility] 00:00: st 00 PAF PAF Disease Active [place] (paroxysma (paroxysma 7-15 Me thodi l atrial l atrial 00:00: st fibrillati fibrillati 00 on) on) GERD GERD Disease Active [place] (gastroeso (gastroeso 7-15 Me thodi phageal phageal 00:00: st reflux reflux 00 disease) disease) Allergies, Adverse Reactions, Alerts Allergy Allergy Status Severity Reaction(s) Onset Inactive Treating Comm ents Source Name Type Date Date Clinician Meperijessica Propensi Active Anxiety 2017-11 [facility] 12-27 [facility] - adverse 00:00: Medical reaction 00 Center s Penicill Drug Active Swelling 2017-[address] [facility] ins Allergy 12-27 [facility] - 00:00: Medical 00 [place] Meperidi Propensi Active Swelling [place] ty to 7-14 [facility] adverse 00:00: st reaction 00 s to drug Penicill Propensi Active Swelling [place] ins ty to 7-14 [facility] adverse 00:00: st reaction 00 s to drug Family History Family Member Diagnosis Comments Start Date Stop Date Source Natural father No Known Problems Marcelo montenegro [employer] Natural mother No Known Problems Marcelo Lucas Social History Social Habit Start Date Stop Date Quantity Comments Source Sex Assigned At [facility] Cigarettes smoked 2018-10-30 2018-10-30 [facility] Jewell [facility] - current (pack per 00:00:00 00:[facility]:00 [facility] day) - Reported Cigarette 2018-10-30 2018-10-30 JEFFERSON Mayskes - pack-years 00:00:00 00:00:00 [facility] Center Tobacco use and 2018-10-30 2018-10-30 Never used JEFFERSON Jewell Rowena kes - exposure 00:00:00 00:00:00 [facility] Alcohol intake 2018-10-30 2018-10-30 Current drinker JEFFERSON mathew [facility] - 00:00:00 00:00:00 of alcohol [facility] Center ([facility]) Alcohol Comment 2018-10-26 2018-10-26 Social use JEFFERSON Reads - 00:00:00 00:00:00 [facility] History of tobacco 2018-10-22 Current smoker JORDYN [facility]ell [facility] - use 00:00:00 [facility] Smoking Status Start Date Stop Date Source Former smoker 2018-10-30 00:00:00 2018-10-30 00:00:00 [facility] Medications Ordered Filled Start Stop Current Ordering Indication Dosage Frequency Signature Comments Components Source Medication Medication Date Date Medication? Clinician (SIG) Name Name clonAZEPAM 2020- No DISSOLVE 1 [place] (KlonoPIN) 02-23 TABLET BY Met hodi 0.25 MG 00:00: 23:[address] disintegrat 00 :00 EVERY ing tablet NIGHT AT BEDTIME NEEDED FOR SEIZURES clonAZEPAM 2019- No DISSOLVE 1 [place] (KlonoPIN) 02-08- TABLET BY Met hodi 0.25 MG 00:00: 00:[address] disintegrat 00 :00 EVERY ing tablet NIGHT AT BEDTIME NEEDED FOR SEIZURES clonAZEPAM 2019- No DISSOLVE Ho malena (KlonoPIN) 07-02 ONE TABLET Me thodi 0.25 MG 00:00: 00:[address] disintegrat 00 :00 EVERY ing tablet NIGHT AT BEDTIME NEEDED FOR SEIZURES escitalopra Yes TAKE 1 [place] (LEXAPRO) 3-26 TABLET(20 Met hodi 20 MG 00:00: MG) BY st tablet 00 MOUTH DAILY sotalol Yes 80mg QD Take 80 mg [place] (BETAPACE) 3-11 by mouth Metho di 80 MG 12:47: daily. st tablet 48 warfarin Yes thromboembo 5mg QD Take [address] (COUMADIN) 1-03 lism due to by mouth [facility] - 5 MG tablet 17:36: prosthetic daily. Medical 21 heart Center valves pantoprazol Yes 40mg QD Take [address] [facility] e 1-03 by mouth [facility] - (PROTONIX) 17:36: daily. Medic al 40 MG 21 Center tablet buPROPion Yes 150mg QD Take [address] (WELLBUTRIN 1-03 mg by [facility] - XL) 150 MG 17:36: mouth Medica l 24 hr 21 daily. Center tablet sotalol 40 Yes 80mg QD Take [address] MG halftab 1-03 by mouth [facility] - half tablet 17:36: daily. Medi olivia 21 Center pantoprazol 2017-11 Yes TK 1 T PO [place] 1-26 QD. Method[facility] (PROTONIX) 00:00: st 40 MG EC 00 tablet warfarin Yes 7.5mg QD Take 1 [place] (COUMADIN) 7-15 tablet [facility] 7.5 MG 00:00: (7.[address] tablet 00 total) by mouth daily. Procedures This patient has no known procedures. Plan of Care Planned Activity Planned Date Details Comments Source Future Scheduled 2021-10-[address] - Test 00:00:00 (procedure) [code = [facility] [id number]] Future Scheduled 2020-07-[address] [facility] - Test 00:00:00 (#1) [code = [facility] INFLUENZA VACCINE (#1)] Future Scheduled 2020-06-05 INFLUENZA VACCINE [place] [facility] Test 00:00:00 [code = INFLUENZA VACCINE] Future Scheduled 2016-02-19 BREAST CANCER [facility] thodist Test 00:00:00 SCREENING [code = BREAST CANCER SCREENING] Future Scheduled 2016-02-19 COLONOSCOPY SCREENING mal[facility] Test 00:00:00 [code = COLONOSCOPY SCREENING] Future Scheduled 2016-02-19 SHINGLES VACCINES [place] [facility] Test 00:00:00 (#1) [code = SHINGLES VACCINES (#1)] Future Scheduled 1987 Screening for [facility] Me thodist Test 00:00:00 malignant neoplasm of cervix (procedure) [code = 100121358] Future Scheduled [address] [facility] - Test 00:00:00 malignant neoplasm of [facility] cervix (procedure) [code = 081762766] Future Scheduled [address] - Test 00:00:00 malignant neoplasm of [facility] breast (procedure) [code = [id number]] Future Scheduled [address] - Test 00:00:00 malignant neoplasm of [facility] colon (procedure) [code = [id number]] Results Test Description Test Time Test Comments Results Result [facility] e Comments CT, BRAIN, 2018-11-07 Reason for FINAL REPORT PATIENT WITHOUT CONTRAST 10:28:00 exam:->IV now ID: [id number] CT therapeutic INR, Head without needs repeatWhat contrast CLINICAL is the patient's HISTORY: Cerebral sedation hemorrhage, requirement?->No anticoagulated SedationIs the TECHNIQUE: patient Contiguous axial ?->No images through the head without contrast. This [...] hemorrhage has decreased in size. Signed: Nadeem Lindaeport Verified Date/Time: 11/07/2018 10:28:21 Reading Location: [facility] C013V Neuro Reading Room C METABOLIC PANEL 2018-11-07 06:29:00 Test Item Value Reference Range Interpretation Comme nts SODIUM (BEAKER) (test code 141 meq/L 136-145 = 381) POTASSIUM (BEAKER) (test 4.3 meq/L 3.5-5.1 code = 379) CHLORIDE (BEAKER) (test 108 meq/L 98-107 H code = 382) CO2 (BEAKER) (test code = 25 meq/L 22-29 355) BLOOD UREA NITROGEN 25 mg/dL 7-21 H (BEAKER) (test code = 354) CREATININE (BEAKER) (test 0.81 mg/dL 0.57-1.25 code = 358) GLUCOSE RANDOM (BEAKER) 96 mg/dL 70-105 (test code = 652) CALCIUM (BEAKER) (test code 10.2 mg/dL 8.4-10.2 = 697) EGFR (BEAKER) (test code = 74 mL/min/1.73 sq m ESTIMATED GFR IS NOT 1092) ACCURATE CRE ATININE CLEARANCE IN [place] EDICTING GLOMERULAR FILT RATION RATE. ESTIMATED GFR IS NOT APPLICABLE FOR DIALYSIS PATIENTS. [id number] 06:17:00 Test Item Value Reference Range Interpretation Comments PARTIAL THROMBOPLASTIN TIME 79.7 seconds 22.5-36.0 H (BEAKER) (test code = 760) While on warfarin.PROTHROMBIN [id number] 06:15:00 Test Item Value Reference Range Interpretation Comments PROTIME (BEAKER) (test code = 22.5 seconds 11.7-14.7 H 759) INR (BEAKER) (test code = 370) 2.0 <=5.9 RECOMMENDED COUMADIN/WARFARIN INR THERAPY RANGESSTANDARD DOSE: 2.0 - 3.0 Includes: PROPHYLAXIS forvenous thrombosis, systemic embolization; TREATMENT for venous thrombosis and/or pulmonary embolus.HIGH RISK: Target INR is 2.5-3.5 for patients with mechanical heart valves.While on warfarin.CBC (HEMOGRAM ONLY) 2018-11-07 05:53:00 Test Item Value Reference Range Interpretation Comments WHITE BLOOD CELL COUNT (BEAKER) 5.9 K/ L 3.5-10.5 (test code = 775) RED BLOOD CELL COUNT (BEAKER) 4.26 M/ L 3.93-5.22 (test code = 761) HEMOGLOBIN (BEAKER) (test code = 13.2 GM/DL 11.2-15.7 410) HEMATOCRIT (BEAKER) (test code = 40.1 % 34.1-44.9 411) MEAN CORPUSCULAR VOLUME (BEAKER) 94.1 fL 79.4-94.8 (test code = 753) MEAN CORPUSCULAR HEMOGLOBIN 31.0 pg 25.6-32.2 (BEAKER) (test code = 751) MEAN CORPUSCULAR HEMOGLOBIN CONC 32.9 GM/DL 32.2-35.5 (BEAKER) (test code = 752) RED CELL DISTRIBUTION WIDTH 13.2 % 11.7-14.4 (BEAKER) (test code = 412) PLATELET COUNT (BEAKER) (test 277 K/CU MM 150-450 code = 756) MEAN PLATELET VOLUME (BEAKER) 11.2 fL 9.4-12.3 (test code = 754) NUCLEATED RED BLOOD CELLS 0 /100 WBC 0-0 (BEAKER) (test code = 413) MR, SPINE, LUMBAR, WITHOUT [id number] 03:52:00FINAL REPORT MR Lumbar spine without contrast CLINICAL HISTORY: Lumbar radicul opathy, <6wks, no red flags, no prior management TECHNIQUE: MRI of the lumbar spine utilizing sagittal T1, T2, STIR, axial T1 and T2-weighted sequences. COMPARISON: None FINDINGS:Last well-formed disc is desiccated is L5-S1 for the purposes of this report.There is [...] Noelort Verified Date/Time: 11/07/2018 03:52:32 Reading Location: [facility] C013T Transitional Reading Room APTT 2018-11-06 23:05:00 Test Item Value Reference Range Interpretation Comments PARTIAL THROMBOPLASTIN TIME 61.1 seconds 22.5-36.0 H (BEAKER) (test code = 760) [id number] 14:01:00 Test Item Value Reference Range Interpretation Comments PARTIAL THROMBOPLASTIN TIME 65.3 seconds 22.5-36.0 H (BEAKER) (test code = 760) BASIC METABOLIC [id number] 05:40:00 Test Item Value Reference Range Interpretation Comments SODIUM (BEAKER) 138 meq/L 136-145 (test code = 381) POTASSIUM (BEAKER) 4.2 meq/L 3.5-5.1 (test code = 379) CHLORIDE (BEAKER) 106 meq/L 98-107 (test code = 382) CO2 (BEAKER) (test 23 meq/L 22-29 code = 355) BLOOD UREA NITROGEN 26 mg/dL 7-21 H (BEAKER) (test code = 354) CREATININE (BEAKER) 0.83 mg/dL 0.57-1.25 (test code = 358) GLUCOSE RANDOM 94 mg/dL 70-105 (BEAKER) (test code = 652) CALCIUM (BEAKER) 10.0 mg/dL 8.4-10.2 (test code = 697) EGFR (BEAKER) (test 72 mL/min/1.73 ESTIMA ANN GFR IS code = 1092) sq m NOT ACCURATE CREATININE CLEARANCE IN PREDICTING GLOMERULAR FILTRATION RATE . ESTIMATED GFR I S NOT APPLICABLE FOR DIALYSIS PATIEN TS. [id number] 05:20:00 Test Item Value Reference Range Interpretation Comments PARTIAL THROMBOPLASTIN TIME 71.9 seconds 22.5-36.0 H (BEAKER) (test code = 760) While on warfarin.PROTHROMBIN [id number] 05:18:00 Test Item Value Reference Range Interpretation Comments PROTIME (BEAKER) (test code = 19.4 seconds 11.7-14.7 H 759) INR (BEAKER) (test code = 370) 1.6 <=5.9 RECOMMENDED COUMADIN/WARFARIN INR THERAPY RANGESSTANDARD DOSE: 2.0 - 3.0 Includes: PROPHYLAXIS forvenous thrombosis, systemic embolization; TREATMENT for venous thrombosis and/or pulmonary embolus.HIGH RISK: Target INR is 2.5-3.5 for patients with mechanical heart valves.While on warfarin.CBC (HEMOGRAM ONLY) 2018-11-06 05:11:00 Test Item Value Reference Range Interpretation Comments WHITE BLOOD CELL COUNT (BEAKER) 6.0 K/ L 3.5-10.5 (test code = 775) RED BLOOD CELL COUNT (BEAKER) 4.22 M/ L 3.93-5.22 (test code = 761) HEMOGLOBIN (BEAKER) (test code = 12.9 GM/DL 11.2-15.7 410) HEMATOCRIT (BEAKER) (test code = 39.6 % 34.1-44.9 411) MEAN CORPUSCULAR VOLUME (BEAKER) 93.8 fL 79.4-94.8 (test code = 753) MEAN CORPUSCULAR HEMOGLOBIN 30.6 pg 25.6-32.2 (BEAKER) (test code = 751) MEAN CORPUSCULAR HEMOGLOBIN CONC 32.6 GM/DL 32.2-35.5 (BEAKER) (test code = 752) RED CELL DISTRIBUTION WIDTH 13.0 % 11.7-14.4 (BEAKER) (test code = 412) PLATELET COUNT (BEAKER) (test 280 K/CU MM 150-450 code = 756) MEAN PLATELET VOLUME (BEAKER) 10.9 fL 9.4-12.3 (test code = 754) NUCLEATED RED BLOOD CELLS 0 /100 WBC 0-0 (BEAKER) (test code = 413) [id number] 21:15:00 Test Item Value Reference Range Interpretation Comments PARTIAL THROMBOPLASTIN TIME 64.4 seconds 22.5-36.0 H (BEAKER) (test code = 760) [id number] 15:09:00 Test Item Value Reference Range Interpretation Comments PARTIAL THROMBOPLASTIN TIME 70.8 seconds 22.5-36.0 H (BEAKER) (test code = 760) BASIC METABOLIC [id number] 04:25:00 Test Item Value Reference Range Interpretation Comments SODIUM (BEAKER) 139 meq/L 136-145 (test code = 381) POTASSIUM (BEAKER) 4.4 meq/L 3.5-5.1 (test code = 379) CHLORIDE (BEAKER) 107 meq/L 98-107 (test code = 382) CO2 (BEAKER) (test 22 meq/L 22-29 code = 355) BLOOD UREA NITROGEN 25 mg/dL 7-21 H (BEAKER) (test code = 354) CREATININE (BEAKER) 0.82 mg/dL 0.57-1.25 (test code = 358) GLUCOSE RANDOM 102 mg/dL 70-105 (BEAKER) (test code = 652) CALCIUM (BEAKER) 10.1 mg/dL 8.4-10.2 (test code = 697) EGFR (BEAKER) (test 73 mL/min/1.73 ESTIMA ANN GFR IS code = 1092) sq m NOT ACCURATE CREATININE CLEARANCE IN PREDICTING GLOMERULAR FILTRATION RATE . ESTIMATED GFR I S NOT APPLICABLE FOR DIALYSIS PATICHARIS FOSTER [id number] 04:15:00 Test Item Value Reference Range Interpretation Comments PARTIAL THROMBOPLASTIN TIME 82.7 seconds 22.5-36.0 H (BEAKER) (test code = 760) While on warfarin.PROTHROMBIN [id number] 04:14:00 Test Item Value Reference Range Interpretation Comments PROTIME (BEAKER) (test code = 17.3 seconds 11.7-14.7 H 759) INR (BEAKER) (test code = 370) 1.4 <=5.9 RECOMMENDED COUMADIN/WARFARIN INR THERAPY RANGESSTANDARD DOSE: 2.0 - 3.0 Includes: PROPHYLAXIS forvenous thrombosis, systemic embolization; TREATMENT for venous thrombosis and/or pulmonary embolus.HIGH RISK: Target INR is 2.5-3.5 for patients with mechanical heart valves.While on warfarin.CBC (HEMOGRAM ONLY) 2018-11-05 04:04:00 Test Item Value Reference Range Interpretation Comments WHITE BLOOD CELL COUNT (BEAKER) 7.9 K/ L 3.5-10.5 (test code = 775) RED BLOOD CELL COUNT (BEAKER) 4.38 M/ L 3.93-5.22 (test code = 761) HEMOGLOBIN (BEAKER) (test code = 13.5 GM/DL 11.2-15.7 410) HEMATOCRIT (BEAKER) (test code = 41.4 % 34.1-44.9 411) MEAN CORPUSCULAR VOLUME (BEAKER) 94.5 fL 79.4-94.8 (test code = 753) MEAN CORPUSCULAR HEMOGLOBIN 30.8 pg 25.6-32.2 (BEAKER) (test code = 751) MEAN CORPUSCULAR HEMOGLOBIN CONC 32.6 GM/DL 32.2-35.5 (BEAKER) (test code = 752) RED CELL DISTRIBUTION WIDTH 13.0 % 11.7-14.4 (BEAKER) (test code = 412) PLATELET COUNT (BEAKER) (test 292 K/CU MM 150-450 code = 756) MEAN PLATELET VOLUME (BEAKER) 10.5 fL 9.4-12.3 (test code = 754) NUCLEATED RED BLOOD CELLS 0 /100 WBC 0-0 (BEAKER) (test code = 413) [id number] 17:42:00 Test Item Value Reference Range Interpretation Comments PROTIME (BEAKER) (test code = 16.9 seconds 11.7-14.7 H 759) INR (BEAKER) (test code = 370) 1.3 <=5.9 PARTIAL THROMBOPLASTIN TIME 66.7 seconds 22.5-36.0 H (BEAKER) (test code = 760) RECOMMENDED COUMADIN/WARFARIN INR THERAPY RANGESSTANDARD DOSE: 2.0 - 3.0 Includes: PROPHYLAXIS forvenous thrombosis, systemic embolization; TREATMENT for venous thrombosis and/or pulmonary embolus.HIGH RISK: Target INR is 2.5-3.5 for patients with mechanical heart valves.PT/[id number] 11:53:00 Test Item Value Reference Range Interpretation Comments PROTIME (BEAKER) (test code = 15.7 seconds 11.7-14.7 H 759) INR (BEAKER) (test code = 370) 1.2 <=5.9 PARTIAL THROMBOPLASTIN TIME 68.0 seconds 22.5-36.0 H (BEAKER) (test code = 760) RECOMMENDED COUMADIN/WARFARIN INR THERAPY RANGESSTANDARD DOSE: 2.0 - 3.0 Includes: PROPHYLAXIS forvenous thrombosis, systemic embolization; TREATMENT for venous thrombosis and/or pulmonary embolus.HIGH RISK: Target INR is 2.5-3.5 for patients with mechanical heart valves.CBC (HEMOGRAM ONLY)2018-11-04 06:30:00 Test Item Value Reference Range Interpretation Comments WHITE BLOOD CELL COUNT (BEAKER) 6.9 K/ L 3.5-10.5 (test code = 775) RED BLOOD CELL COUNT (BEAKER) 4.23 M/ L 3.93-5.22 (test code = 761) HEMOGLOBIN (BEAKER) (test code = 12.9 GM/DL 11.2-15.7 410) HEMATOCRIT (BEAKER) (test code = 40.0 % 34.1-44.9 411) MEAN CORPUSCULAR VOLUME (BEAKER) 94.6 fL 79.4-94.8 (test code = 753) MEAN CORPUSCULAR HEMOGLOBIN 30.5 pg 25.6-32.2 (BEAKER) (test code = 751) MEAN CORPUSCULAR HEMOGLOBIN CONC 32.3 GM/DL 32.2-35.5 (BEAKER) (test code = 752) RED CELL DISTRIBUTION WIDTH 13.2 % 11.7-14.4 (BEAKER) (test code = 412) PLATELET COUNT (BEAKER) (test 281 K/CU MM 150-450 code = 756) MEAN PLATELET VOLUME (BEAKER) 11.1 fL 9.4-12.3 (test code = 754) NUCLEATED RED BLOOD CELLS 0 /100 WBC 0-0 (BEAKER) (test code = 413) [id number] 06:20:00 Test Item Value Reference Range Interpretation Comments PARTIAL THROMBOPLASTIN TIME 67.1 seconds 22.5-36.0 H (BEAKER) (test code = 760) While on warfarin.PROTHROMBIN [id number] 06:18:00 Test Item Value Reference Range Interpretation Comments PROTIME (BEAKER) (test code = 15.7 seconds 11.7-14.7 H 759) INR (BEAKER) (test code = 370) 1.2 <=5.9 RECOMMENDED COUMADIN/WARFARIN INR THERAPY RANGESSTANDARD DOSE: 2.0 - 3.0 Includes: PROPHYLAXIS forvenous thrombosis, systemic embolization; TREATMENT for venous thrombosis and/or pulmonary embolus.HIGH RISK: Target INR is 2.5-3.5 for patients with mechanical heart valves.While on warfarin.RAD, SPINE, LUMBAR, COMPLETE, W/ [id number] 15:41:00Reason for exam:->radiculopathyFINAL REPORT Lumbar spine, seven images HISTORY: Radiculopathy COMPARISON: None IMPRESSION:Five lumbar type vertebral bodies. No fracture. No subluxation. No change in alignment on flexion or extension. Soft tissues unremarkable. Minimal degenerative facet changes. Signed: Kenny Centeno MDReport Verified Date/Time: 11/03/2018 15:41:39 Reading Location: [address] Transitional Reading Room [id number] 06:09:00 Test Item Value Reference Range Interpretation Comments PARTIAL THROMBOPLASTIN TIME 52.4 seconds 22.5-36.0 H (BEAKER) (test code = 760) While on warfarin.PROTHROMBIN [id number] 06:08:00 Test Item Value Reference Range Interpretation Comments PROTIME (BEAKER) (test code = 15.3 seconds 11.7-14.7 H 759) INR (BEAKER) (test code = 370) 1.2 <=5.9 RECOMMENDED COUMADIN/WARFARIN INR THERAPY RANGESSTANDARD DOSE: 2.0 - 3.0 Includes: PROPHYLAXIS forvenous thrombosis, systemic embolization; TREATMENT for venous thrombosis and/or pulmonary embolus.HIGH RISK: Target INR is 2.5-3.5 for patients with mechanical heart valves.While on warfarin.CBC (HEMOGRAM ONLY) 2018-11-03 06:04:00 Test Item Value Reference Range Interpretation Comments WHITE BLOOD CELL COUNT (BEAKER) 6.9 K/ L 3.5-10.5 (test code = 775) RED BLOOD CELL COUNT (BEAKER) 4.02 M/ L 3.93-5.22 (test code = 761) HEMOGLOBIN (BEAKER) (test code = 12.4 GM/DL 11.2-15.7 410) HEMATOCRIT (BEAKER) (test code = 38.4 % 34.1-44.9 411) MEAN CORPUSCULAR VOLUME (BEAKER) 95.5 fL 79.4-94.8 H (test code = 753) MEAN CORPUSCULAR HEMOGLOBIN 30.8 pg 25.6-32.2 (BEAKER) (test code = 751) MEAN CORPUSCULAR HEMOGLOBIN CONC 32.3 GM/DL 32.2-35.5 (BEAKER) (test code = 752) RED CELL DISTRIBUTION WIDTH 13.2 % 11.7-14.4 (BEAKER) (test code = 412) PLATELET COUNT (BEAKER) (test 262 K/CU MM 150-450 code = 756) MEAN PLATELET VOLUME (BEAKER) 11.4 fL 9.4-12.3 (test code = 754) NUCLEATED RED BLOOD CELLS 0 /100 WBC 0-0 (BEAKER) (test code = 413) [id number] 07:45:00 Test Item Value Reference Range Interpretation Comments PARTIAL THROMBOPLASTIN TIME 59.0 seconds 22.5-36.0 H (BEAKER) (test code = 760) PROTHROMBIN [id number] 05:05:00 Test Item Value Reference Range Interpretation Comments PROTIME (BEAKER) (test code = 14.1 seconds 11.7-14.7 759) INR (BEAKER) (test code = 370) 1.1 <=5.9 RECOMMENDED COUMADIN/WARFARIN INR THERAPY RANGESSTANDARD DOSE: 2.0 - 3.0 Includes: PROPHYLAXIS forvenous thrombosis, systemic embolization; TREATMENT for venous thrombosis and/or pulmonary embolus.HIGH RISK: Target INR is 2.5-3.5 for patients with mechanical heart valves.While on warfarin.CBC (HEMOGRAM ONLY) 2018-11-02 04:57:00 Test Item Value Reference Range Interpretation Comments WHITE BLOOD CELL COUNT (BEAKER) 7.5 K/ L 3.5-10.5 (test code = 775) RED BLOOD CELL COUNT (BEAKER) 4.10 M/ L 3.93-5.22 (test code = 761) HEMOGLOBIN (BEAKER) (test code = 12.7 GM/DL 11.2-15.7 410) HEMATOCRIT (BEAKER) (test code = 38.3 % 34.1-44.9 411) MEAN CORPUSCULAR VOLUME (BEAKER) 93.4 fL 79.4-94.8 (test code = 753) MEAN CORPUSCULAR HEMOGLOBIN 31.0 pg 25.6-32.2 (BEAKER) (test code = 751) MEAN CORPUSCULAR HEMOGLOBIN CONC 33.2 GM/DL 32.2-35.5 (BEAKER) (test code = 752) RED CELL DISTRIBUTION WIDTH 13.0 % 11.7-14.4 (BEAKER) (test code = 412) PLATELET COUNT (BEAKER) (test 236 K/CU MM 150-450 code = 756) MEAN PLATELET VOLUME (BEAKER) 11.3 fL 9.4-12.3 (test code = 754) NUCLEATED RED BLOOD CELLS 0 /100 WBC 0-0 (BEAKER) (test code = 413) [id number] 21:44:00 Test Item Value Reference Range Interpretation Comments PARTIAL THROMBOPLASTIN TIME 64.3 seconds 22.5-36.0 H (BEAKER) (test code = 760) [id number] 14:47:00 Test Item Value Reference Range Interpretation Comments POTASSIUM (BEAKER) (test code = 4.2 meq/L 3.5-5.1 379) [id number] 14:47:00 Test Item Value Reference Range Interpretation Comments MAGNESIUM (BEAKER) (test code = 2.3 mg/dL 1.6-2.6 627) [id number] 14:38:00 Test Item Value Reference Range Interpretation Comments PARTIAL THROMBOPLASTIN TIME 60.7 seconds 22.5-36.0 H (BEAKER) (test code = 760) PROTHROMBIN [id number] 14:37:00 Test Item Value Reference Range Interpretation Comments PROTIME (BEAKER) (test code = 14.2 seconds 11.7-14.7 759) INR (BEAKER) (test code = 370) 1.1 <=5.9 RECOMMENDED COUMADIN/WARFARIN INR THERAPY RANGESSTANDARD DOSE: 2.0 - 3.0 Includes: PROPHYLAXIS forvenous thrombosis, systemic embolization; TREATMENT for venous thrombosis and/or pulmonary embolus.HIGH RISK: Target INR is 2.5-3.5 for patients with mechanical heart valves.[id number] 06:33:00 Test Item Value Reference Range Interpretation Comments PARTIAL THROMBOPLASTIN TIME 76.5 seconds 22.5-36.0 H (BEAKER) (test code = 760) CBC (HEMOGRAM ONLY)2018-11-01 06:28:00 Test Item Value Reference Range Interpretation Comments WHITE BLOOD CELL COUNT (BEAKER) 6.9 K/ L 3.5-10.5 (test code = 775) RED BLOOD CELL COUNT (BEAKER) 4.01 M/ L 3.93-5.22 (test code = 761) HEMOGLOBIN (BEAKER) (test code = 12.4 GM/DL 11.2-15.7 410) HEMATOCRIT (BEAKER) (test code = 37.7 % 34.1-44.9 411) MEAN CORPUSCULAR VOLUME (BEAKER) 94.0 fL 79.4-94.8 (test code = 753) MEAN CORPUSCULAR HEMOGLOBIN 30.9 pg 25.6-32.2 (BEAKER) (test code = 751) MEAN CORPUSCULAR HEMOGLOBIN CONC 32.9 GM/DL 32.2-35.5 (BEAKER) (test code = 752) RED CELL DISTRIBUTION WIDTH 12.7 % 11.7-14.4 (BEAKER) (test code = 412) PLATELET COUNT (BEAKER) (test 220 K/CU MM 150-450 code = 756) MEAN PLATELET VOLUME (BEAKER) 10.9 fL 9.4-12.3 (test code = 754) NUCLEATED RED BLOOD CELLS 0 /100 WBC 0-0 ([facility]) (test code = 413) POCT-GLUCOSE [id number] 05:45:00 Test Item Value Reference Range Interpretation Comments POC-GLUCOSE METER 119 mg/dL 70-110 H TESTED AT [place] [address] ([facility]) (test code = [place] 1538) [id number] POCT-GLUCOSE [id number] 23:59:00 Test Item Value Reference Range Interpretation Comments POC-GLUCOSE METER 119 mg/dL 70-110 H TESTED AT [place] [address] ([facility]) (test code = [place] 1538) [address] [id number] 23:27:00 Test Item Value Reference Range Interpretation Comments PARTIAL THROMBOPLASTIN TIME 70.3 seconds 22.5-36.0 H ([facility]) (test code = 760) [id number] 15:59:00 Test Item Value Reference Range Interpretation Comments PARTIAL THROMBOPLASTIN TIME 43.5 seconds 22.5-36.0 H ([facility]) (test code = 760) CT, BRAIN, WITHOUT [id number] 13:33:00FINAL REPORT CT head without contrast 10/31/2018 [...] IMPRESSION: Stable intracranial appearance. Signed: Noe Marin Verified Date/Time: 10/31/2018 13:33:29 Reading Location: [facility] Radiology Reading Room Electr onically signed by: NOE MARIN M.D. on 10/31/2018 01:33 [id number] 04:47:00 Test Item Value Reference Range Interpretation Comments PARTIAL THROMBOPLASTIN TIME 60.3 seconds 22.5-36.0 H (BEAKER) (test code = 760) PROTHROMBIN [id number] 04:45:00 Test Item Value Reference Range Interpretation Comments PROTIME (BEAKER) (test code = 14.5 seconds 11.7-14.7 759) INR (BEAKER) (test code = 370) 1.1 <=5.9 RECOMMENDED COUMADIN/WARFARIN INR THERAPY RANGESSTANDARD DOSE: 2.0 - 3.0 Includes: PROPHYLAXIS forvenous thrombosis, systemic embolization; TREATMENT for venous thrombosis and/or pulmonary embolus.HIGH RISK: Target INR is 2.5-3.5 for patients with mechanical heart valves.CBC (HEMOGRAM ONLY)2018-10-31 04:30:00 Test Item Value Reference Range Interpretation Comments WHITE BLOOD CELL COUNT (BEAKER) 6.7 K/ L 3.5-10.5 (test code = 775) RED BLOOD CELL COUNT (BEAKER) 3.74 M/ L 3.93-5.22 L (test code = 761) HEMOGLOBIN (BEAKER) (test code = 11.7 GM/DL 11.2-15.7 410) HEMATOCRIT (BEAKER) (test code = 35.0 % 34.1-44.9 411) MEAN CORPUSCULAR VOLUME (BEAKER) 93.6 fL 79.4-94.8 (test code = 753) MEAN CORPUSCULAR HEMOGLOBIN 31.3 pg 25.6-32.2 (BEAKER) (test code = 751) MEAN CORPUSCULAR HEMOGLOBIN CONC 33.4 GM/DL 32.2-35.5 (BEAKER) (test code = 752) RED CELL DISTRIBUTION WIDTH 12.9 % 11.7-14.4 (BEAKER) (test code = 412) PLATELET COUNT (BEAKER) (test 214 K/CU MM 150-450 code = 756) MEAN PLATELET VOLUME (BEAKER) 11.3 fL 9.4-12.3 (test code = 754) NUCLEATED RED BLOOD CELLS 0 /100 WBC 0-0 (BEAKER) (test code = 413) POCT-GLUCOSE [id number] 00:15:00 Test Item Value Reference Range Interpretation Comments POC-GLUCOSE METER 125 mg/dL 70-[address] [facility] 67[address] (BEAKER) (test code = [place] 1538) [id number] [place], ANGIOGRAM, [id number] 14:52:00Reason for exam:->IVH, evaluation for cavernomaFINAL REPORT DATE: 10/28/2018 NAME: Ruiz, Yen ATTENDING: Juanpablo Restrepo CIGAR PACKING EXAMINER: Beth Hawkins PREOPERATIVE DIAGNOSIS: Intracerebral Hemorrhage andIntraventricular Hemorrhage POSTOPERATIVE DIAGNOSIS: Intracerebral Hemorrhage and Intraventricular He morrhage PROCEDURE PERFORMED: Diagnostic Cerebral and Cervical Angiogram ANESTHESIOLOGIST: Guillermina Gomez ANESTHESIA: MAC COMPLICATIONS: None ESTIMATED BLOOD LOSS: Less than 15ml ARTERIAL VESSELS STUDIED:*Right common carotid artery x 1*Right internal carotid artery x 3*Left vertebral artery x 2*Right external carotid artery x 1*Right common femoral artery x1 MATERIALS EMPLOYED:1. 5 Mongolian shortsheath 2. 4 Mongolian Berenstein catheter3. Bentson guidewire4. Terumo 0.035 LT glidewire5. 5 Mongolian Mynx device INDICATIONS:The patient is a 53 year old female with mechanical heart valve on Coumadin whobegan having headaches that were progressive over the course of the day on 10/25/2018. The patient was evaluated and found to have a right 3 cm rsezql-avkcsok-arbwlwwfq ICH near the atrium lateral ventricle with [...] the puncture site was confirmed, a 5 Mongolian short sheath was inserted over a Bentson wire and was maintained on heparinized saline flush throughout the remainder of the procedure. Using coaxial technique, a preflushed 5 Mongolian Terumo glide catheter on constant heparinized saline [...] removed and hemostasis achieved with a 5 Mongolian Mynx device and manual compression. The patient [...] RIGHT COMMON CAROTID ARTERY (DSA, PA, LATERAL, CERVICAL)The distal cervical common carotid as well [...] internal maxillary artery, occipital artery and their b ranches. There is no evidence of AV fistula, aneurysm or vascular malformations. LEFT VERTEBRAL ARTERY (DSA, PA, LATERAL, MAGNIFIED OBLIQUE X 1)Unremarkable distal cervical and intracranial vertebral artery with physiological filling of the basilar artery and its distal branches. There is normal filling of the ipsilateral PICA, AICAs, SACs and left prop attendant. No significant right TERRAZZO MECHANIC HELPER is seen indicating right Pcom. No aneurysms [...] and reported the results. Signed: Juanpablo Mansfield Verified Date/Time: 10/30/2018 14:52:59 Reading Location: [facility] Y018 Neuro Angio Reading Room [id number] 05:08:00 Test Item Value Reference Range Interpretation Comments MAGNESIUM (BEAKER) 2.4 mg/dL 1.6-2.6 Specimen slightly (test code = 627) hemolyzed [id number] 05:08:00 Test Item Value Reference Range Interpretation Comments PHOSPHORUS (BEAKER) 3.6 mg/dL 2.3-4.7 Specimen slightly (test code = 604) hemolyzed BASIC METABOLIC [id number] 05:08:00 Test Item Value Reference Range Interpretation Comments SODIUM (BEAKER) 140 meq/L 136-145 (test code = 381) POTASSIUM (BEAKER) 4.2 meq/L 3.5-5.1 Specimen slightly (test code = 379) hemolyzed CHLORIDE (BEAKER) 106 meq/L 98-107 (test code = 382) CO2 (BEAKER) (test 26 meq/L 22-29 code = 355) BLOOD UREA NITROGEN 14 mg/dL 7-21 (BEAKER) (test code = 354) CREATININE (BEAKER) 0.81 mg/dL 0.57-1.25 Specimen slightly (test code = 358) hemolyzed GLUCOSE RANDOM 157 mg/dL 70-105 H (BEAKER) (test code = 652) CALCIUM (BEAKER) 9.2 mg/dL 8.4-10.2 (test code = 697) EGFR (BEAKER) (test 74 mL/min/1.73 ESTIMA ANN GFR IS code = 1092) sq m NOT ACCURATE CREATININE CLEARANCE IN PREDICTING GLOMERULAR FILTRATION RATE . ESTIMATED GFR I S NOT APPLICABLE FOR DIALYSIS PATIEN TS. CBC (HEMOGRAM ONLY)2018-10-30 04:59:00 Test Item Value Reference Range Interpretation Comments WHITE BLOOD CELL COUNT (BEAKER) 7.3 K/ L 3.5-10.5 (test code = 775) RED BLOOD CELL COUNT (BEAKER) 3.69 M/ L 3.93-5.22 L (test code = 761) HEMOGLOBIN (BEAKER) (test code = 11.6 GM/DL 11.2-15.7 410) HEMATOCRIT (BEAKER) (test code = 34.8 % 34.1-44.9 411) MEAN CORPUSCULAR VOLUME (BEAKER) 94.3 fL 79.4-94.8 (test code = 753) MEAN CORPUSCULAR HEMOGLOBIN 31.4 pg 25.6-32.2 (BEAKER) (test code = 751) MEAN CORPUSCULAR HEMOGLOBIN CONC 33.3 GM/DL 32.2-35.5 (BEAKER) (test code = 752) RED CELL DISTRIBUTION WIDTH 12.8 % 11.7-14.4 (BEAKER) (test code = 412) PLATELET COUNT (BEAKER) (test 188 K/CU MM 150-450 code = 756) MEAN PLATELET VOLUME (BEAKER) 11.3 fL 9.4-12.3 (test code = 754) NUCLEATED RED BLOOD CELLS 0 /100 WBC 0-0 (BEAKER) (test code = 413) [id number] 00:59:00 Test Item Value Reference Range Interpretation Comments PROTIME (BEAKER) (test code = 15.0 seconds 11.7-14.7 H 759) INR (BEAKER) (test code = 370) 1.2 <=5.9 PARTIAL THROMBOPLASTIN TIME 58.3 seconds 22.5-36.0 H (BEAKER) (test code = 760) RECOMMENDED COUMADIN/WARFARIN INR THERAPY RANGESSTANDARD DOSE: 2.0 - 3.0 Includes: PROPHYLAXIS forvenous thrombosis, systemic embolization; TREATMENT for venous thrombosis and/or pulmonary embolus.HIGH RISK: Target INR is 2.5-3.5 for patients with mechanical heart valves.PROTHROMBIN [id number] 00:57:00 Test Item Value Reference Range Interpretation Comments PROTIME (BEAKER) (test code = 15.0 seconds 11.7-14.7 H 759) INR (BEAKER) (test code = 370) 1.2 <=5.9 RECOMMENDED COUMADIN/WARFARIN INR THERAPY RANGESSTANDARD DOSE: 2.0 - 3.0 Includes: PROPHYLAXIS forvenous thrombosis, systemic embolization; TREATMENT for venous thrombosis and/or pulmonary embolus.HIGH RISK: Target INR is 2.5-3.5 for patients with mechanical heart valves.POCT-GLUCOSE [id number] 00:08:00 Test Item Value Reference Range Interpretation Comments POC-GLUCOSE METER 110 mg/dL 70-[address] [facility] 67[address] (BEAKER) (test code = [place] 1538) [id number] CT, BRAIN, WITHOUT [id number] 20:14:00FINAL REPORT CT, BRAIN, WITHOUT CONTRAST CLINICAL [...] MDReport Verified Date/Time: 10/29/2018 20:14:11 Reading Location: [facility] [id number] Neuro Reading Room [id number] 18:47:00 Test Item Value Reference Range Interpretation Comments POTASSIUM (BEAKER) (test code = 4.2 meq/L 3.5-5.1 379) [id number] 18:47:00 Test Item Value Reference Range Interpretation Comments MAGNESIUM (BEAKER) (test code = 2.5 mg/dL 1.6-2.6 627) [id number] 18:46:00 Test Item Value Reference Range Interpretation Comments PROTIME (BEAKER) (test code = 14.7 seconds 11.7-14.7 759) INR (BEAKER) (test code = 370) 1.2 <=5.9 PARTIAL THROMBOPLASTIN TIME 51.7 seconds 22.5-36.0 H (BEAKER) (test code = 760) RECOMMENDED COUMADIN/WARFARIN INR THERAPY RANGESSTANDARD DOSE: 2.0 - 3.0 Includes: PROPHYLAXIS forvenous thrombosis, systemic embolization; TREATMENT for venous thrombosis and/or pulmonary embolus.HIGH RISK: Target INR is 2.5-3.5 for patients with mechanical heart valves.POCT-GLUCOSE [id number] 18:27:00 Test Item Value Reference Range Interpretation Comments POC-GLUCOSE METER 96 mg/dL 70-110 TESTED AT [place] [address] ([facility]) (test code = MADALYN Zhu [facility] [address]) [id number] 13:05:00 Test Item Value Reference Range Interpretation Comments PROTIME (BEAKER) (test code = 14.6 seconds 11.7-14.7 759) INR (BEAKER) (test code = 370) 1.1 <=5.9 PARTIAL THROMBOPLASTIN TIME 37.4 seconds 22.5-36.0 H (BEAKER) (test code = 760) RECOMMENDED COUMADIN/WARFARIN INR THERAPY RANGESSTANDARD DOSE: 2.0 - 3.0 Includes: PROPHYLAXIS forvenous thrombosis, systemic embolization; TREATMENT for venous thrombosis and/or pulmonary embolus.HIGH RISK: Target INR is 2.5-3.5 for patients with mechanical heart valves.POCT-GLUCOSE [id number] 13:02:00 Test Item Value Reference Range Interpretation Comments POC-GLUCOSE METER 113 mg/dL 70-[address] [facility] 67 ([facility]) (test code = [facility] [place] 15[address]) [address] [id number] 07:05:00 Test Item Value Reference Range Interpretation Comments PHOSPHORUS (BEAKER) (test code = 3.0 mg/dL 2.3-4.7 604) [id number] 07:05:00 Test Item Value Reference Range Interpretation Comments MAGNESIUM (BEAKER) (test code = 1.9 mg/dL 1.6-2.6 627) BASIC METABOLIC [id number] 07:05:00 Test Item Value Reference Range Interpretation Comments SODIUM (BEAKER) 139 meq/L 136-145 (test code = 381) POTASSIUM (BEAKER) 3.7 meq/L 3.5-5.1 (test code = 379) CHLORIDE (BEAKER) 107 meq/L 98-107 (test code = 382) CO2 (BEAKER) (test 24 meq/L 22-29 code = 355) BLOOD UREA NITROGEN 15 mg/dL 7-21 (BEAKER) (test code = 354) CREATININE (BEAKER) 0.77 mg/dL 0.57-1.25 (test code = 358) GLUCOSE RANDOM 93 mg/dL 70-105 (BEAKER) (test code = 652) CALCIUM (BEAKER) 8.8 mg/dL 8.4-10.2 (test code = 697) EGFR (BEAKER) (test 79 mL/min/1.73 ESTIMA ANN GFR IS code = 1092) sq m NOT ACCURATE CREATININE CLEARANCE IN PREDICTING GLOMERULAR FILTRATION RATE . ESTIMATED GFR I S NOT APPLICABLE FOR DIALYSIS PATICHARIS FOSTER [id number] 06:57:00 Test Item Value Reference Range Interpretation Comments PARTIAL THROMBOPLASTIN TIME 41.4 seconds 22.5-36.0 H (BEAKER) (test code = 760) CBC W/PLT COUNT & AUTO [id number] 06:37:00 Test Item Value Reference Range Interpretation Comments WHITE BLOOD CELL COUNT (BEAKER) 8.0 K/ L 3.5-10.5 (test code = 775) RED BLOOD CELL COUNT (BEAKER) 3.64 M/ L 3.93-5.22 L (test code = 761) HEMOGLOBIN (BEAKER) (test code = 11.3 GM/DL 11.2-15.7 410) HEMATOCRIT (BEAKER) (test code = 33.9 % 34.1-44.9 L 411) MEAN CORPUSCULAR VOLUME (BEAKER) 93.1 fL 79.4-94.8 (test code = 753) MEAN CORPUSCULAR HEMOGLOBIN 31.0 pg 25.6-32.2 (BEAKER) (test code = 751) MEAN CORPUSCULAR HEMOGLOBIN CONC 33.3 GM/DL 32.2-35.5 (BEAKER) (test code = 752) RED CELL DISTRIBUTION WIDTH 12.6 % 11.7-14.4 (BEAKER) (test code = 412) PLATELET COUNT (BEAKER) (test 192 K/CU MM 150-450 code = 756) MEAN PLATELET VOLUME (BEAKER) 11.2 fL 9.4-12.3 (test code = 754) NUCLEATED RED BLOOD CELLS 0 /100 WBC 0-0 (BEAKER) (test code = 413) NEUTROPHILS RELATIVE PERCENT 76 % (BEAKER) (test code = 429) LYMPHOCYTES RELATIVE PERCENT 12 % (BEAKER) (test code = 430) MONOCYTES RELATIVE PERCENT 9 % (BEAKER) (test code = 431) EOSINOPHILS RELATIVE PERCENT 1 % (BEAKER) (test code = 432) BASOPHILS RELATIVE PERCENT 0 % (BEAKER) (test code = 437) NEUTROPHILS ABSOLUTE COUNT 6.13 K/ L 1.56-6.13 (BEAKER) (test code = 670) LYMPHOCYTES ABSOLUTE COUNT 1.00 K/ L 1.18-3.74 L (BEAKER) (test code = 414) MONOCYTES ABSOLUTE COUNT (BEAKER) 0.74 K/ L 0.24-0.36 H (test code = 415) EOSINOPHILS ABSOLUTE COUNT 0.10 K/ L 0.04-0.36 (BEAKER) (test code = 416) BASOPHILS ABSOLUTE COUNT (BEAKER) 0.03 K/ L 0.01-0.08 (test code = 417) IMMATURE GRANULOCYTES-RELATIVE 1 % 0-1 PERCENT (BEAKER) (test code = 2801) [id number] 00:10:00 Test Item Value Reference Range Interpretation Comments PARTIAL THROMBOPLASTIN TIME 26.9 seconds 22.5-36.0 (BEAKER) (test code = 760) Prior to initiating heparinPLATELET [id number] 23:58:00 Test Item Value Reference Range Interpretation Comments PLATELET COUNT (BEAKER) (test 200 K/CU MM 150-450 code = 756) POCT-GLUCOSE [id number] 18:57:00 Test Item Value Reference Range Interpretation Comments POC-GLUCOSE METER 109 mg/dL 70-[address] [facility] 67[address] ([facility]) (test code = [place]ALYN [place] 1538) [address] POCT-GLUCOSE [id number] 12:37:00 Test Item Value Reference Range Interpretation Comments POC-GLUCOSE METER 104 mg/dL 70-[address] [facility] 67[address] (BEAKER) (test code = [place] 1538) [address] CT BRAIN WITHOUT IV CONTRAST - [id number] 11:11:00Reason for exam:- >nausea intracranial bleed and left s-ded weakness newFINAL REPORT CT BRAIN WITHOUT IV CONTRAST - PORTABLE CLINICAL INDICATION: nikhil sea intracranial bleed and left s-ded weakness new [...] MDReport Verified Date/Time: 10/28/2018 11:11:15 Reading Location: [facility] Radiology Reading Room [id number] 06:37:00 Test Item Value Reference Range Interpretation Comments PHOSPHORUS (BEAKER) (test code = 3.6 mg/dL 2.3-4.7 604) [id number] 06:37:00 Test Item Value Reference Range Interpretation Comments MAGNESIUM (BEAKER) (test code = 2.2 mg/dL 1.6-2.6 627) BASIC METABOLIC [id number] 06:37:00 Test Item Value Reference Range Interpretation Comments SODIUM (BEAKER) 141 meq/L 136-145 (test code = 381) POTASSIUM (BEAKER) 4.3 meq/L 3.5-5.1 (test code = 379) CHLORIDE (BEAKER) 106 meq/L 98-107 (test code = 382) CO2 (BEAKER) (test 29 meq/L 22-29 code = 355) BLOOD UREA NITROGEN 17 mg/dL 7-21 (BEAKER) (test code = 354) CREATININE (BEAKER) 0.76 mg/dL 0.57-1.25 (test code = 358) GLUCOSE RANDOM 105 mg/dL 70-105 (BEAKER) (test code = 652) CALCIUM (BEAKER) 9.6 mg/dL 8.4-10.2 (test code = 697) EGFR (BEAKER) (test 80 mL/min/1.73 ESTIMA ANN GFR IS code = 1092) sq m NOT ACCURATE CREATININE CLEARANCE IN PREDICTING GLOMERULAR FILTRATION RATE . ESTIMATED GFR I S NOT APPLICABLE FOR DIALYSIS PATIEN TS. CBC W/PLT COUNT & AUTO [id number] 05:56:00 Test Item Value Reference Range Interpretation Comments WHITE BLOOD CELL COUNT (BEAKER) 6.2 K/ L 3.5-10.5 (test code = 775) RED BLOOD CELL COUNT (BEAKER) 3.98 M/ L 3.93-5.22 (test code = 761) HEMOGLOBIN (BEAKER) (test code = 12.2 GM/DL 11.2-15.7 410) HEMATOCRIT (BEAKER) (test code = 37.3 % 34.1-44.9 411) MEAN CORPUSCULAR VOLUME (BEAKER) 93.7 fL 79.4-94.8 (test code = 753) MEAN CORPUSCULAR HEMOGLOBIN 30.7 pg 25.6-32.2 (BEAKER) (test code = 751) MEAN CORPUSCULAR HEMOGLOBIN CONC 32.7 GM/DL 32.2-35.5 (BEAKER) (test code = 752) RED CELL DISTRIBUTION WIDTH 12.6 % 11.7-14.4 (BEAKER) (test code = 412) PLATELET COUNT (BEAKER) (test 212 K/CU MM 150-450 code = 756) MEAN PLATELET VOLUME (BEAKER) 10.9 fL 9.4-12.3 (test code = 754) NUCLEATED RED BLOOD CELLS 0 /100 WBC 0-0 (BEAKER) (test code = 413) NEUTROPHILS RELATIVE PERCENT 75 % (BEAKER) (test code = 429) LYMPHOCYTES RELATIVE PERCENT 14 % (BEAKER) (test code = 430) MONOCYTES RELATIVE PERCENT 10 % (BEAKER) (test code = 431) EOSINOPHILS RELATIVE PERCENT 1 % (BEAKER) (test code = 432) BASOPHILS RELATIVE PERCENT 1 % (BEAKER) (test code = 437) NEUTROPHILS ABSOLUTE COUNT 4.66 K/ L 1.56-6.13 (BEAKER) (test code = 670) LYMPHOCYTES ABSOLUTE COUNT 0.84 K/ L 1.18-3.74 L (BEAKER) (test code = 414) MONOCYTES ABSOLUTE COUNT (BEAKER) 0.63 K/ L 0.24-0.36 H (test code = 415) EOSINOPHILS ABSOLUTE COUNT 0.04 K/ L 0.04-0.36 (BEAKER) (test code = 416) BASOPHILS ABSOLUTE COUNT (BEAKER) 0.04 K/ L 0.01-0.08 (test code = 417) IMMATURE GRANULOCYTES-RELATIVE 0 % 0-1 PERCENT (BEAKER) (test code = 2801) POCT-GLUCOSE [id number] 00:42:00 Test Item Value Reference Range Interpretation Comments POC-GLUCOSE METER 112 mg/dL 70-[address] [facility] 67[address] ([facility]) (test code = MADALYN hZu [facility] 1538) [address] CT, BRAIN, WITHOUT [id number] 00:31:00FINAL REPORT CT, BRAIN, WITHOUT CONTRAST CLINICAL [...] Persistent mucosal thickening of the right maxillary sinus IMPRESSION: 1. Slight incremental increased size of the ventricular system without romulo hydrocephalus. Persistent entrapment of the right temporal horn2. No new intracranial hemorrhage.3. Unchanged appearance of right mesial temporal and occipital intraparenchymal hematoma with intraventricular extent Signed: Ayden Johnson Verified Date/Time: 10/28/2018 00:31:49 Reading Location: [address] Neuro Reading Room -GLUCOSE [id number] 18:01:00 Test Item Value Reference Range Interpretation Comments POC-GLUCOSE METER 104 mg/dL 70-110 TESTED AT [place] [address] ([facility]) (test code = MADALYN Zhu [facility] 1538) [address] RAD, CHEST, 1 VIEW, NON [id number] 15:28:00Reason for exam:->okShould this be performed at [...] airspace disease/consolidation. Signed: Abdulaziz Mccauley Verified Date/Time: 10/27/2018 15:28:09 Reading Location: [address] Transitional Reading Room POCT-GLUCOSE [id number] 12:39:00 Test Item Value Reference Range Interpretation Comments POC-GLUCOSE METER 172 mg/dL 70-110 H TESTED AT [place] [address] ([facility]) (test code = MADALYN Zhu [facility] 1538) [id number] PROTHROMBIN [id number] 09:03:00 Test Item Value Reference Range Interpretation Comments PROTIME ([facility]) (test code = 16.7 seconds 11.7-14.7 H 759) INR ([facility]) (test code = 370) 1.4 <=5.9 RECOMMENDED COUMADIN/WARFARIN INR THERAPY RANGESSTANDARD DOSE: 2.0 - 3.0 Includes: PROPHYLAXIS forvenous thrombosis, systemic embolization; TREATMENT for venous thrombosis and/or pulmonary embolus.HIGH RISK: Target INR is 2.5-3.5 for patients with mechanical heart valves.CBC W/PLT COUNT & AUTO DIFFERENTIAL 2018-10-27 07:28:00 Test Item Value Reference Range Interpretation Comments WHITE BLOOD CELL COUNT (BEAKER) 4.6 K/ L 3.5-10.5 (test code = 775) RED BLOOD CELL COUNT (BEAKER) 3.53 M/ L 3.93-5.22 L (test code = 761) HEMOGLOBIN (BEAKER) (test code = 11.1 GM/DL 11.2-15.7 L 410) HEMATOCRIT (BEAKER) (test code = 33.2 % 34.1-44.9 L 411) MEAN CORPUSCULAR VOLUME (BEAKER) 94.1 fL 79.4-94.8 (test code = 753) MEAN CORPUSCULAR HEMOGLOBIN 31.4 pg 25.6-32.2 (BEAKER) (test code = 751) MEAN CORPUSCULAR HEMOGLOBIN CONC 33.4 GM/DL 32.2-35.5 (BEAKER) (test code = 752) RED CELL DISTRIBUTION WIDTH 12.9 % 11.7-14.4 (BEAKER) (test code = 412) PLATELET COUNT (BEAKER) (test 168 K/CU MM 150-450 code = 756) MEAN PLATELET VOLUME (BEAKER) 11.7 fL 9.4-12.3 (test code = 754) NUCLEATED RED BLOOD CELLS 0 /100 WBC 0-0 (BEAKER) (test code = 413) NEUTROPHILS RELATIVE PERCENT 72 % (BEAKER) (test code = 429) LYMPHOCYTES RELATIVE PERCENT 17 % (BEAKER) (test code = 430) MONOCYTES RELATIVE PERCENT 8 % (BEAKER) (test code = 431) EOSINOPHILS RELATIVE PERCENT 2 % (BEAKER) (test code = 432) BASOPHILS RELATIVE PERCENT 0 % (BEAKER) (test code = 437) NEUTROPHILS ABSOLUTE COUNT 3.32 K/ L 1.56-6.13 (BEAKER) (test code = 670) LYMPHOCYTES ABSOLUTE COUNT 0.80 K/ L 1.18-3.74 L (BEAKER) (test code = 414) MONOCYTES ABSOLUTE COUNT (BEAKER) 0.37 K/ L 0.24-0.36 H (test code = 415) EOSINOPHILS ABSOLUTE COUNT 0.10 K/ L 0.04-0.36 (BEAKER) (test code = 416) BASOPHILS ABSOLUTE COUNT (BEAKER) 0.02 K/ L 0.01-0.08 (test code = 417) IMMATURE GRANULOCYTES-RELATIVE 1 % 0-1 PERCENT (BEAKER) (test code = 2801) POCT-GLUCOSE [id number] 07:13:00 Test Item Value Reference Range Interpretation Comments POC-GLUCOSE METER 111 mg/dL 70-[address] [facility] 67[address] (BEAKER) (test code = [place] 1538) [id number] 04:33:00 Test Item Value Reference Range Interpretation Comments MAGNESIUM (BEAKER) 2.0 mg/dL 1.6-2.6 Specimen slightly (test code = 627) hemolyzed [id number] 04:33:00 Test Item Value Reference Range Interpretation Comments PHOSPHORUS (BEAKER) 3.7 mg/dL 2.3-4.7 Specimen slightly (test code = 604) hemolyzed BASIC METABOLIC [id number] 04:33:00 Test Item Value Reference Range Interpretation Comments SODIUM (BEAKER) 140 meq/L 136-145 (test code = 381) POTASSIUM (BEAKER) 4.1 meq/L 3.5-5.1 Specimen slightly (test code = 379) hemolyzed CHLORIDE (BEAKER) 106 meq/L 98-107 (test code = 382) CO2 (BEAKER) (test 27 meq/L 22-29 code = 355) BLOOD UREA NITROGEN 20 mg/dL 7-21 (BEAKER) (test code = 354) CREATININE (BEAKER) 0.86 mg/dL 0.57-1.25 Specimen slightly (test code = 358) hemolyzed GLUCOSE RANDOM 95 mg/dL 70-105 (BEAKER) (test code = 652) CALCIUM (BEAKER) 9.1 mg/dL 8.4-10.2 (test code = 697) EGFR (BEAKER) (test 69 mL/min/1.73 ESTIMA ANN GFR IS code = 1092) sq m NOT ACCURATE CREATININE CLEARANCE IN PREDICTING GLOMERULAR FILTRATION RATE . ESTIMATED GFR I S NOT APPLICABLE FOR DIALYSIS PATIEN TS. [id number] 04:14:00 Test Item Value Reference Range Interpretation Comments PROTIME (BEAKER) (test code = 18.2 seconds 11.7-14.7 H 759) INR (BEAKER) (test code = 370) 1.5 <=5.9 PARTIAL THROMBOPLASTIN TIME 32.9 seconds 22.5-36.0 (BEAKER) (test code = 760) RECOMMENDED COUMADIN/WARFARIN INR THERAPY RANGESSTANDARD DOSE: 2.0 - 3.0 Includes: PROPHYLAXIS forvenous thrombosis, systemic embolization; TREATMENT for venous thrombosis and/or pulmonary embolus.HIGH RISK: Target INR is 2.5-3.5 for patients with mechanical heart valves.PROTHROMBIN [id number] 04:13:00 Test Item Value Reference Range Interpretation Comments PROTIME (BEAKER) (test code = 18.2 seconds 11.7-14.7 H 759) INR (BEAKER) (test code = 370) 1.5 <=5.9 RECOMMENDED COUMADIN/WARFARIN INR THERAPY RANGESSTANDARD DOSE: 2.0 - 3.0 Includes: PROPHYLAXIS forvenous thrombosis, systemic embolization; TREATMENT for venous thrombosis and/or pulmonary embolus.HIGH RISK: Target INR is 2.5-3.5 for patients with mechanical heart valves.POCT-GLUCOSE [id number] 00:17:00 Test Item Value Reference Range Interpretation Comments POC-GLUCOSE METER 126 mg/dL 70-110 H TESTED AT [place] [address] ([employer]) (test code = [facility] 1538) [id number] PROTHROMBIN [id number] 19:44:00 Test Item Value Reference Range Interpretation Comments PROTIME (MEME) (test code = 19.9 seconds 11.7-14.7 H 759) INR (BEBRIANNE) (test code = 370) 1.7 <=5.9 RECOMMENDED COUMADIN/WARFARIN INR THERAPY RANGESSTANDARD DOSE: 2.0 - 3.0 Includes: PROPHYLAXIS forvenous thrombosis, systemic embolization; TREATMENT for venous thrombosis and/or pulmonary embolus.HIGH RISK: Target INR is 2.5-3.5 for patients with mechanical heart valves.POCT-GLUCOSE [id number] 18:58:00 Test Item Value Reference Range Interpretation Comments POC-GLUCOSE METER 123 mg/dL 70-110 H TESTED AT [place] [address] [facility] (test code = [facility] 1538) [address] MR, BRAIN, [id number] 16:15:00FINAL REPORT MRI Brain with and without [...] suggesting underlying vascular malformation versus tumor. Advise f urther evaluation with catheter directed angiography. Signed: Noe Marin Verified Date/Time: 10/26/2018 16:15:27 Reading Location: [address] Neuro Reading Room POCT-GLUCOSE [id number] 12:05:00 Test Item Value Reference Range Interpretation Comments POC-GLUCOSE METER 118 mg/dL 70-[address] [facility] [address] ([facility]) (test code = [place] 1538) [address] HEMOGLOBIN [id number] 10:34:00 Test Item Value Reference Range Interpretation Comments HEMOGLOBIN A1C (MEME) (test code = 5.2 % 4.3-6.1 368) CT, CTANGIO [id number] 08:29:00FINAL REPORT CTA carotids and brain 10/26/2018 [...] underlying tumor and/or arteriovenous malformation. Signed: Noe Marinort Verified Date/Time: 10/26/2018 08:29:52 Reading Location: [address] Neuro Reading Room CT, CAROTID, [id number] 08:29:00FINAL REPORT CTA carotids and brain 10/26/2018 [...] tumor and/or arteriovenous malformation. Signed: Noe Marin MDReport Verified Date/Time: 10/26/2018 08:29:52 Reading Location: [address] Neuro Reading Room POCT-GLUCOSE [id number] 07:22:00 Test Item Value Reference Range Interpretation Comments POC-GLUCOSE METER 114 mg/dL 70-[address] [facility] [address] (BEAKER) (test code = [place] 1538) [address] LIPID [id number] 06:10:00 Test Item Value Reference Range Interpretation Comments TRIGLYCERIDES (BEAKER) (test code = 210 mg/dL 540) CHOLESTEROL (BEAKER) (test code = 191 mg/dL 631) HDL CHOLESTEROL (BEAKER) (test code 38 mg/dL = 976) LDL CHOLESTEROL CALCULATED (BEAKER) 111 mg/dL (test code = 633) Triglyceride Reference Range: Low Risk <150 Borderline 150-199 High Risk 200-499 Very High Risk >=500Cholesterol Reference Range: Low Risk <200 Borderline 200-239 High Risk >240HDL Cholesterol Reference Range: Low Risk >=60 High Risk <40LDL Cholesterol Reference Range: Optimal <100 Near Optimal 100-129 Borderline 130-159 High 160-189 Very High >=190 Once on admission and Daily AM afterwardsOnce on admission and Daily AM afterwardsOnce on admission and Daily AM afterwardsOnce on admission and Daily AM afterwardsHEPATIC FUNCTION [id number] 06:10:00 Test Item Value Reference Range Interpretation Comments TOTAL PROTEIN (BEAKER) (test code = 6.8 gm/dL 6.0-8.3 770) ALBUMIN (BEAKER) (test code = 1145) 4.2 g/dL 3.5-5.0 BILIRUBIN TOTAL (BEAKER) (test code 1.3 mg/dL 0.2-1.2 H = 377) BILIRUBIN DIRECT (BEAKER) (test 0.4 mg/dL 0.1-0.5 code = 706) ALKALINE PHOSPHATASE (BEAKER) (test 57 U/L 40-150 code = 346) AST (SGOT) (BEAKER) (test code = 16 U/L 5-34 353) ALT (SGPT) (BEAKER) (test code = 17 U/L 6-55 347) Once on admission and Daily AM afterwardsOnce on admission and Daily AM afterwardsCOMPREHENSIVE METABOLIC [id number] 06:10:00 Test Item Value Reference Range Interpretation Comments TOTAL PROTEIN 6.8 gm/dL 6.0-8.3 (BEAKER) (test code = 770) ALBUMIN (BEAKER) 4.2 g/dL 3.5-5.0 (test code = 1145) ALKALINE PHOSPHATASE 57 U/L 40-150 (BEAKER) (test code = 346) BILIRUBIN TOTAL 1.3 mg/dL 0.2-1.2 H (BEAKER) (test code = 377) SODIUM (BEAKER) (test 139 meq/L 136-145 code = 381) POTASSIUM (BEAKER) 3.5 meq/L 3.5-5.1 (test code = 379) CHLORIDE (BEAKER) 105 meq/L 98-107 (test code = 382) CO2 (BEAKER) (test 27 meq/L 22-29 code = 355) BLOOD UREA NITROGEN 16 mg/dL 7-21 (BEAKER) (test code = 354) CREATININE (BEAKER) 0.80 mg/dL 0.57-1.25 (test code = 358) GLUCOSE RANDOM 93 mg/dL 70-105 (BEAKER) (test code = 652) CALCIUM (BEAKER) 9.5 mg/dL 8.4-10.2 (test code = 697) AST (SGOT) (BEAKER) 16 U/L 5-34 (test code = 353) ALT (SGPT) (BEAKER) 17 U/L 6-55 (test code = 347) EGFR (BEAKER) (test 75 mL/min/1.73 ESTIMA ANN GFR IS code = 1092) sq m NOT ACCURATE CREATININE CLEARANCE IN PREDICTING GLOMERULAR FILTRATION RATE . ESTIMATED GFR I S NOT APPLICABLE FOR DIALYSIS PATIEN TS. Once on admission and Daily AM afterwardsOnce on admission and Daily AM [id number] 05:35:00 Test Item Value Reference Range Interpretation Comments PHOSPHORUS (BEAKER) (test code = 3.0 mg/dL 2.3-4.7 604) Once on admission and Daily AM afterwardsOnce on admission and Daily AM [id number] 05:35:00 Test Item Value Reference Range Interpretation Comments MAGNESIUM (BEAKER) (test code = 2.1 mg/dL 1.6-2.6 627) Once on admission and Daily AM afterwardsOnce on admission and Daily AM [id number] 05:14:00 Test Item Value Reference Range Interpretation Comments PARTIAL THROMBOPLASTIN TIME 33.6 seconds 22.5-36.0 (BEAKER) (test code = 760) PROTHROMBIN [id number] 05:13:00 Test Item Value Reference Range Interpretation Comments PROTIME (BEAKER) (test code = 21.7 seconds 11.7-14.7 H 759) INR (BEAKER) (test code = 370) 1.9 <=5.9 RECOMMENDED COUMADIN/WARFARIN INR THERAPY RANGESSTANDARD DOSE: 2.0 - 3.0 Includes: PROPHYLAXIS forvenous thrombosis, systemic embolization; TREATMENT for venous thrombosis and/or pulmonary embolus.HIGH RISK: Target INR is 2.5-3.5 for patients with mechanical heart valves.[facility] Dr. Phys: [place] [address] : 1965 Age: 55 SEX:F [phone] Exam Date: 06/25/20 Status: DEP ER Acct: [id number] Loc: [facility] Pt Unit #: [id number] Report #: [id number] CC: Yoandy Causey MD IMAGING SERVICES REPORT Order # Category/Exam [id number] RAD/XR Toe(s) Lt Min 2 View ([id number]): . Results LEFT FOURTH TOE: 06/25/20 Post reduction views show considerable improvement in the alignment of the proximal phalanx fracture. There is now little or no angulation. IMPRESSION: Good reduction of the proximal phalanx fracture. POS: HOME Reported By: TEOFILO WU MD Electronically Signed Date/Time: 06/25/20 2251 Technologist: JESSICA Dictated Date/Time: 06/25/20 1613 Transcribed Date/Time: 06/25/20 1621XR Foot Lt 3 View [facility] Pt Name: YEN RUIZ Dr. Phys: [place] [address] : 1965 Age: 55 SEX:F [phone] Exam Date: 06/25/20 Status: DEP ER Acct: [id number] Loc: [facility] Pt Unit #: [id number] Report #: [id number] CC: Yoandy Causey MD IMAGING SERVICES REPORT Order # Category/Exam [id number] RAD/XR Foot Lt 3 View STANDARD ([id number]): . Results LEFT FOOT THREE VIEWS: 06/25/20 A fracture is presentthrough the proximal phalanx of the fourth toe. There is lateral angulation at the distal portion ofthe fragment. The remainder of the foot appeared intact. A large calcaneal spur was noted and there is calcification or ossification at the insertion of the Achilles tendon. IMPRESSION: Angulated fracture of the left fourth toe. POS: HOME Reported By: TEOFILO WU MD Electronically Signed Date/Time: 06/25/20 3675 Technologist: JESSICA Dictated Date/Time: 06/25/20 5015 Transcribed Date/Time: 06/25/20 8330
--- NOTE | 2020-09-09 14:45 | RAD REPORT ---
EXAM DESCRIPTION: RAD - Chest Single View - 09/09/2020 2:37 pm CLINICAL HISTORY: PRODUCTIVE COUGH Chest pain. COMPARISON: Chest Single View dated 08/28/2018; Chest Single View dated 09/25/2017; Chest Pa And Lat (2 Views) dated 03/22/2016; CHEST SINGLE VIEW dated 12/24/2014 FINDINGS: Portable technique limits examination quality. Elevated right hemidiaphragm is noted, chronic. The lungs are grossly clear. The heart is normal in s ize. Sternotomy wires present. IMPRESSION: No acute intrathoracic process suspected.
--- NOTE | 2020-09-09 15:13 | EDPHYS ---
Physician Documentation [facility] Name: Yen Jackson Age: 55 yrs Sex: Female : 1965 Arrival Date: 09/09/2020 Time: 13:14 Bed 7 Private MD: Srikanth Madison ED Physician Kenneth Solorzano HPI: 09/09 13:49 This 55 yrs old Female presents to ER via Ambulatory with complaints of snw Fever, Nausea/Vomiting, Body Aches. 13:49 This 55 yrs old Female presents to ER via Ambulatory with complaints of snw Fever, Nausea/Vomiting, Body Aches. 13:49 The patient reports fever, not measured (subjective). Onset: The symptoms/episode snw began/occurred suddenly, yesterday. Modifying factors: Recent medications: Other flu vaccine. Associated signs and symptoms: Pertinent positives: chills, decreased appetite, myalgias, nausea, vomiting. Severity of symptoms: At their worst the symptoms were moderate in the emergency department the symptoms are unchanged. The patient has not experienced similar symptoms in the past. sees Dr. Madison. Hx of a. fib, hemorrhagic CVA, aortic valve replacement, on Coumadin. 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: 13:19 LMP N/A - Hysterectomy jd3 Historical: - Allergies: 13:19 Demerol; jd3 13:19 PENICILLINS; jd3 - Home Meds: 16:23 pantoprazole 40 mg Oral TbEC 1 tab 2 times per day [Active]; sotalol 80 mg Oral tab 1 vg1 tab 2 times per day [Active]; warfarin 7 mg Oral tab once daily [Active]; Wellbutrin 100 mg Oral tab 1 tab daily [Active]; - PMHx: 13:19 cervial cancer; Back pain; Atrial Fib; hemangioma; hemmoragic stroke; 10/25/2018; jd3 Hypertension; mechanical heart valve; TIA; Seizures; - PSHx: 13:19 Hysterectomy; aortic anurism repair; mechanical heart valve replacement; jd3 - Immunization history:: Adult Immunizations up to date, Flu vaccine is up to date. - Social history:: Smoking status: Patient reports the use of cigarette tobacco products, smokes one-half pack cigarettes per day. ROS: 13:47 Eyes: Negative for injury, pain, redness, and discharge, ENT: Negative for injury, snw pain, and discharge, Neck: Negative for injury, pain, and swelling. 13:47 Cardiovascular: Negative for chest pain, palpitations, and edema, Respiratory: Negative for shortness of breath, cough, wheezing, and pleuritic chest pain. 13:47 Back: Negative for injury and pain, : Negative for injury, bleeding, discharge, and swelling, MS/Extremity: Negative for injury and deformity, Skin: Negative for injury, rash, and discoloration. 13:47 Psych: Negative for depression, anxiety, suicide ideation, homicidal ideation, and hallucinations. 13:47 Constitutional: Positive for body aches, chills, fatigue, fever, malaise. 13:47 Abdomen/GI: Positive for nausea and vomiting. 13:47 Neuro: Positive for weakness. Exam: 13:36 ECG was reviewed by the Attending Physician. snw 13:47 Head/Face: Normocephalic, atraumatic. Eyes: Pupils equal round and reactive to light, snw extra-ocular motions intact. Lids and lashes normal. Conjunctiva and sclera are non-icteric and not injected. Cornea within normal limits. Periorbital areas with no swelling, redness, or edema. ENT: Nares patent. No nasal discharge, no septal abnormalities noted. Tympanic membranes are normal and external auditory canals are clear. Oropharynx with no redness, swelling, or masses, exudates, or evidence of obstruction, uvula midline. Mucous membranes moist. Neck: Trachea midline, no thyromegaly or masses palpated, and no cervical lymphadenopathy. Supple, full range of motion without nuchal rigidity, or vertebral point tenderness. No Meningismus. Chest/axilla: Normal chest wall appearance and motion. Nontender with no deformity. No lesions are appreciated. 13:47 Respiratory: Lungs have equal breath sounds bilaterally, clear to auscultation and percussion. No rales, rhonchi or wheezes noted. No increased work of breathing, no retractions or nasal flaring. Abdomen/GI: Soft, non-tender, with normal bowel sounds. No distension or tympany. No guarding or rebound. No evidence of tenderness throughout. Back: No spinal tenderness. No costovertebral tenderness. Full range of motion. Skin: Warm, dry with normal turgor. Normal color with no rashes, no lesions, and no evidence of cellulitis. MS/ Extremity: Pulses equal, no cyanosis. Neurovascular intact. Full, normal range of motion. Neuro: Awake and alert, GCS 15, oriented to person, place, time, and situation. Cranial nerves II-XII grossly intact. Motor strength 5/5 in all extremities. Sensory grossly intact. Cerebellar exam normal. Normal gait. 13:47 Constitutional: The patient appears alert, awake, listless, uncomfortable. 13:47 Cardiovascular: Rate: normal, Rhythm: regular, Pulses: strong, Heart sounds: atrial click, Edema: is not appreciated, JVD: is not appreciated. Vital Signs: 13:19 BP 137 / 77; Pulse 76; Resp 20 S; Temp 100.0(O); Pulse Ox 99% on R/A; Weight 95.25 kg jd3 (R); Height 5 ft. 7 in. (170.18 cm) (R); Pain 5/10; 14:00 BP 123 / 69; Pulse 78; Resp 22; Pulse Ox 96% on R/A; vg1 14:30 BP 115 / 66; Pulse 78; Resp 28; Pulse Ox 97% on R/A; vg1 15:47 BP 110 / 59; Pulse 78; Temp 99.0(O); Pulse Ox 97% on R/A; mh5 16:35 BP 113 / 67; Pulse 87; Resp 26; Pulse Ox 99% on R/A; vg1 17:15 BP 137 / 74; Pulse 80; Resp 26; Pulse Ox 99% on R/A; vg1 13:19 Body Mass Index 32.89 (95.25 kg, 170.18 cm) jd3 MDM: 13:24 Patient medically screened. snw 15:14 Data reviewed: vital signs, nurses notes. Data interpreted: Pulse oximetry: on room air snw is 97 %. Interpretation: normal. Counseling: I had a detailed discussion with the patient and/or guardian regarding: the historical points, exam findings, and any diagnostic results supporting the discharge/admit diagnosis, lab results, radiology results, the need for outpatient follow up. 16:19 Physician consultation: Prince Gurinder DAVIS was called at 16:20, was contacted at 16:20, snw regarding admission, to the telemetry unit. 09/09 13:23 Order name: Blood Culture Adult (2) snw 09/09 13:23 Order name: BMP; Complete Time: 15:40 snw 09/09 13:23 Order name: C-Reactive Protein; Complete Time: 15:40 snw 09/09 13:23 Order name: CBC with Diff; Complete Time: 15:21 snw 09/09 13:23 Order name: D-Dimer; Complete Time: 15:21 snw 09/09 13:23 Order name: Ferritin; Complete Time: 15:40 snw 09/09 13:23 Order name: Flu; Complete Time: 16:13 snw 09/09 13:23 Order name: Lactate; Complete Time: 15:24 snw 09/09 13:23 Order name: LFT's; Complete Time: 15:40 snw 09/09 13:23 Order name: Lipase; Complete Time: 15:40 snw 09/09 13:23 Order name: Procalcitonin; Complete Time: 15:16 snw 09/09 13:23 Order name: PT-INR; Complete Time: 15:21 snw 09/09 13:23 Order name: Ptt, Activated; Complete Time: 15:21 snw 09/09 13:23 Order name: Strep; Complete Time: 16:13 snw 09/09 13:23 Order name: Troponin (emerg Dept Use Only); Complete Time: 15:40 snw 09/09 13:23 Order name: Urine Microscopic Only; Complete Time: 16:01 snw 09/09 13:23 Order name: CXR XRAY; Complete Time: 14:47 snw 09/09 15:21 Order name: Echo w/ Doppler [facility] 09/09 15:27 Order name: Urine Dipstick--Ancillary (enter results); Complete Time: 16:01 em1 09/09 15:27 Order name: Urine --Ancillary (enter results); Complete Time: 16:01 em1 09/09 16:12 Order name: Throat Culture EDKY 09/09 16:24 Order name: CT Chest, Abdomen, Pelvis - W/Contrast w 09/09 17:19 Order name: CT; Complete Time: 17:45 EDMS 09/09 17:21 Order name: SARS-COV-2 RT PCR; Complete Time: 17:45 EDMS 09/09 13:23 Order name: EKG; Complete Time: 13:24 snw 09/09 13:23 Order name: Cardiac monitoring; Complete Time: 13:40 snw 09/09 13:23 Order name: Droplet/Contact Precautions; Complete Time: 15:34 snw 09/09 13:23 Order name: EKG - Nurse/Tech; Complete Time: 13:40 snw 09/09 13:23 Order name: IV Start; Complete Time: 18:14 snw 09/09 13:23 Order name: Labs collected and sent; Complete Time: 18:14 snw 09/09 13:23 Order name: O2 Per Protocol; Complete Time: 18:13 snw 09/09 13:23 Order name: O2 Sat Monitoring; Complete Time: 18:14 snw 09/09 13:23 Order name: Urine Dipstick-Ancillary (obtain specimen); Complete Time: 18:14 snw 09/09 15:53 Order name: Misc. Order: please document pt's meds in the chart; Complete Time: 16:25 snw EC:36 Rhythm is regular. QRS [place] is Normal. SC interval is normal. T waves are Inverted in snw leads aVR, V1, V2. Clinical impression: NSR w/ Non-specific ST/T Changes. Administered Medications: 15:12 Drug: NS 0.9% 1000 ml Route: IV; Rate: 1 bolus; Site: left wrist; aa5 17:15 Follow up: IV Intake: 1000ml vg1 15:12 Drug: Phenergan 12.5 mg Route: IVP; Site: left wrist; aa5 17:16 Follow up: Response: No adverse reaction; Nausea is decreased vg1 15:52 CANCELLED (Physician Discretion): Rocephin - (cefTRIAXone) 2 grams IVPB once over 30 aa5 mins; (mix in 100 mL NS) 16:11 Drug: NS 0.9% 1000 ml Route: IV; Rate: 1 bolus; Site: left hand; vg1 17:48 Follow up: IV Intake: 1000ml vg1 16:11 Drug: Rocephin 2 grams Route: IV; Rate: calculated rate; Site: left hand; vg1 17:17 Follow up: Response: No adverse reaction vg1 18:13 Follow up: Response: No adverse reaction vg1 16:12 Drug: Zithromax 500 mg Route: IVPB; Infused Over: 1 hrs; Site: left hand; vg1 17:49 Follow up: Response: No adverse reaction; IV Intake: 250ml vg1 Disposition: 18:28 Co-signature as Attending Physician, Kenneth Solorzano MD I agree with the assessment and kdr plan of care. Disposition: 09/09/20 16:21 Hospitalization ordered by Prince Gurinder for Inpatient Admission. Preliminary diagnosis are Bacteremia, Fever, unspecified. - Bed requested for Telemetry/MedSurg (Inpatient). - Status is Inpatient Admission. vg1 - Condition is Stable. - Problem is new. - Symptoms are unchanged. Signatures: Dispatcher MedHo EDKY Kinza Acosta, RN YVES dw Kenneth Solorzano MD MD kdr Waters, Shelly, COLLAR TRIMMER-C COLLAR TRIMMER-Bibiana Jacinto, RN RN aa5 Edmund Diez, RN RN jd3 Jossy Roque, RN RN vg1 Corrections: (The following items were deleted from the chart) 15:14 15:12 09/09/2020 15:12 Discharged to Home. Impression: Viral infection, unspecified. snw Condition is Stable. Forms are Medication Reconciliation Form, Thank You Letter, Antibiotic Education, Prescription Opioid Use. Follow up: Emergency Department; When: As needed; Reason: Worsening of condition. Follow up: Srikanth Madison; When: 1 week; Reason: Recheck today's complaints, Continuance of care, Re-evaluation by your physician. snw 15:52 15:18 Rocephin - (cefTRIAXone) 2 grams IVPB once over 30 mins; (mix in 100 mL NS) aa5 ordered. snw 15:52 15:52 Rocephin - (cefTRIAXone) 2 grams IVPB once over 30 mins; (mix in 100 mL NS) aa5 ordered. aa5 16:18 13:24 CORONAVIRUS+MR.LAB.BRZ ordered. [facility] 16:29 16:21 Hospitalization Ordered by Prince Gurinder DAVIS for Inpatient Admission. Preliminary dw diagnosis is Bacteremia; Fever, unspecified. Bed requested for Telemetry/MedSurg (Inpatient). Status is Inpatient Admission. Condition is Stable. Problem is new. Symptoms are unchanged. snw 17:58 16:29 09/09/2020 16:21 Hospitalization Ordered by Prince Gurinder DAVIS for Inpatient vg1 Admission. Preliminary diagnosis is Bacteremia; Fever, unspecified. Bed requested for Telemetry/MedSurg (Inpatient). Status is Inpatient Admission. Condition is Stable. Problem is new. Symptoms are unchanged. dw
--- NOTE | 2020-09-09 15:13 | ER ---
Nurse's Notes [facility] Name: Yen Jackson Age: 55 yrs Sex: Female : 1965 Arrival Date: 09/09/2020 Time: 13:14 Bed 7 Private MD: Srikanth Madison Diagnosis: Bacteremia;Fever, unspecified Presentation: 09/09 13:16 Chief complaint: Patient states: "I got my flu shot yesterday and since then I have jd3 gotten more and more body aches and just can't keep anything down even with Zofran.". Coronavirus screen: cough unrelated to allergies, fatigue, muscle pain, Client presents with at least one sign or symptom that may indicate coronavirus-19. Standard/surgical mask placed on the client. Provider contacted for isolation considerations. Ebola Screen: Patient negative for fever greater than or equal to 101.5 degrees Fahrenheit, and additional compatible Ebola Virus Disease symptoms. Initial Sepsis Screen: Does the patient meet any 2 criteria? No. Patient's initial sepsis screen is negative. Does the patient have a suspected source of infection? No. Patient's initial sepsis screen is negative. Risk Assessment: Do you want to hurt yourself or someone else? Patient reports no desire to harm self or others. Onset of symptoms was September 09, 2020. 13:16 Method Of Arrival: Ambulatory jd3 13:16 Acuity: MONA 3 jd3 YARD CLERK: 13:19 LMP N/A - Hysterectomy jd3 Historical: - Allergies: 13:19 Demerol; jd3 13:19 PENICILLINS; jd3 - Home Meds: 16:23 pantoprazole 40 mg Oral TbEC 1 tab 2 times per day [Active]; sotalol 80 mg Oral tab 1 vg1 tab 2 times per day [Active]; warfarin 7 mg Oral tab once daily [Active]; Wellbutrin 100 mg Oral tab 1 tab daily [Active]; - PMHx: 13:19 cervial cancer; Back pain; Atrial Fib; hemangioma; hemmoragic stroke; 10/25/2018; jd3 Hypertension; mechanical heart valve; TIA; Seizures; - PSHx: 13:19 Hysterectomy; aortic anurism repair; mechanical heart valve replacement; jd3 - Immunization history:: Adult Immunizations up to date, Flu vaccine is up to date. - Social history:: Smoking status: Patient reports the use of cigarette tobacco products, smokes one-half pack cigarettes per day. Screenin:00 Abuse screen: Denies threats or abuse. Nutritional screening: No deficits noted. vg1 Tuberculosis screening: No symptoms or risk factors identified. Fall Risk No secondary diagnosis (0 pts). IV access (20 points). Ambulatory Aid- None/Bed Rest/Nurse Assist (0 pts). Gait- Normal/Bed Rest/Wheelchair (0 pts) Mental Status- Oriented to own ability (0 pts). Total Thomas Fall Scale indicates No Risk (0-24 pts). Assessment: 14:00 General: Appears uncomfortable, Behavior is calm, cooperative. Pain: Quality of pain is vg1 described as aching, dull, Pain began yesterday. Patient stated whole body is in pain. Rated luciano 5/10 Noted to be grimacing. Neuro: Level of Consciousness is awake, alert, obeys commands, Oriented to person, place, time, situation. Cardiovascular: Reports has a mechanical valve. Capillary refill < 3 seconds in bilateral fingers Patient's skin is warm and dry. Respiratory: Airway is patent Respiratory effort is even, unlabored, Respiratory pattern is regular, symmetrical, tachypnea Breath sounds are clear bilaterally. GI: Reports diarrhea, vomiting, since this morning. : No signs and/or symptoms were reported regarding the genitourinary system. EENT: No signs and/or symptoms were reported regarding the EENT system. Derm: Skin is pink, warm \\T\\ dry. Musculoskeletal: Range of motion: intact in all extremities, Reports feels weak. 15:12 Reassessment: Patient is alert, oriented x 3, equal unlabored respirations, skin aa5 warm/dry/pink. Pt notified of wait time for lab results. Lights dimmed for comfort. . 16:23 Reassessment: No changes from previously documented assessment. Patient is alert, vg1 oriented x 3, equal unlabored respirations, skin warm/dry/pink. Patient in bed resting with eyes closed, denies any concerns at this time. 17:14 Reassessment: No changes from previously documented assessment. Patient is alert, vg1 oriented x 3, equal unlabored respirations, skin warm/dry/pink. Resting in bed, denies any concerns at this time. 17:45 Reassessment: Gave report to Radha MARINELLI. vg1 17:52 Reassessment: Meropenem and Vancomycin sent with patient to room 229. Receiving nurse vg1 notified. Vital Signs: 13:19 BP 137 / 77; Pulse 76; Resp 20 S; Temp 100.0(O); Pulse Ox 99% on R/A; Weight 95.25 kg jd3 (R); Height 5 ft. 7 in. (170.18 cm) (R); Pain 5/10; 14:00 BP 123 / 69; Pulse 78; Resp 22; Pulse Ox 96% on R/A; vg1 14:30 BP 115 / 66; Pulse 78; Resp 28; Pulse Ox 97% on R/A; vg1 15:47 BP 110 / 59; Pulse 78; Temp 99.0(O); Pulse Ox 97% on R/A; mh5 16:35 BP 113 / 67; Pulse 87; Resp 26; Pulse Ox 99% on R/A; vg1 17:15 BP 137 / 74; Pulse 80; Resp 26; Pulse Ox 99% on R/A; vg1 13:19 Body Mass Index 32.89 (95.25 kg, 170.18 cm) j ED Course: 13:14 Patient arrived in ED. ag5 13:14 Srikanth Madison MD is Private Physician. ag5 13:17 Triage completed. jd3 13:21 Arm band placed on. jd3 13:24 Kenneth Solorzano MD is Attending Physician. snw 13:24 Edelmira Webster FNP-C is [facility]. snw 13:25 Jossy Roque, RN is Primary Nurse. vg1 13:52 Patient has correct armband on for positive identification. Placed in gown. Bed in low mh5 position. Call light in reach. Side rails up X 1. Warm blanket given. monitor and storage bin tender on. Pulse ox on. NIBP on. 13:52 EKG done, by ED staff, reviewed by Kenneth Solorzano MD. mh5 14:37 CXR XRAY In Process Unspecified. EDMS 14:45 First set of blood cultures drawn by me. Initial lab(s) drawn, by me, sent to lab. aa5 Missed attempt(s): 20 gauge in left antecubital area. Bleeding controlled, band aid applied, catheter tip intact. 14:57 Inserted saline lock: 20 gauge in left wrist, using aseptic technique. aa5 14:57 Second set of blood cultures drawn by me. aa5 15:12 Srikanth Madison MD is Referral Physician. snw 16:21 Prince Fairchild MD is Hospitalizing Provider. snw 16:45 Patient moved to HI via stretcher. vg1 16:59 Patient moved back from HI. vg1 17:03 Consulted physician to see patient. vg1 17:08 Consulted physician to see patient. vg1 17:49 No provider procedures requiring assistance completed. Patient admitted, IV remains in vg1 place. Administered Medications: 15:12 Drug: NS 0.9% 1000 ml Route: IV; Rate: 1 bolus; Site: left wrist; aa5 17:15 Follow up: IV Intake: 1000ml vg1 15:12 Drug: Phenergan 12.5 mg Route: IVP; Site: left wrist; aa5 17:16 Follow up: Response: No adverse reaction; Nausea is decreased vg1 15:52 CANCELLED (Physician Discretion): Rocephin - (cefTRIAXone) 2 grams IVPB once over 30 aa5 mins; (mix in 100 mL NS) 16:11 Drug: NS 0.9% 1000 ml Route: IV; Rate: 1 bolus; Site: left hand; vg1 17:48 Follow up: IV Intake: 1000ml vg1 16:11 Drug: Rocephin 2 grams Route: IV; Rate: calculated rate; Site: left hand; vg1 17:17 Follow up: Response: No adverse reaction vg1 18:13 Follow up: Response: No adverse reaction vg1 16:12 Drug: Zithromax 500 mg Route: IVPB; Infused Over: 1 hrs; Site: left hand; vg1 17:49 Follow up: Response: No adverse reaction; IV Intake: 250ml vg1 Intake: 17:15 IV: 1000ml; Total: 1000ml. vg1 17:48 IV: 1000ml; Total: 2000ml. vg1 17:49 IV: 250ml; Total: 2250ml. vg1 Outcome: 15:12 Discharge ordered by . snw 16:21 Decision to Hospitalize by Provider. snw 17:49 Admitted to [facility] accompanied by tech, via wheelchair, room 229, with chart, Report vg1 called to Radha MARINELLI 17:49 Condition: good 17:49 Instructed on the need for admit. 17:58 Patient left the ED. vg1 Signatures: Dispatcher [employer] EDEdelmira Dasilva, HAMPER MAKERShannonC HAMPER MAKER-Csnw Bibiana Bedolla, RN RN aa5 La Schultz 5 Edmund Diez RN RN jd3 Diane Mondragon 5 Jossy Roque RN RN vg1 Corrections: (The following items were deleted from the chart) 13:22 13:19 Pulse 76bpm; Resp 20bpm; Spontaneous; Pulse Ox 99% RA; Temp 100.0F Oral; 95.25 kg jd3 Reported; Height 5 ft. 7 in. Reported; BMI: 32.8; Pain 5/10; jd3 16:13 14:00 Cardiovascular: Capillary refill < 3 seconds in bilateral fingers Patient's skin vg1 is warm and dry. vg1
[2020-09-09 15:14] LABS: Absolute Lymphocytes (CBC) 0.7 K/uL (0.7-4.9); Basophils % 0.7 % (0-1.3); Hematocrit 36.6 % (36.0-45.0); Lymphocytes % 9.2 % (15.3-44.8); RBC Red Blood Cell Count 4.02 M/uL (3.86-4.86)
[2020-09-09 15:18] LABS: Protime INR 3.56
[2020-09-09] MEDS ORDERED: NA CHLORIDE 0.9% 1,000 ML ONE ×2 (15:23→15:50)
[2020-09-09] MEDS ORDERED: PROMETHAZINE INJ 25 MG/ML AMP ONE (15:23)
[2020-09-09 15:39] LABS: ALT/SGPT 50 U/L (12-78); AST/SGOT 30 U/L (15-37); Albumin 3.9 g/dL (3.4-5.0); Alkaline Phosphatase 70 U/L (45-117); BUN Blood Urea Nitrogen 14 mg/dL (7-18); Bicarbonate 29 mmol/L (21-32); Bilirubin Direct 0.2 mg/dL (0-0.2); Bilirubin Total 0.8 mg/dL (0.2-1.0); Ferritin 119.1 ng/mL (8-388); Glucose Level 96 mg/dL (74-106); Lipase 78 U/L (73-393); Potassium 3.8 mmol/L (3.5-5.1); Protein, Total 7.2 g/dL (6.4-8.2); Sodium Level 141 mmol/L (136-145); Troponin (Emerg Dept Use Only) < 0.02 ng/mL (0.0-0.045)
[2020-09-09] MEDS ORDERED: CEFTRIAXONE/SWI 1gm 2 GM/20 ML SYR ONE (15:50)
[2020-09-09 16:00] LABS: Urine Bacteria <20 /HPF (<20); Urine Culture Reflex Order NOT NEEDED; Urine Mucus 1+ /HPF (NONE SEEN)
[2020-09-09 16:00] LABS: Urine Blood TRACE (NEG); Urine Glucose NEGATIVE (NEG); Urine Protein NEGATIVE (NEG)
[2020-09-09] MEDS ORDERED: AZITHROMYCIN IV 500 MG in NA CHLORIDE 0.9% 250 ML IVPB ONE (16:00)
[2020-09-09] MEDS ORDERED: VANCOMYCIN 1.5 GM in NA CHLORIDE 0.9% 500 ML IVPB ONE (17:00)
[2020-09-09] MEDS ORDERED: Meropenem 1,000 MG in NA CHLORIDE 0.9% 100 ML IV ONE (17:00)
--- NOTE | 2020-09-09 17:17 | RAD REPORT ---
EXAM DESCRIPTION: CT - Chest Abdomen Pelvis W Cont - 09/09/2020 4:56 pm CLINICAL HISTORY: Chest and abdomen pain. sepsis COMPARISON: No comparisons TECHNIQUE: Approximately 100 mL nonionic IV contrast was administered to the patient. All CT scans are performed using dose optimization technique as appropriate and may include automated exposure control or mA/KV adjustment according to patient size. FINDINGS: The right hemidiaphragm is elevated with atelectasis in the right lung base.The lungs are otherwise clear.No pleural or pericardial effusion.No intrathoracic adenopathy. Mild diffuse fatty liver is present. Small area of fatty sparing likely present in the right lobe pos teriorly. The spleen, pancreas, adrenal glands and right kidney are unremarkable. 6 mm stone is prese nt in the superior pole left kidney. No bowel obstruction, free air, free fluid or abscess. The appendix is not identified as a discrete s tructure, however, no secondary findings of appendicitis are identified. Sigmoid diverticulosis coli is present without diverticulitis. No pathologic lymphadenopathy in the abdomen or pelvis. No worrisome osseous finding. IMPRESSION: Mild diffuse fatty liver. 6 mm stone superior pole left kidney. Elevated right hemidiaphragm with atelectasis in the right lung base. Sigmoid diverticulosis coli without diverticulitis.
--- NOTE | 2020-09-09 17:22 | P.HP ---
Certification for Inpatient Patient admitted to: Inpatient With expected LOS: >2 Midnights Practitioner: I am a practitioner with admitting privileges, knowledge of patient current condition, hospital course, and medical plan of care. Services: Services provided to patient in accordance with Admission requirements found in Title 42 Section 412.3 of the Code of Federal Regulations Patient History Date of Service: 09/09/20 Reason for admission: Fever, chills, vomiting and diarrhea History of Present Illness: Patient is a 55-year-old female with a past medical history of uterine cancer status post hysterectomy at age 26, bicuspid aortic valve status post aortic valve replacement with a mechanical valve 9 years ago, dilated ascending aorta status post repair in 2011, hemorrhagic CVA 1 year ago, and atrial fibrillation s/p ablation. She is on warfarin. She presents to the ER complaining of an acute onset of fever, malaise, and chills since the morning of admission. Her symptoms progressed with nausea, vomiting and diarrhea. She denies any abdominal pain, dysuria, cough. Patient has been in her usual state of health until today. She has not had any major change to her date today a routine until yesterday evening when she received her vaccination for. Allergies meperidine HCl [From Demerol] Allergy (Intermediate, Verified 12/23/14 04:36) UNKNOWN Penicillins Allergy (Intermediate, Verified 12/23/14 04:36) UNKNOWN Home Medications: Pantoprazole [Protonix Tab*] 40 mg PO BID #60 tab 12/24/14 Bupropion *Xl* [Wellbutrin XL*] 150 mg PO DAILY 08/28/18 Sotalol HCl [Betapace*] 40 mg PO DAILY 08/28/18 Warfarin Sodium [Coumadin*] 8 mg PO DAILY 08/28/18 - Past Medical/Surgical History Diabetic: No -: CERVICAL CA -: AFIB -: HIGH CHOLESTEROL -: TIA x2 -: TRIPLE AAA -: FORMER SMOKER -: EARLY ONSET DEMENTIA (FAMILY QUESTIONS DIAGNOSIS) -: HYSTERECTOMY WITH REMOVAL OF APPENDIX -: Mitral valve repair -: Ascending aortic aneurysm repair - Family History Father -: Heart disease Mother -: Heart disease, Diabetes Sister -: Heart disease Brother -: Heart disease - Social History Alcohol use: Yes CD- Drugs: No Caffeine use: Yes Physical Examination - Physical Exam General: Cooperative, Acute distress, Mild distress, Obese, Other (lethargic) HEENT: Atraumatic, Normocephalic, EOMI Neck: Supple Respiratory: Clear to auscultation bilaterally, Normal air movement Cardiovascular: No edema, Normal pulses, Regular rate/rhythm, Normal S1 S2 Gastrointestinal: Normal bowel sounds, Soft and benign, Non-distended, No tenderness Musculoskeletal: No clubbing, No swelling, No contractures, No erythema, No tenderness, No warmth Integumentary: No rashes, No breakdown, No significant lesion, No tenderness/swelling, No erythema, No warmth, No cyanosis Neurological: Normal speech, Sensation intact, Normal affect - Studies Laboratory Data (last 24 hrs) 09/09/20 14:44: PT 41.0 H, INR 3.56, APTT 42.4 H 09/09/20 14:44: WBC 7.6, Hgb 12.6, Hct 36.6, Plt Count 182 09/09/20 14:44: Sodium 141, Potassium 3.8, BUN 14, Creatinine 0.91, Glucose 96, Total Bilirubin 0.8, AST 30, ALT 50, Alkaline Phosphatase 70, Lipase 78 Microbiology Data (last 24 hrs): 09/09/20 14:12 Throat Group A Streptococcus Rapid Screen - Final 09/09/20 14:12 Nasopharnyx Influenza Type A Antigen Screen - Final 09/09/20 14:12 Nasopharnyx Influenza Type B Antigen Screen - Final Assessment and Plan - Problems (Diagnosis) (1) H/O mechanical aortic valve replacement Current Visit: Yes Status: Acute (2) Atrial fibrillation Current Visit: Yes Status: Acute (3) Sepsis Current Visit: Yes Status: Acute (4) History of hemorrhagic cerebrovascular accident (CVA) without residual deficits Current Visit: Yes Status: Acute - Advance Directives Does patient have a Living Will: No Does patient have a Durable POA for Healthcare: No Physician Review Additional Text: Assessment A 55-year-old female currently admitted with a constellation of symptoms concerning for a septic syndrome. Suspected sepsis Mechanical aortic valve Atrial fibrillation History of uterine cancer Plan: Admit inpatient with telemetry Sepsis protocol initiated in the ER Follow-up blood cultures and urine cultures Follow-up 2D echo Start empiric treatment with vancomycin and meropenem I expect patient to stay here for at least 2 midnights Resume home dose of sotalol and warfarin
--- NOTE | 2020-09-09 17:35 | P.INFCA ---
Sepsis Focused Assessment - Vital Signs Reviewed: Yes - Examination Heart: Regular rate/rhythm, Murmur Lungs: Clear bilaterally Peripheral pulses: 3+ Normal Capillary refill: <2 Seconds Skin examination: Pale
[2020-09-09] MEDS: Ringers Lactate 1,000 ML IV SCH (18:26)
[2020-09-09] MEDS: ACETAMINOPHEN 325 MG TABLET PO PRN (19:32)
[2020-09-09] MEDS: PIPER/TAZO/NS 3.375gm 3.375 GM/100 ML BAG IVPB SCH (19:35)
[2020-09-09 20:01] VITALS: BMI 34.4
[2020-09-09] MEDS: PANTOPRAZOLE 40MG TABLET PO SCH (21:46)
[2020-09-10] MEDS: PIPER/TAZO/NS 3.375gm 3.375 GM/100 ML BAG IVPB SCH ×3 (00:44→17:26)
[2020-09-10] MEDS: Ringers Lactate 1,000 ML IV SCH ×3 (00:45→17:25)
[2020-09-10] MEDS: PANTOPRAZOLE 40MG TABLET PO SCH ×2 (08:40→20:09)
[2020-09-10] MEDS: SOTALOL HCL 80 MG TAB PO SCH (08:41)
[2020-09-10] MEDS: BUPROPION HCL XL 150 MG TAB PO SCH (08:42)
[2020-09-10] MEDS: ACETAMINOPHEN 325 MG TABLET PO PRN ×2 (08:50→20:06)
--- NOTE | 2020-09-10 12:34 | P.PN ---
Subjective Date of Service: 09/10/20 Chief Complaint: Fever, chills, vomiting and diarrhea Subjective: Improving (Patient is feeling better. Denies any fever, chills, vomiting or diarrhea. She states that she is still feeling lethargic) Physical Examination - Vital Signs Temperature: 98.5 F Blood Pressure: 112/64 Pulse: 69 Respirations: 20 Pulse Ox (%): 93 - Physical Exam General: Obese, Other (lethargic) HEENT: Atraumatic, Normocephalic, EOMI Neck: Supple Respiratory: Clear to auscultation bilaterally, Normal air movement Cardiovascular: No edema, Normal pulses, Regular rate/rhythm, Normal S1 S2 Gastrointestinal: Normal bowel sounds, Soft and benign, Non-distended, No tenderness Musculoskeletal: No clubbing, No swelling, No contractures, No erythema, No tenderness, No warmth Neurological: Normal speech, Sensation intact, Normal affect - Studies Laboratory Data (last 24 hrs) 09/09/20 14:44: PT 41.0 H, INR 3.56, APTT 42.4 H 09/09/20 14:44: WBC 7.6, Hgb 12.6, Hct 36.6, Plt Count 182 09/09/20 14:44: Sodium 141, Potassium 3.8, BUN 14, Creatinine 0.91, Glucose 96, Total Bilirubin 0.8, AST 30, ALT 50, Alkaline Phosphatase 70, Lipase 78 Microbiology Data (last 24 hrs): 09/09/20 14:12 Throat Group A Streptococcus Rapid Screen - Final 09/09/20 14:12 Nasopharnyx Influenza Type A Antigen Screen - Final 09/09/20 14:12 Nasopharnyx Influenza Type B Antigen Screen - Final Assessment & Plan - Problems (Diagnosis) (1) H/O mechanical aortic valve replacement Current Visit: Yes Status: Acute (2) Atrial fibrillation Current Visit: Yes Status: Acute (3) Sepsis Current Visit: Yes Status: Acute (4) History of hemorrhagic cerebrovascular accident (CVA) without residual deficits Current Visit: Yes Status: Acute Physician Review Additional Text: Assessment A 55-year-old female currently admitted with a constellation of sympt oms concerning for a septic syndrome. Her procalcitonin was 54, CRP 27. No localized source. Blood cultures negative to date. She has done well on empiric broad spectrum antibiotics. Suspected sepsis Mechanical aortic valve Atrial fibrillation History of uterine cancer Plan: Continue inpatient with telemetry Follow-up blood cultures and urine cultures Follow-up 2D echo Continue vancomycin and meropenem until blood cultures are finalized Physical therapy and occupational therapy today Continue home dose of sotalol and warfarin
--- NOTE | 2020-09-10 13:01 | ECHO ---
HEIGHT: 5 ft 7 in WEIGHT: 220 lb 0 oz DATE OF STUDY: 09/10/[address]: Edelmira Rodriguez MANAGER TEST-BC 2-DIMENSIONAL: YES M.MODE: YES DOPPLER: YES COLOR FLOW: YES TDS: NO PORTABLE: NO DEFINITY: NO BUBBLE STUDY: NO DIAGNOSIS: SEPSIS, AORTIC VALVE REPLACEMENT CARDIAC HISTORY: CATHERIZATION: NO SURGERY: YES PROSTHETIC VALVE: YES PACEMAKER: NO MEASUREMENTS (cm) DIASTOLIC (NORMALS) SYSTOLIC (NORMALS) IVSd 1.2 (0.6-1.2) LA Diam 3.1 (1.9-4.0) LVEF 61% LVIDd 3.9 (3.5-5.7) LVIDs 2.7 (2.0-3.5) %FS 32% LVPWd 1.2 (0.6-1.2) Ao Diam 2.6 (2.0-3.7) 2 DIMENSIONAL ASSESSMENT: RIGHT ATRIUM: NORAML LEFT ATRIUM: NORMAL RIGHT VENTRICLE: NORMAL LEFT VENTRICLE: NORMAL TRICUSPID VALVE: NOT SEEN WELL MITRAL VALVE: NOT SEEN WELL PULMONIC VALVE: NOT SEEN WELL AORTIC VALVE: NOT SEEN WELL PERICARDIAL EFFUSION: NONE AORTIC ROOT: NORMAL LEFT VENTRICULAR WALL MOTION: NORMAL DOPPLER/COLOR FLOW: NORMAL COMMENTS: NORMAL LEFT VENTRICULAR EJECTION FRACTION 55-60% WITH NORMAL WALL MOTION. POOR WINDOWS, UNABLE TO EVALUATE FOR VEGETATIONS IF CLINICICALLY INDICATED, RECOMMEND BOY. TECHNOLOGIST: Girma BANKS
[2020-09-10] MEDS ORDERED: WARFARIN SODIUM 4 MG TAB PO SCH (17:00)
[2020-09-10] MEDS ORDERED: ROSUVASTATIN 10 MG TAB PO SCH (21:00)
[2020-09-10 23:59] VITALS: O2SAT 97
[2020-09-11] MEDS: PIPER/TAZO/NS 3.375gm 3.375 GM/100 ML BAG IVPB SCH ×2 (00:12→09:31)
[2020-09-11] MEDS ORDERED: ONDANSETRON 4 MG/2 ML VIAL IV PRN (04:08)
[2020-09-11] MEDS: Ringers Lactate 1,000 ML IV SCH (04:13)
[2020-09-11 08:23] VITALS: BP 150/72; TEMP 98
[2020-09-11] MEDS: PANTOPRAZOLE 40MG TABLET PO SCH (09:31)
[2020-09-11] MEDS: SOTALOL HCL 80 MG TAB PO SCH (09:31)
[2020-09-11] MEDS: BUPROPION HCL XL 150 MG TAB PO SCH (09:31)
--- NOTE | 2020-09-11 10:39 | P.DS ---
Admission Date: 09/09/20 Discharge Date: 09/11/20 Disposition: ROUTINE DISCHARGE Discharge Condition: GOOD Reason for Admission: Fever, chills, vomiting and diarrhea - Problems (1) H/O mechanical aortic valve replacement Current Visit: Yes Status: Acute (2) Atrial fibrillation Current Visit: Yes Status: Acute (3) Sepsis Current Visit: Yes Status: Acute (4) History of hemorrhagic cerebrovascular accident (CVA) without residual deficits Current Visit: Yes Status: Acute Brief History of Present Illness: Patient is a 55-year-old female with a past medical history of uterine cancer status post hysterectomy at age 26, bicuspid aortic valve status post aortic valve replacement with a mechanical valve 9 years ago, dilated ascending aorta status post repair in 2011, hemorrhagic CVA 1 year ago, and atrial fibrillation s/p ablation. She is on warfarin. She presents to the ER complaining of an acute onset of fever, malaise, and chills since the morning of admission. Her symptoms progressed with nausea, vomiting and diarrhea. She denies any abdominal pain, dysuria, cough. Patient has been in her usual state of health until today. She has not had any major change to her date today a routine until yesterday evening when she received her vaccination for. Hospital Course: Patient was admitted for sepsis work up. She underwent extensive work up with chest and abdominal imaging. No results could explain her presentation. She, however, responded to empiric antibiotics and IVF infusion. An echocardiogram did not show any vegetation. She has been afebrile for at least 2 days, no source of infection was found. She can be discharged and follow up with her PCP as needed Vital Signs/Physical Exam: Temp Pulse Resp BP Pulse Ox 98.0 F 72 18 150/72 H 94 09/11/20 08:00 09/11/20 08:00 09/11/20 08:00 09/11/20 08:00 09/11/20 08:00 General: In no apparent distress, Obese HEENT: Atraumatic, Normocephalic, EOMI Neck: Supple Respiratory: Clear to auscultation bilaterally, Normal air movement Cardiovascular: No edema, Normal pulses, Regular rate/rhythm, Normal S1 S2, Systolic murmur Gastrointestinal: Normal bowel sounds, Soft and benign, Non-distended, No tenderness Musculoskeletal: No clubbing, No swelling, No contractures, No erythema, No tenderness, No warmth Neurological: Normal speech, Normal affect Laboratory Data at Discharge: WBC 7.6 K/uL (4.3-10.9) 09/09/20 14:44 Hgb 12.6 g/dL (12.0-15.0) 09/09/20 14:44 Hct 36.6 % (36.0-45.0) 09/09/20 14:44 Plt Count 182 K/uL (152-406) 09/09/20 14:44 PT 41.0 SECONDS (9.5-12.5) H 09/09/20 14:44 INR 3.56 09/09/20 14:44 APTT 42.4 SECONDS (24.3-36.9) H 09/09/20 14:44 Sodium 141 mmol/L (136-145) 09/09/20 14:44 Potassium 3.8 mmol/L (3.5-5.1) 09/09/20 14:44 BUN 14 mg/dL (7-18) 09/09/20 14:44 Creatinine 0.91 mg/dL (0.55-1.3) 09/09/20 14:44 Glucose 96 mg/dL (74-106) 09/09/20 14:44 Total Bilirubin 0.8 mg/dL (0.2-1.0) 09/09/20 14:44 AST 30 U/L (15-37) 09/09/20 14:44 ALT 50 U/L (12-78) 09/09/20 14:44 Alkaline Phosphatase 70 U/L (45-117) 09/09/20 14:44 Lipase 78 U/L (73-393) 09/09/20 14:44 Home Medications: Pantoprazole [Protonix Tab*] 40 mg PO BID #60 tab 12/24/14 Bupropion *Xl* [Wellbutrin XL*] 150 mg PO DAILY 08/28/18 Sotalol HCl [Betapace*] 80 mg PO DAILY 08/28/18 Warfarin Sodium [Coumadin*] 7 mg PO DAILY 08/28/18 Rosuvastatin Calcium 40 mg PO BEDTIME 09/09/20 Followup: Srikanth Madison MD [Primary Care Provider] -
== END 2020-09-11 11:12 | disposition home or self-care (01) | DRG 872 ==
LOC: ER 13:12 → ERHOLD 16:20 → 2ND 17:46
PROVIDERS: ADMIT Internal Medicine; ATTEND Internal Medicine
DX: A41.9 Sepsis, unspecified organism (principal); F17.210 Nicotine dependence, cigarettes, uncomplicated; I10 Essential (primary) hypertension; I48.91 Unspecified atrial fibrillation; E66.9 Obesity, unspecified; Z68.34 Body mass index [BMI] 34.0-34.9, adult; Z90.710 Acquired absence of both cervix and uterus; Z88.0 Allergy status to penicillin; Z88.5 Allergy status to narcotic agent; Z79.01 Long term (current) use of anticoagulants; Z79.899 Other long term (current) drug therapy; Z86.73 Personal history of transient ischemic attack (TIA), and cerebral infarction without residual deficits; Z90.49 Acquired absence of other specified parts of digestive tract; Z85.41 Personal history of malignant neoplasm of cervix uteri; Z95.2 Presence of prosthetic heart valve; Z20.828 Contact with and (suspected) exposure to other viral communicable diseases
CPT/HCPCS: 36415; 71045; 71260; 74177; 80048; 80076; 81003; 81015; 81025; 82728; 83605; 83690; 84145; 84484; 85025; 85379; 85610; 85730; 86140; 87040; 87070; 87081; 87804; 93005; 93306; 97116; 97161; 97165; 99285; J0456; J0696; J2185; J2405; J2543; J2550; J3370; J7030; J7040; J7050; J7120; Q9967; U0003

== ENCOUNTER 2020-09-15 05:51 | Emergency (ER) | payer BC ==
--- OUTSIDE RECORDS SUMMARY | 2020-09-15 05:53 | XMS REPORT | Clinical Summary ---
:1965 Author Organization [facility] Address [address] [place] [address] Care Team Providers Name Role Phone Antwan [...] 02/08/2020 Refill Neurology Baudilio Sánchez MD after 09/15/2019 Surgical History Surgery Date Site/Laterality Comments CARDIAC [...] INFLUENZA VACCINE 06/05/2020 Results Not on fileafter 09/15/2019 Advance Directives For more information, please contact: [phone] Type Date Recorded Patient Assembly Inspector Explanati on Advance Directives, Living Will and Medical Power of Photographic Artist Code Status Date Activated Date Inactivated Comments Full Code 05/19/2016 12:26 AM 05/19/2016 11:05 PM Code Status decision reached by: Patient
--- OUTSIDE RECORDS SUMMARY | 2020-09-15 05:53 | XMS REPORT | Clinical Summary ---
:1965 Author Organization [facility] Address [address] [place] [address] Care Team Providers Name Role Phone Unavailable [...] 10/26/2021 10/26/2018, 05/19/2016 Results Not on fileafter 09/15/2019 Insurance Payer Benefit Plan / Subscriber ID Effective Dates Phone Addre ss Type Group BLUE BCBS PPO POS [id number] 2017-Presen [phone] [id number] PPO CROSS/BLUE EPO CHOICE t [facility] [id number] Advance Directives For more information, please contact: [phone] Code Status Date Activated Date Inactivated Comments Full Code 10/28/2018 4:02 PM This code status was determined by: Patient
--- OUTSIDE RECORDS SUMMARY | 2020-09-15 05:55 | XMS REPORT | Continuity of Care Document ---
:1965 Author Organization [facility] t Address [address] [place] [address] Care Team Providers Name Role Phone Antwan Marion MD Primary Care Physician Papo GARZA Attending Clinician Unavailable Saulo Sánchez MD Attending Clinician GOMEZ GUERRERO Attending Clinician Unavail able GOMEZ GUERRERO Admitting Clinician Unavail able Payers Payer Name Policy Type Policy Effective Date Expiration Date [facility] Number BCBSBCBS CHOICE [id number] 2017 [place] PPO/FEDERAL 00:00:00 [employer] EMPL [id number] 2017-Presen tPPO Problems Condition Condition Condition Status [...] [facility] 00 [place] IVH IVH Disease Active 2017-[address] [...] hy 12-27 [facility] 00[facility] 00 [place] Essential Essential Disease Active 2017-[address] hypertensi hypertensi 12-27 Rowena kes - on on 00:00: Medical 00 [place] Acute Acute Disease Active 2017-[address] encephalop encephalop 12-27 Rowena kes - athy athy 00:00: Medical 00 [place] H/O H/O Disease Active 2017-[address] mechanical mechanical 12-27 Rowena kes - aortic aortic 00:00: Medical valve valve 00 Center replacemen replacemen t t Chest pain Chest pain Disease Active [place] 7-15 Methodi 00:00: st 00 PAF PAF Disease Active [place] (paroxysma (paroxysma 7-15 Me thodi l atrial l atrial 00:00: st fibrillati fibrillati 00 on) on) GERD GERD Disease Active [place] (gastroeso (gastroeso 7-15 Me thodi phageal phageal [...] Allergy 12-27 [facility] - 00:[facility]: Medical 00 [place] Meperidi Propensi Active [place] to 7-14 Methodi adverse 00:00: st reaction 00 s to drug Penicill Propensi Active [place] ins ty to 7-14 Methodi adverse 00:00: st reaction 00 s to drug Family History Family Member Diagnosis Comments Start Date Stop Date Source Natural father No Known Problems Marcelo montenegro [facility] Natural mother No Known Problems Marcelo Lucas Social History Social Habit Start Date Stop Date Quantity Comments Source Sex Assigned At [facility] Cigarettes smoked 2018-10-30 2018-10-30 [facility] - current (pack per 00:00:00 [facility] day[facility] - Reported Cigarette 2018-10-30 2018-10-30 JEFFERSON Mayskes - pack-years 00:00:00 00:00:00 [facility] Tobacco use and 2018-10-30 2018-10-30 Never used JEFFERSON Jewell Rowena kes - exposure 00:00:00 00:00:00 [facility] Alcohol intake 2018-10-30 2018-10-30 Current drinker [facility] - 00:00:00 00:00:00 of alcohol [facility] ([facility]) Alcohol Comment 2018-10-26 2018-10-26 Social use JEFFERSON Reads - 00:00:00 00:00:00 [facility] History of tobacco 2018-10-22 Current smoker [facility] - use 00:00:00 [facility] Smoking Status Start Date Stop Date Source Former smoker 2018-10-30 00:00:00 2018-10-30 00:00:00 [facility] Medications Ordered Filled Start Stop Current Ordering [...] s - Test 00:00:00 (procedure) [code = [facility] [id number]] Future Scheduled 2020-07-[address] [facility] - Test 00:00:00 (#1) [code = [facility] INFLUENZA VACCINE (#1)] Future Scheduled 2020-06-05 INFLUENZA VACCINE [place] [facility] Test 00:00:00 [code = INFLUENZA VACCINE] Future Scheduled 2016-02-19 BREAST CANCER [facility] thodist Test 00:00:00 SCREENING [code = BREAST CANCER SCREENING] Future Scheduled 2016-02-19 COLONOSCOPY SCREENING malena [facility] Test 00:00:00 [code = COLONOSCOPY SCREENING] Future Scheduled 2016-02-19 SHINGLES VACCINES [place] [facility] Test 00:00:00 (#1) [code = SHINGLES VACCINES (#1)] Future Scheduled 1987 Screening for [facility] Test 00:00:00 malignant neoplasm of cervix (procedure) [code = 452379823] Future Scheduled [address] [facility] - Test 00:00:00 malignant neoplasm of [facility] cervix (procedure) [code = 319597209] Future Scheduled [address] [facility] - Test 00:00:00 malignant neoplasm of [facility] breast (procedure) [code = 790810267] Future Scheduled [address] [facility] - Test 00:00:00 malignant neoplasm of [facility] colon (procedure) [code = 093249096] Results Test Description Test Time Test Comments Results Result [facility] e Comments CT, BRAIN, 2018-11-07 Reason for FINAL REPORT PATIENT WITHOUT CONTRAST 10:28:00 exam:->IV now ID: [id number] CT therapeutic INR, Head without needs repeatWhat [...] [place] Verified Date/Time: 11/07/2018 10:28:21 Reading Location: [facility] C013V Neuro Reading Room C [...] NOT 1092) ACCURATE CRE ATININE CLEARANCE IN MT EDICTING GLOMERULAR FILT RATION RATE. ESTIMATED GFR IS NOT APPLICABLE FOR DIALYSIS PATIENTS. [id number] 06:17:00 Test Item Value Reference Range Interpretation Comments PARTIAL THROMBOPLASTIN TIME 79.7 seconds 22.5-36.0 H (BEAKER) (test code = 760) While on warfarin.PROTHROMBIN TIME/[id number] 06:15:00 Test Item Value Reference Range Interpretation [...] code = 413) MR, SPINE, LUMBAR, WITHOUT [id number] 03:52:00FINAL REPORT MR Lumbar spine without contrast [...] Noelort Verified Date/Time: 11/07/2018 03:52:32 Reading Location: [facility] C013T Transitional Reading Room APTT 2018-11-06 23:05:00 Test Item Value Reference Range Interpretation Comments PARTIAL THROMBOPLASTIN TIME 61.1 seconds 22.5-36.0 H (BEAKER) (test code = 760) [id number] 14:01:00 Test Item Value Reference Range Interpretation Comments PARTIAL THROMBOPLASTIN TIME 65.3 seconds 22.5-36.0 H (BEAKER) (test code = 760) BASIC METABOLIC [id number] 05:40:00 Test Item Value Reference Range Interpretation [...] S NOT APPLICABLE FOR DIALYSIS PATIEN TS. [id number] 05:20:00 Test Item Value Reference Range Interpretation Comments PARTIAL THROMBOPLASTIN TIME 71.9 seconds 22.5-36.0 H (BEAKER) (test code = 760) While on warfarin.PROTHROMBIN TIME/[id number] 05:18:00 Test Item Value Reference Range Interpretation [...] WBC 0-0 (BEAKER) (test code = 413) [id number] 21:15:00 Test Item Value Reference Range Interpretation Comments PARTIAL THROMBOPLASTIN TIME 64.4 seconds 22.5-36.0 H (BEAKER) (test code = 760) [id number] 15:09:00 Test Item Value Reference Range Interpretation Comments PARTIAL THROMBOPLASTIN TIME 70.8 seconds 22.5-36.0 H (BEAKER) (test code = 760) BASIC METABOLIC [id number] 04:25:00 Test Item Value Reference Range Interpretation [...] S NOT APPLICABLE FOR DIALYSIS PATICHARIS FOSTER [id number] 04:15:00 Test Item Value Reference Range Interpretation Comments PARTIAL THROMBOPLASTIN TIME 82.7 seconds 22.5-36.0 H (BEAKER) (test code = 760) While on warfarin.PROTHROMBIN TIME/[id number] 04:14:00 Test Item Value Reference Range Interpretation [...] WBC 0-0 (BEAKER) (test code = 413) [id number] 17:42:00 Test Item Value Reference Range Interpretation [...] is 2.5-3.5 for patients with mechanical heart valves.PT/[id number] 11:53:00 Test Item Value Reference Range Interpretation [...] WBC 0-0 (BEAKER) (test code = 413) [id number] 06:20:00 Test Item Value Reference Range Interpretation Comments PARTIAL THROMBOPLASTIN TIME 67.1 seconds 22.5-36.0 H (BEAKER) (test code = 760) While on warfarin.PROTHROMBIN TIME/[id number] 06:18:00 Test Item Value Reference Range Interpretation [...] valves.While on warfarin.RAD, SPINE, LUMBAR, COMPLETE, W/ [id number] 15:41:00Reason for exam:->radiculopathyFINAL REPORT Lumbar spine, seven images HISTORY: Radiculopathy COMPARISON: None IMPRESSION:Five lumbar type vertebral bodies. No fracture. No subluxation. No change in alignment on flexion or extension. Soft tissues unremarkable. Minimal degenerative facet changes. Signed: Kenny Centeno MDReport Verified Date/Time: 11/03/2018 15:41:39 Reading Location: [address] Transitional Reading Room [id number] 06:09:00 Test Item Value Reference Range Interpretation Comments PARTIAL THROMBOPLASTIN TIME 52.4 seconds 22.5-36.0 H (BEAKER) (test code = 760) While on warfarin.PROTHROMBIN [id number] 06:08:00 Test Item Value Reference Range Interpretation [...] WBC 0-0 (BEAKER) (test code = 413) [id number] 07:45:00 Test Item Value Reference Range Interpretation Comments PARTIAL THROMBOPLASTIN TIME 59.0 seconds 22.5-36.0 H (BEAKER) (test code = 760) PROTHROMBIN [id number] 05:05:00 Test Item Value Reference Range Interpretation [...] WBC 0-0 (BEAKER) (test code = 413) [id number] 21:44:00 Test Item Value Reference Range Interpretation Comments PARTIAL THROMBOPLASTIN TIME 64.3 seconds 22.5-36.0 H (BEAKER) (test code = 760) [id number] 14:47:00 Test Item Value Reference Range Interpretation Comments POTASSIUM (BEAKER) (test code = 4.2 meq/L 3.5-5.1 379) [id number] 14:47:00 Test Item Value Reference Range Interpretation Comments MAGNESIUM (BEAKER) (test code = 2.3 mg/dL 1.6-2.6 627) [id number] 14:38:00 Test Item Value Reference Range Interpretation Comments PARTIAL THROMBOPLASTIN TIME 60.7 seconds 22.5-36.0 H (BEAKER) (test code = 760) PROTHROMBIN [id number] 14:37:00 Test Item Value Reference Range Interpretation Comments PROTIME (BEAKER) (test code = 14.2 seconds 11.7-14.7 759) INR (BEAKER) (test code = 370) 1.1 <=5.9 RECOMMENDED COUMADIN/WARFARIN INR THERAPY RANGESSTANDARD DOSE: 2.0 - 3.0 Includes: PROPHYLAXIS forvenous thrombosis, systemic embolization; TREATMENT for venous thrombosis and/or pulmonary embolus.HIGH RISK: Target INR is 2.5-3.5 for patients with mechanical heart valves.[id number] 06:33:00 Test Item Value Reference Range Interpretation [...] RED BLOOD CELLS 0 /100 WBC 0-0 (BANNER) (test code = 413) POCT-GLUCOSE [id number] 05:45:00 Test Item Value Reference Range Interpretation Comments POC-GLUCOSE METER 119 mg/dL 70-110 H TESTED AT [place] [address] (BANNER) (test code = [place] 1538) [address] POCT-GLUCOSE [id number] 23:59:00 Test Item Value Reference Range Interpretation Comments POC-GLUCOSE METER 119 mg/dL 70-110 H TESTED AT [place] [address] (BANNER) (test code = [place] 1538) [address] [id number] 23:27:00 Test Item Value Reference Range Interpretation Comments PARTIAL THROMBOPLASTIN TIME 70.3 seconds 22.5-36.0 H (BANNER) (test code = 760) [id number] 15:59:00 Test Item Value Reference Range Interpretation Comments PARTIAL THROMBOPLASTIN TIME 43.5 seconds 22.5-36.0 H (BANNER) (test code = 760) CT, BRAIN, WITHOUT [id number] 13:33:00FINAL REPORT CT head without contrast 10/31/2018 [...] Marin Verified Date/Time: 10/31/2018 13:33:29 Reading Location: [facility] Radiology Reading Room Electr onically signed by: NOE MARIN M.D. on 10/31/2018 01:33 [id number] 04:47:00 Test Item Value Reference Range Interpretation Comments PARTIAL THROMBOPLASTIN TIME 60.3 seconds 22.5-36.0 H (BEAKER) (test code = 760) PROTHROMBIN [id number] 04:45:00 Test Item Value Reference Range Interpretation [...] 0-0 (BEAKER) (test code = 413) POCT-GLUCOSE [id number] 00:15:00 Test Item Value Reference Range Interpretation Comments POC-GLUCOSE METER 125 mg/dL 70-110 H TESTED AT [facility] 67[address] (BEAKER) (test code = [place] 1538) [id number] [place], ANGIOGRAM, [id number] 14:52:00Reason for exam:->IVH, evaluation for cavernomaFINAL REPORT DATE: 10/28/2018 NAME: Ruiz, Yen ATTENDING: Juanpablo Restrepo BROADCAST ENGINEER: Beth Hawkins PREOPERATIVE DIAGNOSIS: Intracerebral Hemorrhage andIntraventricular [...] common femoral artery x1 MATERIALS EMPLOYED:1. 5 Icelandic shortsheath 2. 4 Icelandic Berenstein catheter3. Bentson guidewire4. Terumo 0.035 LT glidewire5. 5 Icelandic Mynx device INDICATIONS:The patient is a 53 year old female with mechanical heart valve on Coumadin whobegan having headaches that were progressive over the course of the day on 10/25/2018. The patient was evaluated and found to have a right 3 cm qcgcaa-ndvaukz-zbnbmxhpi ICH near the atrium lateral ventricle with [...] the puncture site was confirmed, a 5 Icelandic short sheath was inserted over a Bentson wire and was maintained on heparinized saline flush throughout the remainder of the procedure. Using coaxial technique, a preflushed 5 Icelandic Terumo glide catheter on constant heparinized saline [...] removed and hemostasis achieved with a 5 Icelandic Mynx device and manual compression. The patient [...] the ipsilateral PICA, AICAs, SACs and left turntable engineer. No significant right STUNNER [employer] SHACKLER is seen indicating right Pcom. No aneurysms [...] [place] Verified Date/Time: 10/30/2018 14:52:59 Reading Location: [facility] Y018 Neuro Angio Reading Room [id number] 05:08:00 Test Item Value Reference Range Interpretation Comments MAGNESIUM (BEAKER) 2.4 mg/dL 1.6-2.6 Specimen slightly (test code = 627) hemolyzed [id number] 05:08:00 Test Item Value Reference Range Interpretation Comments PHOSPHORUS (BEAKER) 3.6 mg/dL 2.3-4.7 Specimen slightly (test code = 604) hemolyzed BASIC METABOLIC [id number] 05:08:00 Test Item Value Reference Range Interpretation [...] WBC 0-0 (BEAKER) (test code = 413) [id number] 00:59:00 Test Item Value Reference Range Interpretation [...] 2.5-3.5 for patients with mechanical heart valves.PROTHROMBIN [id number] 00:57:00 Test Item Value Reference Range Interpretation Comments PROTIME (BEAKER) (test code = 15.0 seconds 11.7-14.7 H 759) INR (BEAKER) (test code = 370) 1.2 <=5.9 RECOMMENDED COUMADIN/WARFARIN INR THERAPY RANGESSTANDARD DOSE: 2.0 - 3.0 Includes: PROPHYLAXIS forvenous thrombosis, systemic embolization; TREATMENT for venous thrombosis and/or pulmonary embolus.HIGH RISK: Target INR is 2.5-3.5 for patients with mechanical heart valves.POCT-GLUCOSE [id number] 00:08:00 Test Item Value Reference Range Interpretation Comments POC-GLUCOSE METER 110 mg/dL 70-110 TESTED AT [facility] 67[address] (BEAKER) (test code = [place] 1538) [address] CT, BRAIN, WITHOUT [id number] 20:14:00FINAL REPORT CT, BRAIN, WITHOUT CONTRAST CLINICAL [...] MDReport Verified Date/Time: 10/29/2018 20:14:11 Reading Location: [facility] B0F937R Neuro Reading Room [id number] 18:47:00 Test Item Value Reference Range Interpretation Comments POTASSIUM (BEAKER) (test code = 4.2 meq/L 3.5-5.1 379) [id number] 18:47:00 Test Item Value Reference Range Interpretation Comments MAGNESIUM (BEAKER) (test code = 2.5 mg/dL 1.6-2.6 627) [id number] 18:46:00 Test Item Value Reference Range Interpretation [...] 2.5-3.5 for patients with mechanical heart valves.POCT-GLUCOSE [id number] 18:27:00 Test Item Value Reference Range Interpretation Comments POC-GLUCOSE METER 96 mg/dL 70-110 TESTED AT [place] [address] (BANNER) (test code = MADALYN Zhu [facility] [address] 1538) [id number] 13:05:00 Test Item Value Reference Range Interpretation [...] 2.5-3.5 for patients with mechanical heart valves.POCT-GLUCOSE [id number] 13:02:00 Test Item Value Reference Range Interpretation Comments POC-GLUCOSE METER 113 mg/dL 70-110 H TESTED AT [facility] 67 (BANNER) (test code = [facility] [place] 1538) [address] [id number] 07:05:00 Test Item Value Reference Range Interpretation Comments PHOSPHORUS (BEAKER) (test code = 3.0 mg/dL 2.3-4.7 604) [id number] 07:05:00 Test Item Value Reference Range Interpretation Comments MAGNESIUM (BEAKER) (test code = 1.9 mg/dL 1.6-2.6 627) BASIC METABOLIC [id number] 07:05:00 Test Item Value Reference Range Interpretation [...] S NOT APPLICABLE FOR DIALYSIS PATICHARIS FOSTER [id number] 06:57:00 Test Item Value Reference Range Interpretation Comments PARTIAL THROMBOPLASTIN TIME 41.4 seconds 22.5-36.0 H (BEAKER) (test code = 760) CBC W/PLT COUNT & AUTO [id number] 06:37:00 Test Item Value Reference Range Interpretation [...] 0-1 PERCENT (BEAKER) (test code = 2801) [id number] 00:10:00 Test Item Value Reference Range Interpretation Comments PARTIAL THROMBOPLASTIN TIME 26.9 seconds 22.5-36.0 (BEAKER) (test code = 760) Prior to initiating heparinPLATELET [id number] 23:58:00 Test Item Value Reference Range Interpretation Comments PLATELET COUNT (BEAKER) (test 200 K/CU MM 150-450 code = 756) POCT-GLUCOSE [id number] 18:57:00 Test Item Value Reference Range Interpretation Comments POC-GLUCOSE METER 109 mg/dL 70-110 TESTED AT [facility] [address] (BANNER) (test code = MADALYN [place] 1538) [address] POCT-GLUCOSE [id number] 12:37:00 Test Item Value Reference Range Interpretation Comments POC-GLUCOSE METER 104 mg/dL 70-110 TESTED AT [facility] 67[address] (BEAKER) (test code = [place] 1538) [address] CT BRAIN WITHOUT IV CONTRAST - [id number] 11:11:00Reason for exam:- >nausea intracranial bleed and [...] MDReport Verified Date/Time: 10/28/2018 11:11:15 Reading Location: [facility] Radiology Reading Room [id number] 06:37:00 Test Item Value Reference Range Interpretation Comments PHOSPHORUS (BEAKER) (test code = 3.6 mg/dL 2.3-4.7 604) [id number] 06:37:00 Test Item Value Reference Range Interpretation Comments MAGNESIUM (BEAKER) (test code = 2.2 mg/dL 1.6-2.6 627) BASIC METABOLIC [id number] 06:37:00 Test Item Value Reference Range Interpretation [...] PATIEN TS. CBC W/PLT COUNT & AUTO [id number] 05:56:00 Test Item Value Reference Range Interpretation [...] PERCENT (BEAKER) (test code = 2801) POCT-GLUCOSE [id number] 00:42:00 Test Item Value Reference Range Interpretation Comments POC-GLUCOSE METER 112 mg/dL 70-110 H TESTED AT [facility] [address] (BANNER) (test code = MADALYN Zhu [facility] 1538) [address] CT, BRAIN, WITHOUT [id number] 00:31:00FINAL REPORT CT, BRAIN, WITHOUT CONTRAST CLINICAL [...] Johnson Verified Date/Time: 10/28/2018 00:31:49 Reading Location: [address] Neuro Reading Room -GLUCOSE [id number] 18:01:00 Test Item Value Reference Range Interpretation Comments POC-GLUCOSE METER 104 mg/dL 70-110 TESTED AT [place] [address] (BANNER) (test code = MADALYN Zhu [facility] 1538) [address] RAD, CHEST, 1 VIEW, NON [id number] 15:28:00Reason for exam:->okShould this be performed at [...] Mccauley Verified Date/Time: 10/27/2018 15:28:09 Reading Location: [address] Transitional Reading Room POCT-GLUCOSE [id number] 12:39:00 Test Item Value Reference Range Interpretation Comments POC-GLUCOSE METER 172 mg/dL 70-110 H TESTED AT [place] [address] (BANNER) (test code = MADALYN Zhu [facility] 1538) [address] PROTHROMBIN [id number] 09:03:00 Test Item Value Reference Range Interpretation Comments PROTIME (BANNER) (test code = 16.7 seconds 11.7-14.7 H 759) INR (BANNER) (test code = 370) 1.4 <=5.9 RECOMMENDED [...] PERCENT (BEAKER) (test code = 2801) POCT-GLUCOSE [id number] 07:13:00 Test Item Value Reference Range Interpretation Comments POC-GLUCOSE METER 111 mg/dL 70-110 H TESTED AT [facility] 67[address] (BEAKER) (test code = [place] 1538) [address] [id number] 04:33:00 Test Item Value Reference Range Interpretation Comments MAGNESIUM (BEAKER) 2.0 mg/dL 1.6-2.6 Specimen slightly (test code = 627) hemolyzed [id number] 04:33:00 Test Item Value Reference Range Interpretation Comments PHOSPHORUS (BEAKER) 3.7 mg/dL 2.3-4.7 Specimen slightly (test code = 604) hemolyzed BASIC METABOLIC [id number] 04:33:00 Test Item Value Reference Range Interpretation [...] S NOT APPLICABLE FOR DIALYSIS PATIEN TS. [id number] 04:14:00 Test Item Value Reference Range Interpretation [...] 2.5-3.5 for patients with mechanical heart valves.PROTHROMBIN [id number] 04:13:00 Test Item Value Reference Range Interpretation Comments PROTIME (BEAKER) (test code = 18.2 seconds 11.7-14.7 H 759) INR (BEAKER) (test code = 370) 1.5 <=5.9 RECOMMENDED COUMADIN/WARFARIN INR THERAPY RANGESSTANDARD DOSE: 2.0 - 3.0 Includes: PROPHYLAXIS forvenous thrombosis, systemic embolization; TREATMENT for venous thrombosis and/or pulmonary embolus.HIGH RISK: Target INR is 2.5-3.5 for patients with mechanical heart valves.POCT-GLUCOSE [id number] 00:17:00 Test Item Value Reference Range Interpretation Comments POC-GLUCOSE METER 126 mg/dL 70-110 H TESTED AT [place] [address] ([employer]) (test code = [employer] [facility] 1538) [address] PROTHROMBIN [id number] 19:44:00 Test Item Value Reference Range Interpretation Comments PROTIME (MEME) (test code = 19.9 seconds 11.7-14.7 H 759) INR (BEBRIANNE) (test code = 370) 1.7 <=5.9 RECOMMENDED COUMADIN/WARFARIN INR THERAPY RANGESSTANDARD DOSE: 2.0 - 3.0 Includes: PROPHYLAXIS forvenous thrombosis, systemic embolization; TREATMENT for venous thrombosis and/or pulmonary embolus.HIGH RISK: Target INR is 2.5-3.5 for patients with mechanical heart valves.POCT-GLUCOSE [id number] 18:58:00 Test Item Value Reference Range Interpretation Comments POC-GLUCOSE METER 123 mg/dL 70-110 H TESTED AT [place] [address] [facility] (test code = [facility] 1538) [address] MR, BRAIN, [id number] 16:15:00FINAL REPORT MRI Brain with and without [...] Marin Verified Date/Time: 10/26/2018 16:15:27 Reading Location: [address] Neuro Reading Room POCT-GLUCOSE [id number] 12:05:00 Test Item Value Reference Range Interpretation Comments POC-GLUCOSE METER 118 mg/dL 70-110 H TESTED AT [facility] 67[address] (MEME) (test code = [place] 1538) [address] HEMOGLOBIN [id number] 10:34:00 Test Item Value Reference Range Interpretation Comments HEMOGLOBIN A1C (MEME) (test code = 5.2 % 4.3-6.1 368) CT, CTANGIO [id number] 08:29:00FINAL REPORT CTA carotids and brain 10/26/2018 [...] Marinort Verified Date/Time: 10/26/2018 08:29:52 Reading Location: [address] Neuro Reading Room CT, CAROTID, [id number] 08:29:00FINAL REPORT CTA carotids and brain 10/26/2018 [...] MDReport Verified Date/Time: 10/26/2018 08:29:52 Reading Location: [address] Neuro Reading Room POCT-GLUCOSE [id number] 07:22:00 Test Item Value Reference Range Interpretation Comments POC-GLUCOSE METER 114 mg/dL 70-110 H TESTED AT [facility] 67[address] (BEAKER) (test code = [place] 1538) [address] LIPID [id number] 06:10:00 Test Item Value Reference Range Interpretation [...] on admission and Daily AM afterwardsHEPATIC FUNCTION [id number] 06:10:00 Test Item Value Reference Range Interpretation [...] on admission and Daily AM afterwardsCOMPREHENSIVE METABOLIC [id number] 06:10:00 Test Item Value Reference Range Interpretation [...] AM afterwardsOnce on admission and Daily AM [id number] 05:35:00 Test Item Value Reference Range Interpretation Comments PHOSPHORUS (BEAKER) (test code = 3.0 mg/dL 2.3-4.7 604) Once on admission and Daily AM afterwardsOnce on admission and Daily AM [id number] 05:35:00 Test Item Value Reference Range Interpretation Comments MAGNESIUM (BEAKER) (test code = 2.1 mg/dL 1.6-2.6 627) Once on admission and Daily AM afterwardsOnce on admission and Daily AM [id number] 05:14:00 Test Item Value Reference Range Interpretation Comments PARTIAL THROMBOPLASTIN TIME 33.6 seconds 22.5-36.0 (BEAKER) (test code = 760) PROTHROMBIN [id number] 05:13:00 Test Item Value Reference Range Interpretation Comments PROTIME (BEAKER) (test code = 21.7 seconds 11.7-14.7 H 759) INR (BEAKER) (test code = 370) 1.9 <=5.9 RECOMMENDED COUMADIN/WARFARIN INR THERAPY RANGESSTANDARD DOSE: 2.0 - 3.0 Includes: PROPHYLAXIS forvenous thrombosis, systemic embolization; TREATMENT for venous thrombosis and/or pulmonary embolus.HIGH RISK: Target INR is 2.5-3.5 for patients with mechanical heart valves.XR Toe(s) Lt Min 2 [facility]: YEN RUI[place] Dr. Phys: [place] [address] : 1965 Age: 55 SEX:F [phone] Exam Date: 06/25/20 Status: DEP ER Acct: [id number] Loc: [facility] Pt Unit #: [id number] Report #: [id number] CC: Yoandy Causey MD IMAGING SERVICES REPORT Order # Category/Exam [id number] RAD/XR Toe(s) Lt Min 2 View ([id number]): . Results LEFT FOURTH TOE: 06/25/20 Post reduction views show considerable improvement in the alignment of the proximal phalanx fracture. There is now little or no angulation. IMPRESSION: Good reduction of the proximal phalanx fracture. POS: HOME Reported By: TEOFILO WU MD Electronically Signed Date/Time: 06/25/20 2251 Technologist: JESSICA Dictated Date/Time: 06/25/20 1613 Transcribed Date/Time: 06/25/20 1621XR Foot Lt 3 View [facility] Pt Name: YEN RUIZ Dr. Phys: [place] [address] : 1965 Age: 55 SEX:F [phone] Exam Date: 06/25/20 Status: DEP ER Acct: [id number] Loc: [facility] Pt Unit #: [id number] Report #: [id number] CC: Yoandy Causey MD IMAGING SERVICES REPORT Order # Category/Exam [id number] RAD/XR Foot Lt 3 View STANDARD ([id number]): . Results LEFT FOOT THREE VIEWS: 06/25/20 [...] TEOFILO WU MD Electronically Signed Date/Time: 06/25/20 8479 Technologist: JESSICA Dictated Date/Time: 06/25/20 8669 Transcribed Date/Time: 06/25/20 7979
[2020-09-15] MEDS ORDERED: ONDANSETRON 4 MG/2 ML VIAL ONE (06:29)
[2020-09-15] MEDS ORDERED: NA CHLORIDE 0.9% 1,000 ML ONE (06:29)
[2020-09-15] MEDS ORDERED: METOCLOPRAMIDE 10 MG/2mL INJ ONE (06:29)
[2020-09-15 06:58] LABS: Basophils % 1.2 % (0-1.3); Hematocrit 35.6 % (36.0-45.0); Lymphocytes % 17.7 % (15.3-44.8); MPV 9.4 fL (7.6-11.3); RBC Red Blood Cell Count 3.96 M/uL (3.86-4.86)
[2020-09-15 07:01] LABS: Protime INR 1.26
[2020-09-15 07:13] LABS: BUN Blood Urea Nitrogen 18 mg/dL (7-18); Bicarbonate 28 mmol/L (21-32); Glucose Level 107 mg/dL (74-106); Sodium Level 143 mmol/L (136-145); Troponin (Emerg Dept Use Only) < 0.02 ng/mL (0.0-0.045)
--- NOTE | 2020-09-15 07:24 | EKG ---
Test Date: 2020-09-15 Test Time: 06:33:40 Health And Safety Manager: TAD MEASUREMENT RESULTS: Intervals: Rate: 62 CT: 156 QRSD: 90 QT: 482 QTc: 489 Depue: P: 49 CT: 156 QRS: 36 T: 83 INTERPRETIVE STATEMENTS: Normal sinus rhythm Prolonged QT Abnormal ECG Compared to ECG 09/09/2020 13:31:58 Prolonged QT interval now present Electronically Signed On 09-15-20 07:24:17 SPECIAL CLIENT BUS DRIVER by Georgi Alfredo
--- NOTE | 2020-09-15 08:27 | RAD REPORT ---
EXAM DESCRIPTION: CT - Head Brain Wo Cont - 09/15/2020 7:13 am CLINICAL HISTORY: HEADACHE Headache, hypertension, drowsiness COMPARISON: Head Brain Wo Cont dated 04/28/2019; Head Brain Wo Cont dated 11/08/2018 TECHNIQUE: All CT scans are performed using dose optimization technique as appropriate and may inclu de automated exposure control or mA/KV adjustment according to patient size. FINDINGS: No intracranial hemorrhage, hydrocephalus or extra-axial fluid collection.No areas of brai n edema or evidence of midline shift. Small mucous retention cyst or polyp measuring 14 mm is present in the right maxillary antrum. The pa ranasal sinuses and mastoids are otherwise clear. The calvarium is intact. IMPRESSION: No acute intracranial abnormality.
--- NOTE | 2020-09-15 08:32 | RAD REPORT ---
EXAM DESCRIPTION: CT - Head angio - 09/15/2020 7:50 am CLINICAL HISTORY: HEADACHE Headache, drowsiness COMPARISON: Head Brain Wo Cont dated 09/15/2020; Head Brain Wo Cont dated 04/28/2019 TECHNIQUE: CT angiography of the head was performed with MIPs. All CT scans are performed using dose optimization technique as appropriate and may include automated exposure control or mA/KV adjustment according to patient size. FINDINGS: No evidence of aneurysm is detected. No flow-limiting stenosis or vascular malformation id entified. Antegrade flow is seen in the vertebral arteries. The vertebral arteries are codominant. The visualized dural venous sinuses are patent. IMPRESSION: No significant flow abnormality is detected.
--- NOTE | 2020-09-15 08:34 | RAD REPORT ---
EXAM DESCRIPTION: CT - Neck Angio - 09/15/2020 7:50 am CLINICAL HISTORY: HEADACHE Headache, drowsiness COMPARISON: Head C Spine Mpr Wo Con dated 04/08/2017 TECHNIQUE: CT angiography of the neck vessels was performed with MIPs. All CT scans are performed using dose optimization technique as appropriate and may include automated exposure control or mA/KV adjustment according to patient size. FINDINGS: A left aortic arch is identified with normal three vessel configuration of the great vesse ls. No significant flow abnormality is seen of the common carotid bilaterally. No significant stenosis is identified involving the cervical segments of both internal carotid arteri es. Normal flow is seen within both vertebral arteries. Mildly prominent lymph nodes are seen throughout the neck, presumably reactive in nature. Follow-up e xamination could be obtained surveillance of these lymph nodes is felt to be clinically indicated. IMPRESSION: No significant flow abnormality of the neck vessels is identified.
--- NOTE | 2020-09-15 10:14 | ER ---
Nurse's Notes [facility] Name: Yen Jackson Age: 55 yrs Sex: Female : 1965 Arrival Date: 09/15/2020 Time: 05:54 Bed 6 Private MD: Diagnosis: Headache;Essential (primary) hypertension;Coagulation defect, unspecified-subtheraputic inr, mechanical valve Presentation: 09/15 05:50 Chief complaint: EMS states: patient complaining of headache and it felt like the BP is rr5 high. we checked its fluctuating from systolic 180-115 range. she also complaints of nauseous. 05:50 Coronavirus screen: Client denies travel out of the [place] in the last 14 days. At this rr5 time, the client does not indicate any symptoms associated with coronavirus-19. Ebola Screen: Patient negative for fever greater than or equal to 101.5 degrees Fahrenheit, and additional compatible Ebola Virus Disease symptoms Patient denies exposure to infectious person. Patient denies travel to an Ebola-affected area in the 21 days before illness onset. Initial Sepsis Screen: Does the patient meet any 2 criteria? No. Patient's initial sepsis screen is negative. Does the patient have a suspected source of infection? No. Patient's initial sepsis screen is negative. Risk Assessment: Do you want to hurt yourself or someone else? Patient reports no desire to harm self or others. Onset of symptoms was September 15, 2020. 05:50 Method Of Arrival: EMS: [facility] rr5 05:50 Acuity: MONA 3 rr5 05:50 Note patient stated I went to clinic yesterday for follow up from my last Sunday rr5 admission and they prescribed me amlodipine for my BP. Triage Assessment: 05:50 Headache History: Denies prior headaches. General: Appears in no apparent distress. rr5 uncomfortable. Pain: Complains of pain in head Also complains of nausea. 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 rr5 Historical: - Allergies: 05:50 Demerol; rr5 05:50 PENICILLINS; rr5 - Home Meds: 05:50 gabapentin 100 mg Oral cap 1 caps twice a day [Active]; pantoprazole 40 mg Oral TbEC 1 rr5 tab 2 times per day [Active]; sotalol 80 mg Oral tab 1 tab 2 times per day [Active]; warfarin 7 mg Oral tab once daily [Active]; Wellbutrin 100 mg Oral tab 1 tab daily [Active]; amlodipine oral [Active]; - PMHx: 05:50 Atrial Fib; Back pain; cervial cancer; hemangioma; hemmoragic stroke; 10/25/2018; rr5 Hypertension; mechanical heart valve; Seizures; TIA; Kidney stones; - PSHx: 05:50 cardiac valve surgery; rr5 05:50 Hysterectomy; rr5 - Immunization history:: Adult Immunizations up to date. - Social history:: Smoking status: Patient/guardian denies using tobacco, Patient uses street drugs, marijuana. - Family history:: not pertinent. - Hospitalizations: : The patient was recently seen at [facility]. Screenin:58 Abuse screen: Denies threats or abuse. Denies injuries from another. Nutritional rr5 screening: No deficits noted. Tuberculosis screening: No symptoms or risk factors identified. Fall Risk None identified. Total Thomas Fall Scale indicates No Risk (0-24 pts). Assessment: 05:58 General: Appears in no apparent distress. uncomfortable, Behavior is calm, cooperative, rr5 appropriate for age. Pain: Complains of pain in head Pain currently is 9 out of 10 on a pain scale. Quality of pain is described as aching, crushing, Pain began gradually, Is intermittent. Neuro: Level of Consciousness is awake, alert, obeys commands, Oriented to person, place, time, Reports headache. Cardiovascular: Capillary refill < 3 seconds Patient's skin is warm and dry. Respiratory: Airway is patent Respiratory effort is even, unlabored, Respiratory pattern is regular, symmetrical. GI: Reports nausea. : No signs and/or symptoms were reported regarding the genitourinary system. EENT: No signs and/or symptoms were reported regarding the EENT system. Derm: Skin is intact, is healthy with good turgor, Skin temperature is warm. Musculoskeletal: Circulation, motion, and sensation intact. Capillary refill < 3 seconds. 07:31 Reassessment: Patient appears in no apparent distress at this time. Patient and/or ph family updated on plan of care and expected duration. Pain level reassessed. Patient is alert, oriented x 3, equal unlabored respirations, skin warm/dry/pink. Pt ambulated tro restroom w/ steady gait, denies dizziness, reports that headache is still there but has improved, awaiting CT scan, fluids infusing\E\. 07:40 Reassessment: Pt taken to CT via stretcher. ph Vital Signs: 05:50 BP 153 / 85; Pulse 69; Resp 17; Temp 97.5; Pulse Ox 96% ; Weight 97.52 kg; Height 5 ft. rr5 7 in. (170.18 cm); Pain 9/10; 06:33 BP 140 / 83; Pulse 58; Resp 16; Pulse Ox 99% ; rr5 07:32 BP 144 / 78; Pulse 56; Resp 18; Pulse Ox 96% on R/A; ph 08:45 BP 123 / 75; Pulse 61; Resp 18; Pulse Ox 95% on R/A; em 09:14 BP 143 / 69; Pulse 61; Resp 18; Pulse Ox 95% on R/A; zb 05:50 Body Mass Index 33.67 (97.52 kg, 170.18 cm) rr5 [place] Coma Score: 10:10 Eye Response: spontaneous(4). Verbal Response: oriented(5). Motor Response: obeys сергей commands(6). Total: 15. ED Course: 05:54 Patient arrived in ED. rr5 05:56 Triage completed. rr5 05:58 Arm band placed on left wrist. rr5 06:00 Maycol Contreras RN is Primary Nurse. rr5 06:00 Patient has correct armband on for positive identification. Bed in low position. Call rr5 light in reach. Pulse ox on. NIBP on. 06:04 Malcom Jenkins MD is Attending Physician. rn 06:25 Inserted saline lock: 22 gauge in right hand, using aseptic technique. Blood collected. rr5 06:33 EKG done, by ED staff, reviewed by Malcom Jenkins MD. rr5 07:08 Missed attempt(s): 20 gauge in left forearm. 22 gauge in left wrist. Bleeding ds4 controlled, band aid applied, catheter tip intact. 07:10 Inserted saline lock: 20 gauge in left wrist, using aseptic technique. rr5 07:14 CT Head Brain wo Cont In Process Unspecified. EDMS 07:21 Primary Nurse role handed off by Maycol Contreras RN bd 07:29 Attending Physician role handed off by Malcom Jenkins MD сергей 07:29 Johnny Santiago MD is Attending Physician. сергей 07:31 Naz Macias, RN is Primary Nurse. ph 07:50 CT Head Angio In Process Unspecified. EDMS 07:50 CT Neck Angio In Process Unspecified. EDMS 10:11 Tra Tao MD is Referral Physician. сергей 10:11 Georgi Alfredo MD is Referral Physician. сергей 10:42 No provider procedures requiring assistance completed. IV discontinued, intact, em bleeding controlled, No redness/swelling at site. Pressure dressing applied. Administered Medications: 06:25 Drug: Zofran (Ondansetron) 4 mg Route: IVP; Site: right hand; rr5 07:10 Follow up: Response: No adverse reaction; Marked relief of symptoms; Nausea is decreasedem 06:25 Drug: NS 0.9% 500 ml Route: IV; Rate: bolus; Site: right hand; rr5 07:00 Follow up: IV Status: Completed infusion; IV Intake: 500ml em 06:28 Drug: Reglan 10 mg Route: IVP; Site: right hand; rr5 07:10 Follow up: Response: No adverse reaction rr5 10:11 CANCELLED (Duplicate Order): Coumadin 10 mg PO once сергей 10:29 Drug: Coumadin 5 mg Route: PO; em 10:41 Follow up: Response: Medication administered at discharge. em Intake: 07:00 IV: 500ml; Total: 500ml. em Outcome: 10:13 Discharge ordered by . сергей 10:42 Discharged to home ambulatory. em 10:42 Condition: stable 10:42 Discharge instructions given to patient, Instructed on discharge instructions, follow up and referral plans. medication usage, Demonstrated understanding of instructions, follow-up care, medications, Prescriptions given X 2. 10:43 Patient left the ED. em Signatures: Dispatcher [employer] EDMS Sandra Mancia Corey, MD MD cha Munoz, Edgar, RN RN em Malcom Jenkins MD MD rn Swanson, Donovan ds4 Naz Macias RN RN ph Roque, Raymond, RN RN rr5 Ana Gaona RN RN zb
--- NOTE | 2020-09-15 10:14 | EDPHYS ---
Physician Documentation [facility] Name: Yen Jackson Age: 55 yrs Sex: Female : 1965 Arrival Date: 09/15/2020 Time: 05:54 Bed 6 Private MD: KORIN Physician Johnny Santiago HPI: 09/15 06:06 This 55 yrs old Female presents to ER via EMS with complaints of Headache. rn 06:06 The patient complains of pain to the forehead. The patient describes the headache as rn aching. Onset: The symptoms/episode began/occurred just prior to arrival. Associated signs and symptoms: Pertinent positives: nausea, Pertinent negatives: altered mental status, fever, neck stiffness, rash, vision changes, vision loss, vomiting, weakness, vertigo. Severity of symptoms: At its worst the pain was moderate, in the emergency department the pain has improved. Headache History: The patient has had previous headaches and this one is similar to previous episodes. The symptoms are alleviated by nothing. the symptoms are aggravated by nothing. The patient has experienced a previous episode. The patient has been recently seen by a physician:. Reports woke up from sleep with headache, frontal, reports BP running high yesterday, seen by pcp, started on amlodipine and had first dose yesterday afternoon. No chest pain/cough/fever/trauma/abd pain. No urinary symptoms. Reports called 911 because thought BP was elevated and she left her cuff at work. BAILEY improving on its own without therapy. . 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 rr5 Historical: - Allergies: 05:50 Demerol; rr5 05:50 PENICILLINS; rr5 - Home Meds: 05:50 gabapentin 100 mg Oral cap 1 caps twice a day [Active]; pantoprazole 40 mg Oral TbEC 1 rr5 tab 2 times per day [Active]; sotalol 80 mg Oral tab 1 tab 2 times per day [Active]; warfarin 7 mg Oral tab once daily [Active]; Wellbutrin 100 mg Oral tab 1 tab daily [Active]; amlodipine oral [Active]; - PMHx: 05:50 Atrial Fib; Back pain; cervial cancer; hemangioma; hemmoragic stroke; 10/25/2018; rr5 Hypertension; mechanical heart valve; Seizures; TIA; Kidney stones; - PSHx: 05:50 cardiac valve surgery; rr5 05:50 Hysterectomy; rr5 - Immunization history:: Adult Immunizations up to date. - Social history:: Smoking status: Patient/guardian denies using tobacco, Patient uses street drugs, marijuana. - Family history:: not pertinent. - Hospitalizations: : The patient was recently seen at [facility]. ROS: 06:06 Constitutional: Negative for fever, chills, and weight loss, Eyes: Negative for injury, rn pain, redness, and discharge, Neck: Negative for injury, pain, and swelling, Cardiovascular: Negative for chest pain, palpitations, and edema, Respiratory: Negative for cough, wheezing, and pleuritic chest pain, Abdomen/GI: Negative for abdominal pain, diarrhea, and constipation, Back: Negative for injury and pain, : Negative for injury, bleeding, discharge, and swelling, MS/Extremity: Negative for injury and deformity, Skin: Negative for injury, rash, and discoloration, Neuro: Negative for weakness, numbness, tingling, and seizure. Exam: 06:06 Constitutional: This is a well developed, well nourished patient who is awake, alert, rn and in no acute distress. Head/Face: Normocephalic, atraumatic. Eyes: Pupils equal round and reactive to light, extra-ocular motions intact. Lids and lashes normal. Conjunctiva and sclera are non-icteric and not injected. Cornea within normal limits. Periorbital areas with no swelling, redness, or edema. Neck: Supple, full range of motion without nuchal rigidity, No Meningismus. Cardiovascular: Regular rate and rhythm. No pulse deficits. Respiratory: Speaking full sentences. No increased work of breathing, no retractions or nasal flaring. Abdomen/GI: soft, non-tender, no expanding pulsatile mass Skin: Warm, dry MS/ Extremity: Pulses equal, no cyanosis. Neurovascular intact. Full, normal range of motion. Equal circumference. Neuro: Awake and alert, GCS 15, oriented to person, place, time, and situation. Cranial nerves II-XII grossly intact. Motor strength 5/5 in all extremities. Sensory grossly intact. Cerebellar exam normal. Vital Signs: 05:50 BP 153 / 85; Pulse 69; Resp 17; Temp 97.5; Pulse Ox 96% ; Weight 97.52 kg; Height 5 ft. rr5 7 in. (170.18 cm); Pain 9/10; 06:33 BP 140 / 83; Pulse 58; Resp 16; Pulse Ox 99% ; rr5 07:32 BP 144 / 78; Pulse 56; Resp 18; Pulse Ox 96% on R/A; ph 08:45 BP 123 / 75; Pulse 61; Resp 18; Pulse Ox 95% on R/A; em 09:14 BP 143 / 69; Pulse 61; Resp 18; Pulse Ox 95% on R/A; zb 05:50 Body Mass Index 33.67 (97.52 kg, 170.18 cm) rr5 [place] Coma Score: 10:10 Eye Response: spontaneous(4). Verbal Response: oriented(5). Motor Response: obeys сергей commands(6). Total: 15. MDM: 06:04 Patient medically screened. rn 07:09 Transition of care: After a detail discussion of the patient's case, care is rn transferred to Johnny Santiago MD. 07:10 ED course: Pt improved, BP improving, awaiting CT angio head and neck. . rn 10:10 Differential diagnosis: epidural hematoma, hypertensive headache, intracerebral сергей hemorrhage, migraine, neoplasm, sinusitis, subarachnoid bleed, subdural hematoma, temporal arteritis. Data reviewed: vital signs, nurses notes, lab test result(s), EKG, radiologic studies, CT scan, plain films. Data interpreted: environmental monitoring specialist: rate is 61 beats/min, rhythm is regular, Pulse oximetry: on room air is 95 %. Test interpretation: by ED physician or midlevel provider: ECG, plain radiologic studies. Counseling: I had a detailed discussion with the patient and/or guardian regarding: the historical points, exam findings, and any diagnostic results supporting the discharge/admit diagnosis, the presence of at least one elevated blood pressure reading (>120/80) during this emergency department visit, lab results, radiology results, the need for outpatient follow up, for definitive care, a circus roustabout, an program advisor. 09/15 06:05 Order name: CBC with Diff; Complete Time: 10:01 rn 09/15 06:05 Order name: Basic Metabolic Panel; Complete Time: 10: rn 09/15 06:05 Order name: Protime (+inr); Complete Time: 10: rn 09/15 06:05 Order name: Ptt, Activated; Complete Time: 10: rn 09/15 06:05 Order name: Troponin (emerg Dept Use Only); Complete Time: 10: rn 09/15 06:05 Order name: CT Head Brain wo Cont; Complete Time: 10: rn 09/15 06:40 Order name: CT Head Angio; Complete Time: 10: rn 09/15 06:40 Order name: CT Neck Angio; Complete Time: 10: rn 09/15 06:05 Order name: IV Start; Complete Time: 06:34 rn 09/15 06:05 Order name: EKG; Complete Time: 06: rn 09/15 06:05 Order name: EKG - Nurse/Tech; Complete Time: 06:34 rn Administered Medications: 06:25 Drug: Zofran (Ondansetron) 4 mg Route: IVP; Site: right hand; rr5 07:10 Follow up: Response: No adverse reaction; Marked relief of symptoms; Nausea is decreasedem 06:25 Drug: NS 0.9% 500 ml Route: IV; Rate: bolus; Site: right hand; rr5 07:00 Follow up: IV Status: Completed infusion; IV Intake: 500ml em 06:28 Drug: Reglan 10 mg Route: IVP; Site: right hand; rr5 07:10 Follow up: Response: No adverse reaction rr5 10:11 CANCELLED (Duplicate Order): Coumadin 10 mg PO once сергей 10:29 Drug: Coumadin 5 mg Route: PO; em 10:41 Follow up: Response: Medication administered at discharge. em Disposition: 09/15/20 10:13 Discharged to Home. Impression: Headache, Essential (primary) hypertension, Coagulation defect, unspecified - subtheraputic inr, mechanical valve. - Condition is Stable. - Discharge Instructions: Hypertension, Hypertension, Ulta-qf-Tgho, How to Take Your Blood Pressure, Yvjx-lg-Xbwc, General Headache Without Cause, Wqxl-ua-Xbrk, Managing Your Hypertension. - Prescriptions for Norvasc 10 mg Oral Tablet - take 1 tablet by ORAL route once daily; 30 tablet. Coumadin 7.5 mg Oral Tablet - take 1 tablet by ORAL route once daily; 20 tablet. - Medication Reconciliation Form, Thank You Letter, Antibiotic Education, Prescription Opioid Use form. - Follow up: Private Physician; When: 2 - 3 days; Reason: Recheck today's complaints, Continuance of care, Re-evaluation by your physician. Follow up: Tra Tao MD; When: 2 - 3 days; Reason: Recheck today's complaints, Re-evaluation by your physician. Follow up: Georgi Alfredo MD; When: 2 - 3 days; Reason: Recheck today's complaints, Re-evaluation by your physician. - Problem is new. - Symptoms have improved. Signatures: Dispatcher [employer] Johnny Hanna MD MD cha Munoz, Edgar RN RN em Malcom Jenkins MD MD rn Maycol Contreras RN RN rr5 Corrections: (The following items were deleted from the chart) 10:11 10:09 Coumadin 10 mg PO once ordered. сергей сергей 10:30 10:02 Urine Dipstick-Ancillary ordered. сергей em 10:43 10:13 09/15/2020 10:13 Discharged to Home. Impression: Headache; Essential (primary) em hypertension; Coagulation defect, unspecified - subtheraputic inr, mechanical valve. Condition is Stable. Forms are Medication Reconciliation Form, Thank You Letter, Antibiotic Education, Prescription Opioid Use. Follow up: Private Physician; When: 2 - 3 days; Reason: Recheck today's complaints, Continuance of care, Re-evaluation by your physician. Follow up: Tra Tao; When: 2 - 3 days; Reason: Recheck today's complaints, Re-evaluation by your physician. Follow up: Georgi Alfredo; When: 2 - 3 days; Reason: Recheck today's complaints, Re-evaluation by your physician. Problem is new. Symptoms have improved. сергей
[2020-09-15] MEDS ORDERED: WARFARIN SODIUM 5 MG TAB ONE (10:41)
[2020-09-15 12:32] VITALS: O2SAT 95
[2020-09-15 12:34] VITALS: BP 143/69
== END 2020-09-15 10:43 | disposition home or self-care (01) ==
LOC: ER 05:51
DX: I10 Essential (primary) hypertension (principal); D68.8 Other specified coagulation defects; Z95.4 Presence of other heart-valve replacement; I48.91 Unspecified atrial fibrillation; Z86.73 Personal history of transient ischemic attack (TIA), and cerebral infarction without residual deficits; Z79.01 Long term (current) use of anticoagulants; Z88.0 Allergy status to penicillin; Z88.5 Allergy status to narcotic agent; Z85.41 Personal history of malignant neoplasm of cervix uteri
CPT/HCPCS: 93005; 85025; 80048; 36415; 85610; 85730; 84484; 70450; 70496; 70498; Q9967; J2765; J7030; J2405

== ENCOUNTER 2021-03-08 16:19 | Emergency (ER) | payer BC, SELFPAY ==
--- OUTSIDE RECORDS SUMMARY | 2021-03-08 16:23 | XMS REPORT | Continuity of Care Document ---
:1965 Author Organization [facility] t Address [address] [place] [address] Care Team Providers Name Role Phone GOMEZ GUERRERO Attending Clinician Unavail able GOMEZ GUERRERO Admitting Clinician Unavail able Problems Condition Condition Condition Status Onset Resolution Last Treating Co mments Source Name Details Category Date Date Treatment Clinician Date Sciatica Sciatica Disease [facility] side [facility]: Medical 00 [place] Atrial Atrial Disease Active 2017-[address] [facility] [address] fibrillati fibrillati 2- Rowena kes - on on 00:00: Medical 00 [place] Suprathera Suprathera Disease Active 2017-[address] peutic INR peutic INR 2- Rowena kes - 00:00: Medical 00 [place] TIA TIA Disease Active 2017-11 Overview: [facility] (transient (transient 12-29 Rowena kes - ischemic ischemic 00:00: Medica l attack) attack) 00 Center Hemangioma Hemangioma Disease Active 2017-[address] 2-24 [facility] - 00:[facility]: Medical 00 Center IVH IVH Disease Active 2017-[address] [facility] [address] (intravent (intravent 2- Rowena kes - ricular ricular 00:00: Medical hemorrhage hemorrhage 00 Ce nter ) ) Nontraumat Nontraumat Disease Active 2017-[address] ic ic 2- [facility] - subcortica subcortica 00:00: Me dical l l 00 Center hemorrhage hemorrhage of right of right cerebral cerebral hemisphere hemisphere Coagulopat Coagulopat Disease Active 2017-[address] hy hy 2-22 [facility] - 00:00: Medical 00 [place] Essential Essential Disease Active 2017-[address] hypertensi hypertensi 12-27 Rowena kes - on on 00:00: Medical 00 [place] Acute Acute Disease Active 2017-[address] encephalop encephalop 12-27 [facility] kes - athy athy 00:00: Medical 00 [place] H/O H/O Disease Active 2017-[address] mechanical mechanical 12-27 Rowena kes - aortic aortic 00:00: Medical valve valve 00 Center replacemen replacemen t t Allergies, Adverse Reactions, Alerts Allergy Allergy Status Severity Reaction(s) Onset Inactive Treating Comm ents Source Name Type Date Date Clinician Archana Propensi Active Anxiety 2017-11 [facility] 12-27 [facility] - adverse 00:00: Medical reaction 00 Center s Penicill Drug Active Swelling 2017-[address] [facility] ins Allergy 12-27 [facility] - 00:00: Medical 00 [place] Social History Social Habit Start Date Stop Date Quantity Comments Source Sex Assigned At [facility] Rowena kes - [facility] Tobacco use and 2018-10-30 2018-10-30 Never used [facility] Rowena kes - exposure 00:00:00 00:00:00 [facility] Center Alcohol intake 2018-10-30 2018-10-30 Current drinker [facility] S [facility] - 00:[facility]:00 00:00:00 of alcohol [facility] Center (finding) Cigarettes smoked 2018-10-30 2018-10-[address] [facility] - current (pack per 00:00:00 00:00:00 Medical Center day) - Reported Cigarette 2018-10-30 2018-10-30 [facility] - pack-years 00:00:00 00:00:00 [facility] Center Alcohol Comment 2018-10-26 2018-10-[address] [facility] [address] Rowena kes - 00:00:00 00:00:00 Medical Center History of tobacco 2018-10-[address] use [facility] Smoking Status Start Date Stop Date Source Former smoker 2018-10-30 00:00:00 2018-10-30 00:00:[address] [facility] [address] [facility] - [facility] Center Medications Ordered Filled Start Stop Current Ordering Indication Dosage Frequency Signature Comments Components Source Medication Medication Date Date Medication? Clinician (SIG) Name Name warfarin Yes thromboembo 5mg QD Take [address] [facility] [address] (COUMADIN) 1-03 lism due to by mouth [facility] - 5 MG tablet 17:36: prosthetic daily. [facility] 21 heart Center valves pantoprazol 2018- Yes 40mg QD Take [address] e 1-03 by mouth [facility] - (PROTONIX) 17:36: daily. Medic al 40 MG 21 Center tablet buPROPion 2018-0 Yes 150mg QD Take [address] (WELLBUTRIN 1-03 mg by [facility] - XL) 150 MG 17:36: mouth Medica l 24 hr 21 daily. Center tablet sotalol 40 2018-0 Yes 80mg QD Take [address] MG halftab 1-03 by mouth [facility] - half tablet 17:36: daily. [facility] olivia 21 Center Procedures This patient has no known procedures. Plan of Care Planned Activity Planned Date Details Comments Source Future Scheduled 2021-10-[address] - Test 00:00:00 (procedure) [code = [facility] Center 13621099] Future Scheduled 2020-11-[address] [facility] - Test 00:00:00 (12+) [code = [facility] Center DEPRESSION SCREENING (12+)] Future Scheduled 2020-07-[address] [facility] - Test 00:00:00 (#1) [code = [facility] Center INFLUENZA VACCINE (#1)] Future Scheduled 2016-02-19 SHINGLES VACCINES ([address] [facility] - Test 00:00:00 of 2) [code = [facility] Center SHINGLES VACCINES (1 of 2)] Future Scheduled [address] [facility] - Test 00:00:00 [facility] cervix (procedure) [code = 268046079] Future Scheduled 1985 DTAP/TDAP/TD VACCINES [facility] - Test 00:00:00 (1 - Tdap) [code = Medical C enter DTAP/TDAP/TD VACCINES (1 - Tdap)] Future Scheduled 1984-02-19 HEPATITIS C [facility]CRE[facility]ING [facility] - Test 00:00:00 [code = HEPATITIS C Medical Center SCREENING] Future Scheduled [address] [facility] - Test 00:00:00 [facility] breast (procedure) [code = 622105456] Future Scheduled [address] [facility] - Test 00:00:00 malignant neoplasm of Medica l Center colon (procedure) [code = 875779587] Results Test Description Test Time Test Comments Results Result Sour e Comments CT, BRAIN, 2018-11-07 Reason for FINAL REPORT PATIENT WITHOUT CONTRAST 10:28:00 exam:->IVH now ID: [id number] CT therapeutic INR, Head without needs repeatWhat [...] MDReport Verified Date/Time: 11/07/2018 10:28:21 Reading Location: [address] Neuro Reading Room C METABOLIC PANEL 2018-11-07 [...] NOT 1092) ACCURATE CRE ATININE CLEARANCE IN [place] EDICTING GLOMERULAR FILT RATION RATE. ESTIMATED GFR IS NOT APPLICABLE FOR DIALYSIS PATIENTS. [id number] 06:17:00 Test Item Value Reference Range Interpretation Comments PARTIAL THROMBOPLASTIN TIME 79.7 seconds 22.5-36.0 H (BEAKER) (test code = 760) While on warfarin.PROTHROMBIN [id number] 06:15:00 Test Item Value Reference Range Interpretation [...] code = 413) MR, SPINE, LUMBAR, WITHOUT [id number] 03:52:00FINAL REPORT MR Lumbar spine without contrast [...] Annular fissure at L5-S1. Signed: Mary Noel Verified Date/Time: 11/07/2018 03:52:32 Reading Location: [address] Reading Room APTT 2018-11-06 23:05:00 Test Item Value Reference Range Interpretation Comments PARTIAL THROMBOPLASTIN TIME 61.1 seconds 22.5-36.0 H (BEAKER) (test code = 760) [id number] 14:01:00 Test Item Value Reference Range Interpretation Comments PARTIAL THROMBOPLASTIN TIME 65.3 seconds 22.5-36.0 H (BEAKER) (test code = 760) BASIC METABOLIC [id number] 05:40:00 Test Item Value Reference Range Interpretation [...] I S NOT APPLICABLE FOR DIALYSIS PATICHARIS PATTON. [id number] 05:20:00 Test Item Value Reference Range Interpretation Comments PARTIAL THROMBOPLASTIN TIME 71.9 seconds 22.5-36.0 H (BEAKER) (test code = 760) While on warfarin.PROTHROMBIN [id number] 05:18:00 Test Item Value Reference Range Interpretation [...] WBC 0-0 (BEAKER) (test code = 413) [id number] 21:15:00 Test Item Value Reference Range Interpretation Comments PARTIAL THROMBOPLASTIN TIME 64.4 seconds 22.5-36.0 H (BEAKER) (test code = 760) [id number] 15:09:00 Test Item Value Reference Range Interpretation Comments PARTIAL THROMBOPLASTIN TIME 70.8 seconds 22.5-36.0 H (BEAKER) (test code = 760) BASIC METABOLIC [id number] 04:25:00 Test Item Value Reference Range Interpretation [...] S NOT APPLICABLE FOR DIALYSIS PATIEN TS. [id number] 04:15:00 Test Item Value Reference Range Interpretation Comments PARTIAL THROMBOPLASTIN TIME 82.7 seconds 22.5-36.0 H (BEAKER) (test code = 760) While on warfarin.PROTHROMBIN [id number] 04:14:00 Test Item Value Reference Range Interpretation [...] WBC 0-0 (BEAKER) (test code = 413) [id number] 17:42:00 Test Item Value Reference Range Interpretation [...] is 2.5-3.5 for patients with mechanical heart valves.[id number] 11:53:00 Test Item Value Reference Range Interpretation [...] WBC 0-0 (BEAKER) (test code = 413) [id number] 06:20:00 Test Item Value Reference Range Interpretation Comments PARTIAL THROMBOPLASTIN TIME 67.1 seconds 22.5-36.0 H (BEAKER) (test code = 760) While on warfarin.PROTHROMBIN [id number] 06:18:00 Test Item Value Reference Range Interpretation [...] valves.While on warfarin.RAD, SPINE, LUMBAR, COMPLETE, W/ [id number] 15:41:00Reason for exam:->radiculopathyFINAL REPORT Lumbar spine, seven images HISTORY: Radiculopathy COMPARISON: None IMPRESSION:Five lumbar type vertebral bodies. No fracture. No subluxation. No change in alignment on flexion or extension. Soft tissues unremarkable. Minimal degenerative facet changes. Signed: Kenny Centeno MDReport Verified Date/Time: 11/03/2018 15:41:39 Reading Location: [address] Reading Room [id number] 06:09:00 Test Item Value Reference Range Interpretation Comments PARTIAL THROMBOPLASTIN TIME 52.4 seconds 22.5-36.0 H (BEAKER) (test code = 760) While on warfarin.PROTHROMBIN [id number] 06:08:00 Test Item Value Reference Range Interpretation [...] WBC 0-0 (BEAKER) (test code = 413) [id number] 07:45:00 Test Item Value Reference Range Interpretation Comments PARTIAL THROMBOPLASTIN TIME 59.0 seconds 22.5-36.0 H (BEAKER) (test code = 760) PROTHROMBIN [id number] 05:05:00 Test Item Value Reference Range Interpretation [...] WBC 0-0 (BEAKER) (test code = 413) [id number] 21:44:00 Test Item Value Reference Range Interpretation Comments PARTIAL THROMBOPLASTIN TIME 64.3 seconds 22.5-36.0 H (BEAKER) (test code = 760) [id number] 14:47:00 Test Item Value Reference Range Interpretation Comments POTASSIUM (BEAKER) (test code = 4.2 meq/L 3.5-5.1 379) [id number] 14:47:00 Test Item Value Reference Range Interpretation Comments MAGNESIUM (BEAKER) (test code = 2.3 mg/dL 1.6-2.6 627) [id number] 14:38:00 Test Item Value Reference Range Interpretation Comments PARTIAL THROMBOPLASTIN TIME 60.7 seconds 22.5-36.0 H (BEAKER) (test code = 760) PROTHROMBIN [id number] 14:37:00 Test Item Value Reference Range Interpretation Comments PROTIME (BEAKER) (test code = 14.2 seconds 11.7-14.7 759) INR (BEAKER) (test code = 370) 1.1 <=5.9 RECOMMENDED COUMADIN/WARFARIN INR THERAPY RANGESSTANDARD DOSE: 2.0 - 3.0 Includes: PROPHYLAXIS forvenous thrombosis, systemic embolization; TREATMENT for venous thrombosis and/or pulmonary embolus.HIGH RISK: Target INR is 2.5-3.5 for patients with mechanical heart valves.[id number] 06:33:00 Test Item Value Reference Range Interpretation [...] RED CELL DISTRIBUTION WIDTH 12.7 % 11.7-14.4 (AKER) (test code = 412) PLATELET COUNT ([facility]) (test 220 K/CU MM 150-450 code = 756) MEAN PLATELET VOLUME (AKER) 10.9 fL 9.4-12.3 (test code = 754) NUCLEATED RED BLOOD CELLS 0 /100 WBC 0-0 ([facility]) (test code = 413) POCT-GLUCOSE [id number] 05:45:00 Test Item Value Reference Range Interpretation Comments POC-GLUCOSE METER 119 mg/dL 70-[address] [facility] 67 ([facility]) (test code = MADALYN Zhu [facility] 1538) [address] POCT-GLUCOSE [id number] 23:59:00 Test Item Value Reference Range Interpretation Comments POC-GLUCOSE METER 119 mg/dL 70-110 H TESTED AT [place] [address] ([facility]) (test code = MADALYN Zhu [facility] 1538) [address] [id number] 23:27:00 Test Item Value Reference Range Interpretation Comments PARTIAL THROMBOPLASTIN TIME 70.3 seconds 22.5-36.0 H (AKER) (test code = 760) [id number] 15:59:00 Test Item Value Reference Range Interpretation Comments PARTIAL THROMBOPLASTIN TIME 43.5 seconds 22.5-36.0 H ([facility]) (test code = 760) CT, BRAIN, WITHOUT [id number] 13:33:00FINAL REPORT CT head without contrast 10/31/2018 [...] Marin Verified Date/Time: 10/31/2018 13:33:29 Reading Location: [facility] Radiology Reading Room Electr onically signed by: NOE MARIN M.D. on 10/31/2018 01:33 [id number] 04:47:00 Test Item Value Reference Range Interpretation Comments PARTIAL THROMBOPLASTIN TIME 60.3 seconds 22.5-36.0 H (BEAKER) (test code = 760) PROTHROMBIN [id number] 04:45:00 Test Item Value Reference Range Interpretation [...] RED BLOOD CELLS 0 /100 WBC 0-0 (AKER) (test code = 413) POCT-GLUCOSE [id number] 00:15:00 Test Item Value Reference Range Interpretation Comments POC-GLUCOSE METER 125 mg/dL 70-[address] [facility] 6720 ([facility]) (test code = MADALYN Zhu [place] 1538) [address] [place], ANGIOGRAM, [id number] 14:52:00Reason for exam:->IVH, evaluation for cavernomaFINAL REPORT DATE: 10/28/2018 NAME: Yen Ruiz ATTENDING: Juanpablo Restrepo SPORTS COORDINATOR: Beth Hawkins PREOPERATIVE DIAGNOSIS: Intracerebral Hemorrhage andIntraventricular [...] common femoral artery x1 MATERIALS EMPLOYED:1. 5 [employer] shortsheath 2. 4 [place] Berenstein catheter3. Bentson guidewire4. Terumo 0.035 LT glidewire5. 5 [place] Mynx device INDICATIONS:The patient is a 53 year old female with mechanical heart valve on Coumadin whobegan having headaches that were progressive over the course of the day on 10/25/2018. The patient was evaluated and found to have a right 3 cm iejuxt-tzrhcsw-jethzkzbo ICH near the atrium lateral ventricle with [...] the ipsilateral PICA, AICAs, SACs and left area forester. 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 No aneurysms [...] MDReport Verified Date/Time: 10/30/2018 14:52:59 Reading Location: [facility] Y8 Neuro Angio Reading Room [id number] 05:08:00 Test Item Value Reference Range Interpretation Comments MAGNESIUM (BEAKER) 2.4 mg/dL 1.6-2.6 Specimen slightly (test code = 627) hemolyzed [id number] 05:08:00 Test Item Value Reference Range Interpretation Comments PHOSPHORUS (BEAKER) 3.6 mg/dL 2.3-4.7 Specimen slightly (test code = 604) hemolyzed BASIC METABOLIC [id number] 05:08:00 Test Item Value Reference Range Interpretation [...] (BEAKER) (test code = 412) PLATELET COUNT (AKER) (test 188 K/CU MM 150-450 code = 756) MEAN PLATELET VOLUME (BEAKER) 11.3 fL 9.4-12.3 (test code = 754) NUCLEATED RED BLOOD CELLS 0 /100 WBC 0-0 (AKER) (test code = 413) [id number] 00:59:00 Test Item Value Reference Range Interpretation Comments PROTIME (NIRMALAAKER) (test code = 15.0 seconds 11.7-14.7 H 759) INR (BEAKER) (test code = 370) 1.2 <=5.9 PARTIAL THROMBOPLASTIN TIME 58.3 seconds 22.5-36.0 H (BEAKER) (test code = 760) RECOMMENDED COUMADIN/WARFARIN INR THERAPY RANGESSTANDARD DOSE: 2.0 - 3.0 Includes: PROPHYLAXIS forvenous thrombosis, systemic embolization; TREATMENT for venous thrombosis and/or pulmonary embolus.HIGH RISK: Target INR is 2.5-3.5 for patients with mechanical heart valves.PROTHROMBIN [id number] 00:57:00 Test Item Value Reference Range Interpretation Comments PROTIME (BEBRIANNE) (test code = 15.0 seconds 11.7-14.7 H 759) INR (BEAKER) (test code = 370) 1.2 <=5.9 RECOMMENDED COUMADIN/WARFARIN INR THERAPY RANGESSTANDARD DOSE: 2.0 - 3.0 Includes: PROPHYLAXIS forvenous thrombosis, systemic embolization; TREATMENT for venous thrombosis and/or pulmonary embolus.HIGH RISK: Target INR is 2.5-3.5 for patients with mechanical heart valves.POCT-GLUCOSE [id number] 00:08:00 Test Item Value Reference Range Interpretation Comments POC-GLUCOSE METER 110 mg/dL 70-[address] [facility] 6720 ([facility]) (test code = MADALYN Zhu [place] 1538) [address] CT, BRAIN, WITHOUT [id number] 20:14:00FINAL REPORT CT, BRAIN, WITHOUT CONTRAST CLINICAL [...] MDReport Verified Date/Time: 10/29/2018 20:14:11 Reading Location: [address] Neuro Reading Room [id number] 18:47:00 Test Item Value Reference Range Interpretation Comments POTASSIUM (BEAKER) (test code = 4.2 meq/L 3.5-5.1 379) [id number] 18:47:00 Test Item Value Reference Range Interpretation Comments MAGNESIUM (BEAKER) (test code = 2.5 mg/dL 1.6-2.6 627) [id number] 18:46:00 Test Item Value Reference Range Interpretation [...] 2.5-3.5 for patients with mechanical heart valves.POCT-GLUCOSE [id number] 18:27:00 Test Item Value Reference Range Interpretation Comments POC-GLUCOSE METER 96 mg/dL 70-110 TESTED AT [place] [address] ([facility]) (test code = MADALYN Zhu [facility] [address] 1538) [id number] 13:05:00 Test Item Value Reference Range Interpretation [...] 2.5-3.5 for patients with mechanical heart valves.POCT-GLUCOSE [id number] 13:02:00 Test Item Value Reference Range Interpretation Comments POC-GLUCOSE METER 113 mg/dL 70-110 H TESTED AT [place] [address] ([facility]) (test code = MADALYN Zhu [facility] 1538) [address] [id number] 07:05:00 Test Item Value Reference Range Interpretation Comments PHOSPHORUS (BEAKER) (test code = 3.0 mg/dL 2.3-4.7 604) [id number] 07:05:00 Test Item Value Reference Range Interpretation Comments MAGNESIUM (BEAKER) (test code = 1.9 mg/dL 1.6-2.6 627) BASIC METABOLIC [id number] 07:05:00 Test Item Value Reference Range Interpretation [...] I S NOT APPLICABLE FOR DIALYSIS PATIEN POOJA. [id number] 06:57:00 Test Item Value Reference Range Interpretation Comments PARTIAL THROMBOPLASTIN TIME 41.4 seconds 22.5-36.0 H (BEAKER) (test code = 760) CBC W/PLT COUNT & AUTO [id number] 06:37:00 Test Item Value Reference Range Interpretation [...] 0-1 PERCENT (BEAKER) (test code = 2801) [id number] 00:10:00 Test Item Value Reference Range Interpretation Comments PARTIAL THROMBOPLASTIN TIME 26.9 seconds 22.5-36.0 ([facility]) (test code = 760) Prior to initiating heparinPLATELET [id number] 23:58:00 Test Item Value Reference Range Interpretation Comments PLATELET COUNT ([facility]) (test 200 K/CU MM 150-450 code = 756) POCT-GLUCOSE [id number] 18:57:00 Test Item Value Reference Range Interpretation Comments POC-GLUCOSE METER 109 mg/dL 70-110 TESTED AT [place] [address] ([facility]) (test code = MADALYN Zhu [facility] 1538) [address] POCT-GLUCOSE [id number] 12:37:00 Test Item Value Reference Range Interpretation Comments POC-GLUCOSE METER 104 mg/dL 70-110 TESTED AT [place] [address] ([facility]) (test code = [facility] Audra [facility] 1538) [address] CT BRAIN WITHOUT IV CONTRAST - [id number] 11:11:00Reason for exam:- >nausea intracranial bleed and [...] 16 hours prior. Signed: JR Jonn, Whitney Elmore Verified Date/Time: 10/28/2018 11:11:15 Reading Location: [facility] Radiology Reading Room [id number] 06:37:00 Test Item Value Reference Range Interpretation Comments PHOSPHORUS (BEAKER) (test code = 3.6 mg/dL 2.3-4.7 604) [id number] 06:37:00 Test Item Value Reference Range Interpretation Comments MAGNESIUM (BEAKER) (test code = 2.2 mg/dL 1.6-2.6 627) BASIC METABOLIC [id number] 06:37:00 Test Item Value Reference Range Interpretation [...] PATIEN TS. CBC W/PLT COUNT & AUTO [id number] 05:56:00 Test Item Value Reference Range Interpretation [...] PERCENT (BEAKER) (test code = 2801) POCT-GLUCOSE [id number] 00:42:00 Test Item Value Reference Range Interpretation Comments POC-GLUCOSE METER 112 mg/dL 70-[address] [facility] 67 ([facility]) (test code = MADALYN Zhu [facility] 1538) [address] CT, BRAIN, WITHOUT [id number] 00:31:00FINAL REPORT CT, BRAIN, WITHOUT CONTRAST CLINICAL [...] Johnson Verified Date/Time: 10/28/2018 00:31:49 Reading Location: [address] Neuro Reading Room -GLUCOSE [id number] 18:01:00 Test Item Value Reference Range Interpretation Comments POC-GLUCOSE METER 104 mg/dL 70-[address] [facility] 6720 ([facility]) (test code = MADALYN Zhu [facility] 1538) [address] RAD, CHEST, 1 VIEW, NON [id number] 15:28:00Reason for exam:->okShould this be performed at [...] nonspecific right basilar airspace disease/consolidation. Signed: Abdulaziz Mccauleyeport Verified Date/Time: 10/27/2018 15:28:09 Reading Location: [address] Transitional Reading Room POCT-GLUCOSE [id number] 12:39:00 Test Item Value Reference Range Interpretation Comments POC-GLUCOSE METER 172 mg/dL 70-[address] [facility] 6720 ([facility]) (test code = MADALYN [place] 1538) [address] PROTHROMBIN [id number] 09:03:00 Test Item Value Reference Range Interpretation Comments PROTIME (BEAKER) (test code = 16.7 seconds 11.7-14.7 H 759) INR ([facility]) (test code = 370) 1.4 <=5.9 RECOMMENDED [...] PERCENT (BEAKER) (test code = 2801) POCT-GLUCOSE [id number] 07:13:00 Test Item Value Reference Range Interpretation Comments POC-GLUCOSE METER 111 mg/dL 70-[address] [facility] 6720 (BEAKER) (test code = MADALYN [place] 1538) [address] [id number] 04:33:00 Test Item Value Reference Range Interpretation Comments MAGNESIUM (BEAKER) 2.0 mg/dL 1.6-2.6 Specimen slightly (test code = 627) hemolyzed [id number] 04:33:00 Test Item Value Reference Range Interpretation Comments PHOSPHORUS (BEAKER) 3.7 mg/dL 2.3-4.7 Specimen slightly (test code = 604) hemolyzed BASIC METABOLIC [id number] 04:33:00 Test Item Value Reference Range Interpretation [...] S NOT APPLICABLE FOR DIALYSIS PATIEN TS. [id number] 04:14:00 Test Item Value Reference Range Interpretation [...] 2.5-3.5 for patients with mechanical heart valves.PROTHROMBIN [id number] 04:13:00 Test Item Value Reference Range Interpretation Comments PROTIME (BEAKER) (test code = 18.2 seconds 11.7-14.7 H 759) INR ([facility]) (test code = 370) 1.5 <=5.9 RECOMMENDED COUMADIN/WARFARIN INR THERAPY RANGESSTANDARD DOSE: 2.0 - 3.0 Includes: PROPHYLAXIS forvenous thrombosis, systemic embolization; TREATMENT for venous thrombosis and/or pulmonary embolus.HIGH RISK: Target INR is 2.5-3.5 for patients with mechanical heart valves.POCT-GLUCOSE [id number] 00:17:00 Test Item Value Reference Range Interpretation Comments POC-GLUCOSE METER 126 mg/dL 70-110 H TESTED AT [place] [address] ([facility]) (test code = [facility] 1538) [address] PROTHROMBIN [id number] 19:44:00 Test Item Value Reference Range Interpretation Comments PROTIME (MEME) (test code = 19.9 seconds 11.7-14.7 H 759) INR ([facility]) (test code = 370) 1.7 <=5.9 RECOMMENDED COUMADIN/WARFARIN INR THERAPY RANGESSTANDARD DOSE: 2.0 - 3.0 Includes: PROPHYLAXIS forvenous thrombosis, systemic embolization; TREATMENT for venous thrombosis and/or pulmonary embolus.HIGH RISK: Target INR is 2.5-3.5 for patients with mechanical heart valves.POCT-GLUCOSE [id number] 18:58:00 Test Item Value Reference Range Interpretation Comments POC-GLUCOSE METER 123 mg/dL 70-110 H TESTED AT [place] [address] ([facility]) (test code = [place] [address]) [address] MR, BRAIN, [id number] 16:15:00FINAL REPORT MRI Brain with and without [...] suggesting underlying vascular malformation versus tumor. Advise richard huntley evaluation with catheter directed angiography. Signed: Noe Marinort Verified Date/Time: 10/26/2018 16:15:27 Reading Location: [address] Neuro Reading Room POCT-GLUCOSE [id number] 12:05:00 Test Item Value Reference Range Interpretation Comments POC-GLUCOSE METER 118 mg/dL 70-[address] [facility] 67 ([facility]) (test code = MADALYN Zhu [facility] 1538) [address] HEMOGLOBIN [id number] 10:34:00 Test Item Value Reference Range Interpretation Comments HEMOGLOBIN A1C ([facility]) (test code = 5.2 % 4.3-6.1 368) CT, CTANGIO [id number] 08:29:00FINAL REPORT CTA carotids and brain 10/26/2018 [...] tumor and/or arteriovenous malformation. Signed: Noe Marin Verified Date/Time: 10/26/2018 08:29:52 Reading Location: [address] Neuro Reading Room [facility] CAROTID, [id number] 08:29:00FINAL REPORT CTA carotids and brain 10/26/2018 [...] tumor and/or arteriovenous malformation. Signed: Noe Marin Verified Date/Time: 10/26/2018 08:29:52 Reading Location: [address] Neuro Reading Room POCT-GLUCOSE [id number] 07:22:00 Test Item Value Reference Range Interpretation Comments POC-GLUCOSE METER 114 mg/dL 70-[address] [facility] 6720 ([facility]) (test code = MADALYN Zhu [place] 1778) [address] LIPID [id number] 06:10:00 Test Item Value Reference Range Interpretation Comments TRIGLYCERIDES ([facility]) (test code = 210 mg/dL 540) CHOLESTEROL ([facility]) (test code = 191 mg/dL 631) HDL CHOLESTEROL ([facility]) (test code 38 mg/dL = 976) LDL CHOLESTEROL CALCULATED ([facility]) 111 mg/dL (test code = 633) Triglyceride [...] on admission and Daily AM afterwardsHEPATIC FUNCTION [id number] 06:10:00 Test Item Value Reference Range Interpretation [...] on admission and Daily AM afterwardsCOMPREHENSIVE METABOLIC [id number] 06:10:00 Test Item Value Reference Range Interpretation [...] AM afterwardsOnce on admission and Daily AM [id number] 05:35:00 Test Item Value Reference Range Interpretation Comments PHOSPHORUS (BEAKER) (test code = 3.0 mg/dL 2.3-4.7 604) Once on admission and Daily AM afterwardsOnce on admission and Daily AM [id number] 05:35:00 Test Item Value Reference Range Interpretation Comments MAGNESIUM (BEAKER) (test code = 2.1 mg/dL 1.6-2.6 627) Once on admission and Daily AM afterwardsOnce on admission and Daily AM [id number] 05:14:00 Test Item Value Reference Range Interpretation Comments PARTIAL THROMBOPLASTIN TIME 33.6 seconds 22.5-36.0 (BEAKER) (test code = 760) PROTHROMBIN TIME/[id number] 05:13:00 Test Item Value Reference Range Interpretation Comments PROTIME (BEAKER) (test code = 21.7 seconds 11.7-14.7 H 759) INR (BEAKER) (test code = 370) 1.9 <=5.9 RECOMMENDED COUMADIN/WARFARIN INR THERAPY RANGESSTANDARD DOSE: 2.0 - 3.0 Includes: PROPHYLAXIS forvenous thrombosis, systemic embolization; TREATMENT for venous thrombosis and/or pulmonary embolus.HIGH RISK: Target INR is 2.5-3.5 for patients with mechanical heart valves.[facility]) [facility] YEN RUI[facility] Dr. Phys: [place] [address] : 1965 Age: 55 SEX:F [phone] Exam Date: 06/25/20 Status: [facility] ER Acct: [id number] Loc: [facility] Pt Unit #: [id number] Report #: [id number] CC: Yoandy Causey MD IMAGING SERVICES REPORT Order # Category/Exam [id number] RAD/XR Toe(s) Lt Min 2 View ([id number]): . Results LEFT FOURTH TOE: 06/25/20 Post reduction views show considerable improvement in the alignment of the proximal phalanx fracture. There is now little or no angulation. IMPRESSION: Good reduction of the proximal phalanx fracture. POS: HOME Reported By: TEOFILO WU MD Electronically Signed Date/Time: 06/25/20 2251 Technologist: JESSICA Dictated Date/Time: 06/25/20 1613 Transcribed Date/Time: 06/25/20 1621XR Foot Lt 3 [facility] Name: YEN RUIZ Dr. Phys: [place] [address] : 1965 Age: 55 SEX:F [phone] Exam Date: 06/25/20 Status: [facility] ER Acct: [id number] Loc: [facility] Pt Unit #: [id number] Report #: [id number] CC: Yoandy Causey MD IMAGING SERVICES REPORT Order # Category/Exam [id number] RAD/XR Foot Lt 3 View STANDARD ([id number]): . Results LEFT FOOT THREE VIEWS: 06/25/20 [...] TEOFILO WU MD Electronically Signed Date/Time: 06/25/20 0958 Technologist: JESSICA Dictated Date/Time: 06/25/20 1615 Transcribed Date/Time: 06/25/20 7836
--- NOTE | 2021-03-08 17:46 | ER ---
Nurse's Notes [facility] Name: Yen Jackson Age: 56 yrs Sex: Female : 1965 Arrival Date: 03/08/2021 Time: 16:20 Bed Waiting Private MD: Diagnosis: Postprocedural hemorrhage and hematoma of a digestive system organ or structure following a procedure-tooth extraction, wisdom;long-term (current) use of anticoagulants-Coumadin Presentation: 03/08 16:35 Note pt had wisdom teeth removed. pt taking paper towel in and out of her mouth. pt tw2 instructed to hold a large wad of gauze in her mouth applying pressure and not opening mouth for several minutes. 16:48 Chief complaint: Patient states: i had my wisdom tooth removed Sunday. I went back tw2 today for the appt because i was still hurting. they put something on it and i went home. then an hour and half later it just started gushing blood. i am on blood thinners. my mouth hurts. Coronavirus screen: At this time, the client does not indicate any symptoms associated with coronavirus-19. Ebola Screen: Patient denies travel to an Ebola-affected area in the 21 days before illness onset. Initial Sepsis Screen: Does the patient meet any 2 criteria? No. Patient's initial sepsis screen is negative. Does the patient have a suspected source of infection? No. Patient's initial sepsis screen is negative. Risk Assessment: Do you want to hurt yourself or someone else? Patient reports no desire to harm self or others. Onset of symptoms was March 08, 2021. 16:48 Method Of Arrival: Wheelchair tw2 16:48 Acuity: MONA 2 tw2 Triage Assessment: 16:53 General: Appears uncomfortable, ill, Behavior is cooperative, appropriate for age, tw2 anxious. Pain: Complains of pain in mouth. EENT: pt is actively bleeding, removing gauze, pt gagged and had to pull the wad of gauze out of mouth. 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 - Hysterectomy tw2 Historical: - Allergies: 16:52 PENICILLINS; tw2 16:52 Demerol; tw2 - Home Meds: 16:52 Wellbutrin 100 mg Oral tab 1 tab daily [Active]; warfarin 7 mg Oral tab once daily tw2 [Active]; pantoprazole 40 mg Oral TbEC 1 tab 2 times per day [Active]; sotalol 80 mg Oral tab 1 tab 2 times per day [Active]; amlodipine oral [Active]; gabapentin 100 mg Oral cap 1 caps twice a day [Active]; - PMHx: 16:52 Atrial Fib; Back pain; cervial cancer; hemangioma; hemmoragic stroke; 10/25/2018; tw2 Hypertension; Kidney stones; mechanical heart valve; Seizures; TIA; - PSHx: 16:52 cardiac valve surgery; Hysterectomy; tw2 - Immunization history:: Adult Immunizations. - Social history:: Smoking status: . - Family history:: not pertinent. Screenin:45 Abuse screen: Denies threats or abuse. Nutritional screening: No deficits noted. tw2 Tuberculosis screening: No symptoms or risk factors identified. Fall Risk None identified. Assessment: 17:45 Reassessment: Patient appears in no apparent distress at this time. No changes from tw2 previously documented assessment. pt still with gauze and direct pressure applied. Dr. Cho saw pt in ER waiting area as well as Dr. Santiago, pt left prior to signing discharge papers. Vital Signs: 16:48 BP 176 / 116; Pulse 59; Resp 18; Temp 98.1(TE); Pulse Ox 97% on R/A; Weight 90.72 kg tw2 (R); Pain 10/10; 16:52 BP 163 / 90; tw2 ED Course: 16:20 Patient arrived in ED. as 16:51 Triage completed. tw2 16:51 Arm band placed on. tw2 17:35 Johnny Santiago MD is Attending Physician. [facility] 17:40 Pako Cho DDS is Referral Physician. [facility] 17:45 No provider procedures requiring assistance completed. Patient did not have IV access tw2 during this emergency room visit. Administered Medications: No medications were administered Outcome: 17:45 Discharge ordered by . [facility] 17:45 Discharged to home with family, to be seen in Dr. Rodríguez office at this time tw2 17:45 Condition: stable 17:45 Discharge instructions given to left prior to signing Instructed on discharge instructions. 17:53 Patient left the ED. tw2 Signatures: Jack, Johnny, MD MD сергей Antoine, [place] as Snyder, Francisca, RN RN tw2
--- NOTE | 2021-03-08 17:46 | EDPHYS ---
Physician Documentation [facility] Name: Yen Jackson Age: 56 yrs Sex: Female : 1965 Arrival Date: 03/08/2021 Time: 16:20 Bed Waiting Private MD: KORIN Physician Johnny Santiago HPI: 03/08 17:36 This 56 yrs old Female presents to ER via Wheelchair with complaints of Post сергей Surgical Bleeding, Dizziness. 17:36 The patient presents with dizziness, feeling faint. Onset: The symptoms/episode сергей began/occurred 4 day(s) ago. Context: occurred history of wisdom tooth removed Sunday , on coumadin. Modifying factors: The symptoms are alleviated by nothing. Associated signs and symptoms: Pertinent positives: oral bleeding, with gauze present. Severity of symptoms: At their worst the symptoms were mild in the emergency department the symptoms are unchanged. Patient's baseline: Neuro: alert and fully oriented. The patient has not experienced similar symptoms in the past. 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 tw2 Historical: - Allergies: 16:52 PENICILLINS; tw2 16:52 Demerol; tw2 - Home Meds: 16:52 Wellbutrin 100 mg Oral tab 1 tab daily [Active]; warfarin 7 mg Oral tab once daily tw2 [Active]; pantoprazole 40 mg Oral TbEC 1 tab 2 times per day [Active]; sotalol 80 mg Oral tab 1 tab 2 times per day [Active]; amlodipine oral [Active]; gabapentin 100 mg Oral cap 1 caps twice a day [Active]; - PMHx: 16:52 Atrial Fib; Back pain; cervial cancer; hemangioma; hemmoragic stroke; 10/25/2018; tw2 Hypertension; Kidney stones; mechanical heart valve; Seizures; TIA; - PSHx: 16:52 cardiac valve surgery; Hysterectomy; tw2 - Immunization history:: Adult Immunizations. - Social history:: Smoking status: . - Family history:: not pertinent. ROS: 17:36 Constitutional: Negative for fever, chills, and weight loss, Eyes: Negative for injury, сергей pain, redness, and discharge, Neck: Negative for injury, pain, and swelling, Cardiovascular: Negative for chest pain, palpitations, and edema, Respiratory: Negative for shortness of breath, cough, wheezing, and pleuritic chest pain, Abdomen/GI: Negative for abdominal pain, nausea, vomiting, diarrhea, and constipation, Back: Negative for injury and pain, : Negative for injury, bleeding, discharge, and swelling, MS/Extremity: Negative for injury and deformity, Skin: Negative for injury, rash, and discoloration, Neuro: Negative for headache, weakness, numbness, tingling, and seizure, Psych: Negative for depression, anxiety, suicide ideation, homicidal ideation, and hallucinations, Allergy/Immunology: Negative for hives, rash, and allergies, Endocrine: Negative for neck swelling, polydipsia, polyuria, polyphagia, and marked weight changes, Hematologic/Lymphatic: Negative for swollen nodes, abnormal bleeding, and unusual bruising. 17:36 ENT: Positive for dental pain, Gum pain Exam: 17:36 Constitutional: This is a well developed, well nourished patient who is awake, alert, сергей and in no acute distress. Head/Face: Normocephalic, atraumatic. Eyes: Pupils equal round and reactive to light, extra-ocular motions intact. Lids and lashes normal. Conjunctiva and sclera are non-icteric and not injected. Cornea within normal limits. Periorbital areas with no swelling, redness, or edema. Neck: Trachea midline, no thyromegaly or masses palpated, and no cervical lymphadenopathy. Supple, full range of motion without nuchal rigidity, or vertebral point tenderness. No Meningismus. Chest/axilla: Normal chest wall appearance and motion. Nontender with no deformity. No lesions are appreciated. Cardiovascular: Regular rate and rhythm with a normal S1 and S2. No gallops, murmurs, or rubs. Normal PMI, no JVD. No pulse deficits. Respiratory: Lungs have equal breath sounds bilaterally, clear to auscultation and percussion. No rales, rhonchi or wheezes noted. No increased work of breathing, no retractions or nasal flaring. Abdomen/GI: Soft, non-tender, with normal bowel sounds. No distension or tympany. No guarding or rebound. No evidence of tenderness throughout. Back: No spinal tenderness. No costovertebral tenderness. Full range of motion. Skin: Warm, dry with normal turgor. Normal color with no rashes, no lesions, and no evidence of cellulitis. MS/ Extremity: Pulses equal, no cyanosis. Neurovascular intact. Full, normal range of motion. Neuro: Awake and alert, GCS 15, oriented to person, place, time, and situation. Cranial nerves II-XII grossly intact. Motor strength 5/5 in all extremities. Sensory grossly intact. Cerebellar exam normal. Normal gait. Psych: Awake, alert, with orientation to person, place and time. Behavior, mood, and affect are within normal limits. 17:36 ENT: Mouth: Gums: bleeding, swollen, on the lower left third molar and lower left second molar. Vital Signs: 16:48 BP 176 / 116; Pulse 59; Resp 18; Temp 98.1(TE); Pulse Ox 97% on R/A; Weight 90.72 kg tw2 (R); Pain 10/10; 16:52 BP 163 / 90; tw2 MDM: 17:45 Patient medically screened. сергей 17:46 Data reviewed: vital signs, nurses notes. Data interpreted: medical sales consultant: rate is 59 сергей beats/min, rhythm is regular, Pulse oximetry: on room air is 97 %. Counseling: I had a detailed discussion with the patient and/or guardian regarding: the historical points, exam findings, and any diagnostic results supporting the discharge/admit diagnosis, the need for outpatient follow up, for definitive care, an oral maxilofacial specialist. 17:48 Physician consultation: Pako Cho DDS and will see patient in office, immediately, [facility] after a discussion of the case, a recommendation for transfer for higher level of care is made, dr cho in the er , request to let family bring to his office. Administered Medications: No medications were administered Disposition: 03/08/21 17:45 Discharged to Home. 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 - Condition is Stable. - Discharge Instructions: Warfarin Coagulopathy, Bleeding Precautions When on Anticoagulant Therapy. - Medication Reconciliation Form, Thank You Letter, Antibiotic Education, Prescription Opioid Use form. - Follow up: Pako Cho DDS; When: Upon discharge from the Emergency Department; Reason: Recheck today's complaints, Continuance of care, Re-evaluation by your physician. - Problem is new. - Symptoms have improved. Signatures: Johnny Santiago MD MD cha Wise, Tara, RN RN tw2 Corrections: (The following items were deleted from the chart) 17:53 17:45 03/08/2021 17:45 Discharged to Home. 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 Condition is Stable. Forms are Medication Reconciliation Form, Thank You Letter, Antibiotic Education, Prescription Opioid Use. Follow up: Pako Cho; When: Upon discharge from the Emergency Department; Reason: Recheck today's complaints, Continuance of care, Re-evaluation by your physician. Problem is new. Symptoms have improved. сергей
[2021-03-08 18:08] VITALS: TEMP 98.1; O2SAT 97
[2021-03-08 18:21] VITALS: BP 163/90
== END 2021-03-08 17:53 | disposition home or self-care (01) ==
LOC: ER 16:19
DX: K91.841 Postprocedural hemorrhage of a digestive system organ or structure following other procedure (principal); Z79.01 Long term (current) use of anticoagulants; I10 Essential (primary) hypertension; I48.91 Unspecified atrial fibrillation; Z95.2 Presence of prosthetic heart valve; Z88.0 Allergy status to penicillin; Z88.5 Allergy status to narcotic agent
CPT/HCPCS: 99281

== ENCOUNTER 2021-10-13 05:29 | Emergency (ER) | payer BC ==
--- OUTSIDE RECORDS SUMMARY | 2021-10-13 05:33 | XMS REPORT | Continuity of Care Document ---
:1965 Author Organization [facility] t Address [address] [place] [address] Care Team Providers Name Role Phone Marium Attending Clinician Unavailable GOMEZ GUERRERO Attending Clinician Unavail able GOMEZ GUERRERO Admitting Clinician Unavail able Problems Condition Condition Condition Status Onset Resolution Last Treating Co mments Source Name Details Category Date Date Treatment Clinician Date Problem Condition [facility] Allergies, Adverse Reactions, Alerts This patient has no known allergies or adverse reactions. Social History Social Habit Start Date Stop Date Quantity Comments Source Sex Assigned At [birth year] Female [facility] 00:00:00 00:00:00 [facility] Smoking Status Start Date Stop Date Source Unknown if ever smoked [facility] Medications This patient has no known medications. Procedures Procedure Date / Time Performed Performing Clinician [facility] e XR Foot Lt 3 View 2020-06-25 00:00:00 [facility] XR Toe(s) Lt Min 2 2020-06-25 00:00:00 [facility] Encounters Start End Encounter Admission Attending Care Care Encounter Source Date/Time Date/Time Type Type Clinicians Facility Department ID 2020-06-25 2020-06-25 Departed [facility] Kaiden [id number] [address] 11:30:00 12:29:00 Emergency [place] [address] [facility]-EMERGEN l Health SERVICES/BS [facility] 2020-06-25 2020-06-25 Emergency ER ERNESTO Causey STMAYNOR [id number] [address] 11:30:00 11:30:00 Yoandy [id number] [facility] (les on) Results Test Description Test Time Test Comments Results Result [facility] e Comments CT, BRAIN, 2018-11-07 Reason for FINAL REPORT PATIENT WITHOUT CONTRAST 10:28:00 exam:->IVH now ID: [id number] CT therapeutic INR, Head without needs repeatWhat [...] MDReport Verified Date/Time: 11/07/2018 10:28:21 Reading Location: [address] Neuro Reading Room C METABOLIC PANEL [...] NOT 1092) ACCURATE CRE ATININE CLEARANCE IN GA EDICTING GLOMERULAR FILT RATION RATE. ESTIMATED GFR IS NOT APPLICABLE FOR DIALYSIS PATIENTS. [id number] 06:17:00 Test Item Value Reference Range Interpretation Comments PARTIAL THROMBOPLASTIN TIME 79.7 seconds 22.5-36.0 H (BEAKER) (test code = 760) While on warfarin.PROTHROMBIN TIME/[id number] 06:15:00 Test Item Value Reference Range Interpretation [...] code = 413) MR, SPINE, LUMBAR, WITHOUT [id number] 03:52:00FINAL REPORT MR Lumbar spine without contrast [...] Noel Verified Date/Time: 11/07/2018 03:52:32 Reading Location: [address] Reading Room APTT 2018-11-06 23:05:00 Test Item Value Reference Range Interpretation Comments PARTIAL THROMBOPLASTIN TIME 61.1 seconds 22.5-36.0 H (BEAKER) (test code = 760) [id number] 14:01:00 Test Item Value Reference Range Interpretation Comments PARTIAL THROMBOPLASTIN TIME 65.3 seconds 22.5-36.0 H (BEAKER) (test code = 760) BASIC METABOLIC [id number] 05:40:00 Test Item Value Reference Range Interpretation [...] S NOT APPLICABLE FOR DIALYSIS PATICHARIS PATTON. [id number] 05:20:00 Test Item Value Reference Range Interpretation Comments PARTIAL THROMBOPLASTIN TIME 71.9 seconds 22.5-36.0 H (BEAKER) (test code = 760) While on warfarin.PROTHROMBIN TIME/[id number] 05:18:00 Test Item Value Reference Range Interpretation [...] WBC 0-0 (BEAKER) (test code = 413) [id number] 21:15:00 Test Item Value Reference Range Interpretation Comments PARTIAL THROMBOPLASTIN TIME 64.4 seconds 22.5-36.0 H (BEAKER) (test code = 760) [id number] 15:09:00 Test Item Value Reference Range Interpretation Comments PARTIAL THROMBOPLASTIN TIME 70.8 seconds 22.5-36.0 H (BEAKER) (test code = 760) BASIC METABOLIC [id number] 04:25:00 Test Item Value Reference Range Interpretation [...] S NOT APPLICABLE FOR DIALYSIS PATIEN TS. [id number] 04:15:00 Test Item Value Reference Range Interpretation Comments PARTIAL THROMBOPLASTIN TIME 82.7 seconds 22.5-36.0 H (BEAKER) (test code = 760) While on warfarin.PROTHROMBIN TIME/[id number] 04:14:00 Test Item Value Reference Range Interpretation [...] WBC 0-0 (BEAKER) (test code = 413) [id number] 17:42:00 Test Item Value Reference Range Interpretation [...] is 2.5-3.5 for patients with mechanical heart valves.[id number] 11:53:00 Test Item Value Reference Range Interpretation [...] WBC 0-0 (BEAKER) (test code = 413) [id number] 06:20:00 Test Item Value Reference Range Interpretation Comments PARTIAL THROMBOPLASTIN TIME 67.1 seconds 22.5-36.0 H (BEAKER) (test code = 760) While on warfarin.PROTHROMBIN TIME/[id number] 06:18:00 Test Item Value Reference Range Interpretation [...] valves.While on warfarin.RAD, SPINE, LUMBAR, COMPLETE, W/ [id number] 15:41:00Reason for exam:->radiculopathyFINAL REPORT Lumbar spine, seven images HISTORY: Radiculopathy COMPARISON: None IMPRESSION:Five lumbar type vertebral bodies. No fracture. No subluxation. No change in alignment on flexion or extension. Soft tissues unremarkable. Minimal degenerative facet changes. Signed: Kenny Centeno MDReport Verified Date/Time: 11/03/2018 15:41:39 Reading Location: [address] Reading Room [id number] 06:09:00 Test Item Value Reference Range Interpretation Comments PARTIAL THROMBOPLASTIN TIME 52.4 seconds 22.5-36.0 H (BEAKER) (test code = 760) While on warfarin.PROTHROMBIN TIME/[id number] 06:08:00 Test Item Value Reference Range Interpretation [...] WBC 0-0 (BEAKER) (test code = 413) [id number] 07:45:00 Test Item Value Reference Range Interpretation Comments PARTIAL THROMBOPLASTIN TIME 59.0 seconds 22.5-36.0 H (BEAKER) (test code = 760) PROTHROMBIN [id number] 05:05:00 Test Item Value Reference Range Interpretation [...] WBC 0-0 (BEAKER) (test code = 413) [id number] 21:44:00 Test Item Value Reference Range Interpretation Comments PARTIAL THROMBOPLASTIN TIME 64.3 seconds 22.5-36.0 H (BEAKER) (test code = 760) [id number] 14:47:00 Test Item Value Reference Range Interpretation Comments POTASSIUM (BEAKER) (test code = 4.2 meq/L 3.5-5.1 379) [id number] 14:47:00 Test Item Value Reference Range Interpretation Comments MAGNESIUM (BEAKER) (test code = 2.3 mg/dL 1.6-2.6 627) [id number] 14:38:00 Test Item Value Reference Range Interpretation Comments PARTIAL THROMBOPLASTIN TIME 60.7 seconds 22.5-36.0 H (BEAKER) (test code = 760) PROTHROMBIN [id number] 14:37:00 Test Item Value Reference Range Interpretation Comments PROTIME (BEAKER) (test code = 14.2 seconds 11.7-14.7 759) INR (BEAKER) (test code = 370) 1.1 <=5.9 RECOMMENDED COUMADIN/WARFARIN INR THERAPY RANGESSTANDARD DOSE: 2.0 - 3.0 Includes: PROPHYLAXIS forvenous thrombosis, systemic embolization; TREATMENT for venous thrombosis and/or pulmonary embolus.HIGH RISK: Target INR is 2.5-3.5 for patients with mechanical heart valves.[id number] 06:33:00 Test Item Value Reference Range Interpretation [...] 150-450 code = 756) MEAN PLATELET VOLUME ([facility] 10.9 fL 9.4-12.3 (test code = 754) NUCLEATED RED BLOOD CELLS 0 /100 WBC 0-0 ([facility] (test code = 413) POCT-GLUCOSE [id number] 05:45:00 Test Item Value Reference Range Interpretation Comments POC-GLUCOSE METER 119 mg/dL 70-110 H TESTED AT [facility] 67 ([facility] (test code = MADALYN Zhu [place] 1538) [address] POCT-GLUCOSE [id number] 23:59:00 Test Item Value Reference Range Interpretation Comments POC-GLUCOSE METER 119 mg/dL 70-110 H TESTED AT [facility] 67 ([facility] (test code = MADALYN Zhu [facility] 1538) [address] [id number] 23:27:00 Test Item Value Reference Range Interpretation Comments PARTIAL THROMBOPLASTIN TIME 70.3 seconds 22.5-36.0 H ([facility] (test code = 760) [id number] 15:59:00 Test Item Value Reference Range Interpretation Comments PARTIAL THROMBOPLASTIN TIME 43.5 seconds 22.5-36.0 H ([facility] (test code = 760) CT, BRAIN, WITHOUT [id number] 13:33:00FINAL REPORT CT head without contrast 10/31/2018 [...] Marin Verified Date/Time: 10/31/2018 13:33:29 Reading Location: [facility] Radiology Reading Room Electr onically signed by: NOE MARIN M.D. on 10/31/2018 01:33 [id number] 04:47:00 Test Item Value Reference Range Interpretation Comments PARTIAL THROMBOPLASTIN TIME 60.3 seconds 22.5-36.0 H (BEAKER) (test code = 760) PROTHROMBIN [id number] 04:45:00 Test Item Value Reference Range Interpretation [...] 0-0 (BEAKER) (test code = 413) POCT-GLUCOSE [id number] 00:15:00 Test Item Value Reference Range Interpretation Comments POC-GLUCOSE METER 125 mg/dL 70-110 H TESTED AT [facility] 6720 ([facility] (test code = [place]ADALYN [place] 1538) [address] NV, ANGIOGRAM, [id number] 14:52:00Reason for exam:->IVH, evaluation for cavernomaFINAL REPORT DATE: 10/28/2018 NAME: Yen Ruiz ATTENDING: Juanpablo Restrepo PRODUCTION POTTER: Beth Hawkins PREOPERATIVE DIAGNOSIS: Intracerebral Hemorrhage andIntraventricular [...] common femoral artery x1 MATERIALS EMPLOYED:1. 5 Dominican shortsheath 2. 4 Dominican Berenstein catheter3. Bentson guidewire4. Terumo 0.035 LT glidewire5. 5 Dominican Mynx device INDICATIONS:The patient is a 53 year old female with mechanical heart valve on Coumadin whobegan having headaches that were progressive over the course of the day on 10/25/2018. The patient was evaluated and found to have a right 3 cm kovdsf-gzcqtod-osgguelxi ICH near the atrium lateral ventricle with [...] the puncture site was confirmed, a 5 Dominican short sheath was inserted over a [employer] TVson wire and was maintained on heparinized saline flush throughout the remainder of the procedure. Using coaxial technique, a preflushed 5 Dominican Terumo glide catheter on constant heparinized saline [...] removed and hemostasis achieved with a 5 Dominican Mynx device and manual compression. 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 No significant right DIRECTOR MULTIM[employer]IA is seen indicating right Pcom. No aneurysms [...] Date/Time: 10/30/2018 14:52:59 Reading Location: [facility] Y018 Neuro Angio Reading Room [id number] 05:08:00 Test Item Value Reference Range Interpretation Comments MAGNESIUM (BEAKER) 2.4 mg/dL 1.6-2.6 Specimen slightly (test code = 627) hemolyzed [id number] 05:08:00 Test Item Value Reference Range Interpretation Comments PHOSPHORUS (BEAKER) 3.6 mg/dL 2.3-4.7 Specimen slightly (test code = 604) hemolyzed BASIC METABOLIC [id number] 05:08:00 Test Item Value Reference Range Interpretation [...] WBC 0-0 (AKER) (test code = 413) [id number] 00:59:00 Test Item Value Reference Range Interpretation Comments PROTIME (MEME) (test code = 15.0 seconds 11.7-14.7 H 759) INR (BEAKER) (test code = 370) 1.2 <=5.9 PARTIAL THROMBOPLASTIN TIME 58.3 seconds 22.5-36.0 H (BEAKER) (test code = 760) RECOMMENDED COUMADIN/WARFARIN INR THERAPY RANGESSTANDARD DOSE: 2.0 - 3.0 Includes: PROPHYLAXIS forvenous thrombosis, systemic embolization; TREATMENT for venous thrombosis and/or pulmonary embolus.HIGH RISK: Target INR is 2.5-3.5 for patients with mechanical heart valves.PROTHROMBIN [id number] 00:57:00 Test Item Value Reference Range Interpretation Comments PROTIME (MEME) (test code = 15.0 seconds 11.7-14.7 H 759) INR (BEAKER) (test code = 370) 1.2 <=5.9 RECOMMENDED COUMADIN/WARFARIN INR THERAPY RANGESSTANDARD DOSE: 2.0 - 3.0 Includes: PROPHYLAXIS forvenous thrombosis, systemic embolization; TREATMENT for venous thrombosis and/or pulmonary embolus.HIGH RISK: Target INR is 2.5-3.5 for patients with mechanical heart valves.POCT-GLUCOSE [id number] 00:08:00 Test Item Value Reference Range Interpretation Comments POC-GLUCOSE METER 110 mg/dL 70-110 TESTED AT [facility] 6720 ([facility] (test code = MADALYN [place] 1538) [address] CT, BRAIN, WITHOUT [id number] 20:14:00FINAL REPORT CT, BRAIN, WITHOUT CONTRAST CLINICAL [...] of the ventricular system Signed: Ayden Johnson Verified Date/Time: 10/29/2018 20:14:11 Reading Location: [facility] [id number] Neuro Reading Room [id number] 18:47:00 Test Item Value Reference Range Interpretation Comments POTASSIUM (BEAKER) (test code = 4.2 meq/L 3.5-5.1 379) [id number] 18:47:00 Test Item Value Reference Range Interpretation Comments MAGNESIUM (BEAKER) (test code = 2.5 mg/dL 1.6-2.6 627) [id number] 18:46:00 Test Item Value Reference Range Interpretation [...] 2.5-3.5 for patients with mechanical heart valves.POCT-GLUCOSE [id number] 18:27:00 Test Item Value Reference Range Interpretation Comments POC-GLUCOSE METER 96 mg/dL 70-110 TESTED AT [place] [address] ([facility] (test code = MADALYN Zhu [facility] [address] 1538) [id number] 13:05:00 Test Item Value Reference Range Interpretation [...] 2.5-3.5 for patients with mechanical heart valves.POCT-GLUCOSE [id number] 13:02:00 Test Item Value Reference Range Interpretation Comments POC-GLUCOSE METER 113 mg/dL 70-110 H TESTED AT [place] [address] ([facility] (test code = [facility] Audra [facility] 1538) [address] [id number] 07:05:00 Test Item Value Reference Range Interpretation Comments PHOSPHORUS (BEAKER) (test code = 3.0 mg/dL 2.3-4.7 604) [id number] 07:05:00 Test Item Value Reference Range Interpretation Comments MAGNESIUM (BEAKER) (test code = 1.9 mg/dL 1.6-2.6 627) BASIC METABOLIC [id number] 07:05:00 Test Item Value Reference Range Interpretation [...] I S NOT APPLICABLE FOR DIALYSIS PATIEN [id number] 06:57:00 Test Item Value Reference Range Interpretation Comments PARTIAL THROMBOPLASTIN TIME 41.4 seconds 22.5-36.0 H (BEAKER) (test code = 760) CBC W/PLT COUNT & AUTO [id number] 06:37:00 Test Item Value Reference Range Interpretation [...] NEUTROPHILS ABSOLUTE COUNT 6.13 K/ L 1.56-6.13 ([facility] (test code = 670) LYMPHOCYTES ABSOLUTE COUNT 1.00 K/ L 1.18-3.74 L (AKER) (test code = 414) MONOCYTES ABSOLUTE COUNT (AKER) 0.74 K/ L 0.24-0.36 H (test code = 415) EOSINOPHILS ABSOLUTE COUNT 0.10 K/ L 0.04-0.36 ([facility] (test code = 416) BASOPHILS ABSOLUTE COUNT (AKER) 0.03 K/ L 0.01-0.08 (test code = 417) IMMATURE GRANULOCYTES-RELATIVE 1 % 0-1 PERCENT ([facility])) (test code = 2801) [id number] 00:10:00 Test Item Value Reference Range Interpretation Comments PARTIAL THROMBOPLASTIN TIME 26.9 seconds 22.5-36.0 ([facility])) (test code = 760) Prior to initiating heparinPLATELET [id number] 23:58:00 Test Item Value Reference Range Interpretation Comments PLATELET COUNT ([facility])) (test 200 K/CU MM 150-450 code = 756) POCT-GLUCOSE [id number] 18:57:00 Test Item Value Reference Range Interpretation Comments POC-GLUCOSE METER 109 mg/dL 70-110 TESTED AT [place] [address] ([facility] (test code = MADALYN Zhu [facility] 1538) [address] POCT-GLUCOSE [id number] 12:37:00 Test Item Value Reference Range Interpretation Comments POC-GLUCOSE METER 104 mg/dL 70-110 TESTED AT [place] [address] ([facility] (test code = SAVANNA[place]ASHLEY Zhu [facility] 1538) [address] CT BRAIN WITHOUT IV CONTRAST - [id number] 11:11:00Reason for exam:- >nausea intracranial bleed and [...] MDReport Verified Date/Time: 10/28/2018 11:11:15 Reading Location: [facility] Radiology Reading Room [id number] 06:37:00 Test Item Value Reference Range Interpretation Comments PHOSPHORUS (BEAKER) (test code = 3.6 mg/dL 2.3-4.7 604) [id number] 06:37:00 Test Item Value Reference Range Interpretation Comments MAGNESIUM (BEAKER) (test code = 2.2 mg/dL 1.6-2.6 627) BASIC METABOLIC [id number] 06:37:00 Test Item Value Reference Range Interpretation [...] PATIEN TS. CBC W/PLT COUNT & AUTO [id number] 05:56:00 Test Item Value Reference Range Interpretation [...] PERCENT (BEAKER) (test code = 2801) POCT-GLUCOSE [id number] 00:42:00 Test Item Value Reference Range Interpretation Comments POC-GLUCOSE METER 112 mg/dL 70-110 H TESTED AT [place] [address] ([facility] (test code = MADALYN Zhu [facility] 1538) [address] CT, BRAIN, WITHOUT [id number] 00:31:00FINAL REPORT CT, BRAIN, WITHOUT CONTRAST CLINICAL [...] Johnson Verified Date/Time: 10/28/2018 00:31:49 Reading Location: [address] Neuro Reading Room -GLUCOSE [id number] 18:01:00 Test Item Value Reference Range Interpretation Comments POC-GLUCOSE METER 104 mg/dL 70-110 TESTED AT [facility] 67 ([facility] (test code = MADALYN Zhu [facility] 1538) [address] RAD, CHEST, 1 VIEW, NON [id number] 15:28:00Reason for exam:->okShould this be performed at [...] Mccauley Verified Date/Time: 10/27/2018 15:28:09 Reading Location: [facility] C013T Transitional Reading Room POCT-GLUCOSE [id number] 12:39:00 Test Item Value Reference Range Interpretation Comments POC-GLUCOSE METER 172 mg/dL 70-110 H TESTED AT [facility] 6720 (BEAKER) (test code = MADALYN [place] 1538) [address] PROTHROMBIN [id number] 09:03:00 Test Item Value Reference Range Interpretation Comments PROTIME (BEAKER) (test code = 16.7 seconds 11.7-14.7 H 759) INR (BEAKER) (test [...] PERCENT (BEAKER) (test code = 2801) POCT-GLUCOSE [id number] 07:13:00 Test Item Value Reference Range Interpretation Comments POC-GLUCOSE METER 111 mg/dL 70-110 H TESTED AT [facility] 6720 (BEAKER) (test code = MADALYN [place] 1538) [address] [id number] 04:33:00 Test Item Value Reference Range Interpretation Comments MAGNESIUM (BEAKER) 2.0 mg/dL 1.6-2.6 Specimen slightly (test code = 627) hemolyzed [id number] 04:33:00 Test Item Value Reference Range Interpretation Comments PHOSPHORUS (BEAKER) 3.7 mg/dL 2.3-4.7 Specimen slightly (test code = 604) hemolyzed BASIC METABOLIC [id number] 04:33:00 Test Item Value Reference Range Interpretation [...] S NOT APPLICABLE FOR DIALYSIS PATIEN TS. [id number] 04:14:00 Test Item Value Reference Range Interpretation [...] 2.5-3.5 for patients with mechanical heart valves.PROTHROMBIN [id number] 04:13:00 Test Item Value Reference Range Interpretation Comments PROTIME (BEAKER) (test code = 18.2 seconds 11.7-14.7 H 759) INR (BEAKER) (test code = 370) 1.5 <=5.9 RECOMMENDED COUMADIN/WARFARIN INR THERAPY RANGESSTANDARD DOSE: 2.0 - 3.0 Includes: PROPHYLAXIS forvenous thrombosis, systemic embolization; TREATMENT for venous thrombosis and/or pulmonary embolus.HIGH RISK: Target INR is 2.5-3.5 for patients with mechanical heart valves.POCT-GLUCOSE [id number] 00:17:00 Test Item Value Reference Range Interpretation Comments POC-GLUCOSE METER 126 mg/dL 70-110 H TESTED AT [place] [address] ([facility] (test code = MADALYN Zhu [facility] 1538) [address] PROTHROMBIN [id number] 19:44:00 Test Item Value Reference Range Interpretation Comments PROTIME ([facility] (test code = 19.9 seconds 11.7-14.7 H 759) INR ([facility] (test code = 370) 1.7 <=5.9 RECOMMENDED COUMADIN/WARFARIN INR THERAPY RANGESSTANDARD DOSE: 2.0 - 3.0 Includes: PROPHYLAXIS forvenous thrombosis, systemic embolization; TREATMENT for venous thrombosis and/or pulmonary embolus.HIGH RISK: Target INR is 2.5-3.5 for patients with mechanical heart valves.POCT-GLUCOSE [id number] 18:58:00 Test Item Value Reference Range Interpretation Comments POC-GLUCOSE METER 123 mg/dL 70-110 H TESTED AT [place] [address] ([facility] (test code = MADALYN Zhu [facility] 1538) [address] MR, BRAIN, [id number] 16:15:00FINAL REPORT MRI Brain with and without [...] Marinort Verified Date/Time: 10/26/2018 16:15:27 Reading Location: [facility] C013V Neuro Reading Room POCT-GLUCOSE [id number] 12:05:00 Test Item Value Reference Range Interpretation Comments POC-GLUCOSE METER 118 mg/dL 70-110 H TESTED AT [facility] 6720 ([facility] (test code = MADALYN Zhu [facility] 1538) [address] HEMOGLOBIN [id number] 10:34:00 Test Item Value Reference Range Interpretation Comments HEMOGLOBIN A1C ([facility])) (test code = 5.2 % 4.3-6.1 368) CT, CTANGIO [id number] 08:29:00FINAL REPORT CTA carotids and brain 10/26/2018 [...] Marin Verified Date/Time: 10/26/2018 08:29:52 Reading Location: [address] Neuro Reading [facility], [id number] 08:29:00FINAL REPORT CTA carotids and brain 10/26/2018 [...] Marinort Verified Date/Time: 10/26/2018 08:29:52 Reading Location: [address] Neuro Reading Room POCT-GLUCOSE [id number] 07:22:00 Test Item Value Reference Range Interpretation Comments POC-GLUCOSE METER 114 mg/dL 70-110 H TESTED AT [facility] 6720 ([facility] (test code = [facility] 1538) [address] LIPID [id number] 06:10:00 Test Item Value Reference Range Interpretation Comments TRIGLYCERIDES ([facility] (test code = 210 mg/dL 540) CHOLESTEROL ([facility])) (test code = 191 mg/dL 631) HDL CHOLESTEROL ([facility])) (test code 38 mg/dL = 976) LDL CHOLESTEROL CALCULATED ([facility])) 111 mg/dL (test code = 633) Triglyceride [...] on admission and Daily AM afterwardsHEPATIC FUNCTION [id number] 06:10:00 Test Item Value Reference Range Interpretation [...] on admission and Daily AM afterwardsCOMPREHENSIVE METABOLIC [id number] 06:10:00 Test Item Value Reference Range Interpretation [...] AM afterwardsOnce on admission and Daily AM [id number] 05:35:00 Test Item Value Reference Range Interpretation Comments PHOSPHORUS (BEAKER) (test code = 3.0 mg/dL 2.3-4.7 604) Once on admission and Daily AM afterwardsOnce on admission and Daily AM [id number] 05:35:00 Test Item Value Reference Range Interpretation Comments MAGNESIUM (BEAKER) (test code = 2.1 mg/dL 1.6-2.6 627) Once on admission and Daily AM afterwardsOnce on admission and Daily AM [id number] 05:14:00 Test Item Value Reference Range Interpretation Comments PARTIAL THROMBOPLASTIN TIME 33.6 seconds 22.5-36.0 (BEAKER) (test code = 760) PROTHROMBIN [id number] 05:13:00 Test Item Value Reference Range Interpretation Comments PROTIME (BEAKER) (test code = 21.7 seconds 11.7-14.7 H 759) INR (BEAKER) (test code = 370) 1.9 <=5.9 RECOMMENDED COUMADIN/WARFARIN INR THERAPY RANGESSTANDARD DOSE: 2.0 - 3.0 Includes: PROPHYLAXIS forvenous thrombosis, systemic embolization; TREATMENT for venous thrombosis and/or pulmonary embolus.HIGH RISK: Target INR is 2.5-3.5 for patients with mechanical heart valves.XR Toe(s) Lt Min 2 [facility]CH[facility]: JOSEPHYEN Levin Dr. Phys[place] [address] : 1965 Age: 55 SEX:F [phone] Exam Date: 06/25/20 Status: [facility] ER Acct: [id number] Loc: [facility] Pt Unit #: [id number] Report #: [id number] CC: Yoandy Causey MD IMAGING SERVICES REPORT Order # Category/Exam [id number] RAD/XR Toe(s) Lt Min 2 View ([id number]): . Results LEFT FOURTH TOE: 06/25/20 Post reduction views show considerable improvement in the alignment of the proximal phalanx fracture. There is now little or no angulation. IMPRESSION: Good reduction of the proximal phalanx fracture. POS: HOME Reported By: TEOFILO WU MD Electronically Signed Date/Time: 06/25/20 9943 Technologist: JESSICA Dictated Date/Time: 06/25/20 1613 Transcribed Date/Time: 06/25/20 1621XR Foot Lt 3 View [facility] Pt Name: RUIZ,YEN Levin Dr. Phys: [place] [address] : 1965 Age: 55 SEX:F [phone] Exam Date: 06/25/20 Status: [facility] ER Acct: [id number] Loc: [facility] Pt Unit #: [id number] Report #: [id number] CC: Yoandy Causey MD IMAGING SERVICES REPORT Order # Category/Exam [id number] RAD/XR Foot Lt 3 View STANDARD ([id number]): . Results LEFT FOOT THREE VIEWS: 06/25/20 [...] TEOFILO WU MD Electronically Signed Date/Time: 06/25/20 5198 Technologist: JESSICA Dictated Date/Time: 06/25/20 2271 Transcribed Date/Time: 06/25/20 6088
[2021-10-13] MEDS ORDERED: ONDANSETRON 4 MG/2 ML VIAL ONE (05:43)
[2021-10-13] MEDS ORDERED: MORPHINE 4 MG/ML SYR ONE ×2 (05:43→07:47)
[2021-10-13 06:03] LABS: Absolute Lymphocytes (CBC) 1.6 K/uL (0.7-4.9); Basophils % 1.1 % (0-1.3); Hematocrit 38.7 % (36.0-45.0); Lymphocytes % 23.1 % (15.3-44.8); MPV 8.8 fL (7.6-11.3); RBC Red Blood Cell Count 4.28 M/uL (3.86-4.86)
[2021-10-13 06:07] LABS: Protime INR 1.48
--- NOTE | 2021-10-13 07:05 | RAD REPORT ---
EXAM DESCRIPTION: CT - Head Brain Wo Cont - 10/13/2021 6:31 am CLINICAL HISTORY: HEADACHE COMPARISON: Abdomen Pelvis W Contrast dated 11/06/2017No comparisonsHead angio dated 09/15/2020; Hea d Brain Wo Cont dated 09/15/2020 TECHNIQUE: All CT scans are performed using dose optimization technique as appropriate and may inclu de automated exposure control or mA/KV adjustment according to patient size. FINDINGS: No intracranial hemorrhage, hydrocephalus or extra-axial fluid collection.No areas of brai n edema or evidence of midline shift. The paranasal sinuses and mastoids are clear. The calvarium is intact. IMPRESSION: No acute intracranial abnormality.
--- NOTE | 2021-10-13 07:33 | RAD REPORT ---
EXAM DESCRIPTION: CT - Head angio - 10/13/2021 7:15 am CLINICAL HISTORY: HEADACHE COMPARISON: Head Brain Wo Cont dated 10/13/2021; Head angio dated 09/15/2020 TECHNIQUE: CT angiography of the head was performed with MIPs. All CT scans are performed using dose optimization technique as appropriate and may include automated exposure control or mA/KV adjustment according to patient size. FINDINGS: Anterior circulation: 3 mm medially and inferiorly projecting saccular aneurysm (less likely infundibulum) on the right at the A1/A2 junction at the expected location of the ACOM. A distinct ACOM is not identified and may be absent. The resolution on the prior CTA made evaluation of this segment more difficult. No large ve ssel occlusion. No hemodynamically significant stenosis. No arteriovenous malformation identified. Posterior circulation: No aneurysm or large vessel occlusion. No hemodynamically significant stenosis. No arteriovenous malf ormation identified. 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 IMPRESSION: No significant flow abnormality is detected. 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
--- NOTE | 2021-10-13 08:07 | ER ---
Nurse's Notes [facility] Name: Yen Jackson Age: 56 yrs Sex: Female : 1965 Arrival Date: 10/13/2021 Time: 05:32 Bed 18 Private MD: Diagnosis: Headache Presentation: 10/13 05:35 Chief complaint: Patient states: she woke up with a severe headache and nausea, hot bb flashes. Pt has hx of CVA. Coronavirus screen: At this time, the client does not indicate any symptoms associated with coronavirus-19. Ebola Screen: No symptoms or risks identified at this time. Initial Sepsis Screen: Does the patient meet any 2 criteria? No. Patient's initial sepsis screen is negative. Does the patient have a suspected source of infection? No. Patient's initial sepsis screen is negative. Risk Assessment: Do you want to hurt yourself or someone else? Patient reports no desire to harm self or others. Onset of symptoms was October 13, 2021. 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 bb Historical: - Allergies: 06:08 Demerol; bb 06:08 PENICILLINS; bb - Home Meds: 06:08 Wellbutrin 100 mg Oral tab 1 tab daily [Active]; warfarin 7 mg Oral tab once daily bb [Active]; rosuvastatin oral [Active]; Zoloft Oral [Active]; pantoprazole 40 mg Oral TbEC 1 tab 2 times per day [Active]; - PMHx: 06:08 Atrial Fib; Back pain; cervial cancer; hemangioma; hemmoragic stroke; 10/25/2018; bb Hypertension; Kidney stones; mechanical heart valve; Seizures; TIA; - PSHx: 06:08 hysterectomy; AAA repair; Appendectomy; Mechanical valve; bb - Immunization history:: Adult Immunizations up to date, Client reports receiving the 2nd dose of the Covid vaccine, Pfizer plus booster. - Social history:: Smoking status: Patient reports the use of cigarette tobacco products, denies chronic smoking, but will smoke occasionally. - Family history:: not pertinent. - Hospitalizations: : No recent hospitalization is reported. Screenin:11 Abuse screen: Denies threats or abuse. Nutritional screening: No deficits noted. bb Tuberculosis screening: No symptoms or risk factors identified. Fall Risk None identified. Assessment: 06:11 General: Appears uncomfortable, ill, Behavior is cooperative. Pain: Complains of pain bb in top of head Pain currently is 10 out of 10 on a pain scale. Neuro: Level of Consciousness is awake, alert, obeys commands, Oriented to person, place, time, situation. Cardiovascular: Heart tones S1 S2 present Capillary refill < 3 seconds Patient's skin is warm and dry. Respiratory: Airway is patent Respiratory effort is even, unlabored, Respiratory pattern is regular. GI: Abdomen is non-distended, Reports nausea, vomiting. Derm: Skin is pink, warm \T\ dry. Musculoskeletal: Circulation, motion, and sensation intact. 07:39 Reassessment: Patient reports pain is starting to climb again, she rates the headache jg9 8/10-provider notified. Vital Signs: 05:41 BP 161 / 76; Pulse 65; Resp 18 S; Temp 97.3(TE); Pulse Ox 97% on R/A; Weight 90.72 kg bb (R); Height 5 ft. 7 in. (170.18 cm) (R); Pain 10/10; 06:56 BP 108 / 57; Pulse 60; Resp 16; Temp 97.4(TE); Pulse Ox 95% ; lt3 07:00 BP 143 / 65; Pulse 61; Resp 16 S; Pulse Ox 96% on R/A; jg9 07:37 BP 117 / 62; Pulse 58; Resp 17 S; Pulse Ox 92% on R/A; jg9 08:00 BP 133 / 71; Pulse 62; Resp 14; Pulse Ox 94% on R/A; jg9 05:41 Body Mass Index 31.32 (90.72 kg, 170.18 cm) bb ED Course: 05:32 Patient arrived in ED. wm 05:35 Malcom Jenkins MD is Attending Physician. rn 05:40 Veronica Breen RN is Primary Nurse. bb 06:00 Initial lab(s) drawn, by me, sent to lab. Missed attempt(s): 20 gauge in left hand. bb Bleeding controlled, band aid applied, catheter tip intact. Inserted saline lock: 22 gauge in right wrist, using aseptic technique. Blood collected. 06:08 Triage completed. bb 06:08 Arm band placed on Patient placed in an exam room, on a stretcher, on court recording monitor, bb on pulse oximetry. 06:11 Patient has correct armband on for positive identification. Bed in low position. Call bb light in reach. Side rails up X 1. bus monitor on. Pulse ox on. NIBP on. Warm blanket given. 06:31 CT Head Brain wo Cont In Process Unspecified. EDMS 07:08 Attending Physician role handed off by Malcom Jenkins MD sp3 07:08 Jignesh Vega MD is Attending Physician. sp3 07:15 CT Head Angio In Process Unspecified. EDMS 07:27 No apparent distress. Resting quietly. Awaiting lab results, Awaiting radiology jg9 results. Patient requests pain medication. 08:15 No provider procedures requiring assistance completed. IV discontinued. jg9 Administered Medications: 06:00 Drug: Zofran (Ondansetron) 4 mg Route: IVP; Site: right wrist; bb 07:00 Follow up: Response: No adverse reaction; Nausea is decreased jg9 06:02 Drug: morphine 4 mg {Note: RASS 0.} Route: IVP; Site: right wrist; bb 07:00 Follow up: Response: No adverse reaction; Other; RASS: Alert and Calm (0) jg9 07:49 CANCELLED (Duplicate Order): morphine 4 mg IVP once; RASS on ADMIN: Combtv4, Very jg9 Agttd3, Agttd2, Rstlss1, AlertClm0, Drwsy-1, Lt Sdtn-2, Mod Sdtn-3, Dp Sdtn-4, UnArsble-5 07:49 Drug: morphine 4 mg Route: IVP; Site: Other; jg9 08:15 Follow up: Response: No adverse reaction; Pain is decreased jg9 Outcome: 08:06 Discharge ordered by . sp3 08:15 Discharged to home ambulatory. jg9 08:15 Condition: improved 08:16 Discharge instructions given to patient, Instructed on discharge instructions, follow jg9 up and referral plans. Demonstrated understanding of instructions, follow-up care. 08:17 Patient left the ED. jg9 Signatures: Dispatcher [employer] EDVeronica Villegas RN RN bb Nieto, Roman, MD MD rn Marsh, Wendy Vega, Setul, MD MD sp3 Maria Teresa Hubbard lt3 Mary Mackenzie jg9
--- NOTE | 2021-10-13 08:07 | EDPHYS ---
Physician Documentation [facility] Name: Yen Jackson Age: 56 yrs Sex: Female : 1965 Arrival Date: 10/13/2021 Time: 05:32 Bed 18 Private MD: ED Physician Jignesh Vega HPI: 10/13 05:40 This 56 yrs old Female presents to ER via Unassigned with complaints of rn Nausea/Vomiting, Headache. 05:40 The patient complains of pain to the top of head and forehead. The patient describes rn the headache as aching, throbbing. Onset: The symptoms/episode began/occurred just prior to arrival. Associated signs and symptoms: Pertinent positives: nausea, vomiting, Pertinent negatives: altered mental status, fever, neck stiffness, rash, vision changes, vision loss, vertigo. Severity of symptoms: At its worst the pain was severe, in the emergency department the pain is unchanged. Headache History: The patient has had previous headaches and this one is similar to previous episodes. The symptoms are alleviated by nothing. the symptoms are aggravated by nothing. The patient has experienced a previous episode. The patient has not recently seen a physician. Patient reports headache, frontal and top of head, throbbing, woke her up from sleep. Denies previous migraines. Reports takes Coumadin for mechanical valve. Has had a cerebral hemorrhage in the past and she states feels similar. Denies any head injury or recent illness. Was able to drive herself here and no focal neurological complaints. Only complains of headache and nausea. 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 bb Historical: - Allergies: 06:08 Demerol; bb 06:08 PENICILLINS; bb - Home Meds: 06:08 Wellbutrin 100 mg Oral tab 1 tab daily [Active]; warfarin 7 mg Oral tab once daily bb [Active]; rosuvastatin oral [Active]; Zoloft Oral [Active]; pantoprazole 40 mg Oral TbEC 1 tab 2 times per day [Active]; - PMHx: 06:08 Atrial Fib; Back pain; cervial cancer; hemangioma; hemmoragic stroke; 10/25/2018; bb Hypertension; Kidney stones; mechanical heart valve; Seizures; TIA; - PSHx: 06:08 hysterectomy; AAA repair; Appendectomy; Mechanical valve; bb - Immunization history:: Adult Immunizations up to date, Client reports receiving the 2nd dose of the Covid vaccine, Pfizer plus booster. - Social history:: Smoking status: Patient reports the use of cigarette tobacco products, denies chronic smoking, but will smoke occasionally. - Family history:: not pertinent. - Hospitalizations: : No recent hospitalization is reported. ROS: 05:40 Constitutional: Negative for fever, chills, and weight loss, Eyes: Negative for injury, rn pain, redness, and discharge, Neck: Negative for injury, pain, and swelling, Cardiovascular: Negative for chest pain, palpitations, and edema, Respiratory: Negative for shortness of breath, cough, wheezing, and pleuritic chest pain, Abdomen/GI: Positive for nausea and vomiting Back: Negative for injury and pain, : Negative for injury, bleeding, discharge, and swelling, MS/Extremity: Negative for injury and deformity, Skin: Negative for injury, rash, and discoloration, Neuro: Positive for headache Exam: 05:40 Constitutional: This is a well developed, well nourished patient who is awake, alert, rn bending forward in wheelchair holding emesis bag Head/Face: Normocephalic, atraumatic. Eyes: Periorbital areas with no swelling, redness, or edema. Neck: Trachea midline, no masses, supple and full range of motion without meningismus Cardiovascular: Regular rate and rhythm. No pulse deficits. Respiratory: No increased work of breathing, no retractions or nasal flaring. Abdomen/GI: Soft, non-tender Skin: Warm, dry, no rashes MS/ Extremity: Pulses equal, no cyanosis. Neurovascular intact. Full, normal range of motion. Equal circumference. Neuro: Awake and alert, GCS 15, oriented to person, place, time, and situation. Cranial nerves II-XII grossly intact. Motor strength 5/5 in all extremities. Sensory grossly intact. Cerebellar exam normal. Normal gait. Vital Signs: 05:41 BP 161 / 76; Pulse 65; Resp 18 S; Temp 97.3(TE); Pulse Ox 97% on R/A; Weight 90.72 kg bb (R); Height 5 ft. 7 in. (170.18 cm) (R); Pain 10/10; 06:56 BP 108 / 57; Pulse 60; Resp 16; Temp 97.4(TE); Pulse Ox 95% ; lt3 07:00 BP 143 / 65; Pulse 61; Resp 16 S; Pulse Ox 96% on R/A; jg9 07:37 BP 117 / 62; Pulse 58; Resp 17 S; Pulse Ox 92% on R/A; jg9 08:00 BP 133 / 71; Pulse 62; Resp 14; Pulse Ox 94% on R/A; jg9 05:41 Body Mass Index 31.32 (90.72 kg, 170.18 cm) bb MDM: 05:35 Patient medically screened. rn 08:04 Data reviewed: vital signs, nurses notes. ED course: Patient received a second round of sp3 morphine this morning secondary to continuing headache. CT and CTA of the brain reviewed which demonstrates no acute abnormality but did find an incidental finding of a 3 mm aneurysm at the JOVANA. Patient informed about this and educated on thunderclap headache and what to tell her future doctors if such a headache occurs. Will discharge patient home at this time with instructions for Tylenol only since she cannot take NSAIDs secondary to the Coumadin that she is on. Patient agrees and is okay with the plan and will follow up with her PCP. All questions were answered. Neuro exam was normal and patient was mentating well.. 10/13 05:39 Order name: CBC with Diff; Complete Time: 06:18 rn 10/13 05:39 Order name: Basic Metabolic Panel; Complete Time: 06:18 rn 10/13 05:39 Order name: CT Head Brain wo Cont; Complete Time: 07:50 rn 10/13 05:39 Order name: Protime (+inr); Complete Time: 06:18 rn 10/13 06:28 Order name: CT Head Angio; Complete Time: 07:50 rn 10/13 05:39 Order name: IV Start; Complete Time: 06:05 rn 10/13 05:39 Order name: Cardiac monitoring; Complete Time: 06:06 rn Administered Medications: 06:00 Drug: Zofran (Ondansetron) 4 mg Route: IVP; Site: right wrist; bb 07:00 Follow up: Response: No adverse reaction; Nausea is decreased jg9 06:02 Drug: morphine 4 mg {Note: RASS 0.} Route: IVP; Site: right wrist; bb 07:00 Follow up: Response: No adverse reaction; Other; RASS: Alert and Calm (0) jg9 07:49 CANCELLED (Duplicate Order): morphine 4 mg IVP once; RASS on ADMIN: Combtv4, Very jg9 Agttd3, Agttd2, Rstlss1, AlertClm0, Drwsy-1, Lt Sdtn-2, Mod Sdtn-3, Dp Sdtn-4, UnArsble-5 07:49 Drug: morphine 4 mg Route: IVP; Site: Other; jg9 08:15 Follow up: Response: No adverse reaction; Pain is decreased jg9 Disposition Summary: 10/13/21 08:06 Discharge Ordered Location: Home sp3 Condition: Stable sp3 Diagnosis - Headache sp3 Followup: sp3 - With: Private Physician - When: Upon discharge from the Emergency Department - Reason: Continuance of care, Re-evaluation by your physician Discharge Instructions: - Discharge Summary Sheet sp3 - General Headache Without Cause sp3 Forms: - Medication Reconciliation Form sp3 - Thank You Letter sp3 - Antibiotic Education sp3 - Prescription Opioid Use sp3 Signatures: Dispatcher [employer] EDVeronica Villegas RN RN Malcom Leon MD MD rn Patel, Setul, MD MD sp3 Mary Mackenzie jg9 Corrections: (The following items were deleted from the chart) 07:49 07:42 morphine 4 mg IVP once; RASS on ADMIN: Combtv4, Very Agttd3, Agttd2, Rstlss1, jg9 AlertClm0, Drwsy-1, Lt Sdtn-2, Mod Sdtn-3, Dp Sdtn-4, UnArsble-5 ordered. jg9
[2021-10-13 08:27] VITALS: TEMP 97.4
[2021-10-13 08:32] VITALS: BP 133/71; O2SAT 94
== END 2021-10-13 08:17 | disposition home or self-care (01) ==
LOC: ER 05:29
DX: R51.9 Headache, unspecified (principal); I10 Essential (primary) hypertension; I48.91 Unspecified atrial fibrillation
CPT/HCPCS: 85025; 80048; 36415; 85610; 70450; 70496; 99284; Q9967; J2405

== ENCOUNTER 2022-12-27 17:03 | Emergency (ER) | payer BC ==
--- OUTSIDE RECORDS SUMMARY | 2022-12-27 17:08 | XMS REPORT | Continuity of Care Document ---
:1965 Author Organization [facility] t Address [address] [place] [address] Care Team Providers Name Role Phone Srikanth Madison Jr. Primary Care Physician Srikanth Madison Attending Clinician Unavailable ELENO DOMINGUEZ Attending Clinician Unavailable Eleno Dominguez MD Attending Clinician Doctor Unassigned, [place] Attending Clinician Unavailable Yoandy Causey Attending Clinician Unavailable STEFF GUERRERO Attending Clinician Unavailable ELENO DOMINGUEZ Admitting Clinician Unavailable STEFF GUERRERO Admitting Clinician Unavailable Payers Payer Name Policy Type Policy Number Effective Date Expiration Date S ource Problems Condition Condition Condition Status Onset Resolution Last Treating Co mments Source Name Details Category Date Date Treatment Clinician Date Hyperlipid Hyperlipid Disease Active 2021-11 [facility] nivers emia, emia, 0-19 ity [facility] unspecifie [place] [facility] hyperlipid hyperlipid Br anch emia type emia type Primary Primary Disease Active 2021-11 [facility] hypertensi hypertensi 0-19 it y of on on 00:00: [address] Branch Obesity Obesity Disease Active 2021-11 [facility] (BMI (BMI 0-19 ity of 30-39.9) 30-39.9) 00:00: [place] 00 Medical Branch S/P AVR S/P AVR Disease Active Univers (aortic (aortic 4-19 ity of valve valve 00:00: [place] replacemen replacemen 00 Me dical t) t) Branch PAF PAF Disease Active [facility] (paroxysma (paroxysma 4-19 it y of l atrial l atrial 00:00: [place] fibrillati fibrillati 00 Me dical on) on) Branch Cerebral Cerebral Disease Active [facility] di hemorrhage hemorrhage 1-30 st (nontrauma (nontrauma 00:00: Ho spita tic) tic) 00 l Sciatica Sciatica Disease [facility] Atrial Atrial Disease Active 2017-[address] [facility] fibrillati fibrillati - [facility] on on 00:00: Medical 00 Center Suprathera Suprathera Disease Active 2017-[address] peutic INR peutic INR [facility] 00:00: [facility] 00 Center TIA TIA Disease Active 2017-11 Overview[facility] (transient (transient 2-[facility] ischemic ischemic 00:00: g of this Med ical attack) attack) 00 note Center might be different from the original. 2015 Hemangioma Hemangioma Disease Active 2017-[address] 2-24 [facility] 00:[facility]: [facility] 00 [place] IVH IVH Disease Active 2017-[address] (intravent (intravent 2- [facility] ricular ricular 00:00: Medical hemorrhage hemorrhage 00 Ce nter ) ) Nontraumat Nontraumat Disease Active 2017-[address] ic ic 2-22 [facility] subcortica subcortica 00:00: Me dical l l 00 Center hemorrhage hemorrhage of right of right cerebral cerebral hemisphere hemisphere Coagulopat Coagulopat Disease Active 2017-[address] hy hy 2-22 [facility] 00:[facility] Center Essential Essential Disease Active 2017-[address] hypertensi hypertensi 2-22 [facility] on on 00:00: Medical 00 Center Acute Acute Disease Active 2017-[address] encephalop encephalop 2-22 [facility] athy athy 00:00: Medical 00 Center H/O H/O Disease Active 2017-[address] mechanical mechanical 2-22 [facility] aortic aortic 00:00: Medical valve valve 00 Center replacemen replacemen t t PAF PAF Disease Active [facility] (paroxysma (paroxysma 05-19 st l atrial l atrial 00:00: Hospit a fibrillati fibrillati 00 l on) on) GERD GERD Disease Recurre [facility] (gastroeso (gastroeso nce 05-19 st phageal phageal 00:00: Hospita reflux reflux 00 l disease) disease) Chest pain Chest pain Disease Active M ethod[facility] 15 [facility] 00:00: [facility] 00 l Abnormal Abnormal Disease Active Unive rs thyroid thyroid 12-09 it[facility] of blood test [place] [facility] [place] Problem Condition [facility] Allergies, Adverse Reactions, Alerts Allergy Allergy Status Severity Reaction(s) Onset Inactive Treating Comm ents Source Name Type Date Date Clinician Meperidi Propensi Active Anxiety 2017-11 [facility] 12[facility]27 [facility] adverse 00:00: Medical reaction 00 Center s Penicill Drug Active Swelling 2017-[address] ins Allergy 12-27 [facility] 00:[facility]: Medical 00 [place] Meperidi Propensi Active Swelling Meth james ne ty to 05-18 st adverse 00:00: Hospita reaction 00 l s to drug Penicill Propensi Active Swelling Meth james ins ty to 05-18 st adverse 00:00: Hospita reaction 00 l s to drug MEPERIDI DRUG Active Hives Univers NE HCL INGREDI 2 ity of 00:00: [place] [facility] PENICILL Drug Active Hives Univers INS Class 2 ity of 00:00: [place] 00 Medical Branch Penicill Propensi Active Hives Univer s ins ty to 12-09 ity of adverse 00:00: [place] reaction Medical s Branch Meperidi Propensi Active Other - See Mood U nivers ne Hcl ty to comments 12-09 change ity of adverse 00:00: [place] reaction Medical s Branch Penicill Propensi Active Hives Univer s ins ty to 12-09 ity of adverse 00:00: [place] reaction 00 Medical s Branch Social History Social Habit Start Date Stop Date Quantity Comments Source History SDOH [facility] Alcohol Frequency [facility] History SDOH [facility] Alcohol Std Drinks Medica l Center History SDOH [facility] Alcohol Binge Medical [address] History of tobacco Current smoker [facility] Exposure to 2022-09-09 2022-09-19 Not sure University SARS-CoV-2 (event) 00:00:00 07:49:00 [facility] Alcohol intake 2018-10-30 2018-10-30 [facility] alcohol [facility] Center (finding) History SDOH 2018-10-26 2018-10-[address] [facility] Alcohol Comment 00:00:00 00:00:00 Medical C enter Cigarettes smoked 2018-10-26 2018-10-[address] [facility] current (pack per 00:00:00 00:00:00 Medical Center day) - Reported Cigarette 2018-10-26 2018-10-[address] [facility] pack-years 00:00:00 00:00:00 [facility] Center Tobacco use and 2018-10-26 2018-10-[address] [facility] [address] [facility] exposure 00:00:00 00:00:00 Medical Center Sex Assigned At [address] 00:00:00 00:00:00 [facility] Center Smoking Status Start Date Stop Date Source Unknown if ever smoked [facility] Ex-smoker 2012-12-09 00:00:00 2012-12-09 00:00:00 [facility] Medications Ordered Filled Start Stop Current Ordering Indication Dosage Frequency Signature Comments Components Source Medication Medication Date Date Medication? Clinician (SIG) Name Name amLODIPine 2021-11 Yes [id number] 5mg Take 1 U nivers 5 mg tablet 2-16 tablet by ity of 00:00: mouth in [place] 00 the Medical morning. Branch sotaloL 80 2021-11 Yes [id number] 80mg Take 1 Univers mg tablet 2-16 tablet by ity o f 00:00: mouth [place] 00 every 12 Medical (twelve) Branch hours. amLODIPine 2021-11 Yes [id number] 5mg Take 1 U nivers 5 mg tablet 2-16 tablet by ity of 00:00: mouth in [place] 00 the Medical morning. Branch sotaloL 80 2021-11 Yes [id number] 80mg Take 1 [facility] mg tablet 2-16 tablet by ity o f 00:00: mouth [place] 00 every 12 Medical (twelve) Branch hours. amLODIPine 2021-11 Yes [id number] 5mg Take 1 U nivers 5 mg tablet 2-16 tablet by ity of 00:00: mouth in [place] 00 the Medical morning. Branch sotaloL 80 2021-11 Yes [id number] 80mg Take 1 [facility] mg tablet 2-16 tablet by ity o f 00:00: mouth [place] 00 every 12 Medical (twelve) Branch hours. amLODIPine 2021-11 Yes [id number] 5mg Take 1 U nivers 5 mg tablet 2-16 tablet by ity of 00:00: mouth in [place] 00 the Medical morning. Branch sotaloL 80 2021-11 Yes [id number] 80mg Take 1 [facility] mg tablet 2-16 tablet by ity o f 00:00: mouth [place] 00 every 12 Medical (twelve) Branch hours. amLODIPine 2021-11 Yes [id number] 5mg Take 1 U nivers 5 mg tablet 2-16 tablet by ity of 00:00: mouth in [place] 00 the Medical morning. Branch sotaloL 80 2021-11 Yes [id number] 80mg Take 1 Univers mg tablet 2-16 tablet by ity o f 00:00: mouth [place] 00 every 12 Medical (twelve) Branch hours. semaglutide 2021-11 Yes inject Univ ers (OZEMPIC) 0-19 under the ity o f 0.25 mg or 13:43: skin [place] 0.5 mg(2 35 weekly. Medical mg/1.5 mL) Branch PnIj eszopiclone 2021-11 Yes 2mg Take 2 mg U nivers 2 mg tablet 0-19 by mouth ity of 13:43: at [place] [address] bedtime. Medical Branch semaglutide 2021-11 Yes inject Univ ers (OZEMPIC) 0-19 under the ity o f 0.25 mg or 13:43: skin [place] 0.5 mg(2 35 weekly. Medical mg/1.5 mL) Branch PnIj eszopiclone 2021-11 Yes 2mg Take 2 mg U nivers 2 mg tablet 0-19 by mouth ity of 13:43: at [place] 35 bedtime. Medical Branch semaglutide 2021-11 Yes inject Univ ers (OZEMPIC) 0-19 under the ity o f 0.25 mg or 13:43: skin [place] 0.5 mg(2 35 weekly. Medical mg/1.5 mL) Branch PnIj eszopiclone 2021-11 Yes 2mg Take 2 mg U nivers 2 mg tablet 0-19 by mouth ity of 13:43: at [place] 35 bedtime. Medical Branch semaglutide 2021-11 Yes inject Univ ers (OZEMPIC) 0-19 under the ity o f 0.25 mg or 13:43: skin [place] 0.5 mg(2 35 weekly. Medical mg/1.5 mL) Branch PnIj eszopiclone 2021-11 Yes 2mg Take 2 mg U nivers 2 mg tablet 0-19 by mouth ity of 13:43: at [place] 35 bedtime. Medical Branch semaglutide 2021-11 Yes inject Univ ers (OZEMPIC) 0-19 under the ity o f 0.25 mg or 13:43: skin [place] 0.5 mg(2 35 weekly. Medical mg/1.5 mL) Branch PnIj eszopiclone 2021-11 Yes 2mg Take 2 mg U nivers 2 mg tablet 0-19 by mouth ity of 13:43: at [place] 35 bedtime. Medical Branch semaglutide 2021-11 Yes inject Univ ers (OZEMPIC) 0-19 under the ity o f 0.25 mg or 13:43: skin [place] 0.5 mg(2 35 weekly. Medical mg/1.5 mL) Branch PnIj eszopiclone 2021-11 Yes 2mg Take 2 mg U nivers 2 mg tablet 0-19 by mouth ity of 13:43: at [place] 35 bedtime. Medical Branch semaglutide 2021-11 Yes inject Univ ers (OZEMPIC) 0-19 under the ity o f 0.25 mg or 13:43: skin [place] 0.5 mg(2 35 weekly. Medical mg/1.5 mL) Branch PnIj eszopiclone 2021-11 Yes 2mg Take 2 mg U nivers 2 mg tablet 0-19 by mouth ity of 13:43: at [place] 35 bedtime. Medical Branch semaglutide 2021-11 Yes inject Univ ers (OZEMPIC) 0-19 under the ity o f 0.25 mg or 13:43: skin [place] 0.5 mg(2 35 weekly. Medical mg/1.5 mL) Branch PnIj eszopiclone 2021-11 Yes 2mg Take 2 mg U nivers 2 mg tablet 0-19 by mouth ity of 13:43: at [place] 35 bedtime. Medical Branch semaglutide 2021-11 Yes inject Univ ers (OZEMPIC) 0-19 under the ity o f 0.25 mg or 13:43: skin [place] 0.5 mg(2 35 weekly. Medical mg/1.5 mL) Branch PnIj eszopiclone 2021-11 Yes 2mg Take 2 mg U nivers 2 mg tablet 0-19 by mouth ity of 13:43: at [place] 35 bedtime. Medical Branch semaglutide 2021-11 Yes inject Univ ers (OZEMPIC) 0-19 under the ity o f 0.25 mg or 13:43: skin [place] 0.5 mg(2 35 weekly. Medical mg/1.5 mL) Branch PnIj eszopiclone 2021-11 Yes 2mg Take 2 mg U nivers 2 mg tablet 0-19 by mouth ity of 13:43: at [place] 35 bedtime. Medical Branch semaglutide 2021-11 Yes inject Univ ers (OZEMPIC) 0-19 under the ity o f 0.25 mg or 13:43: skin [place] 0.5 mg(2 35 weekly. Medical mg/1.5 mL) Branch PnIj eszopiclone 2021-11 Yes 2mg Take 2 mg U nivers 2 mg tablet 0-19 by mouth ity of 13:43: at [place] [address] bedtime. Medical Branch semaglutide 2021-11 Yes inject Univ ers (OZEMPIC) 0-19 under the ity o f 0.25 mg or 13:43: skin [place] 0.5 mg(2 35 weekly. Medical mg/1.5 mL) Branch PnIj eszopiclone 2021-11 Yes 2mg Take 2 mg U nivers 2 mg tablet 0-19 by mouth ity of 13:43: at [place] 35 bedtime. Medical Branch semaglutide 2021-11 Yes inject Univ ers (OZEMPIC) 0-19 under the ity o f 0.25 mg or 13:43: skin [place] 0.5 mg(2 35 weekly. Medical mg/1.5 mL) Branch PnIj eszopiclone 2021-11 Yes 2mg Take 2 mg U nivers 2 mg tablet 0-19 by mouth ity of 13:43: at [place] 35 bedtime. Medical Branch warfarin 6 2021-11 Yes [id number] 5.5 mg 5 Univers mg tablet 0-19 00 days a ity of 00:00: week and 5 [place] 00 mg 2 days Medical Branch hydroCHLORO 2021-11 Yes 25mg Take 1 Univ ers thiazide 25 0-19 tablet by ity of mg tablet 00:00: [place] the Medical morning. Branch warfarin 6 2021-11 Yes [id number] 5.5 mg 5 Univers mg tablet 0- 00 days a ity of 00:00: week and 5 [place] 00 mg 2 days Medical Branch hydroCHLORO 2021-11 Yes 25mg Take 1 Univ ers thiazide 25 0-19 tablet by ity of mg tablet 00:00: [place] 00 the Medical morning. Branch warfarin 6 2021-11 Yes [id number] 5.5 mg 5 Univers mg tablet 0- 00 days a ity of 00:00: week and 5 [place] 00 mg 2 days Medical Branch hydroCHLORO 2021-11 Yes 25mg Take 1 Univ ers thiazide 25 0-19 tablet by ity of mg tablet 00:00: [place] 00 the Medical morning. Branch warfarin 6 2021-11 Yes [id number] 5.5 mg 5 Univers mg tablet 0- 00 days a ity of 00:00: week and 5 [place] 00 mg 2 days Medical Branch hydroCHLORO 2021-11 Yes 25mg Take 1 Univ ers thiazide 25 0-19 tablet by ity of mg tablet 00:00: [place] 00 the Medical morning. Branch warfarin 6 2021-11 Yes [id number] 5.5 mg 5 Univers mg tablet 0- 00 days a ity of 00:00: week and 5 [place] 00 mg 2 days Medical Branch hydroCHLORO 2021-11 Yes 25mg Take 1 Univ ers thiazide 25 0-19 tablet by ity of mg tablet 00:00: [place] 00 the Medical morning. Branch warfarin 6 2021-11 Yes [id number] 5.5 mg 5 Univers mg tablet 0-19 00 days a ity of 00:00: week and 5 [place] 00 mg 2 days Medical Branch hydroCHLORO 2021-11 Yes 25mg Take 1 Univ ers thiazide 25 0-19 tablet by ity of mg tablet 00:00: [place] 00 the Medical morning. Branch warfarin 6 2021-11 Yes [id number] 5.5 mg 5 Univers mg tablet 0- 00 days a ity of 00:00: week and 5 [place] 00 mg 2 days Medical Branch hydroCHLORO 2021-11 Yes 25mg Take 1 Univ ers thiazide 25 0-19 tablet by ity of mg tablet 00:00: [place] 00 the Medical morning. Branch warfarin 6 2021-11 Yes [id number] 5.5 mg 5 Univers mg tablet 0- 00 days a ity of 00:00: week and 5 [place] 00 mg 2 days Medical Branch hydroCHLORO 2021-11 Yes 25mg Take 1 Univ ers thiazide 25 0-19 tablet by ity of mg tablet 00:00: [place] 00 the Medical morning. Branch warfarin 6 2021-11 Yes [id number] 5.5 mg 5 [facility] mg tablet 0 days a ity of 00:00: week and 5 [place] 00 mg 2 days Medical Branch hydroCHLORO 2021-11 Yes 25mg Take 1 Univ ers thiazide 25 0-19 tablet by ity of mg tablet 00:00: [place] 00 the Medical morning. Branch warfarin 6 2021-11 Yes [id number] 5.5 mg 5 [facility] mg tablet 0 days a ity of 00:00: week and 5 [place] 00 mg 2 days Medical Branch hydroCHLORO 2021-11 Yes 25mg Take 1 Univ ers thiazide 25 0-19 tablet by ity of mg tablet 00:00: [place] 00 the Medical morning. Branch warfarin 6 2021-11 Yes [id number] 5.5 mg 5 [facility] mg tablet 0- 00 days a ity of 00:00: week and 5 [place] 00 mg 2 days Medical Branch hydroCHLORO 2021-11 Yes 25mg Take 1 Univ ers thiazide 25 0-19 tablet by ity of mg tablet 00:00: [place] 00 the Medical morning. Branch warfarin 6 2021-11 Yes [id number] 5.5 mg 5 Univers mg tablet 0- days a ity of 00:00: week and 5 [place] 00 mg 2 days Medical Branch hydroCHLORO 2021-11 Yes 25mg Take 1 Univ ers thiazide 25 0-19 tablet by ity of mg tablet 00:00: [place] 00 the Medical morning. Branch warfarin 6 2021-11 Yes [id number] 5.5 mg 5 Univers mg tablet 0-19 00 days a ity of 00:00: week and 5 [place] 00 mg 2 days Medical Branch hydroCHLORO 2021-11 Yes 25mg Take 1 Univ ers thiazide 25 0-19 tablet by ity of mg tablet 00:00: [place] 00 the Medical morning. Branch sotaloL 80 2021- No 80mg Take 80 mg Univers mg tablet 4-19 04-19 by mouth. ity of 14:22: 00:00 [place] 59 :00 Medical Branch warfarin No 7.5mg Take 7.5 Uni vers (COUMADIN) 4-19 04-19 mg by ity of 7.5 mg 14:21: 00:00 mouth [place] tablet 57 :00 every Medical Sunday, Branch and Sunday in the evening. warfarin 2021- No [id number] 5mg Take 5 mg Univers (COUMADIN) 4-19 04-19 by mouth ity of 5 mg tablet 14:21: 00:00 [place] :00 Tues, Medical , Sat Branch and Sun in the evening. pantoprazol Yes 40mg Take 40 mg Univers e 4-19 by mouth ity of (PROTONIX) 14:10: daily. [place] 40 mg EC 02 Medical tablet Branch pantoprazol Yes 40mg Take 40 mg Univers e 4-19 by mouth ity of (PROTONIX) 14:10: daily. [place] 40 mg EC 02 Medical tablet Branch pantoprazol Yes 40mg Take 40 mg Univers e 4-19 by mouth ity of (PROTONIX) 14:10: daily. [place] 40 mg EC 02 Medical tablet Branch pantoprazol Yes 40mg Take 40 mg Univers e 4-19 by mouth ity of (PROTONIX) 14:10: daily. [place] 40 mg EC 02 Medical tablet Branch pantoprazol Yes 40mg Take 40 mg Univers e 4-19 by mouth ity of (PROTONIX) 14:10: daily. [place] 40 mg EC 02 Medical tablet Branch pantoprazol Yes 40mg Take 40 mg Univers e 4-19 by mouth ity of (PROTONIX) 14:10: daily. [place] 40 mg EC 02 Medical tablet Branch pantoprazol Yes 40mg Take 40 mg Univers e 4-19 by mouth ity of (PROTONIX) 14:10: daily. [place] 40 mg EC 02 Medical tablet Branch pantoprazol Yes 40mg Take 40 mg Univers e 4-19 by mouth ity of (PROTONIX) 14:10: daily. [place] 40 mg EC 02 Medical tablet Branch pantoprazol Yes 40mg Take 40 mg Univers e 4-19 by mouth ity of (PROTONIX) 14:10: daily. [place] 40 mg EC 02 Medical tablet Branch pantoprazol Yes 40mg Take 40 mg Univers e 4-19 by mouth ity of (PROTONIX) 14:10: daily. [place] 40 mg EC 02 Medical tablet Branch pantoprazol Yes 40mg Take 40 mg Univers e 4-19 by mouth ity of (PROTONIX) 14:10: daily. [place] 40 mg EC 02 Medical tablet Branch pantoprazol Yes 40mg Take 40 mg Univers e 4-19 by mouth ity of (PROTONIX) 14:10: daily. [place] 40 mg EC 02 Medical tablet Branch pantoprazol Yes 40mg Take 40 mg Univers e 4-19 by mouth ity of (PROTONIX) 14:10: daily. [place] 40 mg EC 02 Medical tablet Branch pantoprazol Yes 40mg Take 40 mg Univers e 4-19 by mouth ity of (PROTONIX) 14:10: daily. [place] 40 mg EC 02 Medical tablet Branch semaglutide Yes inject Univ ers (OZEMPIC) - under the ity o f 0.25 mg or 14:10: skin [place] 0.5 mg(2 02 weekly. Medical mg/1.5 mL) Branch PnIj metoprolol No 50mg Take 50 mg Univers succinate -21 02-19 by mouth ity o f XL (TOPROL 13:56: 00:00 [place]. [place] XL) 50 mg 49 :00 Medical 24 hr Branch tablet sotaloL 80 2022-0 Yes [id number] 80mg Take 1 [facility] mg tablet 4-19 tablet by ity o f 00:00: mouth [place] 00 every 12 Medical (twelve) Branch hours. warfarin 6 2021-0 Yes [id number] 6mg Take 1 Univers mg tablet 4-19 00 tablet by ity o f 00:00: mouth [place] 00 every Medical evening. Branch sotaloL 80 2021-0 Yes [id number] 80mg Take 1 [facility] mg tablet 4-19 tablet by ity o f 00:00: mouth [place] 00 every 12 Medical (twelve) Branch hours. sotaloL 80 2021-0 Yes [id number] 80mg Take 1 Univers mg tablet 4-19 tablet by ity o f 00:00: mouth [place] 00 every 12 Medical (twelve) Branch hours. sotaloL 80 2021-0 Yes [id number] 80mg Take 1 Univers mg tablet 4-19 tablet by ity o f 00:00: mouth [place] 00 every 12 Medical (twelve) Branch hours. sotaloL 80 2021-0 Yes [id number] 80mg Take 1 Univers mg tablet 4-19 tablet by ity o f 00:00: mouth [place] 00 every 12 Medical (twelve) Branch hours. sotaloL 80 2021-0 Yes [id number] 80mg Take 1 [facility] mg tablet 4-19 tablet by ity o f 00:00: mouth [place] 00 every 12 Medical (twelve) Branch hours. sotaloL 80 2021-0 Yes [id number] 80mg Take 1 [facility] mg tablet 4-19 tablet by ity o f 00:00: mouth [place] 00 every 12 Medical (twelve) Branch hours. sotaloL 80 2021-0 Yes [id number] 80mg Take 1 [facility] mg tablet 4-19 tablet by ity o f 00:00: mouth [place] 00 every 12 Medical (twelve) Branch hours. sotaloL 80 2021-0 Yes [id number] 80mg Take 1 [facility] mg tablet 4-19 tablet by ity o f 00:00: mouth [place] 00 every 12 Medical (twelve) Branch hours. sotaloL 80 2021-0 2021- No [id number] 80mg Take 1 [facility] mg tablet 4-19 12-16 tablet by ity of 00:00: 00:00 mouth [place] 00 :00 every 12 Medical (twelve) Branch hours. warfarin 6 2021-0 2021- No [id number] 6mg Take 1 [facility] mg tablet 02-21 tablet by ity of 00:00: 00:00 mouth [place] 00 :00 every Medical evening. Branch warfarin 6 0 2021- No [id number] 6mg Take 1 [facility] mg tablet 02-21 tablet by ity of 00:00: 00:00 mouth [place] 00 :00 every Medical evening. Branch aspirin 81 0 2021- No [id number] 81mg Take 1 Univers mg EC 02-21 tablet by ity of tablet 00:00: 00:00 mouth [place] 00 :00 daily. Medical Branch levocetiriz 2021-0 Yes Univer s ine 5 mg 4-16 ity of tablet 00:00: [place] 00 Medical Branch levocetiriz 2021-0 Yes Univer s ine 5 mg 4-16 ity of tablet 00:00: [place] 00 Medical Branch levocetiriz 2021-0 Yes Univer s ine 5 mg 4-16 ity of tablet 00:00: [place] 00 Medical Branch levocetiriz 2021-0 Yes Univer s ine 5 mg 4-16 ity of tablet 00:00: [place] 00 Medical Branch levocetiriz 2021-0 Yes Univer s ine 5 mg 4-16 ity of tablet 00:00: [place] 00 Medical Branch levocetiriz 2021-0 Yes Univer s ine 5 mg 4-16 ity of tablet 00:00: [place] 00 Medical Branch levocetiriz 2021-0 Yes Univer s ine 5 mg 4-16 ity of tablet 00:00: [place] 00 Medical Branch levocetiriz 2-0 Yes Univer s ine 5 mg 4-16 ity of tablet 00:00: [place] 00 Medical Branch levocetiriz 2-0 Yes Univer s ine 5 mg 4-16 ity of tablet 00:00: [place] 00 Medical Branch levocetiriz 2-0 Yes Univer s ine 5 mg 4-16 ity of tablet 00:00: [place] 00 Medical Branch levocetiriz 2-0 Yes Univer s ine 5 mg 4-16 ity of tablet 00:00: [place] 00 Medical Branch levocetiriz 2-0 Yes Univer s ine 5 mg 4-16 ity of tablet 00:00: [place] 00 Medical Branch levocetiriz 2021-0 Yes Univer s ine 5 mg 4-16 ity of tablet 00:00: [place] 00 Medical Branch levocetiriz 2021-0 Yes Univer s ine 5 mg 4-16 ity of tablet 00:00: [place] 00 Medical Branch rosuvastati 2022-0 Yes 20mg Take 20 mg Univers n 20 mg 4-11 by mouth ity of tablet 00:00: every [place] 00 morning. Medical Branch rosuvastati 2022-0 Yes 20mg Take 20 mg Univers n 20 mg 4-11 by mouth ity of tablet 00:00: every [place] 00 morning. Medical Branch rosuvastati 2-0 Yes 20mg Take 20 mg Univers n 20 mg 4-11 by mouth ity of tablet 00:00: every [place] 00 morning. Medical Branch rosuvastati 2021-0 Yes 20mg Take 20 mg Univers n 20 mg 4-11 by mouth ity of tablet 00:00: every [place] 00 morning. Medical Branch rosuvastati 2-0 Yes 20mg Take 20 mg Univers n 20 mg 4-11 by mouth ity of tablet 00:00: every [place] 00 morning. Medical Branch rosuvastati 2-0 Yes 20mg Take 20 mg Univers n 20 mg 4-11 by mouth ity of tablet 00:00: every [place] 00 morning. Medical Branch rosuvastati 2021-0 Yes 20mg Take 20 mg Univers n 20 mg 4-11 by mouth ity of tablet 00:00: every [place] 00 morning. Medical Branch rosuvastati 2-0 Yes 20mg Take 20 mg Univers n 20 mg 4-11 by mouth ity of tablet 00:00: every [place] 00 morning. Medical Branch rosuvastati 2-0 Yes 20mg Take 20 mg Univers n 20 mg 4-11 by mouth ity of tablet 00:00: every [place] 00 morning. Medical Branch rosuvastati 2022-0 Yes 20mg Take 20 mg Univers n 20 mg 4-11 by mouth ity of tablet 00:00: every [place] 00 morning. Medical Branch rosuvastati 2022-0 Yes 20mg Take 20 mg Univers n 20 mg 4-11 by mouth ity of tablet 00:00: every [place] 00 morning. Medical Branch rosuvastati 2022-0 Yes 20mg Take 20 mg Univers n 20 mg 4-11 by mouth ity of tablet 00:00: every [place] 00 morning. Medical Branch rosuvastati 2-0 Yes 20mg Take 20 mg Univers n 20 mg 4-11 by mouth ity of tablet 00:00: every [place] 00 morning. Medical Branch rosuvastati 2021-0 Yes 20mg Take 20 mg Univers n 20 mg 4-11 by mouth ity of tablet 00:00: every [place] 00 morning. Medical Branch amLODIPine 2021-0 Yes Univers 5 mg tablet 4-10 ity of 00:00: [place] 00 Medical Branch amLODIPine 2-0 Yes Univers 5 mg tablet 4-10 ity of 00:00: [place] 00 Medical Branch amLODIPine 2-0 Yes Univers 5 mg tablet 4-10 ity of 00:00: [place] 00 Medical Branch amLODIPine 2-0 Yes Univers 5 mg tablet 4-10 ity of 00:00: [place] 00 Medical Branch amLODIPine 2-0 Yes [facility] 5 mg tablet 4-10 ity of 00:00: [place] 00 Medical Branch amLODIPine 2-0 Yes Univers 5 mg tablet 4-10 ity of 00:00: [place] 00 Medical Branch amLODIPine 2-0 Yes Univers 5 mg tablet 4-10 ity of 00:00: [place] 00 Medical Branch amLODIPine 2-0 Yes Univers 5 mg tablet 4-10 ity of 00:00: [place] 00 Medical Branch amLODIPine 2-0 Yes Univers 5 mg tablet 4-10 ity of 00:00: [place] 00 Medical Branch amLODIPine 2-0 2- No Univer s 5 mg tablet 4-10 12-16 ity of 00:00: 00:00 [place] 00 :00 Medical Branch montelukast 2-0 Yes 10mg Take 10 mg [facility] 10 mg 2-13 by mouth ity of tablet 00:00: every [place] 00 evening. Medical Branch montelukast 2021-0 Yes 10mg Take 10 mg [facility] 10 mg 2-13 by mouth ity of tablet 00:00: every [place] 00 evening. Medical Branch montelukast 2021-0 Yes 10mg Take 10 mg [facility] 10 mg 2-13 by mouth ity of tablet 00:00: every [place] 00 evening. Medical Branch montelukast 2021-0 Yes 10mg Take 10 mg [facility] 10 mg 2-13 by mouth ity of tablet 00:00: every [place] 00 evening. [facility] montelukast Yes 10mg Take 10 mg Univers 10 mg 2-13 by mouth ity of tablet 00:00: every [place] 00 evening. Medical Branch montelukast Yes 10mg Take 10 mg Univers 10 mg 2-13 by mouth ity of tablet 00:00: every [place] 00 evening. Medical Branch montelukast Yes 10mg Take 10 mg Univers 10 mg 2-13 by mouth ity of tablet 00:00: every [place] 00 evening. Medical Branch montelukast Yes 10mg Take 10 mg Univers 10 mg 2-13 by mouth ity of tablet 00:00: every [place] 00 evening. Medical Branch montelukast Yes 10mg Take 10 mg Univers 10 mg 2-13 by mouth ity of tablet 00:00: every [place] 00 evening. Medical Branch montelukast Yes 10mg Take 10 mg Univers 10 mg 2-13 by mouth ity of tablet 00:00: every [place] 00 evening. Medical Branch montelukast Yes 10mg Take 10 mg Univers 10 mg 2-13 by mouth ity of tablet 00:00: every [place] 00 evening. Medical Branch montelukast Yes 10mg Take 10 mg Univers 10 mg 2-13 by mouth ity of tablet 00:00: every [place] evening. Medical Branch montelukast Yes 10mg Take 10 mg Univers 10 mg 2-13 by mouth ity of tablet 00:00: every [place] 00 evening. Medical Branch montelukast Yes 10mg Take 10 mg Univers 10 mg 2-13 by mouth ity of tablet 00:00: every [place] 00 evening. Medical Branch levalbutero 2021- No INHALE 1 U nivers l 45 2-13 04-19 TO 2 PUFFS ity of mcg/actuati 00:00: 00:00 BY MOUTH [place] inhaler 00 :00 EVERY 6 Medica l HOURS FOR Branch 2 WEEKS NEEDED FOR WHEEZING escitalopra Yes TAKE 1 Meth james m (LEXAPRO) 3-26 TABLET(20 st 20 MG 00:00: MG) BY Hospita tablet 00 MOUTH l DAILY sotalol Yes 80mg QD Take 80 mg Meth james (BETAPACE) 3-[address] 80 MG 12:47: daily. Hospita tablet 48 l warfarin Yes thromboembo 5mg QD Take [address] [facility] (COUMADIN) 1-03 lism due to by mouth [facility] 5 MG tablet 17:36: prosthetic daily. [facility] valves pantoprazol Yes 40mg QD Take [address] [facility] e 1-03 by mouth [facility] (PROTONIX) 17:36: daily. Medic al 40 MG 21 Center tablet buPROPion Yes 150mg QD Take [address] [facility] (WELLBUTRIN 1-03 mg by [facility] XL) 150 MG 17:36: mouth Medica l 24 hr 21 daily. Center tablet sotalol 40 Yes 80mg QD Take [address] MG halftab 1-03 by mouth [facility] half tablet 17:36: daily. Medi olivia 21 Center pantoprazol 2017-11 Yes TK 1 T PO M ethodi e 1-[address] (PROTONIX) 00:00: Hospita 40 MG EC 00 l tablet warfarin Yes 7.5mg QD Take 1 Method i (COUMADIN) 7-[address] 7.5 MG 00:00: (7.5 mg Hospita tablet 00 total) by l mouth daily. proMETHazin 2014-11 Yes 25mg Take 1 Tab Univers e 2-15 by mouth ity of (PHENERGAN) 00:00: every 6 [place] 25 mg 00 (six) Medical tablet hours as Branch needed for Nausea and Vomiting (N/V). proMETHazin 2014-11 Yes 25mg Take 1 Tab Univers e 2-15 by mouth ity of (PHENERGAN) 00:00: every 6 [place] as 25 mg 00 (six) Medical tablet hours as Branch needed for Nausea and Vomiting (N/V). proMETHazin 2014-11 Yes 25mg Take 1 Tab Univers e 2-15 by mouth ity of (PHENERGAN) 00:00: every 6 [place] as 25 mg 00 (six) Medical tablet hours as Branch needed for Nausea and Vomiting (N/V). proMETHazin 2014-11 Yes 25mg Take 1 Tab Univers e 2-15 by mouth ity of (PHENERGAN) 00:00: every 6 [place] as 25 mg 00 (six) Medical tablet hours as Branch needed for Nausea and Vomiting (N/V). proMETHazin 2014-11 Yes 25mg Take 1 Tab Univers e 2-15 by mouth ity of (PHENERGAN) 00:00: every 6 [place] as 25 mg 00 (six) Medical tablet hours as Branch needed for Nausea and Vomiting (N/V). proMETHazin 2014-11 Yes 25mg Take 1 Tab Univers e 2-15 by mouth ity of (PHENERGAN) 00:00: every 6 [place] as 25 mg 00 (six) Medical tablet hours as Branch needed for Nausea and Vomiting (N/V). proMETHazin 2014-11 Yes 25mg Take 1 Tab Univers e 2-15 by mouth ity of (PHENERGAN) 00:00: every 6 [place] as 25 mg 00 (six) Medical tablet hours as Branch needed for Nausea and Vomiting (N/V). proMETHazin 2014-11 Yes 25mg Take 1 Tab Univers e 2-15 by mouth ity of (PHENERGAN) 00:00: every 6 [place] as 25 mg 00 (six) Medical tablet hours as Branch needed for Nausea and Vomiting (N/V). proMETHazin 2014-11 Yes 25mg Take 1 Tab Univers e 2-15 by mouth ity of (PHENERGAN) 00:00: every 6 [place] as 25 mg 00 (six) Medical tablet hours as Branch needed for Nausea and Vomiting (N/V). proMETHazin 2014-11 Yes 25mg Take 1 Tab Univers e 2-15 by mouth ity of (PHENERGAN) 00:00: every 6 [place] as 25 mg 00 (six) Medical tablet hours as Branch needed for Nausea and Vomiting (N/V). proMETHazin 2014-11 Yes 25mg Take 1 Tab Univers e 2-15 by mouth ity of (PHENERGAN) 00:00: every 6 [place] as 25 mg 00 (six) Medical tablet hours as Branch needed for Nausea and Vomiting (N/V). proMETHazin 2014-11 Yes 25mg Take 1 Tab Univers e 2-15 by mouth ity of (PHENERGAN) 00:00: every 6 [place] as 25 mg 00 (six) Medical tablet hours as Branch needed for Nausea and Vomiting (N/V). proMETHazin 2014-11 Yes 25mg Take 1 Tab Univers e 2-15 by mouth ity of (PHENERGAN) 00:00: every 6 [place] as 25 mg 00 (six) Medical tablet hours as Branch needed for Nausea and Vomiting (N/V). proMETHazin 2014-11 Yes 25mg Take 1 Tab Univers e 2-15 by mouth ity of (PHENERGAN) 00:00: every 6 [place] as 25 mg 00 (six) Medical tablet hours as Branch needed for Nausea and Vomiting (N/V). Immunizations Ordered Filled Immunization Date Status Comments [facility] e Immunization Name Name Influenza Virus 2022-08-23 Completed Universit y of Vaccine [facility] IM, 00:00:00 [place] [facility] Preserv and ABX Branch Free 6 MO-64 YRS Influenza Virus 2022-08-23 Completed Universit y of Vaccine [facility] IM, 00:00:00 [place] [facility] Preserv and ABX Branch Free 6 MO-64 YRS Influenza Virus 2022-08-23 Completed Universit y of Vaccine [facility] IM, 00:00:00 [place] Me [facility]ical Preserv and ABX Branch Free 6 MO-64 YRS Influenza Virus 2022-08-23 Completed Universit y of Vaccine [facility] IM, 00:00:00 [place] [facility] Preserv and ABX Branch Free 6 MO-64 YRS Influenza Virus 2022-08-23 Completed Universit y of Vaccine [facility] IM, 00:00:00 [place] [facility] Preserv and ABX Branch Free 6 MO-64 YRS Influenza Virus 2022-08-23 Completed Universit y of Vaccine [facility] IM, 00:00:00 [place] [facility] Preserv and ABX Branch Free 6 MO-64 YRS Influenza Virus 2022-08-23 Completed Universit y of Vaccine [facility] IM, 00:00:00 [place] Me [facility]ical Preserv and ABX Branch Free 6 MO-64 YRS Influenza Virus 2022-08-23 Completed Universit y of Vaccine [facility] IM, 00:00:00 [place] [facility] Preserv and ABX Branch Free 6 MO-64 YRS Influenza Virus 2022-08-23 Completed Universit y of Vaccine [facility] IM, 00:00:00 [place] [facility] Preserv and ABX Branch Free 6 MO-64 YRS Influenza Virus 2022-08-23 Completed Universit y of Vaccine [facility] IM, 00:00:00 [place] [facility] Preserv and ABX Branch Free 6 MO-64 YRS Influenza Virus 2022-08-23 Completed Universit y of Vaccine [facility] IM, 00:00:00 [place] [facility] Preserv and ABX Branch Free 6 MO-64 YRS Influenza Virus 2022-08-23 Completed Universit y of Vaccine [facility] IM, 00:00:00 [place] Me [facility] Preserv and ABX Branch Free 6 MO-64 YRS Influenza Virus 2022-08-23 Completed Universit y of Vaccine Quad IM, 00:00:00 [place] [facility] Preserv and ABX Branch Free 6 MO-64 YRS Vital Signs Vital Name Observation Time Observation Value Comments Source Systolic blood 2022-08-23 18:46:00 128 mm[Hg] Univer sity of pressure [place] [facility] Diastolic blood 2022-08-23 18:46:00 74 mm[Hg] Unive rsity of pressure [facility] Heart rate 2022-08-23 18:46:00 64 /min Universi ty of [facility] Body temperature 2022-08-23 18:46:00 37.22 Jennifer Univ ersity of [place] [facility] Respiratory rate 2022-08-23 18:46:00 18 /min Univ ersity of [facility] Body height 2022-08-23 18:46:00 170.2 cm Universi ty [facility] [place] [facility] Body weight 2022-08-23 18:46:00 93.033 kg [facility]i ty [facility] [place] [facility] BMI 2022-08-23 18:46:00 32.12 kg/m2 Universi ty [facility] [place] [facility] Oxygen saturation in 2022-08-23 18:46:00 96 /min University of Arterial blood by [facility] Pulse oximetry Branch Systolic blood 2022-02-21 19:07:00 112 mm[Hg] Univer sity of pressure [place] [facility] Diastolic blood 2022-02-21 19:07:00 72 mm[Hg] Unive rsity of pressure [place] [facility] Heart rate 2022-02-21 19:07:00 71 /min Universi ty [facility] [place] [facility] Respiratory rate 2022-02-21 19:07:00 19 /min Univ ersity of [facility] Branch Body height 2022-02-21 19:07:00 170.2 cm Universi ty of [place] [facility] Body weight 2022-02-21 19:07:00 92.851 kg Universi ty [facility] [place] [facility] BMI 2022-02-21 19:07:00 32.06 kg/m2 Universi ty of [facility] Branch Oxygen saturation in 2022-02-21 19:07:00 94 /min University Arterial blood by [facility] Pulse oximetry Branch Procedures Procedure Date / Time Performing Clinician Source Performed MEDICATION CORRESPONDENCE 2022-11-21 06:01:00 Doctor Unassigned, [facility] [place] [facility] EXTERNAL PROVIDER - ADC 2022-10-20 06:01:00 Doctor Unassigned, [facility] CARDIOLOGY [place] [facility] FLU VACC ([id number]), 6 2022-08-23 18:52:19 Eleno Dominguez [facility] MO-64 YRS, .5ML, IM, QUAD Medica l Branch (FLUCELVAX) XR Foot Lt 3 View 2020-06-25 00:00:00 [facility] XR Toe(s) Lt Min 2 View 2020-06-25 00:00:00 [facility] Planned Activity Planned Date Details Comments Source Future Scheduled 2022-12-27 COVID-19 VACCINE (#1) [facility] Test 17:05:26 [code = COVID-19 VACCINE (#1)] Future Scheduled 2022-12-27 Screening for [facility] Test 17:05:26 malignant neoplasm of cervix (procedure) [code = 821284856] Future Scheduled 2022-12-27 BREAST CANCER [facility] Test 17:05:26 SCREENING [code = BREAST CANCER SCREENING] Future Scheduled 2022-12-27 COLONOSCOPY SCREENING [facility] Test 17:05:26 [code = COLONOSCOPY SCREENING] Future Scheduled 2022-12-27 SHINGLES VACCINES (1 Met [facility] Test 17:05:26 of 2) [code = SHINGLES VACCINES (1 of 2)] Encounters Start End Encounter Admission Attending Care Care Encounter Source Date/Time Date/Time Type Type Clinicians Facility Department ID 2021-11-30 Outpatient [place], [facility] [id number] Common 13:57:[id number] [facility] 2021-11-30 Outpatient [facility] [id number] Common 13:55:[id number] [facility] 2022-12-26 2022-12-26 Telephone JESUS Dominguez [id number] Univers 00:00:00 00:00:00 Eleno WHARTON [id number] ity [place] [phone] Ut dicid NAL [address] [place] [address] 2022-11-21 2022-11-21 Orders Doctor KAROLINE [id number] Univers 00:00:00 00:00:00 Only Unassigned, ELI 350.1.13.10 ity of [place] [facility] 4.2.7.2.686 [place] as [phone] [address] 2022-10-24 2022-10-24 Telephone [facility] [id number] Univers 00:00:00 00:00:00 Eleno WHARTON [id number] [place] [phone] [address] 2022-10-20 2022-10-20 Orders Doctor KAROLINE [id number] Univers 00:00:00 00:00:00 Only Unassigned, ELI 350.1.13.10 ity of [place] [facility] 4.2.7.2.686 [place] as [phone] [address] 2022-10-18 2022-10-18 Telephone [facility] [id number] Univers 00:00:00 00:00:00 Eleno MENDEZTON 350.1.13.10 it[place] [phone] Ut dicid NAL [address] [place] [address] 2022-09-25 2022-09-25 Patient [facility] [id number] Univers 00:00:00 00:00:00 Secure Msg Eleno [place] [id number] it[place] [phone] Ut dical NAL [address] [place] [address] 2022-09-19 2022-09-19 Outpatient [facility] [id number] Univers 07:50:21 23:59:00 ELENO ramos [facility] 2022-08-23 2022-08-23 [facility] [id number] Univers 13:40:00 14:03:06 Visit Eleno WHARTON 350.1.13.10 it[place] [id number] Ut dical NAL 9 [facility] 2022-08-23 2022-08-23 [facility] [id number] Univers 13:40:00 14:03:06 ELENO ramos [facility] 2022-08-23 2022-08-23 [facility] [id number] Univers 00:00:00 00:00:00 Eleno WHARTON 350.1.13.10 ity of [place] [phone] Ut dical NAL [address] [place] [address] 2022-02-21 2022-02-21 Outpatient R ALBERTO, [facility] [id number] Univers 14:00:00 14:35:02 ELENO cash [facility] 2022-02-21 2022-02-21 Outpatient R ALBERTO, [facility] [id number] Univers 14:00:00 14:35:02 ELENO ramos [facility] 2022-02-21 2022-02-21 Office [facility] [id number] Univers 14:00:00 14:35:02 Visit Eleno DIO 350.1.13.10 it[place] [phone] Ut dical NAL 9 [facility] 2022-02-21 2022-02-21 Orders Doctor RAMEY [id number] Univers 00:00:00 00:00:00 Only Unassigned, ELI 350.1.13.10 ity of [place] [facility] 4.2.7.2.686 [place] [phone] [address] 2022-01-19 2022-01-19 Orders Doctor KAROLINE [id number] Univers 00:00:00 00:00:00 Only Unassigned, ELI 350.1.13.10 ity of [place] [facility] 4.2.7.2.686 [place] [phone] [place] [address] Branch 2020-06-25 2020-06-25 Departed VIKTORIYANathan Richey [id number] 11:30:00 12:29:[address] [facility] 39 J [facility]-EMERGEN l Health SERVICES/BS [facility] 2020-06-25 2020-06-25 Emergency ER Marium, [facility] [id number] 11:30:00 11:30:00 Yoandy [id number] Carlo jose Results Test Description Test Time Test Comments Results Result [facility] e Comments CT, BRAIN, 2018-11-07 Reason for FINAL REPORT PATIENT WITHOUT CONTRAST 10:28:00 exam:->IV now ID: [id number] CT Head therapeutic INR, without contrast needs repeatWhat CLINICAL HISTORY: is the patient's Cerebral hemorrhage, sedation anticoagulated requirement?->No TECHNIQUE: SedationIs the Contiguous axial patient images through the ?->No head without contrast. This exam was performed [...] MDReport Verified Date/Time: 11/07/2018 10:28:21 Reading Location: [facility] C013V Neuro Reading Room C METABOLIC PANEL [...] NOT 1092) ACCURATE CRE ATININE CLEARANCE IN SC EDICTING GLOMERULAR FILT RATION RATE. ESTIMATED GFR IS NOT APPLICABLE FOR DIALYSIS PATIENTS. [id number] 06:17:00 Test Item Value Reference Range Interpretation Comments PARTIAL THROMBOPLASTIN TIME 79.7 seconds 22.5-36.0 H (BEAKER) (test code = 760) While on warfarin.PROTHROMBIN [id number] 06:15:00 Test Item Value Reference Range Interpretation Comments PROTIME (BEAKER) (test code = 22.5 seconds 11.7-14.7 H 759) INR (BEAKER) (test code = 370) 2.0 <=5.9 RECOMMENDED COUMADIN/WARFARIN INR THERAPY RANGESSTANDARD DOSE: 2.0 - 3.0 Includes: PROPHYLAXIS for [...] code = 413) MR, SPINE, LUMBAR, WITHOUT [id number] 03:52:00FINAL REPORT MR Lumbar spine without contrast CLINICAL HISTORY: Lumbar radiculop athy, <6wks, no red flags, no prior management TECHNIQUE: MRI of the lumbar spine utilizing sagittal T1, T2, STIR, axial T1 and T2-weighted sequences. COMPARISON: None FINDINGS:Last well-formed discis desiccated is L5-S1 for the purposes of this report.There is maintenance of the lumbar curvature and alignment. The vertebral body heights are maintained. The lumbar marrow signal is preserved. The conus medullaris terminates at L2 without abnormal signal. Multilevel degenerative changes with facethypertrophy particularly in the lower lumbar spine. Disc desiccation at L5-S1 annular fissure posteriorly. Cystic structure in the bilateral L2-3 neural foramen, right greater than left measuring up to4 mm on the right and 1 mm on the left likely represents a synovial cyst. No significant spinal canal or neural foraminal stenosis. The visualized paraspinal and retroperitoneal soft tissues are grossly unremarkable. Cholelithiasis. IMPRESSION:Mild multilevel degenerative changes as described above with no significant spinal canal or neural foraminal stenosis. Annular fissure at L5-S1. Signed: Mary Noel MDReport Verified Date/Time: 11/07/2018 03:52:32 Reading Location: [facility] C[facility] Transitional Reading Room APTT 2018-11-06 23:05:00 Test Item Value Reference Range Interpretation Comments PARTIAL THROMBOPLASTIN TIME 61.1 seconds 22.5-36.0 H (BEAKER) (test code = 760) [id number] 14:01:00 Test Item Value Reference Range Interpretation Comments PARTIAL THROMBOPLASTIN TIME 65.3 seconds 22.5-36.0 H (BEAKER) (test code = 760) BASIC METABOLIC [id number] 05:40:00 Test Item Value Reference Range Interpretation [...] S NOT APPLICABLE FOR DIALYSIS PATIEN TS. [id number] 05:20:00 Test Item Value Reference Range Interpretation Comments PARTIAL THROMBOPLASTIN TIME 71.9 seconds 22.5-36.0 H (BEAKER) (test code = 760) While on warfarin.PROTHROMBIN [id number] 05:18:00 Test Item Value Reference Range Interpretation Comments PROTIME (BEAKER) (test code = 19.4 seconds 11.7-14.7 H 759) INR (BEAKER) (test code = 370) 1.6 <=5.9 RECOMMENDED COUMADIN/WARFARIN INR THERAPY RANGESSTANDARD DOSE: 2.0 - 3.0 Includes: PROPHYLAXIS for [...] WBC 0-0 (BEAKER) (test code = 413) [id number] 21:15:00 Test Item Value Reference Range Interpretation Comments PARTIAL THROMBOPLASTIN TIME 64.4 seconds 22.5-36.0 H (BEAKER) (test code = 760) [id number] 15:09:00 Test Item Value Reference Range Interpretation Comments PARTIAL THROMBOPLASTIN TIME 70.8 seconds 22.5-36.0 H (BEAKER) (test code = 760) BASIC METABOLIC [id number] 04:25:00 Test Item Value Reference Range Interpretation [...] S NOT APPLICABLE FOR DIALYSIS PATIEN POOJA. [id number] 04:15:00 Test Item Value Reference Range Interpretation Comments PARTIAL THROMBOPLASTIN TIME 82.7 seconds 22.5-36.0 H (BEAKER) (test code = 760) While on warfarin.PROTHROMBIN [id number] 04:14:00 Test Item Value Reference Range Interpretation Comments PROTIME (BEAKER) (test code = 17.3 seconds 11.7-14.7 H 759) INR (BEAKER) (test code = 370) 1.4 <=5.9 RECOMMENDED COUMADIN/WARFARIN INR THERAPY RANGESSTANDARD DOSE: 2.0 - 3.0 Includes: PROPHYLAXIS for [...] WBC 0-0 (BEAKER) (test code = 413) [id number] 17:42:00 Test Item Value Reference Range Interpretation Comments PROTIME (BEAKER) (test code = 16.9 seconds 11.7-14.7 H 759) INR (BEAKER) (test code = 370) 1.3 <=5.9 PARTIAL THROMBOPLASTIN TIME 66.7 seconds 22.5-36.0 H (BEAKER) (test code = 760) RECOMMENDED COUMADIN/WARFARIN INR THERAPY RANGESSTANDARD DOSE: 2.0 - 3.0 Includes: PROPHYLAXIS for venous thrombosis, systemic embolization; TREATMENT for venous thrombosis and/or pulmonary embolus.HIGH RISK: Target INR is 2.5-3.5 for patients with mechanical heart valves.[id number] 11:53:00 Test Item Value Reference Range Interpretation Comments PROTIME (BEAKER) (test code = 15.7 seconds 11.7-14.7 H 759) INR (BEAKER) (test code = 370) 1.2 <=5.9 PARTIAL THROMBOPLASTIN TIME 68.0 seconds 22.5-36.0 H (BEAKER) (test code = 760) RECOMMENDED COUMADIN/WARFARIN INR THERAPY RANGESSTANDARD DOSE: 2.0 - 3.0 Includes: PROPHYLAXIS for [...] WBC 0-0 (BEAKER) (test code = 413) [id number] 06:20:00 Test Item Value Reference Range Interpretation Comments PARTIAL THROMBOPLASTIN TIME 67.1 seconds 22.5-36.0 H (BEAKER) (test code = 760) While on warfarin.PROTHROMBIN [id number] 06:18:00 Test Item Value Reference Range Interpretation Comments PROTIME (BEAKER) (test code = 15.7 seconds 11.7-14.7 H 759) INR (BEAKER) (test code = 370) 1.2 <=5.9 RECOMMENDED COUMADIN/WARFARIN INR THERAPY RANGESSTANDARD DOSE: 2.0 - 3.0 Includes: PROPHYLAXIS for venous thrombosis, systemic embolization; TREATMENT for venous thrombosis and/or pulmonary embolus.HIGH RISK: Target INR is 2.5-3.5 for patients with mechanical heart valves.While on warfarin.RAD, SPINE, LUMBAR, COMPLETE, W/ [id number] 15:41:00Reason for exam:->radiculopathyFINAL REPORT Lumbar spine, seven images HISTORY: Radiculopathy COMPARISON: NoneIMPRESSION:Five lumbar type vertebral bodies. No fracture. No subluxation. No change in alignment onflexion or extension. Soft tissues unremarkable. Minimal degenerative facet changes. Signed: Kenny Centeno MDReport Verified Date/Time: 11/03/2018 15:41:39 Reading Location: [address] TransitionalReading Room [id number] 06:09:00 Test Item Value Reference Range Interpretation Comments PARTIAL THROMBOPLASTIN TIME 52.4 seconds 22.5-36.0 H (BEAKER) (test code = 760) While on warfarin.PROTHROMBIN [id number] 06:08:00 Test Item Value Reference Range Interpretation Comments PROTIME (BEAKER) (test code = 15.3 seconds 11.7-14.7 H 759) INR (BEAKER) (test code = 370) 1.2 <=5.9 RECOMMENDED COUMADIN/WARFARIN INR THERAPY RANGESSTANDARD DOSE: 2.0 - 3.0 Includes: PROPHYLAXIS for [...] WBC 0-0 (BEAKER) (test code = 413) [id number] 07:45:00 Test Item Value Reference Range Interpretation Comments PARTIAL THROMBOPLASTIN TIME 59.0 seconds 22.5-36.0 H (BEAKER) (test code = 760) PROTHROMBIN [id number] 05:05:00 Test Item Value Reference Range Interpretation Comments PROTIME (BEAKER) (test code = 14.1 seconds 11.7-14.7 759) INR (BEAKER) (test code = 370) 1.1 <=5.9 RECOMMENDED COUMADIN/WARFARIN INR THERAPY RANGESSTANDARD DOSE: 2.0 - 3.0 Includes: PROPHYLAXIS for [...] WBC 0-0 (BEAKER) (test code = 413) [id number] 21:44:00 Test Item Value Reference Range Interpretation Comments PARTIAL THROMBOPLASTIN TIME 64.3 seconds 22.5-36.0 H (BEAKER) (test code = 760) [id number] 14:47:00 Test Item Value Reference Range Interpretation Comments POTASSIUM (BEAKER) (test code = 4.2 meq/L 3.5-5.1 379) [id number] 14:47:00 Test Item Value Reference Range Interpretation Comments MAGNESIUM (BEAKER) (test code = 2.3 mg/dL 1.6-2.6 627) [id number] 14:38:00 Test Item Value Reference Range Interpretation Comments PARTIAL THROMBOPLASTIN TIME 60.7 seconds 22.5-36.0 H (BEAKER) (test code = 760) PROTHROMBIN [id number] 14:37:00 Test Item Value Reference Range Interpretation Comments PROTIME (BEAKER) (test code = 14.2 seconds 11.7-14.7 759) INR (BEAKER) (test code = 370) 1.1 <=5.9 RECOMMENDED COUMADIN/WARFARIN INR THERAPY RANGESSTANDARD DOSE: 2.0 - 3.0 Includes: PROPHYLAXIS for venous thrombosis, systemic embolization; TREATMENT for venous thrombosis and/or pulmonary embolus.HIGH RISK: Target INR is 2.5-3.5 for patients with mechanical heart valves.[id number] 06:33:00 Test Item Value Reference Range Interpretation [...] RED BLOOD CELLS 0 /100 WBC 0-0 ([facility]) (test code = 413) POCT-GLUCOSE [id number] 05:45:00 Test Item Value Reference Range Interpretation Comments POC-GLUCOSE METER 119 mg/dL 70-110 H TESTED AT [place] [address] ([facility]) (test code = MADALYN Zhu [facility] 1538) [address] POCT-GLUCOSE [id number] 23:59:00 Test Item Value Reference Range Interpretation Comments POC-GLUCOSE METER 119 mg/dL 70-110 H TESTED AT [place] [address] ([facility]) (test code = [facility] 1538) [id number] 23:27:00 Test Item Value Reference Range Interpretation Comments PARTIAL THROMBOPLASTIN TIME 70.3 seconds 22.5-36.0 H ([facility]) (test code = 760) [id number] 15:59:00 Test Item Value Reference Range Interpretation Comments PARTIAL THROMBOPLASTIN TIME 43.5 seconds 22.5-36.0 H ([facility]) (test code = 760) CT, BRAIN, WITHOUT [id number] 13:33:00FINAL REPORT CT head without contrast 10/31/2018 1:31 PM CLINICAL HISTORY: Cerebral hemorrhage suspected TECHNIQUE: Axial noncontrast CT images through the head were obtained. Thisexamination was performed according to our departmental dose [...] Marin Verified Date/Time: 10/31/2018 13:33:29 Reading Location: [facility] Radiology Reading Room [id number] 04:47:00 Test Item Value Reference Range Interpretation Comments PARTIAL THROMBOPLASTIN TIME 60.3 seconds 22.5-36.0 H (BEAKER) (test code = 760) PROTHROMBIN [id number] 04:45:00 Test Item Value Reference Range Interpretation Comments PROTIME (BEAKER) (test code = 14.5 seconds 11.7-14.7 759) INR (BEAKER) (test code = 370) 1.1 <=5.9 RECOMMENDED COUMADIN/WARFARIN INR THERAPY RANGESSTANDARD DOSE: 2.0 - 3.0 Includes: PROPHYLAXIS for [...] 0-0 (BEAKER) (test code = 413) POCT-GLUCOSE [id number] 00:15:00 Test Item Value Reference Range Interpretation Comments POC-GLUCOSE METER 125 mg/dL 70-[address] [facility] 6720 ([facility]) (test code = MADALYN Zhu [facility] 1538) [address] [place], ANGIOGRAM, [id number] 14:52:00Reason for exam:->IVH, evaluation for cavernomaFINAL REPORT DATE: 10/28/2018 NAME: Yen Ruiz ATTENDING: Juanpablo Mansfield MD GRAIN ELEVATOR CLERK: Beth Hawkins PREOPERATIVE DIAGNOSIS: Intracerebral Hemorrhage and Intraventricular Hemorrhage POSTOPERATIVE DIAGNOSIS: Intracerebral Hemorrhage and Intraventricular Hemorrhage PROCEDURE PERFORMED: Diagnostic Cerebral and Cervical Angiogram ANESTHESIOLOGIST: Guillermina Gomez ANESTHESIA: MAC COMPLICATIONS: None ESTIMATED BLOOD LOSS: Less than 15ml ARTERIAL VESSELS STUDI ED:*Right common carotid artery x 1*Right internal carotid artery x 3*Left vertebral artery x 2*Right external carotid artery x 1*Right common femoral artery x1 MATERIALS EMPLOYED:1. 5 Gabonese short sheath 2. 4 Gabonese Berenstein catheter3. Bentson guidewire4. Terumo 0.035 LT glidewire5. 5 Gabonese Mynx device INDICATIONS:The patient is a 53 year old female with mechanical heart valve on Coumadin who began having headaches that were progressive over the course of the day on 10/25/2018. The patient was evaluated and found to have a right 3 cm lyewgd-skpfobd-bkrmlpijl ICH near the atrium lateral ventricle with extension into the ventricle with intraventricular hemorrhage. There was concern for underlying vascular malformation; therefore, neuro endovascular was consultation for a cerebral angiogram to rule out vascular malformation prior to restarting anticoagulation for her mechanical valve as recommended by cardiology. The indications for the procedure as well as the risks, benefits and alternativesto the procedure were discussed with the patient [...] brought to the angiographic suite and cardiopulmonary monitoringwas placed. The anesthesia team performed light sedation. A timeout was performed. Both groins were prepped and draped in the usual sterile fashion. After administration of 10 mL of 2% lidocaine, a micr opuncture needle was used to perform a single wall puncture of the right common femoral artery, a micropuncture sheath was inserted, and an angled DSA angiogram was performed through the sheath. Once good location of the puncture site was confirmed, a 5 Gabonese short sheath was inserted over a Bentson wire and was maintained on heparinized saline flush throughout the remainder of the procedure. Using coaxial technique, a preflushed 5 Gabonese Terumo glide catheter on constant heparinized saline [...] removed and hemostasis achieved with a 5 Gabonese Mynx device and manual compression. The patient tolerated the procedurewell and was present transported from the images [...] RIGHT INTERNAL CAROTID ARTERY (DSA, PA, LATERAL, MAGN IFIED OBLIQUE x2)Normal distal cervical, petrous, cavernous and supraclinoid internal carotid arterywith physiological filling of the MCA and JOVANA branches. Capillary phase and venous phase are unremarkable. No evidence of AVM, aneurysms or other vascular lesions are seen. -like right P-comm. There is no significant atherosclerosis or stenosis. The venous phase demonstrates patent transverse andsigmoid sinuses. RIGHT EXTERNAL CAROTID ARTERY (DSA, PA, LATERAL CRANIAL X1)There is a normal courseand caliber of the external carotid artery and its branches. There is a well visualized superficial temporal artery, middle meningeal artery, internal maxillary artery, occipital artery and their branch es. There is no evidence of AV fistula, aneurysm or vascular malformations. LEFT VERTEBRAL ARTERY (DSA, PA, LATERAL, MAGNIFIED OBLIQUE X 1)Unremarkable distal cervical and intracranial vertebral arterywith physiological filling of the basilar artery and its distal branches. There is normal filling ofthe ipsilateral PICA, AICAs, SACs and left carpenter's assistant. No significant right CENTER HUMAN RESOURCES MANAGER is seen indicating right Pcom. No aneurysms or other vascular lesions are seen. The capillary phase and venous phase are unremarkable. IMPRESSION1. Normal visualized cerebral and cervical vasculature. FACULTY ATTESTATION: I, Juanpablo Mansfield M.D., was present for the entirety of the procedure. I performed or directly supervised all aspects of the procedure. I performed all critical aspects of the case. I interpreted the images and reported the results. Signed: Juanpablo Mansfield Verified Date/Time: 10/30/2018 14:52:59 Reading Location: [facility] Y018 Neuro Angio Reading Room [id number] 05:08:00 Test Item Value Reference Range Interpretation Comments MAGNESIUM (BEAKER) 2.4 mg/dL 1.6-2.6 Specimen slightly (test code = 627) hemolyzed [id number] 05:08:00 Test Item Value Reference Range Interpretation Comments PHOSPHORUS (BEAKER) 3.6 mg/dL 2.3-4.7 Specimen slightly (test code = 604) hemolyzed BASIC METABOLIC [id number] 05:08:00 Test Item Value Reference Range Interpretation [...] WBC 0-0 (BEAKER) (test code = 413) [id number] 00:59:00 Test Item Value Reference Range Interpretation Comments PROTIME (BEAKER) (test code = 15.0 seconds 11.7-14.7 H 759) INR (BEAKER) (test code = 370) 1.2 <=5.9 PARTIAL THROMBOPLASTIN TIME 58.3 seconds 22.5-36.0 H (BEAKER) (test code = 760) RECOMMENDED COUMADIN/WARFARIN INR THERAPY RANGESSTANDARD DOSE: 2.0 - 3.0 Includes: PROPHYLAXIS for venous thrombosis, systemic embolization; TREATMENT for venous thrombosis and/or pulmonary embolus.HIGH RISK: Target INR is 2.5-3.5 for patients with mechanical heart valves.PROTHROMBIN [id number] 00:57:00 Test Item Value Reference Range Interpretation Comments PROTIME (BEAKER) (test code = 15.0 seconds 11.7-14.7 H 759) INR (BEAKER) (test code = 370) 1.2 <=5.9 RECOMMENDED COUMADIN/WARFARIN INR THERAPY RANGESSTANDARD DOSE: 2.0 - 3.0 Includes: PROPHYLAXIS for venous thrombosis, systemic embolization; TREATMENT for venous thrombosis and/or pulmonary embolus.HIGH RISK: Target INR is 2.5-3.5 for patients with mechanical heart valves.POCT-GLUCOSE [id number] 00:08:00 Test Item Value Reference Range Interpretation Comments POC-GLUCOSE METER 110 mg/dL 70-[address] [facility] 6720 ([facility]) (test code = MADALYN [place] 1538) [address] CT, BRAIN, WITHOUT [id number] 20:14:00FINAL REPORT CT, BRAIN, WITHOUT CONTRAST CLINICAL [...] Orbits are within normal limits. No obstructive paranasalsinus disease. Persistent mucosal thickening of the right maxillary sinus. IMPRESSION: 1. Expected interval occlusion of right temporal and occipital) coronal hematoma with intraventricular extent.2. No new intracranial hemorrhage3. No significant interval change in size of the ventricular system Signed: Ayden Johnson MDRepely Verified Date/Time: 10/29/2018 20:14:11 Reading Location: [address] Neuro Reading Room [id number] 18:47:00 Test Item Value Reference Range Interpretation Comments POTASSIUM (MEME) (test code = 4.2 meq/L 3.5-5.1 379) [id number] 18:47:00 Test Item Value Reference Range Interpretation Comments MAGNESIUM (NIRMALAAKER) (test code = 2.5 mg/dL 1.6-2.6 627) [id number] 18:46:00 Test Item Value Reference Range Interpretation Comments PROTIME (BEAKER) (test code = 14.7 seconds 11.7-14.7 759) INR (BEAKER) (test code = 370) 1.2 <=5.9 PARTIAL THROMBOPLASTIN TIME 51.7 seconds 22.5-36.0 H (BEAKER) (test code = 760) RECOMMENDED COUMADIN/WARFARIN INR THERAPY RANGESSTANDARD DOSE: 2.0 - 3.0 Includes: PROPHYLAXIS for venous thrombosis, systemic embolization; TREATMENT for venous thrombosis and/or pulmonary embolus.HIGH RISK: Target INR is 2.5-3.5 for patients with mechanical heart valves.POCT-GLUCOSE [id number] 18:27:00 Test Item Value Reference Range Interpretation Comments POC-GLUCOSE METER 96 mg/dL 70-110 TESTED AT [place] [address] ([facility]) (test code = [facility] [address] 1538) [id number] 13:05:00 Test Item Value Reference Range Interpretation Comments PROTIME (BEAKER) (test code = 14.6 seconds 11.7-14.7 759) INR (BEAKER) (test code = 370) 1.1 <=5.9 PARTIAL THROMBOPLASTIN TIME 37.4 seconds 22.5-36.0 H (BEAKER) (test code = 760) RECOMMENDED COUMADIN/WARFARIN INR THERAPY RANGESSTANDARD DOSE: 2.0 - 3.0 Includes: PROPHYLAXIS for venous thrombosis, systemic embolization; TREATMENT for venous thrombosis and/or pulmonary embolus.HIGH RISK: Target INR is 2.5-3.5 for patients with mechanical heart valves.POCT-GLUCOSE [id number] 13:02:00 Test Item Value Reference Range Interpretation Comments POC-GLUCOSE METER 113 mg/dL 70-110 H TESTED AT [place] [address] ([facility]) (test code = [facility] 1538) [address] [id number] 07:05:00 Test Item Value Reference Range Interpretation Comments PHOSPHORUS (BEAKER) (test code = 3.0 mg/dL 2.3-4.7 604) [id number] 07:05:00 Test Item Value Reference Range Interpretation Comments MAGNESIUM (BEAKER) (test code = 1.9 mg/dL 1.6-2.6 627) BASIC METABOLIC [id number] 07:05:00 Test Item Value Reference Range Interpretation [...] S NOT APPLICABLE FOR DIALYSIS PATICHARIS PATTON. [id number] 06:57:00 Test Item Value Reference Range Interpretation Comments PARTIAL THROMBOPLASTIN TIME 41.4 seconds 22.5-36.0 H (BEAKER) (test code = 760) CBC W/PLT COUNT & AUTO [id number] 06:37:00 Test Item Value Reference Range Interpretation [...] 0-1 PERCENT (BEAKER) (test code = 2801) [id number] 00:10:00 Test Item Value Reference Range Interpretation Comments PARTIAL THROMBOPLASTIN TIME 26.9 seconds 22.5-36.0 (BEAKER) (test code = 760) Prior to initiating heparinPLATELET [id number] 23:58:00 Test Item Value Reference Range Interpretation Comments PLATELET COUNT (BEAKER) (test 200 K/CU MM 150-450 code = 756) POCT-GLUCOSE [id number] 18:57:00 Test Item Value Reference Range Interpretation Comments POC-GLUCOSE METER 109 mg/dL 70-[address] [facility] 6720 (BEAKER) (test code = [place] 1538) [address] POCT-GLUCOSE [id number] 12:37:00 Test Item Value Reference Range Interpretation Comments POC-GLUCOSE METER 104 mg/dL 70-[address] [facility] 6720 (BEAKER) (test code = MADALYN [place] 1538) [address] CT BRAIN WITHOUT IV CONTRAST - [id number] 11:11:00Reason for exam:- >nausea intracranial bleed and left s-ded weakness newFINAL REPORT CT BRAIN WITHOUT IV CONTRAST - PORTABLE CLINICAL INDICATION: nausea intracranial bleed and left s-ded weakness new COMPARISON: October 27, 2018 TECHNIQUE: Noncontrastaxial CT imaging of the brain and skull. [...] midline shift at the level of the foramenof Monro is stable. Osseous structures are unchanged. IMPRESSION: Stable intracranial appearance when compared to approximately 16 hours prior. Signed: JR Lunsford Robert MDReport Verified Date/Time: 10/28/2018 11:11:15 Reading Location: [facility] Radiology Reading Room Electronically signedby: WHITNEY LUNSFORD on 10/28/2018 11:11 [id number] 06:37:00 Test Item Value Reference Range Interpretation Comments PHOSPHORUS (BEAKER) (test code = 3.6 mg/dL 2.3-4.7 604) [id number] 06:37:00 Test Item Value Reference Range Interpretation Comments MAGNESIUM (BEAKER) (test code = 2.2 mg/dL 1.6-2.6 627) BASIC METABOLIC [id number] 06:37:00 Test Item Value Reference Range Interpretation [...] PATIEN TS. CBC W/PLT COUNT & AUTO [id number] 05:56:00 Test Item Value Reference Range Interpretation [...] PERCENT (BEAKER) (test code = 2801) POCT-GLUCOSE [id number] 00:42:00 Test Item Value Reference Range Interpretation Comments POC-GLUCOSE METER 112 mg/dL 70-[address] [facility] 6720 (BEAKER) (test code = MADALYN [place] 1538) [address] CT, BRAIN, WITHOUT [id number] 00:31:00FINAL REPORT CT, BRAIN, WITHOUT CONTRAST CLINICAL [...] increased size of the ventricular system without srikanth hydrocephalus. Persistent entrapment of the right temporal horn2. No new intracranial hemorrhage.3. Unchanged appearance of right mesial temporal and occipital intraparenchymal hematoma with intraventricular extent Signed: Ayden Johnsoneport Verified Date/Time: 10/28/2018 00:31:49 Reading Lo cation: [facility] B1 C013V Neuro Reading Room POCT-GLUCOSE [id number] 18:01:00 Test Item Value Reference Range Interpretation Comments POC-GLUCOSE METER 104 mg/dL 70-110 TESTED AT [place] [address] ([facility]) (test code = MADALYN Zhu [place] 1538) [address] RAD, CHEST, 1 VIEW, NON [id number] 15:28:00Reason for exam:->okShould this be performed at the bedside?->YesFINAL REPORT HISTORY : ok. Comparison: None Comment: Single portable view of the chest was obtained. The cardiac silhouette size is enlarged. There are findings of pulmonary venouscongestion. Interstitial prominence may represent interstitial edema. No pneumothorax or pleural effusion is seen. There is elevation of the right hemidiaphragm. There is a nonspecific right peritracheal density identified measuring up to 4.9 x 2.4 cm. The findings should be further assessed with a chest CT. There is some nonspecific right basilar airspace disease/consolidation. Signed: Abdulaziz Mccauley Verified Date/Time: 10/27/2018 15:28:09 Reading Location: [facility] C013T Transitional Reading Room POCT-GLUCOSE [id number] 12:39:00 Test Item Value Reference Range Interpretation Comments POC-GLUCOSE METER 172 mg/dL 70-110 H TESTED AT [place] [address] ([facility]) (test code = MADALYN Zhu [facility] 1538) [address] PROTHROMBIN [id number] 09:03:00 Test Item Value Reference Range Interpretation Comments PROTIME ([facility]) (test code = 16.7 seconds 11.7-14.7 H 759) INR ([facility]) (test code = 370) 1.4 <=5.9 RECOMMENDED COUMADIN/WARFARIN INR THERAPY RANGESSTANDARD DOSE: 2.0 - 3.0 Includes: PROPHYLAXIS for venous thrombosis, systemic embolization; TREATMENT for venous thrombosis and/or pulmonary embolus.HIGH RISK: Target INR is 2.5-3.5 for patients with mechanical heart valves.CBC W/PLT COUNT & AUTO [id number] 07:28:00 Test Item Value Reference Range Interpretation [...] PERCENT (BEAKER) (test code = 2801) POCT-GLUCOSE [id number] 07:13:00 Test Item Value Reference Range Interpretation Comments POC-GLUCOSE METER 111 mg/dL 70-[address] [facility] 6720 (BEAKER) (test code = [place]AL[place] 1538) [address] [id number] 04:33:00 Test Item Value Reference Range Interpretation Comments MAGNESIUM (BEAKER) 2.0 mg/dL 1.6-2.6 Specimen slightly (test code = 627) hemolyzed [id number] 04:33:00 Test Item Value Reference Range Interpretation Comments PHOSPHORUS (BEAKER) 3.7 mg/dL 2.3-4.7 Specimen slightly (test code = 604) hemolyzed BASIC METABOLIC [id number] 04:33:00 Test Item Value Reference Range Interpretation [...] S NOT APPLICABLE FOR DIALYSIS PATIEN TS. [id number] 04:14:00 Test Item Value Reference Range Interpretation Comments PROTIME (BEAKER) (test code = 18.2 seconds 11.7-14.7 H 759) INR (BEAKER) (test code = 370) 1.5 <=5.9 PARTIAL THROMBOPLASTIN TIME 32.9 seconds 22.5-36.0 (BEAKER) (test code = 760) RECOMMENDED COUMADIN/WARFARIN INR THERAPY RANGESSTANDARD DOSE: 2.0 - 3.0 Includes: PROPHYLAXIS for venous thrombosis, systemic embolization; TREATMENT for venous thrombosis and/or pulmonary embolus.HIGH RISK: Target INR is 2.5-3.5 for patients with mechanical heart valves.PROTHROMBIN [id number] 04:13:00 Test Item Value Reference Range Interpretation Comments PROTIME (BEAKER) (test code = 18.2 seconds 11.7-14.7 H 759) INR (BEAKER) (test code = 370) 1.5 <=5.9 RECOMMENDED COUMADIN/WARFARIN INR THERAPY RANGESSTANDARD DOSE: 2.0 - 3.0 Includes: PROPHYLAXIS for venous thrombosis, systemic embolization; TREATMENT for venous thrombosis and/or pulmonary embolus.HIGH RISK: Target INR is 2.5-3.5 for patients with mechanical heart valves.POCT-GLUCOSE [id number] 00:17:00 Test Item Value Reference Range Interpretation Comments POC-GLUCOSE METER 126 mg/dL 70-110 H TESTED AT [place] [address] ([employer]) (test code = S[place]NA[place]ASH[place] Aud[place] [facility] 1538) [address] PROTHROMBIN [id number] 19:44:00 Test Item Value Reference Range Interpretation Comments PROTIME (MEME) (test code = 19.9 seconds 11.7-14.7 H 759) INR (BEBRIANNE) (test code = 370) 1.7 <=5.9 RECOMMENDED COUMADIN/WARFARIN INR THERAPY RANGESSTANDARD DOSE: 2.0 - 3.0 Includes: PROPHYLAXIS for venous thrombosis, systemic embolization; TREATMENT for venous thrombosis and/or pulmonary embolus.HIGH RISK: Target INR is 2.5-3.5 for patients with mechanical heart valves.POCT-GLUCOSE [id number] 18:58:00 Test Item Value Reference Range Interpretation Comments POC-GLUCOSE METER 123 mg/dL 70-[address] [facility] 6720 ([employer]) (test code = SAVANNAHASHLEY [place] [facility] 1538) [address] MR, BRAIN, [id number] 16:15:00FINAL REPORT MRI Brain with and without [...] lobes measuring 3.1 cm AP by 3.3 cmtransverse by 3.5 cm craniocaudal there is associated [...] the foramen magnum but maintain a rounded appearance.The orbits, face, and skull base are without worrisome finding. IMPRESSION: 1. Moderate volume righttemporooccipital intraparenchymal hematoma with associated small volume intraventricular and trace subarachnoid hemorrhage. 2. Resultant mild dilation of the right lateral ventricle. 3. Pathologic enhancement within the hematoma core suggesting underlying vascular malformation versus tumor. Advise further evaluation with catheter directed angiography. Signed: Noe Marin Verified Date/Time: 10/26/2018 16:15:27 Reading Location: [address] Neuro Reading Room POCT-GLUCOSE [id number] 12:05:00 Test Item Value Reference Range Interpretation Comments POC-GLUCOSE METER 118 mg/dL 70-110 H TESTED AT [place] [address] ([facility]) (test code = MADALYN [place] [facility] [address] HEMOGLOBIN [id number] 10:34:00 Test Item Value Reference Range Interpretation Comments HEMOGLOBIN A1C (MEME) (test code = 5.2 % 4.3-6.1 368) CT, CTANGIO [id number] 08:29:00FINAL REPORT CTA carotids and brain 10/26/2018 [...] are patent. There is mild thyromegaly, without dominantmass. The visualized skeleton is without worrisome finding. [...] Marin Verified Date/Time: 10/26/2018 08:29:52 Reading Location: [address] Neuro Reading Room CT, CAROTID, [id number] 08:29:00FINAL REPORT CTA carotids and brain 10/26/2018 [...] are patent. There is mild thyromegaly, without dominantmass. The visualized skeleton is without worrisome finding. [...] Marin Verified Date/Time: 10/26/2018 08:29:52 Reading Location: [address] Neuro Reading Room POCT-GLUCOSE [id number] 07:22:00 Test Item Value Reference Range Interpretation Comments POC-GLUCOSE METER 114 mg/dL 70-[address] [facility] 6720 (BEAKER) (test code = [place] 153) [address] LIPID [id number] 06:10:00 Test Item Value Reference Range Interpretation Comments TRIGLYCERIDES (BEAKER) (test code = 210 mg/dL 540) CHOLESTEROL (BEAKER) (test code = 191 mg/dL 631) HDL CHOLESTEROL (BEAKER) (test code 38 mg/dL = 976) LDL CHOLESTEROL CALCULATED (BEAKER) 111 mg/dL (test code = 633) Triglyceride Reference Range: Low Risk <150 Borderline 150-199 High Risk 200- 499 Very High Risk >=500Cholesterol Reference Range: Low Risk <200 Borderline 200-239 High Risk >240HDL Cholesterol Reference Range: Low Risk >=60 High Risk <40LDL Cholesterol Reference Range: Optimal <100 Near Optimal 100-129 Borderline 130-159 High 160-189 Very High >=190 Once on admission and Daily AM afterwardsOnce on admission and Daily AM afterwardsOnce on admission and Daily AM afterwardsOnce on admission and Daily AM afterwards HEPATIC FUNCTION [id number] 06:10:00 Test Item Value Reference Range Interpretation [...] on admission and Daily AM afterwardsCOMPREHENSIVE METABOLIC [id number] 06:10:00 Test Item Value Reference Range Interpretation [...] AM afterwardsOnce on admission and Daily AM [id number] 05:35:00 Test Item Value Reference Range Interpretation Comments PHOSPHORUS (BEAKER) (test code = 3.0 mg/dL 2.3-4.7 604) Once on admission and Daily AM afterwardsOnce on admission and Daily AM [id number] 05:35:00 Test Item Value Reference Range Interpretation Comments MAGNESIUM (BEAKER) (test code = 2.1 mg/dL 1.6-2.6 627) Once on admission and Daily AM afterwardsOnce on admission and Daily AM [id number] 05:14:00 Test Item Value Reference Range Interpretation Comments PARTIAL THROMBOPLASTIN TIME 33.6 seconds 22.5-36.0 (BEBRIANNE) (test code = 760) PROTHROMBIN [id number] 05:13:00 Test Item Value Reference Range Interpretation Comments PROTIME (MEME) (test code = 21.7 seconds 11.7-14.7 H 759) INR (MEME) (test code = 370) 1.9 <=5.9 RECOMMENDED COUMADIN/WARFARIN INR THERAPY RANGESSTANDARD DOSE: 2.0 - 3.0 Includes: PROPHYLAXIS for venous thrombosis, systemic embolization; TREATMENT for venous thrombosis and/or pulmonary embolus.HIGH RISK: Target INR is 2.5-3.5 for patients with mechanical heart valves.[facility] YEN URIZ Dr. Phys: [place] [address] : 1965 Age: 55 SEX:F [phone] Exam Date: 06/25/20 Status: DEP ER Acct: [id number] Loc: [facility] Pt Unit #: [id number] Report #: [id number] CC: Yoandy Causey MD IMAGING SERVICES REPORT Order # Category/Exam [id number] RAD/XR Toe(s) Lt Min 2 View ([id number]): . Res ults LEFT FOURTH TOE: 06/25/20 Post reduction views show considerable improvement in the alignment of the proximal phalanx fracture. There is now little or no angulation. IMPRESSION: Good reduction of the proximal phalanx fracture. POS: HOME Reported By: TEOFILO WU MD Electronically Signed Date/Time: 06/25/20 2251 Technologist: JESSICA Dictated Date/Time: 06/25/20 1613 Transcribed Date/Time: 06/25/20 1621XR Foot Lt 3 View [facility] Pt Name: YEN RUIZ Dr. Phys: [place] [address] : 1965 Age: 55 SEX:F [phone] Exam Date: 06/25/20 Status: DEP ER Acct: [id number] Loc: [facility] Pt Unit #: [id number] Report #: [id number] CC: Yoandy Causey MD IMAGING SERVICES REPORT Order # Category/Exam [id number] RAD/XR Foot Lt 3 View STANDARD ([id number]): . Results LEFT FOOT THREE VIEWS: 06/25/20 A fracture is present through the proximal phalanx of the fourth toe. There is lateral angulation at the distal portion of the fragment. The remainder of the footappeared intact. A large calcaneal spur was noted and there is calcification or ossification at the i nsertion of the Achilles tendon. IMPRESSION: Angulated fracture of the left fourth toe. POS: HOME Reported By: TEOFILO WU MD Electronically Signed Date/Time: 06/25/20 2170 Technologist: JESSICA Dictated Date/Time: 06/25/20 161 Transcribed Date/Time: 06/25/20 0638
[2022-12-27] MEDS ORDERED: MORPHINE 2 MG/ML SYR ONE (18:34)
[2022-12-27] MEDS ORDERED: ONDANSETRON 4 MG/2 ML VIAL ONE (18:34)
[2022-12-27] MEDS ORDERED: FAMOTIDINE 20 MG/2 ML VIAL IV ONE (18:34)
[2022-12-27 19:15] LABS: Absolute Lymphocytes (CBC) 0.9 K/uL (0.7-4.9); Hematocrit 43.2 % (36.0-45.0); Lymphocytes % 5.9 % (15.3-44.8); MCV 86.2 fL (80-100); MPV 8.7 fL (7.6-11.3); RBC Red Blood Cell Count 5.01 M/uL (3.86-4.86)
--- NOTE | 2022-12-27 19:20 | RAD REPORT ---
EXAM DESCRIPTION: Kimberly Single View12/27/2022 7:11 pm CLINICAL HISTORY: ABDOMINAL DISTENTION COMPARISON: 09/09/2020 and 08/28/2018 TECHNIQUE: Portable AP view of the chest. FINDINGS: Elevation of the right hemidiaphragm again noted. The lungs are clear.Mild right basilar a telectasis. No pneumothorax or effusion. The cardiomediastinal contours are unremarkable, again with sequelae of prior coronary artery bypass grafting noted. . No subdiaphragmatic free air. IMPRESSION: No acute cardiopulmonary process. Stable findings.
[2022-12-27 20:09] LABS: Albumin 4.4 g/dL (3.4-5.0); Bilirubin Total 0.8 mg/dL (0.2-1.0); Protein, Total 7.7 g/dL (6.4-8.2)
[2022-12-27 20:41] LABS: Urine Blood Negative (Negative); Urine Glucose Negative (Negative); Urine Protein 2+ (Negative); Urine pH 6.5 (5.0-7.0)
[2022-12-27 20:54] LABS: Urine Bacteria None Seen /HPF (<20); Urine Mucus Slight /HPF (None Seen); Urine RBC None Seen /HPF (None Seen)
--- NOTE | 2022-12-27 21:25 | RAD REPORT ---
EXAM DESCRIPTION: CT - Abdomen Pelvis W Contrast - 12/27/2022 8:42 pm CLINICAL HISTORY: Abdominal distention, constipation. COMPARISON: 04/28/2019 TECHNIQUE: Biphasic, helical CT imaging of the abdomen and pelvis was performed following intravenou s administration of 93 mL Isovue-300. Multiplanar reformats were generated and reviewed. All CT scans are performed using dose optimization technique as appropriate and may include automated exposure control or mA/KV adjustment according to patient size. FINDINGS: No suspicious findings in the lung bases. Elevation of the right hemidiaphragm, with segme ntal right basal atelectasis. The liver demonstrates diffuse parenchymal hypoattenuation, suggesting steatosis. Fluid density 1.4 c entimeter ovoid well-circumscribed cyst within the caudate lobe is stable. Ill-defined focus of hypoa ttenuation posteriorly in segment 6, axial venous image 24/109, stable, and not well characterized. T he spleen and pancreas show no suspicious findings. Mildly hyperdense dependent small focus within th e gallbladder, stable, may represent a small calculus. Symmetric renal function is seen with no hydronephrosis or suspicious renal mass. Nonobstructing left superior pole 7 millimeter calculus, increased in size from 4 millimeter on the prior exam. No dilated bowel loops or bowel wall thickening. Colonic diverticulosis. No free air, free fluid or i nflammatory stranding. No hernia, mass or bulky lymphadenopathy. The urinary bladder is suboptimally distended, limiting evaluation, without suspicious findings. . No suspicious bony findings. IMPRESSION: No acute abnormalities. Nonobstructing left renal superior pole 7 millimeter calculus. Hepatic steatosis. Ill defined focus of hypoattenuation in the right liver lobe posteriorly is stable , although not well evaluated, may represent a small hemangioma. Other incidental findings as above.
[2022-12-27] MEDS ORDERED: MORPHINE 4 MG/ML SYR ONE (21:47)
--- NOTE | 2022-12-27 22:13 | RAD REPORT ---
EXAM DESCRIPTION: US - Abdomen Exam Limited - 12/27/2022 10:05 pm CLINICAL HISTORY: ABD PAIN COMPARISON: Abdomen Pelvis W Contrast dated 12/27/2022 TECHNIQUE: Sonographic grayscale and color flow images of the right upper quadrant were obtained. FINDINGS: The gallbladder demonstrates a single 5 millimeter echogenic shadowing focus along the dep endent wall, not discretely mobile, may represent a small stone or polyp. No pericholecystic fluid or gallbladder wall thickening. The common bile duct is normal measuring 2 mm. The liver demonstrates no findings of intrahepatic biliary dilatation. IMPRESSION: Small calcified focus along the gallbladder wall, possibly an adherent stone or polyp. N o sonographic findings to suggest acute cholecystitis.
--- NOTE | 2022-12-27 23:01 | ER ---
Nurse's Notes [facility] Name: Yen Caballero Age: 57 yrs Sex: Female : 1965 Arrival Date: 12/27/2022 Time: 17:08 Bed 7 Private MD: Diagnosis: Hypokalemia;Abdominal pain, unspecified;Constipation Presentation: 12/27 17:05 Chief complaint: EMS states: tonded out for ABD pain; pt was found on toilet trying to vg1 have a BM. Pt stated constipation x 5 days. Took 2 stool softeners today and a serving of MiraLax. Rates pain 08/14. 17:05 Method Of Arrival: EMS: [facility] vg1 17:05 Coronavirus screen: Vaccine status: Patient reports receiving the 2nd dose of the covid vg1 vaccine. Client denies travel out of the [place] in the last 14 days. Ebola Screen: Patient negative for fever greater than or equal to 101.5 degrees Fahrenheit, and additional compatible Ebola Virus Disease symptoms. Initial Sepsis Screen: Does the patient meet any 2 criteria? No. Patient's initial sepsis screen is negative. Does the patient have a suspected source of infection? No. Patient's initial sepsis screen is negative. Risk Assessment: Do you want to hurt yourself or someone else? Patient reports no desire to harm self or others. Onset of symptoms was December 22, 2022. 17:05 Acuity: MONA 3 vg1 Triage Assessment: 17:14 General: Appears uncomfortable, Behavior is cooperative, crying. Pain: Complains of vg1 pain in right lower quadrant and left lower quadrant Pain currently is 10 out of 10 on a pain scale. Pain began x 5 days. Neuro: Level of Consciousness is awake, alert, obeys commands, Oriented to person, place, time, situation. Respiratory: Airway is patent Respiratory effort is even, unlabored. GI: Abdomen is round distended, Last BM was December 21, 2022. Historical: - Allergies: 17:14 Demerol; vg1 17:14 PENICILLINS; vg1 - Home Meds: 17:19 pantoprazole 40 mg Oral TbEC 1 tab 2 times per day [Active]; rosuvastatin Oral vg1 [Active]; warfarin 7 mg Oral tab once daily [Active]; Wellbutrin 100 mg Oral tab 1 tab daily [Active]; amlodipine oral [Active]; - PMHx: 17:14 Atrial Fib; Back pain; cervial cancer; hemangioma; hemmoragic stroke; 10/25/2018; vg1 Hypertension; Kidney stones; mechanical heart valve; Seizures; TIA; - PSHx: 17:14 AAA repair; Appendectomy; hysterectomy; mechanical valve; vg1 - Immunization history:: Client reports receiving the 2nd dose of the Covid vaccine. - Social history:: Smoking status: Patient denies any tobacco usage or history of. Screenin:19 [facility] ED Fall Risk Assessment (Adult) History of falling in the last 3 months, vg1 including since admission No falls in past 3 months (0 pts) Confusion or Disorientation No (0 pts) Intoxicated or Sedated No (0 pts) Impaired Gait No (0 pts) Mobility Assist Device Used No (0 pt) Altered Elimination No (0 pt) Score/Fall Risk Level 0 - 2 = Low Risk Oriented to surroundings, Maintained a safe environment, Educated pt \\T\\ family on fall prevention, incl call for assistance when getting out of bed, Assessed \\T\\ reinforced patient's understanding of fall precautions. Abuse screen: Denies threats or abuse. Denies injuries from another. Nutritional screening: No deficits noted. Tuberculosis screening: No symptoms or risk factors identified. Assessment: 17:15 Reassessment: pt at bedside commode attempting BM. vg1 18:05 Reassessment: pt had a second BM, stated 'some relief, pain 7/10, provider notified. vg1 18:30 General: Appears in no apparent distress. comfortable, Behavior is calm, cooperative, kc6 appropriate for age. Pain: Complains of pain in left lower quadrant and right lower quadrant. Neuro: Aguirre Agitation-Sedation Scale (RASS): 0 - Alert and Calm Level of Consciousness is awake, alert, obeys commands, Oriented to person, place, time, situation, Appropriate for age. Cardiovascular: Capillary refill < 3 seconds. Respiratory: Airway is patent Trachea midline Respiratory effort is even, unlabored, Respiratory pattern is regular, symmetrical. GI: Abdomen is flat, non-distended, Bowel sounds present X 4 quads. Abd is soft X 4 quads Abdomen is tender to palpation in right lower quadrant and left lower quadrant Reports constipation, Patient currently denies diarrhea, nausea, vomiting. : No signs and/or symptoms were reported regarding the genitourinary system. EENT: No signs and/or symptoms were reported regarding the EENT system. Derm: No signs and/or symptoms reported regarding the dermatologic system. Skin is intact, Skin is pink, warm \\T\\ dry. Musculoskeletal: No signs and/or symptoms reported regarding the musculoskeletal system. Circulation, motion, and sensation intact. Capillary refill < 3 seconds, Range of motion: intact in all extremities. 19:00 Reassessment: Patient appears in no apparent distress at this time. No changes from kc6 previously documented assessment. Patient and/or family updated on plan of care and expected duration. Pain level reassessed. Patient is alert, oriented x 3, equal unlabored respirations, skin warm/dry/pink. 21:47 General: Reports "I just feel a tone of pressure and pain in my lower abdomen. It is tw5 coming back.". 22:30 Reassessment: Patient states feeling better. Patient states symptoms have improved. tw5 General: Reports "I am feeling much better.". Pain: Pain currently is 3 out of 10 on a pain scale. Vital Signs: 17:05 BP 118 / 81; Pulse 69; Resp 18; Temp 97.4(O); Pulse Ox 98% on R/A; vg1 21:47 BP 116 / 77; Pulse 84; Resp 18; Pulse Ox 93% on R/A; Pain 8/10; tw5 22:30 BP 110 / 74; Pulse 81; Resp 18; Pulse Ox 95% on R/A; Pain 3/10; tw5 ED Course: 17:08 Patient arrived in ED. kc6 17:12 Johnny Martinez PA is PHCP. cp 17:12 Johnny Santiago MD is Attending Physician. cp 17:14 Triage completed. vg1 17:14 Arm band placed on. vg1 17:19 Patient has correct armband on for positive identification. Placed in gown. Bed in low vg1 position. Call light in reach. Side rails up X 1. 18:19 Iliana Mccabe, RN is Primary Nurse. kc6 19:07 CBC with Diff Sent. kc6 19:07 CMP Sent. kc6 19:07 Lipase Sent. kc6 19:08 Inserted saline lock: 22 gauge in right wrist, using aseptic technique. Blood collected.kc6 21:37 Attending Physician role handed off by Johnny Santiago MD rn 21:37 Malcom Jenkins MD is Attending Physician. rn 21:47 Pulse ox on. NIBP on. Door closed. Noise minimized. Moved to private room. Warm blanket tw5 given. Verbal reassurance given. 22:44 No provider procedures requiring assistance completed. tw5 23:09 IV discontinued, intact, bleeding controlled, No redness/swelling at site. Pressure tw5 dressing applied. Administered Medications: 19:07 Drug: Pepcid (famotidine) 20 mg Route: IVP; Site: right wrist; kc6 19:27 Follow up: Response: No adverse reaction kc6 19:07 Drug: morphine 2 mg Route: IVP; Infused Over: 4 mins; Site: right wrist; kc6 19:27 Follow up: Response: No adverse reaction; RASS: Alert and Calm (0) kc6 19:08 Drug: Zofran (Ondansetron) 4 mg Route: IVP; Site: right wrist; kc6 19:27 Follow up: Response: No adverse reaction; Nausea is decreased kc6 21:47 Drug: morphine 4 mg Route: IVP; Infused Over: 4 mins; Site: right wrist; tw5 22:30 Follow up: Response: No adverse reaction; Pain is decreased; RASS: Alert and Calm (0) tw5 23:02 Drug: Potassium Effervescent Tablet 50 mEq Route: PO; kd3 23:09 Follow up: Response: No adverse reaction tw5 23:02 Drug: Potassium Effervescent Tablet 25 mEq Route: PO; kd3 23:09 Follow up: Response: No adverse reaction tw5 Medication: 17:21 VIS not applicable for this client. vg1 Outcome: 23:00 Discharge ordered by . cp 23:09 Discharged to home ambulatory. tw5 23:09 Discharged to home with family. 23:09 Condition: stable 23:09 Discharge instructions given to patient, Instructed on discharge instructions, follow up and referral plans. medication usage, Demonstrated understanding of instructions, follow-up care, medications, Prescriptions given X 1. 23:09 Patient left the ED. tw5 Signatures: Malcom Jenkins MD MD rn Page, Corey, PA PA cp Garcia, Victoria, RN RN vg1 Belinda Ventura tw5 Adore Diaz RN RN kd3 Iliana Mccabe RN RN kc6 Corrections: (The following items were deleted from the chart) 17: 17:19 Home Meds: Zoloft Oral; vg1 vg1 18:08 18:05 Reassessment: pt had a second BM, provider notified. vg1 vg1
--- NOTE | 2022-12-27 23:01 | EDPHYS ---
Physician Documentation [facility] Name: Yen Caballero Age: 57 yrs Sex: Female : 1965 Arrival Date: 12/27/2022 Time: 17:08 Bed 7 Private MD: ED Physician Malcom Jenkins HPI: 12/27 17:44 This 57 yrs old Female presents to ER via EMS with complaints of Abdominal Pain, cp Constipation. 17:44 Onset: The symptoms/episode began/occurred today, patient reports last BM was 5 days cp ago. Associated signs and symptoms: Pertinent negatives: blood in stools, fever, vomiting. 17:45 The patient presents with abdominal pain that is diffuse, constipation. The symptoms cp are described as constant. 17:45 Severity of pain: in the emergency department the pain is unchanged despite EMS cp interventions. Historical: - Allergies: 17:14 Demerol; vg1 17:14 PENICILLINS; vg1 - Home Meds: 17:19 pantoprazole 40 mg Oral TbEC 1 tab 2 times per day [Active]; rosuvastatin Oral vg1 [Active]; warfarin 7 mg Oral tab once daily [Active]; Wellbutrin 100 mg Oral tab 1 tab daily [Active]; amlodipine oral [Active]; - PMHx: 17:14 Atrial Fib; Back pain; cervial cancer; hemangioma; hemmoragic stroke; 10/25/2018; vg1 Hypertension; Kidney stones; mechanical heart valve; Seizures; TIA; - PSHx: 17:14 AAA repair; Appendectomy; hysterectomy; mechanical valve; vg1 - Immunization history:: Client reports receiving the 2nd dose of the Covid vaccine. - Social history:: Smoking status: Patient denies any tobacco usage or history of. ROS: 17:50 Constitutional: Negative for body aches, chills, fever, poor PO intake. cp 17:50 Cardiovascular: Negative for chest pain, edema, palpitations. cp 17:50 Eyes: Negative for injury, pain, redness, and discharge. cp 17:50 ENT: Negative for drainage from ear(s), ear pain, sore throat, difficulty swallowing, difficulty handling secretions. 17:50 Respiratory: Negative for cough, shortness of breath, wheezing. 17:50 Abdomen/GI: Positive for abdominal pain, nausea, constipation, Negative for vomiting, diarrhea, black/tarry stool, rectal bleeding. 17:50 Back: Negative for pain at rest, pain with movement. 17:50 : Negative for urinary symptoms. 17:50 Neuro: Negative for altered mental status, headache, weakness. 17:50 All other systems are negative. Exam: 17:55 Constitutional: The patient appears in no acute distress, alert, awake, cp non-diaphoretic, non-toxic, well developed, well nourished, in obvious pain, uncomfortable. 17:55 Head/Face: Normocephalic, atraumatic. cp 17:55 Eyes: Periorbital structures: appear normal, Conjunctiva: normal, no exudate, no injection, Sclera: no appreciated abnormality, Lids and lashes: appear normal, bilaterally. 17:55 ENT: External ear(s): are unremarkable, Nose: is normal, Mouth: Lips: moist, Oral mucosa: pink and intact, moist, Posterior pharynx: is normal, airway is patent, no erythema, no exudate. 17:55 Chest/axilla: Inspection: normal. 17:55 Cardiovascular: Rate: normal, Rhythm: regular. 17:55 Respiratory: the patient does not display signs of respiratory distress, Respirations: normal, no use of accessory muscles, no retractions, labored breathing, is not present, Breath sounds: are clear throughout, no decreased breath sounds, no stridor, no wheezing. 17:55 Abdomen/GI: Inspection: abdomen appears normal, Bowel sounds: active, all quadrants, Palpation: soft, in all quadrants, severe abdominal tenderness, in all quadrants, rebound tenderness, is not appreciated, voluntary guarding, is not appreciated. 17:55 Back: CVA tenderness, is absent. 17:55 Neuro: Orientation: to person, place \T\ time. Mentation: is normal, Motor: moves all fours, strength is normal, Sensation: is normal. 21:13 ECG was reviewed by the Attending Physician. cp Vital Signs: 17:05 BP 118 / 81; Pulse 69; Resp 18; Temp 97.4(O); Pulse Ox 98% on R/A; vg1 21:47 BP 116 / 77; Pulse 84; Resp 18; Pulse Ox 93% on R/A; Pain 8/10; tw5 22:30 BP 110 / 74; Pulse 81; Resp 18; Pulse Ox 95% on R/A; Pain 3/10; tw5 MDM: 17:13 Patient medically screened. 23:00 Data reviewed: vital signs, nurses notes, lab test result(s), EKG, radiologic studies, cp CT scan. 23:00 Consideration of Admission/Observation Escalation of care including cp admission/observation considered. I considered the following discharge prescriptions or medication management in the emergency department Medications were administered in the Emergency Department. See MAR. Counseling: I had a detailed discussion with the patient and/or guardian regarding: the historical points, exam findings, and any diagnostic results supporting the discharge/admit diagnosis, lab results, radiology results, to return to the emergency department if symptoms worsen or persist or if there are any questions or concerns that arise at home. Response to treatment: the patient's symptoms have markedly improved after treatment. Special discussion: Based on the patient's Hx, exam, and Dx evaluation, there is no indication for emergent surgery or inpatient Tx. It is understood by the patient/guardian that if the Sx's persist or worsen they need to return immediately for re-evaluation. ED course: VSS. Pain and nausea improved. Patient observed to have a large bowel movement while in ED. Will discharge to home for continued monitoring. 12/27 17:44 Order name: CBC with Diff 12/27 17:44 Order name: CMP 12/27 17:44 Order name: Lipase 12/27 17:44 Order name: Urine Microscopic Only 12/27 19:17 Order name: CBC with Automated Diff; Complete Time: 20:12 EDMS 12/27 20:12 Interpretation: Normal except: WBC 15.30; RBC 5.01; YULISSA% 86.4; LYM% 5.9; NEUT A 13.2. 12/27 20:13 Order name: Comprehensive Metabolic Panel; Complete Time: 20:48 EDMS 12/27 20:48 Interpretation: Normal except: K 3.0; BUN 23; CRE 1.20; GFR 53. 12/27 17:44 Order name: CT Abd/Pelvis - IV Contrast Only 12/27 17:44 Order name: XRAY Chest (1 view) 12/27 19:21 Order name: RAD; Complete Time: 20:12 EDMS 12/27 20:13 Order name: Lipase; Complete Time: 20:48 EDMS 12/27 20:41 Order name: Urine Dipstick-Ancillary; Complete Time: 20:48 EDMS 12/27 20:54 Order name: Urine Microscopic Only; Complete Time: 21:37 EDMS 12/27 22:52 Interpretation: Reviewed. 12/27 21:26 Order name: CT; Complete Time: 21:37 EDMS 12/27 21:39 Order name: US Abdomen Limited rn 12/27 17:44 Order name: IV Saline Lock; Complete Time: 19:07 12/27 17:44 Order name: Labs collected and sent; Complete Time: 19:07 cp 12/27 17:44 Order name: Urine Dipstick-Ancillary (obtain specimen); Complete Time: 20:47 cp 12/27 20:49 Order name: EKG; Complete Time: 20:49 cp 12/27 20:49 Order name: EKG - Nurse/Tech; Complete Time: 21:09 12/27 22:14 Order name: US; Complete Time: 22:49 EDMS 12/27 22:50 Interpretation: Report reviewed. EC:13 Rate is 80 beats/min. Rhythm is regular. ND interval is normal. QRS interval is normal. cp QT interval is prolonged at 410 msec. Interpreted by me. Reviewed by me. Administered Medications: 19:07 Drug: Pepcid (famotidine) 20 mg Route: IVP; Site: right wrist; kc6 19:27 Follow up: Response: No adverse reaction kc6 19:07 Drug: morphine 2 mg Route: IVP; Infused Over: 4 mins; Site: right wrist; kc6 19:27 Follow up: Response: No adverse reaction; RASS: Alert and Calm (0) kc6 19:08 Drug: Zofran (Ondansetron) 4 mg Route: IVP; Site: right wrist; kc6 19:27 Follow up: Response: No adverse reaction; Nausea is decreased kc6 21:47 Drug: morphine 4 mg Route: IVP; Infused Over: 4 mins; Site: right wrist; tw5 22:30 Follow up: Response: No adverse reaction; Pain is decreased; RASS: Alert and Calm (0) tw5 23:02 Drug: Potassium Effervescent Tablet 50 mEq Route: PO; kd3 23:09 Follow up: Response: No adverse reaction tw5 23:02 Drug: Potassium Effervescent Tablet 25 mEq Route: PO; kd3 23:09 Follow up: Response: No adverse reaction tw5 Disposition: 12/28 00:12 Co-signature as Attending Physician, Malcom Jenkins MD I reviewed the patient's care rn provided by the Advanced Practice Provider and agree with the diagnosis and treatment plan. Disposition Summary: 12/27/22 23:00 Discharge Ordered Location: Home cp Problem: new cp Symptoms: have improved cp Condition: Stable cp Diagnosis - Hypokalemia cp - Abdominal pain, unspecified cp - Constipation cp Followup: cp - With: Private Physician - When: 1 - 2 days - Reason: Worsening of condition Discharge Instructions: - Discharge Summary Sheet cp - Abdominal Pain, Adult cp - Constipation, Adult cp - Potassium Content of Foods cp - Hypokalemia cp Forms: - Medication Reconciliation Form cp - Thank You Letter cp - Antibiotic Education cp - Prescription Opioid Use cp Prescriptions: - Potassium Chloride 10 mEq Oral capsule, extended release - take 2 tablet by ORAL route once daily; 6 tablet; Refills: 0, Product Selection cp Permitted Signatures: Dispatcher [employer] EDMS Malcom Jenkins MD MD rn Page, Corey, PA PA cp Jossy Roque RN RN tera1 Belinda Ventura tw5 Adore Diaz RN RN kd3 Iliana Mccabe RN RN kc6 Corrections: (The following items were deleted from the chart) 12/27 17:19 17:19 Home Meds: Zoloft Oral; vg1 vg1 20:51 17:44 Urine Test ordered. cp tw5
[2022-12-27] MEDS ORDERED: POTASSIUM 25 MEQ EFFERV TAB ONE (23:02)
[2022-12-28 00:58] VITALS: TEMP 97.4
[2022-12-28 01:10] VITALS: BP 110/74; O2SAT 95
--- NOTE | 2022-12-28 16:30 | EKG ---
Test Date: 2022-12-27 Test Time: 21:06:42 Machine Icer: TAD MEASUREMENT RESULTS: Intervals: Rate: 80 WA: 186 QRSD: 100 QT: 410 QTc: 472 [place]: P: 57 WA: 186 QRS: 60 T: 82 INTERPRETIVE STATEMENTS: Normal sinus rhythm Nonspecific T wave abnormality Prolonged QT Abnormal ECG No previous ECG available for comparison Electronically Signed On 12-28-22 16:29:07 BRAND DIRECTOR by Dillon Morton
== END 2022-12-27 23:09 | disposition home or self-care (01) ==
LOC: ER 17:03
DX: K59.00 Constipation, unspecified (principal); E87.6 Hypokalemia; I10 Essential (primary) hypertension; I48.91 Unspecified atrial fibrillation; Z79.01 Long term (current) use of anticoagulants; Z88.0 Allergy status to penicillin; Z88.5 Allergy status to narcotic agent
CPT/HCPCS: 85025; 36415; 83690; 80053; 74177; 71045; 76705; Q9967; J2270; J2405; 81003; 81015; 93005; 96374; 96375; 99284